=== PATIENT | female | born 1955 | race Caucasian/White ===

== ENCOUNTER 2019-08-16 10:45 | Outpatient (RCR) | payer BC, SELFPAY | END 2019-09-04 00:01 | LOC: ONCMED 10:45 | PROVIDERS: Family Provider Family Medicine; Visit Provider Internal Medicine Hematology & Oncology | DX: E87.6 Hypokalemia (principal); C15.5 Malignant neoplasm of lower third of esophagus; E03.9 Hypothyroidism, unspecified; N93.8 Other specified abnormal uterine and vaginal bleeding; D50.9 Iron deficiency anemia, unspecified; Z93.1 Gastrostomy status; Z79.891 Long term (current) use of opiate analgesic; Z92.21 Personal history of antineoplastic chemotherapy; Z92.3 Personal history of irradiation | CPT/HCPCS: 36415; 80053 ×2; 83735 ×2; 85025 ×2; 96365; 96366; 99214; J1642 ×2 ==

== ENCOUNTER 2019-10-04 05:39 | Outpatient (RCR) | payer BC, SELFPAY ==
[2019-09-17] MEDS: sodium chlor 0.9% + KCl 20 mEq 20 MEQ/1,000 ML BAG 500 MEQ IV (10:30)
[2019-09-17 10:51] LABS: Basophils % 0.3 %; Eosinophils # 0.2 10^3/uL (0.0-0.8); Hematocrit 41.4 % (37.0-47.0); Hemoglobin 13.1 g/dL (11.5-15.3); Lymphocytes # 0.7 10^3/uL (0.8-4.8); Lymphocytes % 6.3 %; Mean Corpuscular HGB Conc 31.6 g/dL (30.0-36.0); Mean Corpuscular Hemoglobin 30.4 pg (28.0-34.0); Mean Corpuscular Volume 96.1 fL (81-99); Mean Platelet Volume 10.8 fL (7.4-10.4); Monocytes # 0.7 10^3/uL (0.2-0.9); Monocytes % 5.8 %; Neutrophils # 9.9 10^3/uL (1.8-7.7); Neutrophils % 85.2 %; Nucleated Red Blood Cells % 0 %; Platelet Count 377 10^3/cmm (130-400); Red Blood Count 4.31 10^6/uL (4.1-5.3); Red Cell Distribution Width 13.8 % (12.1-15.1); White Blood Count 11.6 10^3/uL (4.0-10.0)
[2019-09-17 11:06] LABS: Alanine Aminotransferase 8 U/L (0-33); Albumin Level 3.8 g/dL (3.5-5.2); Alkaline Phosphatase 54 IU/L (35-105); Anion Gap 21.6 (5-19); Aspartate Amino Transferase 22 U/L (0-32); Blood Urea Nitrogen 7 mg/dL (8-23); Calcium 10.2 mg/Dl (8.8-10.2); Carbon Dioxide 28 mmol/L (22-29); Chloride 92 mmol/L (98-107); Globulin 3.2 g/dL (1.3-4.6); Glomerular Filtration Rate 124.2 mL/min (90-130); Glucose 132 mg/dL (74-106); Sodium 139 mmol/L (136-145); Total Bilirubin 0.7 mg/dL (0.15-1.2)
[2019-09-17 11:13] LABS: Potassium 2.6 mmol/L (3.5-5.1)
[2019-09-17 11:40] LABS: Magnesium 1.7 mg/dL (1.7-2.3)
--- NOTE | 2019-09-17 15:19 | ONC FU_ITS ---
Dr. Mccormick follow up note Patient: Nerissa Morillo Unit #: [id number]: [id number] Dicatated By: Phyllis Mccormick M.D.Date of Visit:Sep 17, 2019 Onc Med Follow-up/Prog Note History of Present Illness: Mrs. Morillo is a 64-year-old female, who was recently diagnosed with distal esophageal adenocarcinoma. As per patient she did experience progressive dysphagia, about 15 pounds weight loss over the last couple months. She was evaluated with CT scan of chest on 11/30/2018 which showed mid to distal esophageal mass extends over 7.8 cm with near complete obstruction of lumen. No lymphadenopathy or other abnormality seen. She subsequently underwent EGD on 12/01/2018 which showed circumferential esophageal mass extending from 30-35 cm with narrowing of lumen. Multiple biopsies were obtained, and it confirmed adenocarcinoma. Stomach and duodenum showed no abnormality. She was referred to [facility] in [place] where she underwent further workup including repeat EGD on 12/06/2018. It showed a fungating mass lesion at 34 cm from incisors and extending into GE junction. No involvement of gastric mucosa was identified. Multiple fundic gland polyps were noted in stomach, esophageal stent was placed in. Underwent CT PET scan on 12/15/2018 which showed there is increased activity in the distal esophagus corresponding to location of the esophageal stent. Maximum SUV 10.8. Physiological activity typically identified in the gastric fundus appears more intense 9.8 which is of questionable significance. No evidence of metastatic disease. Small focus of abnormal activity in the fundus of uterus with a maximum SUV 6.5 MRI scan of head on 12/11/2018 showed no evidence of metastatic disease but minimal microvascular chronic ischemic changes. Ms Morillo nderwent J-tube insertion on 12/12/2018 and port placement to facilitate chemotherapy. She did develop wound infection around her J-tube requiring surgical intervention and wound care for extended period time. Now healing well, but this postop complication caused delay in her combined chemoradiation for esophageal cancer. She began her first week of combination therapy with carboplatin/paclitaxel and radiation on 03/12/2019. And last dose of chemotherapy was given on 03/26/2019 and after that she developed persistent leukopenia and due to poor performance chemotherapy was held and patient continue with radiation therapy which she finished 04/19/2019. Patient went to see Dr. Taylor in [place] for evaluation for esophagectomy but due to her poor performance status he give her a return appointment on 06/27/2019 to see for performance status improves at that time. Was referred to GI surgery [facility] for second opinion, Seen Dr. Henriquez, medical oncologist who recommended CT PET scan and PFTs and 6 minute walk test earlier Dr. Hayden in [place] for EGD which was done on 07/27/2019, biopsy was obtained As per patient it was positive for malignancy.came for follow-up, complaining of Progressive dysphagia and her G-tube came out on its own for which she has seen Dr. Wiseman and wound is healing well. Patient was very pleased with evaluation in [place] and agreed for the workup recommended there Medications: Acetaminophen Extra Strength 15 mL (of 500 mg/15mL) Liquid Oral PRN, All Day Allergy Childrens 7 mL (of 1 mg/mL) Solution Oral daily, [employer] Eye Lubricant Ointment Ophthalmic PRN, Ondansetron HCl 4 - 8 mg (of 4 mg/5mL) Solution Oral t.i.d. PRN, Potassium Chloride 15 mL (of 20 meq/15ml -10%) Solution Oral daily Allergies: Latex and sulfa. Review of Systems: Constitutional - Appetite is fair but Pt is unable to eat/drink except very small amounts of thin consistency liquids. Weight is stable. No fever, chills, hot flashes, or night sweats. Energy level is poor, ENMT - Positive for sinus congestion/drainage. No mouth sores. Positive for sore throat. Positive for difficulty swallowing, Hematologic/Lymphatic - No abnormal bruising or bleeding, Respiratory - No shortness of breath. Positive for cough. No pleuritic pain or hemoptysis, Cardiovascular - No angina pain. No palpitations, Gastrointestinal - Positive nausea and vomiting. Decreased heartburn and acid reflux. No diarrhea or constipation. No blood in the stool or black stools, Genitourinary (F) - No dysuria or hematuria. Positive for urinary frequency. No urgency or incontinence, Musculoskeletal - No joint or bone pain, Integumentary - Positive for edema in bilateral lower extremities, Neurologic - No headache. Occasional dizziness, Psychiatric - No anxiety, no depression. No insomnia. Vital Signs: Performed on Sep 17, 2019 10:18 Height - 69.50 in Temperature - 97.7 F (LOW) Pulse - 103 /min (HIGH) Respiration - 18 /min BP - 111/75 mm(hg) O2 Sat - 97 % Pain - 6 Fatigue - 5 Performance Status: 2 - Ambulatory/capable of all self-care, unable to perform any work activities. Up and about more than 50% of waking hours. (ECOG) Physical Examination: ENMT - No oral exudates, ulcers, masses, thrush or mucositis. Oropharynx clear. Tongue normal, Respiratory - Lungs are clear to auscultation without rhonchi or wheezing, Cardiovascular - Regular rate and rhythm of heart, Extremities - no edema. Lab/Imaging: Test performed on Sep 17, 2019 10:12 Glucose 132 mg/dL BUN 7 mg/dL Creatinine 0.5 mg/dL Cr Clearance (Est) 134.14 mL/min Sodium 139 mmol/L Potassium 2.6 mmol/L Chloride 92 mmol/L CO2 28 mmol/L Calcium 10.2 mg/dL Protein, Total 7.0 g/dL Albumin 3.8 g/dL Globulin 3.2 g/dL Bilirubin, Total 0.7 mg/dL Alkaline Phosphatase 54 IU/L AST (SGOT) 22 IU/L ALT (SGPT) 8 IU/L WBC 11.6 10 3/uL RBC 4.31 10^6/uL HGB 13.1 g/dL HCT 41.4 % MCV 96.1 fL MCH 30.4 pg MCHC 31.6 g/dL RDW 13.8 % Platelet Count 377 10^3/uL MPV 10.8 fL Neutrophils 9.9 10 3/uL Neutrophil % 85.2 % Lymphocyte % 6.3 % Monocyte % 5.8 % Basophils % 0.3 % Test performed on Sep 17, 2019 10:00 Magnesium 1.7 mg/dL Test performed on Aug 16, 2019 10:45 Anion Gap 16.2 eGFR 224.0 mL/min Lymphocytes 0.4 10 3/uL Monocytes 0.4 10 3/uL Eosinophils 0.2 10 3/uL Basophils 0.0 10 3/uL Eosinophil % 2.0 % Test performed on Apr 16, 2019 09:25 Ferritin 1054.0 ng/ml Iron 87 ug/dL % Iron Saturation 36.8 % Impression: Adenocarcinoma of distal esophagus per EGD and biopsies done on 12/01/2018 CT PET scan done on 12/15/2018 showed localized disease, no evidence of lymphadenopathy or distant metastases Clinical stage T2-3, Nx,M0 Focus of increased uptake in the uterus Dysphagia due to above status post esophageal stenting and now with J-tube MRI head done on 12/11/2018, showed no brain metastases but microvascular ischemic disease Hypothyroidism on supplements Dysfunctional uterine bleeding, CT PET scan showed increased uptake in uterus. Ms Morillo began carboplatin/Taxol and radiation on 03/12/2019. She was found to be iron deficient and received Injectafer o 03/23/19 & 03/30/19. Her last dose of CArboplatin/paclitaxel was on 03/26/19. .Due to progressive leukopenia, she could not receive further chemotherapy but continue with radiation alone which she completed on 04/19/2019 Plan: Discussed with patient regarding her labs white blood count 11.6 Imodium 13.1 crit 41.4 platelets 377,000 CMP within normal limit except Potassium 2.6 and magnesium 1.7 Clinically, patient is doing reasonably well now with progressive dysphagia probably due to local recurrence patient was referred to tertiary care center for evaluation and CT PET scan, PFT and 6 minute walk as preoperative workup was recommended. At this we will schedule her for CT PET scan and PFTs and 6 minute walk and if PET scan shows localized disease then surgical evaluation otherwise systemic chemotherapy with FOLFOX and G-tube placement to maintain nutrition and hydration. In the meantime we'll maintain hydration in clinic on as-needed basis. Patient was also advised to try small meals and more often. As far as hypokalemia is concerned patient was supposed to be on potassium supplement but recently stopped taking her potassium. We will give her 20 mg intravenously over 2 hours along with by mouth dose and then patient was advised to continue regular potassium supplements at home as directed and then patient will return to clinic after CT PET scan for further discussion. As her tumor is HER-2/lucy negative we will also check PDL 1 status Signed By: Phyllis Mccormick M.D. <<Signature on File>>
[2019-09-21] MEDS: sodium chloride 0.9% 500 ML 999 ML IV (08:45)
[2019-09-24] MEDS: sodium chloride 0.9% 500 ML 999 ML IV (13:26)
[2019-09-26] MEDS: sodium chloride 0.9% 500 ML 999 ML IV (13:35)
[2019-09-26 14:03] LABS: Alanine Aminotransferase 7 U/L (0-33); Albumin Level 3.4 g/dL (3.5-5.2); Alkaline Phosphatase 49 IU/L (35-105); Anion Gap 21.2 (5-19); Aspartate Amino Transferase 18 U/L (0-32); Blood Urea Nitrogen 7 mg/dL (8-23); Calcium 9.6 mg/Dl (8.8-10.2); Carbon Dioxide 29 mmol/L (22-29); Chloride 93 mmol/L (98-107); Globulin 3.6 g/dL (1.3-4.6); Glomerular Filtration Rate 160.7 mL/min (90-130); Glucose 107 mg/dL (74-106); Sodium 141 mmol/L (136-145); Total Bilirubin 0.7 mg/dL (0.15-1.2)
[2019-09-26 14:10] LABS: Potassium 2.2 mmol/L (3.5-5.1)
[2019-09-26] MEDS: potassium chloride 20 MEQ in sodium chloride 0.9% 500 ML 250 MEQ IV (14:25)
[2019-09-26] MEDS: potassium chloride oral liq 20 mEq/15 mL UDC PO (14:35)
[2019-09-26 14:42] LABS: Magnesium 1.6 mg/dL (1.7-2.3)
[2019-09-28] MEDS: sodium chloride 0.9% 500 ML 999 ML IV (09:20)
[2019-09-28 10:09] LABS: Miscellaneous Test See Scanned Lab Rpt
[2019-10-01] MEDS: sodium chloride 0.9% 500 ML 999 ML IV (14:13)
--- NOTE | 2019-10-02 10:02 | CT_ITS ---
WS: [id number] CT scan of the chest With IV contrast, CT scan of the abdomen and pelvis with IV contrast. Addition al two-dimensional coronal and sagittal reconstruction was performed. 10/02/2019 Clinical Data: ESOPHAGEAL CANCER Comparison: CT chest abdomen and pelvis, 05/23/2019, CT chest, 11/30/2018. DLP: 1012.[address] scans at [facility] use at least one of these dose optimization techniques: automat ed exposure control; mA and/or kV adjustment per patient size (includes targeted exams where dose is matched to clinical indication); or iterative reconstruction. Findings: Chest: No nodules, masses or effusions are seen. There is a port infusion overlying the right chest with the catheter ending in the superior vena cava. There has been insertion of an artificial esophageal tube connecting the distal esophagus with the stomach. Soft tissue does surround the esophageal tube and this may be from surgery as opposed to residual tumor. The heart size is normal with no pericardial effusion. The pulmonary arterial system and thoracic aorta demonstrate no abnormalities or dilatations. There is no axillary or significant mediastinal adenopathy. No bony metastatic disease is seen. Abdomen/pelvis: The gallbladder is densely packed with stones. The liver, spleen, adrenal glands and pancreas are no rmal. The kidneys show equal bilateral contrast excretion with no cyst or masses. The abdominal aorta is normal in size. No appendicitis or diverticulitis is seen. No abscess, adenopathy, ascites, mass, obstruction or free air is seen. The small bowel and colon are not remarkable. The bladder and uterus are unremarkable. No inguinal hernia is seen. The bones of the lower thorax, lumbar spine, pelvis, and hips are normal. CT/CT chest abd pel w con* Impression: 1. Artificial esophageal tube inserted from the lower esophagus into the fundus of stomach. 2. No evidence of residual esophageal mass or metastatic disease. 3. Gallbladder densely packed with stones.
[2019-10-02] MEDS: iohexol 300 mg/mL 50 mL Btl IV (10:07)
[2019-10-02] MEDS: iodixanol 320 mg/mL 100mL Btl IV (11:35)
[2019-10-03] MEDS: sodium chloride 0.9% 500 ML 999 ML IV (09:00)
[2019-10-03 09:27] LABS: Basophils % 0.4 %; Eosinophils # 0.1 10^3/uL (0.0-0.8); Eosinophils % 0.9 %; Hematocrit 41.2 % (37.0-47.0); Hemoglobin 12.7 g/dL (11.5-15.3); Lymphocytes # 0.7 10^3/uL (0.8-4.8); Lymphocytes % 6.4 %; Mean Corpuscular HGB Conc 30.8 g/dL (30.0-36.0); Mean Corpuscular Hemoglobin 30.7 pg (28.0-34.0); Mean Corpuscular Volume 99.5 fL (81-99); Mean Platelet Volume 11.7 fL (7.4-10.4); Monocytes # 0.7 10^3/uL (0.2-0.9); Monocytes % 6.2 %; Neutrophils # 9.2 10^3/uL (1.8-7.7); Neutrophils % 85.8 %; Nucleated Red Blood Cells % 0 %; Platelet Count 298 10^3/cmm (130-400); Red Blood Count 4.14 10^6/uL (4.1-5.3); Red Cell Distribution Width 15.2 % (12.1-15.1); White Blood Count 10.7 10^3/uL (4.0-10.0)
[2019-10-03 09:43] LABS: Alanine Aminotransferase 10 U/L (0-33); Albumin Level 3.3 g/dL (3.5-5.2); Alkaline Phosphatase 50 IU/L (35-105); Aspartate Amino Transferase 25 U/L (0-32); Blood Urea Nitrogen 12 mg/dL (8-23); Calcium 9.4 mg/dL (8.5-10.5); Carbon Dioxide 37 mmol/L (22-29); Chloride 93 mmol/L (98-107); Globulin 3.6 g/dL (1.3-4.6); Glomerular Filtration Rate 160.7 mL/min (90-130); Glucose 118 mg/dL (74-106); Sodium 146 mmol/L (136-145); Total Bilirubin 0.7 mg/dL (0.15-1.2); Total Protein 6.9 g/dL (6.6-8.7)
[2019-10-03] MEDS: sodium chlor 0.9% + KCl 40 mEq 40 MEQ/1,000 ML BAG 250 MEQ IV (11:10)
--- NOTE | 2019-10-03 15:53 | ONC FU_ITS ---
Dr. Mccormick follow up note Patient: Nerissa Morillo Unit #: [id number]: [id number] Dicatated By: Phyllis Mccormick M.D.Date of Visit:Oct 03, 2019 Onc Med Follow-up/Prog Note History of Present Illness: Mrs. Morillo is a 64-year-old female, who was recently diagnosed with distal esophageal adenocarcinoma. As per patient she did experience progressive dysphagia, about 15 pounds weight loss over the last couple months. She was evaluated with CT scan of chest on 11/30/2018 which showed mid to distal esophageal mass extends over 7.8 cm with near complete obstruction of lumen. No lymphadenopathy or other abnormality seen. She subsequently underwent EGD on 12/01/2018 which showed circumferential esophageal mass extending from 30-35 cm with narrowing of lumen. Multiple biopsies were obtained, and it confirmed adenocarcinoma. Stomach and duodenum showed no abnormality. She was referred to [facility] in [place] where she underwent further workup including repeat EGD on 12/06/2018. It showed a fungating mass lesion at 34 cm from incisors and extending into GE junction. No involvement of gastric mucosa was identified. Multiple fundic gland polyps were noted in stomach, esophageal stent was placed in. Underwent CT PET scan on 12/15/2018 which showed there is increased activity in the distal esophagus corresponding to location of the esophageal stent. Maximum SUV 10.8. Physiological activity typically identified in the gastric fundus appears more intense 9.8 which is of questionable significance. No evidence of metastatic disease. Small focus of abnormal activity in the fundus of uterus with a maximum SUV 6.5 MRI scan of head on 12/11/2018 showed no evidence of metastatic disease but minimal microvascular chronic ischemic changes. Ms Morillo nderwent J-tube insertion on 12/12/2018 and port placement to facilitate chemotherapy. She did develop wound infection around her J-tube requiring surgical intervention and wound care for extended period time. Now healing well, but this postop complication caused delay in her combined chemoradiation for esophageal cancer. She began her first week of combination therapy with carboplatin/paclitaxel and radiation on 03/12/2019. And last dose of chemotherapy was given on 03/26/2019 and after that she developed persistent leukopenia and due to poor performance chemotherapy was held and patient continue with radiation therapy which she finished 04/19/2019. Patient went to see Dr. Taylor in [place] for evaluation for esophagectomy but due to her poor performance status he give her a return appointment on 06/27/2019 to see for performance status improves at that time. Was referred to GI surgery [facility] for second opinion, Seen Dr. Henriquez, medical oncologist who recommended CT PET scan and PFTs and 6 minute walk test earlier Dr. Hayden in [place] for EGD which was done on 07/27/2019, biopsy was obtained As per patient it was positive for malignancy. She was referred to GI surgical oncologist at [facility] where she was evaluated by Dr. henriquez medical oncologist on 09/17/2019 and his recommendations were to get his CT PET scan, PFTs, 6 minute walk test and referred to Dr. Florez for consideration of surgery after workup is done. He also recommended PDL 1 status, which was checked on 09/19/2019 which showed PDL 1 positive expression level, CPS more than 10. CT PET scan was ordered but her insurance refused and asked for CT scan of chest abdomen prior to CT PET scan so patient underwent CT scan of chest abdomen on 10/02/2019 which showed artificial esophageal tube inserted from the lower esophagus into fundus of stomach No evidence of residual esophageal mass or metastatic disease. Gallbladder densely packed with stones. Came for follow-up, complaining of dysphagia, vomiting,' inability to swallow food down to the stomach'her G-tube is already out. Now being managed with IV hydration. Also complaining of epigastric pain off and on for many weeks. . No fever or chills, diarrhea constipation, no jaundice, no mouth sores, no shortness of breath. But generalized weakness and fatigue. She was on potassium supplement but cannot swallow pills or liquid potassium. Medications: Acetaminophen Extra Strength 15 mL (of 500 mg/15mL) Liquid Oral PRN, All Day Allergy Childrens 7 mL (of 1 mg/mL) Solution Oral daily, [employer] Eye Lubricant Ointment Ophthalmic PRN, Ondansetron HCl 4 - 8 mg (of 4 mg/5mL) Solution Oral t.i.d. PRN, Potassium Chloride 15 mL (of 20 meq/15ml -10%) Solution Oral daily Allergies: Latex and sulfa. Review of Systems: Constitutional - Appetite is poor as Pt is unable to eat/drink. Weight is decreasing. No fever, chills, hot flashes, or night sweats. Energy level is poor, ENMT - Positive for sinus congestion/drainage. No mouth sores. Positive for sore throat. Positive for difficulty swallowing, Hematologic/Lymphatic - No abnormal bruising or bleeding, Respiratory - No shortness of breath. Positive for cough. No pleuritic pain or hemoptysis, Cardiovascular - No angina pain. No palpitations, Gastrointestinal - Positive nausea and vomiting. Decreased heartburn and acid reflux. No diarrhea or constipation. No blood in the stool or black stools, Genitourinary (F) - No dysuria or hematuria. Positive for urinary frequency. No urgency or incontinence, Musculoskeletal - No joint or bone pain, Integumentary - Positive for edema in bilateral lower extremities, Neurologic - No headache. Occasional dizziness, Psychiatric - No anxiety, no depression. No insomnia. Vital Signs: Performed on Oct 03, 2019 09:04 Height - 69.50 in Pulse - 71 /min Respiration - 18 /min BP - 101/62 mm(hg) O2 Sat - 95 % (LOW) Pain - 0 Fatigue - 8 Performance Status: 2 - Ambulatory/capable of all self-care, unable to perform any work activities. Up and about more than 50% of waking hours. (ECOG) Physical Examination: Hematologic/Lymphatic - no jaundice, no mouth sores, Respiratory - Lungs are clear to auscultation, Abdomen - soft bowel sounds present no rebound tenderness, Extremities - 1+ edema. Lab/Imaging: Test performed on Sep 17, 2019 10:12 Glucose 132 mg/dL BUN 7 mg/dL Creatinine 0.5 mg/dL Cr Clearance (Est) 134.14 mL/min Sodium 139 mmol/L Potassium 2.6 mmol/L Chloride 92 mmol/L CO2 28 mmol/L Calcium 10.2 mg/dL Protein, Total 7.0 g/dL Albumin 3.8 g/dL Globulin 3.2 g/dL Bilirubin, Total 0.7 mg/dL Alkaline Phosphatase 54 IU/L AST (SGOT) 22 IU/L ALT (SGPT) 8 IU/L WBC 11.6 10 3/uL RBC 4.31 10^6/uL HGB 13.1 g/dL HCT 41.4 % MCV 96.1 fL MCH 30.4 pg MCHC 31.6 g/dL RDW 13.8 % Platelet Count 377 10^3/uL MPV 10.8 fL Neutrophils 9.9 10 3/uL Neutrophil % 85.2 % Lymphocyte % 6.3 % Monocyte % 5.8 % Basophils % 0.3 % Test performed on Sep 17, 2019 10:00 Magnesium 1.7 mg/dL Test performed on Aug 16, 2019 10:45 Anion Gap 16.2 eGFR 224.0 mL/min Lymphocytes 0.4 10 3/uL Monocytes 0.4 10 3/uL Eosinophils 0.2 10 3/uL Basophils 0.0 10 3/uL Eosinophil % 2.0 % Test performed on Apr 16, 2019 09:25 Ferritin 1054.0 ng/ml Iron 87 ug/dL % Iron Saturation 36.8 % Impression: Adenocarcinoma of distal esophagus per EGD and biopsies done on 12/01/2018 CT PET scan done on 12/15/2018 showed localized disease, no evidence of lymphadenopathy or distant metastases Clinical stage T2-3, Nx,M0 Focus of increased uptake in the uterus Dysphagia due to above status post esophageal stenting and now with J-tube MRI head done on 12/11/2018, showed no brain metastases but microvascular ischemic disease Hypothyroidism on supplements Dysfunctional uterine bleeding, CT PET scan showed increased uptake in uterus. Ms Morillo began carboplatin/Taxol and radiation on 03/12/2019. She was found to be iron deficient and received Injectafer o 03/23/19 & 03/30/19. Her last dose of CArboplatin/paclitaxel was on 03/26/19. .Due to progressive leukopenia, she could not receive further chemotherapy but continue with radiation alone which she completed on 04/19/2019 Plan: Discussed with patient regarding her labs white blood count 10.7 hemoglobin 12.7 crit 41.2 platelets 298,000 CMP within normal limit except potassium 2, magnesium normal 2.1 Clinically, patient is doing reasonably well but in moderate distress due to unable to feed herself because of' inability to swallow food down to the stomach', her CT scan of chest showed no residual esophageal mass but esophageal stent, so possibility could be stent clogging or malfunctioning. And nausea vomiting and epigastric pain could be due to gallbladder pathology as patient has gallstones, underlying cholecystitis cannot be ruled out. Discussed with patient at this point we will consider referred to GI for EGD and for evaluation of functioning of esophageal stent or stent removal if not possible J-tube placement and also discuss with surgery regarding gallbladder management. Patient prefer to consult Dr. Florez . In the meantime we will supplement potassium intravenously 40 mEq intravenously over 4 hours and then repeat potassium level in the morning and if needed another k Run. Her tumor expressed PDL 1, e.g. expression score was more than 10. So if needed pembrolizumab can be considered if surgery is delayed due to performance status or any other reasons. We will discuss her case with regarding his opinion about esophagectomy and cholecystectomy upfront now or cholecystectomy and J-tube now or stent removal or replacement. Signed By: Phyllis Mccormick M.D. <<Signature on File>>
[2019-10-04 10:12] LABS: Potassium 2.4 mmol/L (3.5-5.1)
[2019-10-04] MEDS: sodium chlor 0.9% + KCl 40 mEq 40 MEQ/1,000 ML BAG 250 MEQ IV (11:00)
== END 2019-10-05 23:59 | disposition home or self-care (01) ==
LOC: ONCMED 05:39
PROVIDERS: Nurse Practitioner; Family Provider Family Medicine; PCP Family Medicine; Visit Provider Internal Medicine Hematology & Oncology
DX: E86.0 Dehydration (principal); E87.6 Hypokalemia; C15.5 Malignant neoplasm of lower third of esophagus; E03.9 Hypothyroidism, unspecified; N93.8 Other specified abnormal uterine and vaginal bleeding; Y83.8 Other surgical procedures as the cause of abnormal reaction of the patient, or of later complication, without mention of misadventure at the time of the procedure; Y73.1 Therapeutic (nonsurgical) and rehabilitative gastroenterology and urology devices associated with adverse incidents; K94.23 Gastrostomy malfunction; Z92.3 Personal history of irradiation; Z92.21 Personal history of antineoplastic chemotherapy
CPT/HCPCS: 36591; 71260; 74177; 80053; 83735; 84132; 85025; 88341; 88342; 96360; 96361; 96365; 96366; 96367; 99214; J2405; J3475; J3480; J7040; Q9967

== ENCOUNTER 2019-10-04 15:21 | Emergency (ER) | payer BC, SELFPAY ==
[2019-10-04 15:28] VITALS: BP 109/82; PULSE 91; RESP 20; TEMP 36.6; O2SAT 98; BMI 21.5
--- NOTE | 2019-10-04 15:38 | ED_ITS ---
Entered by Brenda Donnelly, acting as scribe for Wojciech Garcia DO Documented by User: Wojciech Garcia DO 10/04/19 18:24 HPI - General Adult General: Chief complaint: General Medical Stated complaint: CA pt-dehydrated Time Seen by Provider: 10/04/19 15:38 History of Present Illness: HPI narrative: 64 yo female was sent here from Dr. Mccormick's office for further evaluation. Pt states that she is having issues keep ing things down. Pt states that she hasn't been able to keep anything down. Pt states that her potassium was critically low, she got a transfusion. Pt states that she had a esophegeal stent and it is not working properly. Pt states that she has to take very small sips. Onset (ago): week(s) Associated symptoms: Reports malaise, nausea and vomiting; Deny chest pain, dyspnea, headache(s), rash or palpitations Review of Systems Const: Reports: change in appetite, fatigue and malaise; Denies: fever, chills or body aches Eyes: Denies: change in vision, blurry vision, blind spots or photophobia ENMT: Denies: throat pain, uvular edema, enlarged tonsils, painful swallowing, mouth pain or swelling of lips/tongue Card: Denies: chest pain, palpitations, irregular heart rhythm, edema, swelling of feet/ankles or lightheadedness Resp: Denies: shortness of breath, productive cough, non-productive cough, wheezing or stridor GI: Reports: nausea and vomiting : Denies: flank pain, difficulty urinating, painful urination, urinary frequency or urinary urgency Musc: Denies: neck pain, back pain, extremity pain, extremity swelling, joint pain, joint swelling, redness, joint warmth, joint stiffness or limited range of motion Skin/Breast: Denies: rash, itching, redness, sensitivity to light or skin pain Neuro: Denies: headache, numbness in extremities, weakness in extremities or changes in sensation Psych: Denies: anxiety, depression, mood swings, panic attacks or sleeping less Endo: Denies: excessive urination, excessive thirst, tired all the time or cold intolerance PFSH ED PFSH: Statuses (acute, chronic, etc) shown below reflect problem list status as previously entered and may not be historically accurate Medical History Esophageal cancer (Acute) History of endometrial biopsy (Acute) Hypothyroidism (Acute) Jejunostomy tube fell out (Inactive) Surgical History History of arthroscopy of left knee (Acute) History of cataract surgery (Acute) History of esophagogastroduodenoscopy (EGD) (Acute ~11/2018) History of jejunostomy tube placement (Resolved) History of umbilical hernia repair (Acute) Family History Other Cancer Hyperlipidemia Hypertension Denies family history of Clotting disorder Anesthesia complication Bleeding disorder Social History Smoking and tobacco status: former smoker Female Reproductive History: Para: 1 Physical Exam Const: COMMON NORMALS: no apparent distress, average body habitus, oriented x3, no limitations, healthy appearing, alert and well nourished HENMT: COMMON NORMALS: oral mucous membranes not moist THROAT: no uvular edema Eye: COMMON NORMALS: PERRL, EOMs intact bilaterally, conjunctivae normal, no scleral icterus, no papilledema, normal visual wall by confrontation and fundi normal bilaterally CONJUNCTIVA: Yes conjunctivae normal PUPIL: Yes PERRL DIRECT OPHTHALMOSCOPY: Yes no papilledema and Yes fundi normal bilaterally Neck/C-Spine: COMMON NORMALS: full ROM, no lymphadenopathy, supple, no meningeal signs, no JVD, thyroid normal and no carotid bruits THYROID: thyroid normal Chest: COMMONS NORMALS: inspection of chest normal and palpation of chest normal Resp: COMMON NORMALS: normal respiratory effort, no retractions, no use of accessory muscles, clear to auscultation bilaterally and percussion normal AUSCULTATION: clear to auscultation bilaterally PERCUSSION: percussion normal Cardio: COMMON NORMALS: no JVD, regular rate, regular rhythm, S1 normal heart sound, S2 normal heart sound, no gallops, no clicks, no murmurs, no rub and peripheral pulses 2+ throughout RATE: regular rate RHYTHM: regular rhythm HEART SOUNDS: S1 normal and S2 normal PERIPHERAL PULSES: pulses 2+ throughout GI: COMMON NORMALS: soft to palpation, non-tender, no hepatosplenomegaly, no masses and no bruits AUSCULTATION: Yes hypoactive bowel sounds PALPATION: Yes soft and Yes no hepatosplenomegaly : COMMON NORMALS: Yes no CVA tenderness and Yes external appearance normal BLADDER/KIDNEY EXAM: Yes no CVA tenderness Back/Pelvis: COMMON NORMALS: no CVA tenderness, thoracic and lumbar spine normal to inspection, no thoracic nor lumbar tenderness, thoraco-lumbar ROM normal and straight leg raise negative bilaterally Extremity: COMMON NORMALS: normal to inspection, full ROM, normal capillary refill, no joint enlargement, no clubbing, cyanosis or edema, no calf tenderness and no pedal edema Neuro: COMMON NORMALS: oriented x3 SENSORIUM/ORIENTATION: Yes alert MENINGEAL SIGNS: Yes no meningeal signs Skin: COMMON NORMALS: no rashes or lesions noted, no wounds, skin turgor normal, no jaundice, no petechiae and no mottling GENERAL SKIN EXAM: no rashes or lesions noted and turgor normal Course Consultations: Consultation #1: contacted [facility] for pts blocked esophageal stent, Dr. Freire requested we transfer pt to that hospital. Transfer line stated that they will contact GI and ENT and call us back. Time: 17:00 Consultation #2: Transfer line contacted back, spoke with Dr. Inman (GI specialist). He is on board with plan of care. Transfer line stated that they will contact ENT now and give us another call back. We will be awaiting their phone call. Time: 17:47 Vital Signs: Vital signs: Vital Signs Temperature 97.9 F 10/04/19 15:28 Pulse Rate 82 10/04/19 21:00 Respiratory Rate 21 H 10/04/19 21:00 Blood Pressure 147/71 10/04/19 21:00 Pulse Oximetry 95 10/04/19 21:00 [facility] - General Adult Lab Data: Labs: Lab Results 10/04/19 10/04/19 10/04/19 Range/Units 16:20 16:20 16:20 WBC 11.3 H (4.0-10.0) 10^3/ uL RBC 3.86 L (4.1-5.3) 10^6/u L Hgb 11.8 (11.5-15.3) g/dL Hct 39.1 (37.0-47.0) % MCV 101.3 H (81-99) fL MCH 30.6 (28.0-34.0) pg MCHC 30.2 (30.0-36.0) g/dL RDW 15.3 H (12.1-15.1) % Plt Count 246 (130-400) 10^3/c mm MPV 11.4 H (7.4-10.4) fL Neut % (Auto) 89.8 % Lymph % (Auto) 3.5 % Nelson % (Auto) 5.2 % Eos % (Auto) 0.6 % Baso % (Auto) 0.4 % Neut # (Auto) 10.1 H (1.8-7.7) 10^3/u L Lymph # (Auto) 0.4 L (0.8-4.8) 10^3/u L Nelson # (Auto) 0.6 (0.2-0.9) 10^3/u L Eos # (Auto) 0.1 (0.0-0.8) 10^3/u L Baso # (Auto) 0.0 (0.0-0.1) 10^3/u L Nucleated RBC % (a uto) 0 % Nucleated RBCs # 0.0 /100WBC Sodium 150 H (136-145) mmol/L Potassium 2.5 L* (3.5-5.1) mmol/L Chloride 102 (98-107) mmol/L Carbon Dioxide 30 H (22-29) mmol/L Anion Gap 20.5 H (5-19) BUN 9 (8-23) mg/dL Creatinine 0.4 L (0.5-0.9) mg/dL GFR Calculation 160.7 H (90-130) mL/min Glucose 99 (74-106) mg/dL Lactate 1.1 (0.5-2.2) mmol/L Calcium 9.1 (8.5-10.5) mg/dL Phosphorus 2.6 (2.5-4.5) mg/dL Magnesium 1.8 (1.7-2.3) mg/dL Total Bilirubin 0.7 (0.15-1.2) mg/dL AST 28 (0-32) U/L ALT 13 (0-33) U/L Alkaline Phosphata se 48 (35-105) IU/L Total Protein 6.4 L (6.6-8.7) g/dL Albumin 3.2 L (3.5-5.2) g/dL Globulin 3.2 (1.3-4.6) g/dL Lipase 6 L (13-60) U/L Discharge Plan Discharge Patient Disposition: Xfer Other Clinical Impression: Chronic hypokalemia Esophageal cancer Qualifiers: Malignant neoplasm of esophagus location: unspecified location Qualified Code(s): C15.9 - Malignant neoplasm of esophagus, unspecified Dysphagia Qualifiers: Dysphagia type: esophageal phase Qualified Code(s): R13.10 - Dysphagia, unspecified Condition: Stable Referrals: Austin Campoverde DO [Primary Care Provider] - Sign Out Sign Out Data: Patient Sign Out occurred on 10/04/19 at 18:09. Patient's care was discussed, and care was transferred from to Corie Snider. Coding Level of Care Code ED Technical Inspector for Chg Fwd Exam Problem Focused Documented by User: Corie Snider 10/04/19 21:58 HPI - General Adult General: Chief complaint: General Medical Stated complaint: CA pt-dehydrated Time Seen by Provider: 10/04/19 15:38 PFSH ED PFSH: Statuses (acute, chronic, etc) shown below reflect problem list status as previously entered and may not be historically accurate Medical History Esophageal cancer (Acute) History of endometrial biopsy (Acute) Hypothyroidism (Acute) Jejunostomy tube fell out (Inactive) Surgical History History of arthroscopy of left knee (Acute) History of cataract surgery (Acute) History of esophagogastroduodenoscopy (EGD) (Acute ~11/2018) History of jejunostomy tube placement (Resolved) History of umbilical hernia repair (Acute) Family History Other Cancer Hyperlipidemia Hypertension Denies family history of Clotting disorder Anesthesia complication Bleeding disorder Social History Smoking and tobacco status: former smoker Course ED course: 2156 -[facility] ambulance services stated they will not take the patient till the morning. I have offered to transfer the patient by air ambulance service but she is refusing. She does not want the extra expense. She is not distress and she seems to be handling her secretions better than before but still occasionally spits up saliva. Despite my recommendation the patient is adamantly refusing transfer by helicopter. Vital Signs: Vital signs: Vital Signs Temperature 97.9 F 10/04/19 15:28 Pulse Rate 82 10/04/19 21:00 Respiratory Rate 21 H 10/04/19 21:00 Blood Pressure 147/71 10/04/19 21:00 Pulse Oximetry 95 10/04/19 21:00 MDM - General Adult MDM Narrative: Medical decision making narrative: 193 -the case was reviewed with [facility] again. The accepting physician is Dr. Peralta and Dr. Inman. I did inform them the patient was spitting up her own saliva but Dr. Smith had given this report to Dr. Kaye and a done the doc to doc. They require no further information and they have given us a bed number. The patient is aware she is being transferred this rate and is stable at this time. Lab Data: Attestation: I reviewed the patient's lab results. Labs: Lab Results 10/04/19 10/04/19 10/04/19 Range/Units 16:20 16:20 16:20 WBC 11.3 H (4.0-10.0) 10^3/ uL RBC 3.86 L (4.1-5.3) 10^6/u L Hgb 11.8 (11.5-15.3) g/dL Hct 39.1 (37.0-47.0) % MCV 101.3 H (81-99) fL MCH 30.6 (28.0-34.0) pg MCHC 30.2 (30.0-36.0) g/dL RDW 15.3 H (12.1-15.1) % Plt Count 246 (130-400) 10^3/c mm MPV 11.4 H (7.4-10.4) fL Neut % (Auto) 89.8 % Lymph % (Auto) 3.5 % Nelson % (Auto) 5.2 % Eos % (Auto) 0.6 % Baso % (Auto) 0.4 % Neut # (Auto) 10.1 H (1.8-7.7) 10^3/u L Lymph # (Auto) 0.4 L (0.8-4.8) 10^3/u L Nelson # (Auto) 0.6 (0.2-0.9) 10^3/u L Eos # (Auto) 0.1 (0.0-0.8) 10^3/u L Baso # (Auto) 0.0 (0.0-0.1) 10^3/u L Nucleated RBC % (a uto) 0 % Nucleated RBCs # 0.0 /100WBC Sodium 150 H (136-145) mmol/L Potassium 2.5 L* (3.5-5.1) mmol/L Chloride 102 (98-107) mmol/L Carbon Dioxide 30 H (22-29) mmol/L Anion Gap 20.5 H (5-19) BUN 9 (8-23) mg/dL Creatinine 0.4 L (0.5-0.9) mg/dL GFR Calculation 160.7 H (90-130) mL/min Glucose 99 (74-106) mg/dL Lactate 1.1 (0.5-2.2) mmol/L Calcium 9.1 (8.5-10.5) mg/dL Phosphorus 2.6 (2.5-4.5) mg/dL Magnesium 1.8 (1.7-2.3) mg/dL Total Bilirubin 0.7 (0.15-1.2) mg/dL AST 28 (0-32) U/L ALT 13 (0-33) U/L Alkaline Phosphata se 48 (35-105) IU/L Total Protein 6.4 L (6.6-8.7) g/dL Albumin 3.2 L (3.5-5.2) g/dL Globulin 3.2 (1.3-4.6) g/dL Lipase 6 L (13-60) U/L Discharge Plan Discharge Patient Disposition: Xfer Other Clinical Impression: Chronic hypokalemia Esophageal cancer Qualifiers: Malignant neoplasm of esophagus location: unspecified location Qualified Code(s): C15.9 - Malignant neoplasm of esophagus, unspecified Dysphagia Qualifiers: Dysphagia type: esophageal phase Qualified Code(s): R13.10 - Dysphagia, unspecified Condition: Stable Referrals: Austin Campoverde DO [Primary Care Provider] - Sign Out Sign Out Data: Patient Sign Out occurred on 10/04/19 at 18:09. Patient's care was discussed, and care was transferred from to [facility]. Coding Level of Care Code ED Technical Inspector for Chg Fwd Exam Problem Focused
[2019-10-04 15:58] VITALS: BP 136/77; PULSE 86; RESP 12; O2SAT 96
--- NOTE | 2019-10-04 15:58 | XR_ITS ---
WS: [id number] Portable AP upright chest, 10/04/2019 Clinical Data: clogged esophageal stent Comparison: None. Findings: No nodules, masses or effusions are seen. The heart is normal. The pulmonary vascularity is not increased. No pneumonia or pneumothorax is seen. The stent extending from the lower esophagus in to the stomach is visible. There is a Port-A-Cath overlying the right chest ending in the superior ve na cava. The aortic arch and descending aorta are tortuous. There are monitor leads on the chest wall . XR/XR chest 1V portable [id number] Impression: 1. Esophageal stent is visible. 2. Atherosclerosis.
[2019-10-04] MEDS: ondansetron 2 mg/ML SDV 2 mL 4 MG IVP (16:19)
[2019-10-04] MEDS: sodium chloride 0.9% 500 ML IV (16:19)
[2019-10-04 16:20] VITALS: RESP 18; O2SAT 96
[2019-10-04] MEDS: morphine 4 mg/mL SDV 1 mL 2 MG IVP (16:20)
[2019-10-04 16:36] LABS: Basophils % 0.4 %; Eosinophils # 0.1 10^3/uL (0.0-0.8); Eosinophils % 0.6 %; Hematocrit 39.1 % (37.0-47.0); Hemoglobin 11.8 g/dL (11.5-15.3); Lymphocytes # 0.4 10^3/uL (0.8-4.8); Lymphocytes % 3.5 %; Mean Corpuscular HGB Conc 30.2 g/dL (30.0-36.0); Mean Corpuscular Hemoglobin 30.6 pg (28.0-34.0); Mean Corpuscular Volume 101.3 fL (81-99); Mean Platelet Volume 11.4 fL (7.4-10.4); Monocytes # 0.6 10^3/uL (0.2-0.9); Monocytes % 5.2 %; Neutrophils # 10.1 10^3/uL (1.8-7.7); Neutrophils % 89.8 %; Nucleated Red Blood Cells % 0 %; Platelet Count 246 10^3/cmm (130-400); Red Blood Count 3.86 10^6/uL (4.1-5.3); Red Cell Distribution Width 15.3 % (12.1-15.1); White Blood Count 11.3 10^3/uL (4.0-10.0)
[2019-10-04 16:46] LABS: Alanine Aminotransferase 13 U/L (0-33); Albumin Level 3.2 g/dL (3.5-5.2); Alkaline Phosphatase 48 IU/L (35-105); Anion Gap 20.5 (5-19); Aspartate Amino Transferase 28 U/L (0-32); Blood Urea Nitrogen 9 mg/dL (8-23); Calcium 9.1 mg/dL (8.5-10.5); Carbon Dioxide 30 mmol/L (22-29); Chloride 102 mmol/L (98-107); Creatinine Clr Calc Pharmacy 148.5118; Globulin 3.2 g/dL (1.3-4.6); Glomerular Filtration Rate 160.7 mL/min (90-130); Glucose 99 mg/dL (74-106); Lipase 6 U/L (13-60); Magnesium 1.8 mg/dL (1.7-2.3); Phosphorus 2.6 mg/dL (2.5-4.5); Sodium 150 mmol/L (136-145); Total Bilirubin 0.7 mg/dL (0.15-1.2); Total Protein 6.4 g/dL (6.6-8.7)
[2019-10-04 16:47] LABS: Lactate (Lactic Acid level) 1.1 mmol/L (0.5-2.2)
[2019-10-04 16:55] LABS: Potassium 2.5 mmol/L (3.5-5.1)
[2019-10-04] MEDS: potassium chloride premix 40 MEQ/100 ML PREMIX 25 MEQ IV (17:04)
[2019-10-04 18:06] VITALS: PULSE 88; RESP 18
[2019-10-04 19:41] VITALS: BP 130/84; PULSE 78; RESP 18; O2SAT 94
--- NOTE | 2019-10-04 19:44 | PC.NURSE ---
Addendum entered by Jw Jacinto 10/04/19 20:23: Patient also unable to keep fluids and food down. Original Note: Introduced self to patient and initiated vital signs. Pt is A&O x 4 and agreeable. Pt states that the reason for the ER visit today is due to dehydration and low potassium. Pt not complaining of pain at present. Reassured patient of needs and will continue to monitor.
--- NOTE | 2019-10-04 20:20 | PC.NURSE ---
Addendum entered by Jw Jacinto 10/04/19 20:26: Report given to Loreto Galindo Note: Report given to : at [facility] / [phone] / room 623-2
[2019-10-04 21:00] VITALS: BP 147/71; PULSE 82; RESP 21; O2SAT 95
[2019-10-04 21:58] LABS: Anion Gap 18.9 (5-19); Blood Urea Nitrogen 8 mg/dL (8-23); Calcium 8.9 mg/dL (8.5-10.5); Carbon Dioxide 30 mmol/L (22-29); Chloride 104 mmol/L (98-107); Creatinine Clr Calc Pharmacy 148.5118; Glomerular Filtration Rate 160.7 mL/min (90-130); Glucose 87 mg/dL (74-106); Osmolality Calculated 305 mOsm/kg (285-295); Potassium 2.9 mmol/L (3.5-5.1); Sodium 150 mmol/L (136-145)
--- NOTE | 2019-10-04 22:45 | PC.NURSE ---
Patient requested for a soda and ice to sip on. Patient informed me that the doctor was not okay with soda earlier but wanted to ask again due to the unknown time of her transfer. I asked Dr. Snider and he said she is to not have water, soda, or ice due to her inability to hold anything down. He was okay with mouth swabs. I spoke with the patient and informed her of what the doctor said and she was not happy with the fact that doesn't want her to have anything by mouth but Dr Smith who had seen her before change of doctors was okay with it. She insisted on drinking her water and ice that she has at bedside, I informed Dr. Snider and he said she can finish what she has at bedside but said she is to have no more.
--- NOTE | 2019-10-05 03:11 | PC.NURSE ---
Assisted patient to bedside commode and back to bed. Patient stated that she was having lower back and abdominal pain, rating at a 5/10. Informed nurse that she would like pain meds.
[2019-10-05 05:05] VITALS: RESP 18
[2019-10-05] MEDS: HYDROmorphone 1 mg/mL INJ 1 mL 0.5 MG IVP (05:05)
[2019-10-05] MEDS: ondansetron 2 mg/ML SDV 2 mL 4 MG IVP (05:37)
[2019-10-05] MEDS: potassium chloride premix 40 MEQ/100 ML PREMIX 25 MEQ IV (05:37)
--- NOTE | 2019-10-05 06:00 | PC.NURSE ---
[facility] called and spoke to this nurse concerning patient transfer status. RN explained that we were awaiting transport, transport could not be here until 0700. Destiny from [facility] explained that patient will need to be at [facility] before noon due to surgery. Call placed to Parvez Galaviz. Instructed that EMS will be here at noon for the patient.
--- NOTE | 2019-11-13 15:48 | ED_ITS ---
HPI - General Adult General: Chief complaint: General Medical Stated complaint: CA pt-dehydrated Time Seen by Provider: 10/04/19 15:38 [facility] ED PFSH: Medical History Esophageal cancer (Acute) History of endometrial biopsy (Acute) Hypothyroidism (Acute) Jejunostomy tube fell out (Inactive) Surgical History History of arthroscopy of left knee (Acute) History of cataract surgery (Acute) History of esophagogastroduodenoscopy (EGD) (Acute ~11/2018) History of jejunostomy tube placement (Resolved) History of umbilical hernia repair (Acute) Family History Other Cancer Hyperlipidemia Hypertension Denies family history of Clotting disorder Anesthesia complication Bleeding disorder Social History Smoking and tobacco status: former smoker Female Reproductive History: Para: 1 Course Vital Signs: Vital signs: Vital Signs Temperature 97.9 F 10/04/19 15:28 Pulse Rate 82 10/04/19 21:00 Respiratory Rate 18 10/05/19 05:05 Blood Pressure 147/71 10/04/19 21:00 Pulse Oximetry 95 10/04/19 21:00 MDM - General Adult Lab Data: Labs: Lab Results 10/04/19 10/04/19 10/04/19 Range/Units 16:20 16:20 16:20 WBC 11.3 H (4.0-10.0) 10^3/ uL RBC 3.86 L (4.1-5.3) 10^6/u L Hgb 11.8 (11.5-15.3) g/dL Hct 39.1 (37.0-47.0) % MCV 101.3 H (81-99) fL MCH 30.6 (28.0-34.0) pg MCHC 30.2 (30.0-36.0) g/dL RDW 15.3 H (12.1-15.1) % Plt Count 246 (130-400) 10^3/c mm MPV 11.4 H (7.4-10.4) fL Neut % (Auto) 89.8 % Lymph % (Auto) 3.5 % Colbert % (Auto) 5.2 % Eos % (Auto) 0.6 % Baso % (Auto) 0.4 % Neut # (Auto) 10.1 H (1.8-7.7) 10^3/u L Lymph # (Auto) 0.4 L (0.8-4.8) 10^3/u L Colbert # (Auto) 0.6 (0.2-0.9) 10^3/u L Eos # (Auto) 0.1 (0.0-0.8) 10^3/u L Baso # (Auto) 0.0 (0.0-0.1) 10^3/u L Nucleated RBC % (a uto) 0 % Nucleated RBCs # 0.0 /100WBC Sodium 150 H (136-145) mmol/L Potassium 2.5 L* (3.5-5.1) mmol/L Chloride 102 (98-107) mmol/L Carbon Dioxide 30 H (22-29) mmol/L Anion Gap 20.5 H (5-19) BUN 9 (8-23) mg/dL Creatinine 0.4 L (0.5-0.9) mg/dL GFR Calculation 160.7 H (90-130) mL/min Glucose 99 (74-106) mg/dL Calculated Osmolal ity (285-295) mOsm/k g Lactate 1.1 (0.5-2.2) mmol/L Calcium 9.1 (8.5-10.5) mg/dL Phosphorus 2.6 (2.5-4.5) mg/dL Magnesium 1.8 (1.7-2.3) mg/dL Total Bilirubin 0.7 (0.15-1.2) mg/dL AST 28 (0-32) U/L ALT 13 (0-33) U/L Alkaline Phosphata se 48 (35-105) IU/L Total Protein 6.4 L (6.6-8.7) g/dL Albumin 3.2 L (3.5-5.2) g/dL Globulin 3.2 (1.3-4.6) g/dL Lipase 6 L (13-60) U/L 10/04/19 Range/Units 21:40 WBC (4.0-10.0) 10^3/ uL RBC (4.1-5.3) 10^6/u L Hgb (11.5-15.3) g/dL Hct (37.0-47.0) % MCV (81-99) fL MCH (28.0-34.0) pg MCHC (30.0-36.0) g/dL RDW (12.1-15.1) % Plt Count (130-400) 10^3/c mm MPV (7.4-10.4) fL Neut % (Auto) % Lymph % (Auto) % Colbert % (Auto) % Eos % (Auto) % Baso % (Auto) % Neut # (Auto) (1.8-7.7) 10^3/u L Lymph # (Auto) (0.8-4.8) 10^3/u L Colbert # (Auto) (0.2-0.9) 10^3/u L Eos # (Auto) (0.0-0.8) 10^3/u L Baso # (Auto) (0.0-0.1) 10^3/u L Nucleated RBC % (a uto) % Nucleated RBCs # /100WBC Sodium 150 H (136-145) mmol/L Potassium 2.9 L (3.5-5.1) mmol/L Chloride 104 (98-107) mmol/L Carbon Dioxide 30 H (22-29) mmol/L Anion Gap 18.9 (5-19) BUN 8 (8-23) mg/dL Creatinine 0.4 L (0.5-0.9) mg/dL GFR Calculation 160.7 H (90-130) mL/min Glucose 87 (74-106) mg/dL Calculated Osmolal ity 305 H (285-295) mOsm/k g Lactate (0.5-2.2) mmol/L Calcium 8.9 (8.5-10.5) mg/dL Phosphorus (2.5-4.5) mg/dL Magnesium (1.7-2.3) mg/dL Total Bilirubin (0.15-1.2) mg/dL AST (0-32) U/L ALT (0-33) U/L Alkaline Phosphata se (35-105) IU/L Total Protein (6.6-8.7) g/dL Albumin (3.5-5.2) g/dL Globulin (1.3-4.6) g/dL Lipase (13-60) U/L Discharge Plan Discharge Patient Disposition: Xfer Other Clinical Impression: Esophageal cancer, Dysphagia, Chronic hypokalemia Condition: Stable Referrals: Austin Campoverde DO [Primary Care Provider] - Discharge Date/Time: 10/05/19 07:15 Sign Out Sign Out Data: Patient Sign Out occurred on 10/04/19 at 18:09. Patient's care was discussed, and care was transferred from to Corie Casper [facility]. Coding Level of Care Code ED [employer] Consultant for Selvin Tan
== END 2019-10-05 07:15 | disposition other institution (70) ==
PROVIDERS: Family Medicine; Emergency Provider Emergency Medicine; Family Provider Family Medicine; PCP Family Medicine
DX: E87.6 Hypokalemia (principal); C15.9 Malignant neoplasm of esophagus, unspecified; R13.19 Other dysphagia; Z87.891 Personal history of nicotine dependence
CPT/HCPCS: 12345; 36415; 71045; 80048; 80053; 83605; 83690; 83735; 84100; 85025; 87040; 96360; 96365; 96366; 96374; 96375; 96376; 99283; 99285; J1170; J2270; J2405; J3480; J7040

== ENCOUNTER 2019-10-16 10:01 | Outpatient (CLI) | payer BC, SELFPAY ==
--- NOTE | 2019-10-16 10:13 | XR_ITS ---
WS: [id number] Chest 2 views, 10/16/2019 Clinical Data: TO ASSESS PATENCY OF ESOPHAGEAL STENT Comparison: Portable chest, 10/04/2019 Findings: The esophageal stent leading from the lower esophagus into the stomach is seen. The pulmonary vascularity is not increased. No pneumonia or pneumothorax is seen. The aortic arch and descending aorta show mild tortuosity. The right internal jugular venous stent ending in the superior vena cava remains the same. No nodules, masses or effusions are seen. The heart is normal. Report was unsigned for reason: Ordering provider was edited. Original Signature date and time was: 10/16/19 1058 MTD XR/XR chest 2V* [id number] Impression: 1. No change in appearance of esophageal stent. 2. Atherosclerosis.
--- NOTE | 2019-10-16 10:13 | XR_ITS ---
WS: [id number] CAROL ANN, 10/16/2019 Clinical Data: TO ASSESS PATENCY OF ESOPHAGEAL STENT Comparison: None. Findings: The esophageal stent demonstrates the distal portion overlying the stomach. There is fecal material in the colon. No evidence of obstruction or abnormal masses are seen. There is minimal calcification in the wall of the abdominal aorta and its distal branches but no aneurysm is seen. Report was unsigned for reason: Ordering provider was edited. Original Signature date and time was: 10/16/19 1058 [facility] XR/XR KUB [id number] Impression: 1. Esophageal stent appears to overlie the stomach. 2. No acute intra-abdominal or pelvic abnormalities are seen.
== END 2019-10-16 10:02 | disposition home or self-care (01) ==
LOC: RAD 10:08
PROVIDERS: Family Provider Family Medicine; PCP Family Medicine; Visit Provider Family Medicine
DX: Z96.89 Presence of other specified functional implants (principal); I70.90 Unspecified atherosclerosis
CPT/HCPCS: 71046; 74018

== ENCOUNTER 2019-11-02 05:39 | Outpatient (RCR) | payer BC, SELFPAY ==
[2019-10-19 10:04] LABS: Basophils # 0.1 10^3/uL (0.0-0.1); Basophils % 0.5 %; Eosinophils # 0.2 10^3/uL (0.0-0.8); Eosinophils % 1.5 %; Hematocrit 36.6 % (37.0-47.0); Hemoglobin 11.5 g/dL (11.5-15.3); Lymphocytes # 0.4 10^3/uL (0.8-4.8); Lymphocytes % 3.9 %; Mean Corpuscular HGB Conc 31.4 g/dL (30.0-36.0); Mean Corpuscular Hemoglobin 29.9 pg (28.0-34.0); Mean Corpuscular Volume 95.1 fL (81-99); Monocytes # 0.5 10^3/uL (0.2-0.9); Monocytes % 4.4 %; Neutrophils # 9.7 10^3/uL (1.8-7.7); Neutrophils % 89.3 %; Nucleated Red Blood Cells % 0 %; Platelet Count 363 10^3/cmm (130-400); Red Blood Count 3.85 10^6/uL (4.1-5.3); Red Cell Distribution Width 16.7 % (12.1-15.1); White Blood Count 10.9 10^3/uL (4.0-10.0)
[2019-10-19 10:26] LABS: Alanine Aminotransferase 8 U/L (0-33); Albumin Level 2.8 g/dL (3.5-5.2); Alkaline Phosphatase 53 IU/L (35-105); Anion Gap 14.4 (5-19); Aspartate Amino Transferase 20 U/L (0-32); Blood Urea Nitrogen 9 mg/dL (8-23); Calcium 9.4 mg/dL (8.5-10.5); Carbon Dioxide 31 mmol/L (22-29); Chloride 95 mmol/L (98-107); Globulin 3.8 g/dL (1.3-4.6); Glomerular Filtration Rate 160.7 mL/min (90-130); Glucose 166 mg/dL (65-115); Potassium 3.4 mmol/L (3.5-5.1); Sodium 137 mmol/L (136-145); Total Bilirubin 0.3 mg/dL (0.15-1.2); Total Protein 6.6 g/dL (6.6-8.7)
--- NOTE | 2019-10-19 13:31 | ONC FU_ITS ---
Dr. Mccormick follow up note Patient: Nerissa Morillo Unit #: [id number]: 1955 Dicatated By: Phyllis Mccormick M.D.Date of Visit:Oct 19, 2019 Onc Med Follow-up/Prog Note History of Present Illness: Mrs. Morillo is a 64-year-old female, who was recently diagnosed with distal esophageal adenocarcinoma. As per patient she did experience progressive dysphagia, about 15 pounds weight loss over the last couple months. She was evaluated with CT scan of chest on 11/30/2018 which showed mid to distal esophageal mass extends over 7.8 cm with near complete obstruction of lumen. No lymphadenopathy or other abnormality seen. She subsequently underwent EGD on 12/01/2018 which showed circumferential esophageal mass extending from 30-35 cm with narrowing of lumen. Multiple biopsies were obtained, and it confirmed adenocarcinoma. Stomach and duodenum showed no abnormality. She was referred to [facility] in [place] where she underwent further workup including repeat EGD on 12/06/2018. It showed a fungating mass lesion at 34 cm from incisors and extending into GE junction. No involvement of gastric mucosa was identified. Multiple fundic gland polyps were noted in stomach, esophageal stent was placed in. Underwent CT PET scan on 12/15/2018 which showed there is increased activity in the distal esophagus corresponding to location of the esophageal stent. Maximum SUV 10.8. Physiological activity typically identified in the gastric fundus appears more intense 9.8 which is of questionable significance. No evidence of metastatic disease. Small focus of abnormal activity in the fundus of uterus with a maximum SUV 6.5 MRI scan of head on 12/11/2018 showed no evidence of metastatic disease but minimal microvascular chronic ischemic changes. Ms Morillo nderwent J-tube insertion on 12/12/2018 and port placement to facilitate chemotherapy. She did develop wound infection around her J-tube requiring surgical intervention and wound care for extended period time. Now healing well, but this postop complication caused delay in her combined chemoradiation for esophageal cancer. She began her first week of combination therapy with carboplatin/paclitaxel and radiation on 03/12/2019. And last dose of chemotherapy was given on 03/26/2019 and after that she developed persistent leukopenia and due to poor performance chemotherapy was held and patient continue with radiation therapy which she finished 04/19/2019. Patient went to see Dr. Taylor in [place] for evaluation for esophagectomy but due to her poor performance status he give her a return appointment on 06/27/2019 to see for performance status improves at that time. Was referred to GI surgery [facility] for second opinion, Seen Dr. Henriquez, medical oncologist who recommended CT PET scan and PFTs and 6 minute walk test earlier Dr. Hayden in [place] for EGD which was done on 07/27/2019, biopsy was obtained As per patient it was positive for malignancy. She was referred to GI surgical oncologist at [facility] where she was evaluated by Dr. henriquez medical oncologist on 09/17/2019 and his recommendations were to get his CT PET scan, PFTs, 6 minute walk test and referred to Dr. Florez for consideration of surgery after workup is done. He also recommended PDL 1 status, which was checked on 09/19/2019 which showed PDL 1 positive expression level, CPS more than 10. CT PET scan was ordered but her insurance refused and asked for CT scan of chest abdomen prior to CT PET scan so patient underwent CT scan of chest abdomen on 10/02/2019 which showed artificial esophageal tube inserted from the lower esophagus into fundus of stomach No evidence of residual esophageal mass or metastatic disease. Gallbladder densely packed with stones. Patient was admitted to hospital with abdominal pain nausea vomiting and then transferred to [facility] on 10/06/2019 which she underwent EGD which showed occluded/stenosis esophageal stent and evidence of recurrence of disease. And stent could not be removed due to tumor growth so fully covered stent was placed in. Stomach and duodenal was normal. Thoracic surgery was consulted but due to patient's poor nutrition status and deconditioning surgery was not considered. And immunotherapy was recommended. Came for follow-up, denies any specific complaint except generalized weakness and fatigue and mild to moderate lower extremity edema. No fever or chills, no nausea or vomiting, no diarrhea constipation, tolerating orally better but has to be careful, now eating smaller meals but more often. Medications: Acetaminophen Extra Strength 15 mL (of 500 mg/15mL) Liquid Oral PRN, All Day Allergy Childrens 7 mL (of 1 mg/mL) Solution Oral daily, [employer] Eye Lubricant Ointment Ophthalmic PRN, Ondansetron HCl 4 - 8 mg (of 4 mg/5mL) Solution Oral t.i.d. PRN, Potassium Chloride 15 mL (of 20 meq/15ml -10%) Solution Oral daily Allergies: Latex and sulfa. Review of Systems: Constitutional - Appetite is poor. Weight is decreasing. No fever, chills, hot flashes, or night sweats. Energy level is poor, ENMT - Positive for sinus congestion/drainage. No mouth sores. Positive for sore throat. Positive for difficulty swallowing, Hematologic/Lymphatic - No abnormal bruising or bleeding, Respiratory - No shortness of breath. Positive for cough. No pleuritic pain or hemoptysis, Cardiovascular - No angina pain. No palpitations, Gastrointestinal - Positive nausea and vomiting. No heartburn and acid reflux. No diarrhea or constipation. No blood in the stool or black stools, Genitourinary (F) - No dysuria or hematuria. Positive for urinary frequency. No urgency or incontinence, Musculoskeletal - No joint or bone pain, Integumentary - Positive for edema in bilateral lower extremities, Neurologic - No headache. Occasional dizziness, Psychiatric - No anxiety, no depression. No insomnia. Vital Signs: Performed on Oct 19, 2019 09:08 Height - 69.50 in Weight - 145.6 lbs (LOW) BSA - 1.81 sq.m BMI - 21.19 Temperature - 97.3 F (LOW) Pulse - 117 /min (HIGH) Respiration - 22 /min BP - 135/78 mm(hg) O2 Sat - 98 % Pain - 5 Performance Status: 2 - Ambulatory/capable of all self-care, unable to perform any work activities. Up and about more than 50% of waking hours. (ECOG) Physical Examination: ENMT - No oral exudates, ulcers, masses, thrush or mucositis. Oropharynx clear. Tongue normal, Respiratory - Lungs are clear to auscultation without rhonchi or wheezing, Cardiovascular - Regular rate and rhythm of heart, Abdomen - Non-tender, non-distended, Good bowel sounds. No guarding or rebound tenderness. No pulsatile masses, Extremities - 2+ edema bilaterally. Lab/Imaging: Test performed on Oct 04, 2019 09:40 Potassium 2.4 mmol/L Test performed on Oct 03, 2019 08:50 Magnesium 2.0 mg/dL Sodium 146 mmol/L Chloride 93 mmol/L CO2 37 mmol/L Anion Gap 18.0 BUN 12 mg/dL Creatinine 0.4 mg/dL Cr Clearance (Est) 167.6800 mL/min eGFR 160.7 mL/min Glucose 118 mg/dL Calcium 9.4 mg/dL Protein, Total 6.9 g/dL Albumin 3.3 g/dL Globulin 3.6 g/dL Bilirubin, Total 0.7 mg/dL ALT (SGPT) 10 U/L AST (SGOT) 25 U/L Alkaline Phosphatase 50 IU/L WBC 10.7 10 3/uL RBC 4.14 10 6/uL HGB 12.7 g/dL HCT 41.2 % MCV 99.5 fL MCH 30.7 pg MCHC 30.8 g/dL RDW 15.2 % Platelet Count 298 10 3/cmm MPV 11.7 fL Neutrophils 9.2 10 3/uL Lymphocytes 0.7 10 3/uL Monocytes 0.7 10 3/uL Eosinophils 0.1 10 3/uL Basophils 0.0 10 3/uL Neutrophil % 85.8 % Lymphocyte % 6.4 % Monocyte % 6.2 % Eosinophil % 0.9 % Basophils % 0.4 % Impression: Adenocarcinoma of distal esophagus per EGD and biopsies done on 12/01/2018 CT PET scan done on 12/15/2018 showed localized disease, no evidence of lymphadenopathy or distant metastases Clinical stage T2-3, Nx,M0 Focus of increased uptake in the uterus Dysphagia due to above status post esophageal stenting and now with J-tube MRI head done on 12/11/2018, showed no brain metastases but microvascular ischemic disease Hypothyroidism on supplements Dysfunctional uterine bleeding, CT PET scan showed increased uptake in uterus. Ms Morillo began carboplatin/Taxol and radiation on 03/12/2019. She was found to be iron deficient and received Injectafer o 03/23/19 & 03/30/19. Her last dose of CArboplatin/paclitaxel was on 03/26/19. .Due to progressive leukopenia, she could not receive further chemotherapy but continue with radiation alone which she completed on 04/19/2019 Plan: Discussed with patient regarding her labs white blood count 10.9 hemoglobin 11.5 crit 36.6 platelets 363,000 CMP within normal limit except glucose 166 and potassium 3.4 Clinically, patient is doing reasonably well, now nausea vomiting has resolved with esophageal stent placement. Patient recently underwent EGD which showed local recurrence but she was not a candidate for surgery because of poor nutrition status and deconditioning, at this point we will consider improving her nutritional status and she was also advised to do some gentle exercises. And monitor her albumin level. And at this point we'll consider CT PET scan to assess disease status as recently done CT scan of chest did not show any abnormality in esophageal area but EGD showed extensive disease. And we will see her back after CT PET scan done and discuss with her regarding systemic therapy with immunotherapy plus minus chemotherapy. Patient will return to clinic after CT PET scan is done and for further discussion Mild hypokalemia patient will continue take oral potassium supplement and will follow with labs. Signed By: Phyllis Mccormick M.D. <<Signature on File>>
[2019-11-01 11:41] LABS: Basophils % 0.4 %; Eosinophils # 0.1 10^3/uL (0.0-0.8); Eosinophils % 1.3 %; Hematocrit 35.2 % (37.0-47.0); Hemoglobin 10.9 g/dL (11.5-15.3); Lymphocytes # 0.4 10^3/uL (0.8-4.8); Mean Corpuscular Hemoglobin 31.1 pg (28.0-34.0); Mean Corpuscular Volume 100.3 fL (81-99); Monocytes # 0.4 10^3/uL (0.2-0.9); Monocytes % 5.4 %; Neutrophils # 6.7 10^3/uL (1.8-7.7); Neutrophils % 87.5 %; Nucleated Red Blood Cells % 0 %; Platelet Count 366 10^3/cmm (130-400); Red Blood Count 3.51 10^6/uL (4.1-5.3); Red Cell Distribution Width 17.8 % (12.1-15.1); White Blood Count 7.7 10^3/uL (4.0-10.0)
[2019-11-01 12:54] LABS: Alanine Aminotransferase 8 U/L (0-33); Albumin Level 2.9 g/dL (3.5-5.2); Alkaline Phosphatase 46 IU/L (35-105); Anion Gap 15.7 (5-19); Blood Urea Nitrogen 8 mg/dL (8-23); Calcium 9.6 mg/dL (8.5-10.5); Carbon Dioxide 33 mmol/L (22-29); Chloride 93 mmol/L (98-107); Globulin 3.7 g/dL (1.3-4.6); Glucose 98 mg/dL (65-115); Potassium 3.7 mmol/L (3.5-5.1); Sodium 138 mmol/L (136-145); Total Bilirubin 0.4 mg/dL (0.15-1.2); Total Protein 6.6 g/dL (6.6-8.7)
[2019-11-01 13:24] LABS: Aspartate Amino Transferase 24 U/L (0-32)
--- NOTE | 2019-11-02 11:36 | ONC FU_ITS ---
Dr. Mccormick follow up note Patient: Nerissa Morillo Unit #: [id number]: 1955 Dicatated By: Phyllis Mccormick M.D.Date of Visit:Nov 02, 2019 Onc Med Follow-up/Prog Note History of Present Illness: Mrs. Morillo is a 64-year-old female, who was recently diagnosed with distal esophageal adenocarcinoma. As per patient she did experience progressive dysphagia, about 15 pounds weight loss over the last couple months. She was evaluated with CT scan of chest on 11/30/2018 which showed mid to distal esophageal mass extends over 7.8 cm with near complete obstruction of lumen. No lymphadenopathy or other abnormality seen. She subsequently underwent EGD on 12/01/2018 which showed circumferential esophageal mass extending from 30-35 cm with narrowing of lumen. Multiple biopsies were obtained, and it confirmed adenocarcinoma. Stomach and duodenum showed no abnormality. She was referred to [facility] in [place] where she underwent further workup including repeat EGD on 12/06/2018. It showed a fungating mass lesion at 34 cm from incisors and extending into GE junction. No involvement of gastric mucosa was identified. Multiple fundic gland polyps were noted in stomach, esophageal stent was placed in. Underwent CT PET scan on 12/15/2018 which showed there is increased activity in the distal esophagus corresponding to location of the esophageal stent. Maximum SUV 10.8. Physiological activity typically identified in the gastric fundus appears more intense 9.8 which is of questionable significance. No evidence of metastatic disease. Small focus of abnormal activity in the fundus of uterus with a maximum SUV 6.5 MRI scan of head on 12/11/2018 showed no evidence of metastatic disease but minimal microvascular chronic ischemic changes. Ms Morillo nderwent J-tube insertion on 12/12/2018 and port placement to facilitate chemotherapy. She did develop wound infection around her J-tube requiring surgical intervention and wound care for extended period time. Now healing well, but this postop complication caused delay in her combined chemoradiation for esophageal cancer. She began her first week of combination therapy with carboplatin/paclitaxel and radiation on 03/12/2019. And last dose of chemotherapy was given on 03/26/2019 and after that she developed persistent leukopenia and due to poor performance chemotherapy was held and patient continue with radiation therapy which she finished 04/19/2019. Patient went to see Dr. Taylor in [place] for evaluation for esophagectomy but due to her poor performance status he give her a return appointment on 06/27/2019 to see for performance status improves at that time. Was referred to GI surgery [facility] for second opinion, Seen Dr. Henriquez, medical oncologist who recommended CT PET scan and PFTs and 6 minute walk test earlier Dr. Hayden in [place] for EGD which was done on 07/27/2019, biopsy was obtained As per patient it was positive for malignancy. She was referred to GI surgical oncologist at [facility] where she was evaluated by Dr. henriquez medical oncologist on 09/17/2019 and his recommendations were to get his CT PET scan, PFTs, 6 minute walk test and referred to Dr. Florez for consideration of surgery after workup is done. He also recommended PDL 1 status, which was checked on 09/19/2019 which showed PDL 1 positive expression level, CPS more than 10. CT PET scan was ordered but her insurance refused and asked for CT scan of chest abdomen prior to CT PET scan so patient underwent CT scan of chest abdomen on 10/02/2019 which showed artificial esophageal tube inserted from the lower esophagus into fundus of stomach No evidence of residual esophageal mass or metastatic disease. Gallbladder densely packed with stones. Patient was admitted to hospital with abdominal pain nausea vomiting and then transferred to [facility] on 10/06/2019 which she underwent EGD which showed occluded/stenosis esophageal stent and evidence of recurrence of disease. And stent could not be removed due to tumor growth so fully covered stent was placed in. Stomach and duodenal was normal. Thoracic surgery was consulted but due to patient's poor nutrition status and deconditioning surgery was not considered. And immunotherapy was recommended .Follow-up CT PET scan done on 10/26/2019 showed increased soft tissue density surrounding the esophageal stent area consistent with progression of disease. Left sided pleural effusion appears to be malignant Low-level activity in the right adrenal gland suspicious for metastatic focus. Increasing activity 2 focal areas of uterus suspicious for neoplastic process such as endometrial carcinoma. KUB done on 10/16/2019 to assess patency of esophageal stent shows no evidence of obstruction Came for follow-up, denies any specific complaints, more energetic, gaining weight, now not using wheelchair rather walking stick, overall feeling better.Denies any fever chills denies any nausea vomiting denies any diarrhea constipation denies any jaundice but complaining of discomfort in lower chest bilaterally. No dysphagia, tolerating orally well. Medications: Acetaminophen Extra Strength 15 mL (of 500 mg/15mL) Liquid Oral PRN, All Day Allergy Childrens 7 mL (of 1 mg/mL) Solution Oral daily, [employer] Eye Lubricant Ointment Ophthalmic PRN, Ondansetron HCl 4 - 8 mg (of 4 mg/5mL) Solution Oral t.i.d. PRN, Potassium Chloride 15 mL (of 20 meq/15ml -10%) Solution Oral daily Allergies: Latex and sulfa. Review of Systems: Constitutional - Appetite is poor. Weight is decreasing. No fever, chills, hot flashes, or night sweats. Energy level is poor, ENMT - Positive for sinus congestion/drainage. No mouth sores. Positive for sore throat. Positive for difficulty swallowing, Hematologic/Lymphatic - No abnormal bruising or bleeding, Respiratory - No shortness of breath. Positive for cough. No pleuritic pain or hemoptysis, Cardiovascular - No angina pain. No palpitations, Gastrointestinal - Nausea and vomiting is improving. No heartburn and acid reflux. No diarrhea or constipation. No blood in the stool or black stools, Genitourinary (F) - No dysuria or hematuria. Positive for urinary frequency. No urgency or incontinence, Musculoskeletal - No joint or bone pain, Integumentary - Positive for edema in bilateral lower extremities, Neurologic - No headache. Occasional dizziness, Psychiatric - No anxiety, no depression. No insomnia. Vital Signs: Performed on Nov 02, 2019 09:27 Height - 69.50 in Weight - 147.0 lbs (HIGH) BSA - 1.82 sq.m BMI - 21.40 Temperature - 97.1 F (LOW) Pulse - 110 /min (HIGH) Respiration - 22 /min BP - 120/77 mm(hg) O2 Sat - 100 % Pain - 8 Performance Status: 2 - Ambulatory/capable of all self-care, unable to perform any work activities. Up and about more than 50% of waking hours. (ECOG) Physical Examination: ENMT - No oral exudates, ulcers, masses, thrush or mucositis. Oropharynx clear. Tongue normal, Respiratory - Lungs are clear to auscultation except decrease in breath sounds at left base, Cardiovascular - Regular rate and rhythm of heart, Abdomen - Non-tender, non-distended, Good bowel sounds. No guarding or rebound tenderness. No pulsatile masses, Extremities - 1+ edema bilaterally. Lab/Imaging: Test performed on Nov 01, 2019 08:50 Sodium 138 mmol/L Potassium 3.7 mmol/L Chloride 93 mmol/L CO2 33 mmol/L Anion Gap 15.7 BUN 8 mg/dL Creatinine 0.3 mg/dL Cr Clearance (Est) 197.5200 mL/min eGFR 224.0 mL/min Glucose 98 mg/dL Calcium 9.6 mg/dL Protein, Total 6.6 g/dL Albumin 2.9 g/dL Globulin 3.7 g/dL Bilirubin, Total 0.4 mg/dL ALT (SGPT) 8 U/L AST (SGOT) 24 U/L Alkaline Phosphatase 46 IU/L WBC 7.7 10 3/uL RBC 3.51 10 6/uL HGB 10.9 g/dL HCT 35.2 % MCV 100.3 fL MCH 31.1 pg MCHC 31.0 g/dL RDW 17.8 % Platelet Count 366 10 3/cmm MPV 10.0 fL Neutrophils 6.7 10 3/uL Lymphocytes 0.4 10 3/uL Monocytes 0.4 10 3/uL Eosinophils 0.1 10 3/uL Basophils 0.0 10 3/uL Neutrophil % 87.5 % Lymphocyte % 5.0 % Monocyte % 5.4 % Eosinophil % 1.3 % Basophils % 0.4 % Test performed on Oct 03, 2019 08:50 Magnesium 2.0 mg/dL Impression: Adenocarcinoma of distal esophagus per EGD and biopsies done on 12/01/2018 CT PET scan done on 12/15/2018 showed localized disease, no evidence of lymphadenopathy or distant metastases Clinical stage T2-3, Nx,M0 Focus of increased uptake in the uterus Dysphagia due to above status post esophageal stenting and now with J-tube MRI head done on 12/11/2018, showed no brain metastases but microvascular ischemic disease Hypothyroidism on supplements Dysfunctional uterine bleeding, CT PET scan showed increased uptake in uterus. Ms Morillo began carboplatin/Taxol and radiation on 03/12/2019. She was found to be iron deficient and received Injectafer o 03/23/19 & 03/30/19. Her last dose of CArboplatin/paclitaxel was on 03/26/19. .Due to progressive leukopenia, she could not receive further chemotherapy but continue with radiation alone which she completed on 04/19/2019 Plan: Discussed with patient regarding her labs white blood count 7.7 hemoglobin 10.9 crit 35.2 platelets 366,000 CMP within normal limits except albumin 2.9 Clinically, patient is doing well, now recovering , tolerating orally well, her follow-up CT PET scan shows evidence of local recurrence as well as possibility of left malignant pleural effusion and right adrenal metastases, Treatment options including palliative therapy with single agent chemotherapy or immunotherapy or combination was discussed patient opted for combination at this point we'll consider treating her with cyramza/Taxol biweekly and plan to give her 6 cycles of this regimen followed by follow up CT PET scan and if it shows resolution of metastatic disease and patient continued to improve physically then treatment consult GI surgical oncology regarding resection. Patient has HER-2/lucy negative, PDL 1 positive disease but MSI/MMR status is unknown so we will consider consider next generation sequencing which include NTRK gene and other target for therapy. We'll also consider chest x-ray to quantify left pleural effusion and consider thoracentesis if needed. All the side effects possible benefits associated with cyramza/Taxol, were discussed in detail including but not limited to hypertension, GI bleeding, stomach tear, delayed wound healing, risk of stroke, thromboembolism, hypothyroidism, allergic reaction especially to Taxol were mentioned, bone marrow suppression, rash, diarrhea, pneumonitis, further teaching done by chemotherapy nurse, will obtain approval from her insurance prior to the treatment and then we'll see her back 1 week after treatment is initiated with CBC CMP Hypokalemia, now potassium is in normal range, she is on potassium supplement and will continue same and monitor potassium level Signed By: Phyllis Mccormick M.D. <<Signature on File>>
[2019-11-13 09:51] LABS: Miscellaneous Test See Scanned Lab Rpt
== END 2019-11-03 23:59 | disposition home or self-care (01) ==
LOC: ONCMED 05:39
PROVIDERS: Family Provider Family Medicine; PCP Family Medicine; Visit Provider Internal Medicine Hematology & Oncology
DX: C15.5 Malignant neoplasm of lower third of esophagus (principal); C79.71 Secondary malignant neoplasm of right adrenal gland; E87.6 Hypokalemia; E03.9 Hypothyroidism, unspecified; N93.8 Other specified abnormal uterine and vaginal bleeding; J90 Pleural effusion, not elsewhere classified; Z79.899 Other long term (current) drug therapy; Z92.3 Personal history of irradiation; Z92.21 Personal history of antineoplastic chemotherapy; Z93.1 Gastrostomy status; Z98.890 Other specified postprocedural states
CPT/HCPCS: 36591; 80053; 85025; 88367; 88374; 99214

== ENCOUNTER 2019-12-04 16:35 | Outpatient (RCR) | payer BC, SELFPAY ==
--- NOTE | 2019-11-19 15:38 | XR_ITS ---
WS: [id number] Portable AP upright chest, 11/19/2019 Clinical Data: COUGH Comparison: PA and lateral chest, 10/16/2019. Findings: Esophageal stent leading from the lower esophagus to the stomach is noted. There is minimal left basilar atelectasis and mild patchy opacity. This could just represent atelectasis or early pne umonia. Right lung is clear. The left upper lung is normal and there is a right infusion catheter wit h the tip ending in the superior vena cava. The aortic arch is tortuous. No pneumothorax seen. The he art size is normal XR/XR chest 2V* [id number] Impression: 1. Minimal left basilar atelectasis and small left consolidation and recommend repeat x-ray in one to 2 days. 2. No change in esophageal stent and right infusion catheter.
--- NOTE | 2019-11-27 11:18 | XR_ITS ---
WS: [id number] AP and lateral upright chest, 11/27/2019 Clinical Data: PLEURITIC CHEST Pain, evaluate LEFT SIDE FOR PLEURAL EFFUSION Comparison: AP and lateral chest, 11/19/2019. Findings: The patchy opacity in the left lower lobe remains the same. Again this may be a combination of atelectasis and/or pneumonia. There would only be a minimal amount left effusion. The heart remai ns the same. There is a right Port-A-Cath which ends in the superior vena cava. The aortic arch shows tortuosity. The esophageal stent leading from the mid esophagus into the stomach remains in the same position. The right lung is clear The pulmonary vascularity is not increased. No pneumothorax is se en. XR/XR chest 2V* [id number] Impression: 1. Patchy opacity in left lower lobe which may represent atelectasis and/or pne umonia unchanged. 2. No change in right Port-A-Cath and esophageal stent.
[2019-11-27 12:04] LABS: Basophils % 0.5 %; Eosinophils # 0.2 10^3/uL (0.0-0.8); Hematocrit 34.9 % (37.0-47.0); Hemoglobin 10.6 g/dL (11.5-15.3); Lymphocytes # 0.6 10^3/uL (0.8-4.8); Lymphocytes % 7.2 %; Mean Corpuscular HGB Conc 30.4 g/dL (30.0-36.0); Mean Corpuscular Hemoglobin 29.9 pg (28.0-34.0); Mean Corpuscular Volume 98.6 fL (81-99); Mean Platelet Volume 9.8 fL (7.4-10.4); Monocytes # 0.5 10^3/uL (0.2-0.9); Monocytes % 6.1 %; Neutrophils # 7.1 10^3/uL (1.8-7.7); Neutrophils % 83.8 %; Nucleated Red Blood Cells % 0 %; Platelet Count 365 10^3/cmm (130-400); Red Blood Count 3.54 10^6/uL (4.1-5.3); Red Cell Distribution Width 16.8 % (12.1-15.1); White Blood Count 8.4 10^3/uL (4.0-10.0)
[2019-11-27 12:36] LABS: Albumin Level 3.2 g/dL (3.5-5.2); Alkaline Phosphatase 46 IU/L (35-105); Anion Gap 16.3 (5-19); Blood Urea Nitrogen 9 mg/dL (8-23); Calcium 9.8 mg/dL (8.5-10.5); Carbon Dioxide 30 mmol/L (22-29); Chloride 98 mmol/L (98-107); Globulin 3.8 g/dL (1.3-4.6); Glucose 111 mg/dL (65-115); Osmolality Calculated 287 mOsm/kg (285-295); Potassium 4.3 mmol/L (3.5-5.1); Sodium 140 mmol/L (136-145); Total Bilirubin 0.3 mg/dL (0.15-1.2)
[2019-11-27 12:46] LABS: Alanine Aminotransferase 5 U/L (0-33); Aspartate Amino Transferase 21 U/L (0-32)
[2019-11-28] MEDS: sodium chloride 0.9% 250 ML 999 ML IV (12:20)
--- NOTE | 2019-11-29 11:23 | ONC FU_ITS ---
Dr. Mccormick follow up note Patient: Nerissa Morillo Unit #: [id number]: 1955 Dicatated By: Phyllis Mccormick M.D.Date of Visit:Nov 28, 2019 Onc Med Follow-up/Prog Note History of Present Illness: Mrs. Morillo is a 64-year-old female, who was recently diagnosed with distal esophageal adenocarcinoma. As per patient she did experience progressive dysphagia, about 15 pounds weight loss over the last couple months. She was evaluated with CT scan of chest on 11/30/2018 which showed mid to distal esophageal mass extends over 7.8 cm with near complete obstruction of lumen. No lymphadenopathy or other abnormality seen. She subsequently underwent EGD on 12/01/2018 which showed circumferential esophageal mass extending from 30-35 cm with narrowing of lumen. Multiple biopsies were obtained, and it confirmed adenocarcinoma. Stomach and duodenum showed no abnormality. She was referred to [facility] in [place] where she underwent further workup including repeat EGD on 12/06/2018. It showed a fungating mass lesion at 34 cm from incisors and extending into GE junction. No involvement of gastric mucosa was identified. Multiple fundic gland polyps were noted in stomach, esophageal stent was placed in. Underwent CT PET scan on 12/15/2018 which showed there is increased activity in the distal esophagus corresponding to location of the esophageal stent. Maximum SUV 10.8. Physiological activity typically identified in the gastric fundus appears more intense 9.8 which is of questionable significance. No evidence of metastatic disease. Small focus of abnormal activity in the fundus of uterus with a maximum SUV 6.5 MRI scan of head on 12/11/2018 showed no evidence of metastatic disease but minimal microvascular chronic ischemic changes. Ms Morillo nderwent J-tube insertion on 12/12/2018 and port placement to facilitate chemotherapy. She did develop wound infection around her J-tube requiring surgical intervention and wound care for extended period time. Now healing well, but this postop complication caused delay in her combined chemoradiation for esophageal cancer. She began her first week of combination therapy with carboplatin/paclitaxel and radiation on 03/12/2019. And last dose of chemotherapy was given on 03/26/2019 and after that she developed persistent leukopenia and due to poor performance chemotherapy was held and patient continue with radiation therapy which she finished 04/19/2019. Patient went to see Dr. Taylor in [place] for evaluation for esophagectomy but due to her poor performance status he give her a return appointment on 06/27/2019 to see for performance status improves at that time. Was referred to GI surgery [facility] for second opinion, Seen Dr. Henriquez, medical oncologist who recommended CT PET scan and PFTs and 6 minute walk test earlier Dr. Hayden in [place] for EGD which was done on 07/27/2019, biopsy was obtained As per patient it was positive for malignancy. She was referred to GI surgical oncologist at [facility] where she was evaluated by Dr. henriquez medical oncologist on 09/17/2019 and his recommendations were to get his CT PET scan, PFTs, 6 minute walk test and referred to Dr. Florez for consideration of surgery after workup is done. He also recommended PDL 1 status, which was checked on 09/19/2019 which showed PDL 1 positive expression level, CPS more than 10. CT PET scan was ordered but her insurance refused and asked for CT scan of chest abdomen prior to CT PET scan so patient underwent CT scan of chest abdomen on 10/02/2019 which showed artificial esophageal tube inserted from the lower esophagus into fundus of stomach No evidence of residual esophageal mass or metastatic disease. Gallbladder densely packed with stones. Patient was admitted to hospital with abdominal pain nausea vomiting and then transferred to [facility] on 10/06/2019 which she underwent EGD which showed occluded/stenosis esophageal stent and evidence of recurrence of disease. And stent could not be removed due to tumor growth so fully covered stent was placed in. Stomach and duodenal was normal. Thoracic surgery was consulted but due to patient's poor nutrition status and deconditioning surgery was not considered. And immunotherapy was recommended .Follow-up CT PET scan done on 10/26/2019 showed increased soft tissue density surrounding the esophageal stent area consistent with progression of disease. Left sided pleural effusion appears to be malignant Low-level activity in the right adrenal gland suspicious for metastatic focus. Increasing activity 2 focal areas of uterus suspicious for neoplastic process such as endometrial carcinoma. 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 Weight is stable. No jaundice.and chest x-ray done on 11/04/2019 showed no obvious pleural effusion but minimal left basilar atelectasis with small left consolidation. No change in esophageal stent . Medications: Acetaminophen Extra Strength 15 mL (of 500 mg/15mL) Liquid Oral PRN, All Day Allergy Childrens 7 mL (of 1 mg/mL) Solution Oral daily, [employer] Eye Lubricant Ointment Ophthalmic PRN, Dexamethasone (4 mg) Tablet Oral Take as Directed, Ondansetron HCl 4 - 8 mg (of 4 mg/5mL) Solution Oral t.i.d. PRN, Potassium Chloride 15 mL (of 20 meq/15ml -10%) Solution Oral daily Allergies: Latex and sulfa. Review of Systems: Constitutional - Appetite is poor. Weight is decreasing. No fever, chills, hot flashes, or night sweats. Energy level is poor, ENMT - Positive for sinus congestion/drainage. No mouth sores. Positive for sore throat. Positive for difficulty swallowing, Hematologic/Lymphatic - No abnormal bruising or bleeding, Respiratory - No shortness of breath. Positive for cough. No pleuritic pain or hemoptysis, Cardiovascular - No angina pain. No palpitations, Gastrointestinal - Nausea and vomiting is improving. No heartburn and acid reflux. No diarrhea or constipation. No blood in the stool or black stools, Genitourinary (F) - No dysuria or hematuria. Positive for urinary frequency. No urgency or incontinence, Musculoskeletal - No joint or bone pain, Integumentary - Positive for edema in bilateral lower extremities, Neurologic - No headache. Occasional dizziness, Psychiatric - No anxiety, no depression. No insomnia. Vital Signs: Performed on Nov 28, 2019 10:01 Height - 69.50 in Weight - 143.2 lbs (LOW) BSA - 1.80 sq.m BMI - 20.84 Temperature - 97.6 F (LOW) Pulse - 114 /min (HIGH) Respiration - 18 /min BP - 137/83 mm(hg) O2 Sat - 98 % Pain - 0 Performance Status: 2 - Ambulatory/capable of all self-care, unable to perform any work activities. Up and about more than 50% of waking hours. (ECOG) Physical Examination: ENMT - No oral exudates, ulcers, masses, thrush or mucositis. Oropharynx clear. Tongue normal, Respiratory - Lungs are clear to auscultation but decreased at left lung base, Cardiovascular - Regular rate and rhythm of heart, Extremities - 2+ edema bilaterally. Lab/Imaging: Test performed on Nov 27, 2019 11:40 Sodium 140 mmol/L Potassium 4.3 mmol/L Chloride 98 mmol/L CO2 30 mmol/L Anion Gap 16.3 BUN 9 mg/dL Creatinine 0.3 mg/dL Cr Clearance (Est) 199.4200 mL/min eGFR 224.0 mL/min Glucose 111 mg/dL Calcium 9.8 mg/dL Protein, Total 7.0 g/dL Albumin 3.2 g/dL Globulin 3.8 g/dL Bilirubin, Total 0.3 mg/dL ALT (SGPT) 5 U/L AST (SGOT) 21 U/L Alkaline Phosphatase 46 IU/L WBC 8.4 10 3/uL RBC 3.54 10 6/uL HGB 10.6 g/dL HCT 34.9 % MCV 98.6 fL MCH 29.9 pg MCHC 30.4 g/dL RDW 16.8 % Platelet Count 365 10 3/cmm MPV 9.8 fL Neutrophils 7.1 10 3/uL Lymphocytes 0.6 10 3/uL Monocytes 0.5 10 3/uL Eosinophils 0.2 10 3/uL Basophils 0.0 10 3/uL Neutrophil % 83.8 % Lymphocyte % 7.2 % Monocyte % 6.1 % Eosinophil % 2.0 % Basophils % 0.5 % Test performed on Oct 03, 2019 08:50 Magnesium 2.0 mg/dL Impression: Adenocarcinoma of distal esophagus per EGD and biopsies done on 12/01/2018 CT PET scan done on 12/15/2018 showed localized disease, no evidence of lymphadenopathy or distant metastases Clinical stage T2-3, Nx,M0 Focus of increased uptake in the uterus Dysphagia due to above status post esophageal stenting and now with J-tube MRI head done on 12/11/2018, showed no brain metastases but microvascular ischemic disease Hypothyroidism on supplements Dysfunctional uterine bleeding, CT PET scan showed increased uptake in uterus. Ms Morillo began carboplatin/Taxol and radiation on 03/12/2019. She was found to be iron deficient and received Injectafer o 03/23/19 & 03/30/19. Her last dose of CArboplatin/paclitaxel was on 03/26/19. 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 All the side effect possible benefits associated with pembrolizumab were discussed including but not limited to allergic reaction, pneumonitis, colitis, endocrinopathy skin rash were mentioned further teaching on by chemotherapy nurse, we will consider pembrolizumab 200 mg IV every 3 weeks and will obtain approval from her insurance prior to the treatment and patient will return to clinic 1 week after treatment is initiated with CBC CMP. Signed By: Phyllis Mccormick M.D. <<Signature on File>>
[2019-12-04 18:39] LABS: Basophils % 0.2 %; Eosinophils # 0.2 10^3/uL (0.0-0.8); Eosinophils % 2.4 %; Hematocrit 31.1 % (37.0-47.0); Hemoglobin 9.5 g/dL (11.5-15.3); Lymphocytes # 0.4 10^3/uL (0.8-4.8); Lymphocytes % 4.2 %; Mean Corpuscular HGB Conc 30.5 g/dL (30.0-36.0); Mean Corpuscular Hemoglobin 30.4 pg (28.0-34.0); Mean Corpuscular Volume 99.7 fL (81-99); Mean Platelet Volume 10.2 fL (7.4-10.4); Monocytes # 0.7 10^3/uL (0.2-0.9); Monocytes % 8.4 %; Neutrophils # 7.5 10^3/uL (1.8-7.7); Neutrophils % 84.6 %; Nucleated Red Blood Cells % 0 %; Platelet Count 327 10^3/cmm (130-400); Red Blood Count 3.12 10^6/uL (4.1-5.3); Red Cell Distribution Width 16.5 % (12.1-15.1); White Blood Count 8.8 10^3/uL (4.0-10.0)
[2019-12-04 18:40] LABS: Alanine Aminotransferase 8 U/L (0-33); Alkaline Phosphatase 44 IU/L (35-105); Anion Gap 15.1 (5-19); Aspartate Amino Transferase 16 U/L (0-32); Blood Urea Nitrogen 7 mg/dL (8-23); Calcium 9.2 mg/dL (8.5-10.5); Carbon Dioxide 30 mmol/L (22-29); Chloride 97 mmol/L (98-107); Globulin 2.6 g/dL (1.3-4.6); Glomerular Filtration Rate 160.7 mL/min (90-130); Glucose 108 mg/dL (65-115); Osmolality Calculated 284 mOsm/kg (285-295); Potassium 3.1 mmol/L (3.5-5.1); Sodium 139 mmol/L (136-145); Thyroid Stimulating Hormone 1.73 uIU/mL (0.27-4.20); Total Bilirubin 0.3 mg/dL (0.15-1.2); Total Protein 5.6 g/dL (6.6-8.7)
== END 2019-12-04 23:59 | disposition home or self-care (01) ==
LOC: ONCMED 16:35
PROVIDERS: Family Provider Family Medicine; PCP Family Medicine; Visit Provider Internal Medicine Hematology & Oncology
DX: Z51.12 Encounter for antineoplastic immunotherapy (principal); C15.5 Malignant neoplasm of lower third of esophagus; R07.81 Pleurodynia; Z93.1 Gastrostomy status; E03.9 Hypothyroidism, unspecified; N93.8 Other specified abnormal uterine and vaginal bleeding; Z79.899 Other long term (current) drug therapy; Z96.89 Presence of other specified functional implants; Z92.3 Personal history of irradiation; Z92.21 Personal history of antineoplastic chemotherapy
CPT/HCPCS: 36415; 71046; 80053; 84443; 85025; 96413; 99214; J7050; J9271

== ENCOUNTER 2019-12-19 06:42 | Outpatient (RCR) | payer BC, SELFPAY ==
[2019-12-05 13:42] LABS: Ferritin 55 ng/mL (15-150); Iron 25 ug/dL (37-145); Percent Saturation 11.5 % (20-50); Total Iron Binding Capacity 216 mcg/dl; Unsaturated Iron Binding 191 ug/dL (112-347)
--- NOTE | 2019-12-05 14:41 | ONC FU_ITS ---
Dr. Mccormick follow up note Patient: Nerissa Morillo Unit #: [id number]: 1955 Dicatated By: Phyllis Mccormick M.D.Date of Visit:Dec 05, 2019 Onc Med Follow-up/Prog Note History of Present Illness: Mrs. Morillo is a 64-year-old female, who was recently diagnosed with distal esophageal adenocarcinoma. As per patient she did experience progressive dysphagia, about 15 pounds weight loss over the last couple months. She was evaluated with CT scan of chest on 11/30/2018 which showed mid to distal esophageal mass extends over 7.8 cm with near complete obstruction of lumen. No lymphadenopathy or other abnormality seen. She subsequently underwent EGD on 12/01/2018 which showed circumferential esophageal mass extending from 30-35 cm with narrowing of lumen. Multiple biopsies were obtained, and it confirmed adenocarcinoma. Stomach and duodenum showed no abnormality. She was referred to [facility] in [place] where she underwent further workup including repeat EGD on 12/06/2018. It showed a fungating mass lesion at 34 cm from incisors and extending into GE junction. No involvement of gastric mucosa was identified. Multiple fundic gland polyps were noted in stomach, esophageal stent was placed in. Underwent CT PET scan on 12/15/2018 which showed there is increased activity in the distal esophagus corresponding to location of the esophageal stent. Maximum SUV 10.8. Physiological activity typically identified in the gastric fundus appears more intense 9.8 which is of questionable significance. No evidence of metastatic disease. Small focus of abnormal activity in the fundus of uterus with a maximum SUV 6.5 MRI scan of head on 12/11/2018 showed no evidence of metastatic disease but minimal microvascular chronic ischemic changes. Ms Morillo nderwent J-tube insertion on 12/12/2018 and port placement to facilitate chemotherapy. She did develop wound infection around her J-tube requiring surgical intervention and wound care for extended period time. Now healing well, but this postop complication caused delay in her combined chemoradiation for esophageal cancer. She began her first week of combination therapy with carboplatin/paclitaxel and radiation on 03/12/2019. And last dose of chemotherapy was given on 03/26/2019 and after that she developed persistent leukopenia and due to poor performance chemotherapy was held and patient continue with radiation therapy which she finished 04/19/2019. Patient went to see Dr. Taylor in [place] for evaluation for esophagectomy but due to her poor performance status he give her a return appointment on 06/27/2019 to see for performance status improves at that time. Was referred to GI surgery [facility] for second opinion, Seen Dr. Henriquez, medical oncologist who recommended CT PET scan and PFTs and 6 minute walk test earlier Dr. Hayden in [place] for EGD which was done on 07/27/2019, biopsy was obtained As per patient it was positive for malignancy. She was referred to GI surgical oncologist at [facility] where she was evaluated by Dr. henriquez medical oncologist on 09/17/2019 and his recommendations were to get his CT PET scan, PFTs, 6 minute walk test and referred to Dr. Florez for consideration of surgery after workup is done. He also recommended PDL 1 status, which was checked on 09/19/2019 which showed PDL 1 positive expression level, CPS more than 10. CT PET scan was ordered but her insurance refused and asked for CT scan of chest abdomen prior to CT PET scan so patient underwent CT scan of chest abdomen on 10/02/2019 which showed artificial esophageal tube inserted from the lower esophagus into fundus of stomach No evidence of residual esophageal mass or metastatic disease. Gallbladder densely packed with stones. Patient was admitted to hospital with abdominal pain nausea vomiting and then transferred to [facility] on 10/06/2019 which she underwent EGD which showed occluded/stenosis esophageal stent and evidence of recurrence of disease. And stent could not be removed due to tumor growth so fully covered stent was placed in. Stomach and duodenal was normal. Thoracic surgery was consulted but due to patient's poor nutrition status and deconditioning surgery was not considered. And immunotherapy was recommended .Follow-up CT PET scan done on 10/26/2019 showed increased soft tissue density surrounding the esophageal stent area consistent with progression of disease. Left sided pleural effusion appears to be malignant Low-level activity in the right adrenal gland suspicious for metastatic focus. Increasing activity 2 focal areas of uterus suspicious for neoplastic process such as endometrial carcinoma. 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 Medications: Acetaminophen Extra Strength 15 mL (of 500 mg/15mL) Liquid Oral PRN, All Day Allergy Childrens 7 mL (of 1 mg/mL) Solution Oral daily, [employer] Eye Lubricant Ointment Ophthalmic PRN, Dexamethasone (4 mg) Tablet Oral Take as Directed, Ondansetron HCl 4 - 8 mg (of 4 mg/5mL) Solution Oral t.i.d. PRN, Potassium Chloride 15 mL (of 20 meq/15ml -10%) Solution Oral daily Allergies: Latex and sulfa. Review of Systems: Constitutional - Appetite is improving. Weight is also improving. No fever, chills, hot flashes, or night sweats. Energy level is fair today, ENMT - Positive for sinus congestion/drainage. No mouth sores. Positive for sore throat. Positive for difficulty swallowing, Hematologic/Lymphatic - No abnormal bruising or bleeding, Respiratory - No shortness of breath. Positive for cough. No pleuritic pain or hemoptysis, Cardiovascular - No angina pain. No palpitations, Gastrointestinal - Nausea and vomiting is improving. No heartburn and acid reflux. No diarrhea or constipation. No blood in the stool or black stools, Genitourinary (F) - No dysuria or hematuria. Positive for urinary frequency. No urgency or incontinence, Musculoskeletal - No joint or bone pain, Integumentary - Positive for edema in bilateral lower extremities, however, this is improving also, Neurologic - No headache. Occasional dizziness, Psychiatric - No anxiety, no depression. No insomnia. Vital Signs: Performed on Dec 05, 2019 11:17 Height - 69.50 in Weight - 141.2 lbs (LOW) BSA - 1.79 sq.m BMI - 20.55 Temperature - 97.7 F (LOW) Pulse - 89 /min Respiration - 14 /min BP - 118/75 mm(hg) O2 Sat - 99 % Pain - 2 Performance Status: 1 - No physically strenuous activity, but ambulatory and able to carry out light or sedentary work (e.g. office work, light house work). (ECOG) Physical Examination: ENMT - No oral exudates, ulcers, masses, thrush or mucositis. Oropharynx clear. Tongue normal, Respiratory - Lungs are clear to auscultation without rhonchi or wheezing, Cardiovascular - Regular rate and rhythm of heart, Extremities - 2+ edema bilaterally. Lab/Imaging: Test performed on Dec 04, 2019 16:35 Sodium 139 mmol/L TSH 1.73 uIU/mL Potassium 3.1 mmol/L Chloride 97 mmol/L CO2 30 mmol/L Anion Gap 15.1 BUN 7 mg/dL Creatinine 0.4 mg/dL Cr Clearance (Est) 145.7000 mL/min eGFR 160.7 mL/min Glucose 108 mg/dL Calcium 9.2 mg/dL Protein, Total 5.6 g/dL Albumin 3.0 g/dL Globulin 2.6 g/dL Bilirubin, Total 0.3 mg/dL ALT (SGPT) 8 U/L AST (SGOT) 16 U/L Alkaline Phosphatase 44 IU/L WBC 8.8 10 3/uL RBC 3.12 10 6/uL HGB 9.5 g/dL HCT 31.1 % MCV 99.7 fL MCH 30.4 pg MCHC 30.5 g/dL RDW 16.5 % Platelet Count 327 10 3/cmm MPV 10.2 fL Neutrophils 7.5 10 3/uL Lymphocytes 0.4 10 3/uL Monocytes 0.7 10 3/uL Eosinophils 0.2 10 3/uL Basophils 0.0 10 3/uL Neutrophil % 84.6 % Lymphocyte % 4.2 % Monocyte % 8.4 % Eosinophil % 2.4 % Basophils % 0.2 % Test performed on Oct 03, 2019 08:50 Magnesium 2.0 mg/dL Impression: Adenocarcinoma of distal esophagus per EGD and biopsies done on 12/01/2018 CT PET scan done on 12/15/2018 showed localized disease, no evidence of lymphadenopathy or distant metastases Clinical stage T2-3, Nx,M0 Focus of increased uptake in the uterus Dysphagia due to above status post esophageal stenting and now with J-tube MRI head done on 12/11/2018, showed no brain metastases but microvascular ischemic disease Hypothyroidism on supplements Dysfunctional uterine bleeding, CT PET scan showed increased uptake in uterus. Ms Morillo began carboplatin/Taxol and radiation on 03/12/2019. She was found to be iron deficient and received Injectafer o 03/23/19 & 03/30/19. Her last dose of CArboplatin/paclitaxel was on 03/26/19. .Due to progressive leukopenia, she could not receive further chemotherapy but continue with radiation alone which she completed on 04/19/2019 Plan: Discussed with patient regarding her labs white blood count 8.8 hemoglobin 9.5 hematocrit 31.1 platelets 327,000 CMP within normal limit except potassium 3.1. And TSH is 1.73 Clinically, patient is doing well, tolerated first dose of immunotherapy with Keytruda well. Her blood count looks reasonable there is a further drop in her hemoglobin with no evidence of hemolysis or gross bleeding cytology could be multifactorial including anemia of chronic disease, or nutritional, we'll check her iron studies B12 folic acid level if is low we'll consider supplement otherwise monitor and consider blood transfusion in case hemoglobin dropped below 8 g. As far as mild hypokalemia is concern patient was on daily potassium supplement and last week her potassium improved to 4.3 and potassium supplement was changed to every other day because of mild GI disturbance related to potassium supplements. Now with a drop in her potassium level will consider daily potassium supplements and monitor her potassium level and her she'll return to clinic in 2 weeks with CBC CMP and if reasonable next dose of Keytruda. Signed By: Phyllis Mccormick M.D. <<Signature on File>>
[2019-12-18 09:36] LABS: Basophils % 0.5 %; Eosinophils # 0.2 10^3/uL (0.0-0.8); Eosinophils % 2.9 %; Hemoglobin 9.8 g/dL (11.5-15.3); Lymphocytes # 0.5 10^3/uL (0.8-4.8); Lymphocytes % 7.6 %; Mean Corpuscular HGB Conc 29.7 g/dL (30.0-36.0); Mean Corpuscular Hemoglobin 29.2 pg (28.0-34.0); Mean Corpuscular Volume 98.2 fL (81-99); Mean Platelet Volume 9.8 fL (7.4-10.4); Monocytes # 0.4 10^3/uL (0.2-0.9); Monocytes % 6.7 %; Neutrophils # 5.4 10^3/uL (1.8-7.7); Nucleated Red Blood Cells % 0 %; Platelet Count 391 10^3/cmm (130-400); Red Blood Count 3.36 10^6/uL (4.1-5.3); Red Cell Distribution Width 15.9 % (12.1-15.1); White Blood Count 6.6 10^3/uL (4.0-10.0)
[2019-12-18 10:06] LABS: Alanine Aminotransferase < 5 U/L (0-33); Albumin Level 3.1 g/dL (3.5-5.2); Alkaline Phosphatase 45 IU/L (35-105); Anion Gap 15.7 (5-19); Aspartate Amino Transferase 19 U/L (0-32); Blood Urea Nitrogen 9 mg/dL (8-23); Calcium 9.4 mg/dL (8.5-10.5); Carbon Dioxide 30 mmol/L (22-29); Chloride 98 mmol/L (98-107); Glucose 106 mg/dL (65-115); Osmolality Calculated 286 mOsm/kg (285-295); Potassium 3.7 mmol/L (3.5-5.1); Sodium 140 mmol/L (136-145); Thyroid Stimulating Hormone 2.79 uIU/mL (0.27-4.20); Total Bilirubin 0.3 mg/dL (0.15-1.2); Total Protein 6.1 g/dL (6.6-8.7)
[2019-12-18 10:51] LABS: Ferritin 24 ng/mL (15-150); Iron 32 ug/dL (37-145); Percent Saturation 12.6 % (20-50); Total Iron Binding Capacity 252 mcg/dl; Unsaturated Iron Binding 220 ug/dL (112-347)
[2019-12-19] MEDS: sodium chloride 0.9% 100 ML 200 ML IV (13:14)
[2019-12-19] MEDS: ferric carboxy (PYXIS) 750 mg/15 mL INJ IV (13:14)
--- NOTE | 2019-12-19 14:06 | ONC FU_ITS ---
Dr. Mccormick follow up note Patient: Nerissa Morillo Unit #: [id number]: 1955 Dicatated By: Phyllis Mccormick M.D.Date of Visit:Dec 19, 2019 Onc Med Follow-up/Prog Note History of Present Illness: Mrs. Morillo is a 64-year-old female, who was recently diagnosed with distal esophageal adenocarcinoma. As per patient she did experience progressive dysphagia, about 15 pounds weight loss over the last couple months. She was evaluated with CT scan of chest on 11/30/2018 which showed mid to distal esophageal mass extends over 7.8 cm with near complete obstruction of lumen. No lymphadenopathy or other abnormality seen. She subsequently underwent EGD on 12/01/2018 which showed circumferential esophageal mass extending from 30-35 cm with narrowing of lumen. Multiple biopsies were obtained, and it confirmed adenocarcinoma. Stomach and duodenum showed no abnormality. She was referred to [facility] in [place] where she underwent further workup including repeat EGD on 12/06/2018. It showed a fungating mass lesion at 34 cm from incisors and extending into GE junction. No involvement of gastric mucosa was identified. Multiple fundic gland polyps were noted in stomach, esophageal stent was placed in. Underwent CT PET scan on 12/15/2018 which showed there is increased activity in the distal esophagus corresponding to location of the esophageal stent. Maximum SUV 10.8. Physiological activity typically identified in the gastric fundus appears more intense 9.8 which is of questionable significance. No evidence of metastatic disease. Small focus of abnormal activity in the fundus of uterus with a maximum SUV 6.5 MRI scan of head on 12/11/2018 showed no evidence of metastatic disease but minimal microvascular chronic ischemic changes. Ms Morillo nderwent J-tube insertion on 12/12/2018 and port placement to facilitate chemotherapy. She did develop wound infection around her J-tube requiring surgical intervention and wound care for extended period time. Now healing well, but this postop complication caused delay in her combined chemoradiation for esophageal cancer. She began her first week of combination therapy with carboplatin/paclitaxel and radiation on 03/12/2019. And last dose of chemotherapy was given on 03/26/2019 and after that she developed persistent leukopenia and due to poor performance chemotherapy was held and patient continue with radiation therapy which she finished 04/19/2019. Patient went to see Dr. Taylor in [place] for evaluation for esophagectomy but due to her poor performance status he give her a return appointment on 06/27/2019 to see for performance status improves at that time. Was referred to GI surgery [facility] for second opinion, Seen Dr. Henriquez, medical oncologist who recommended CT PET scan and PFTs and 6 minute walk test earlier Dr. Hayden in [place] for EGD which was done on 07/27/2019, biopsy was obtained As per patient it was positive for malignancy. She was referred to GI surgical oncologist at [facility] where she was evaluated by Dr. henriquez medical oncologist on 09/17/2019 and his recommendations were to get his CT PET scan, PFTs, 6 minute walk test and referred to Dr. Florez for consideration of surgery after workup is done. He also recommended PDL 1 status, which was checked on 09/19/2019 which showed PDL 1 positive expression level, CPS more than 10. CT PET scan was ordered but her insurance refused and asked for CT scan of chest abdomen prior to CT PET scan so patient underwent CT scan of chest abdomen on 10/02/2019 which showed artificial esophageal tube inserted from the lower esophagus into fundus of stomach No evidence of residual esophageal mass or metastatic disease. Gallbladder densely packed with stones. Patient was admitted to hospital with abdominal pain nausea vomiting and then transferred to [facility] on 10/06/2019 which she underwent EGD which showed occluded/stenosis esophageal stent and evidence of recurrence of disease. And stent could not be removed due to tumor growth so fully covered stent was placed in. Stomach and duodenal was normal. Thoracic surgery was consulted but due to patient's poor nutrition status and deconditioning surgery was not considered. And immunotherapy was recommended .Follow-up CT PET scan done on 10/26/2019 showed increased soft tissue density surrounding the esophageal stent area consistent with progression of disease. Left sided pleural effusion appears to be malignant Low-level activity in the right adrenal gland suspicious for metastatic focus. Increasing activity 2 focal areas of uterus suspicious for neoplastic process such as endometrial carcinoma. 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 No fever or chills, no nausea or vomiting, no diarrhea constipation, tolerated first cycle with Keytruda well . Medications: Acetaminophen Extra Strength 15 mL (of 500 mg/15mL) Liquid Oral PRN, All Day Allergy Childrens 7 mL (of 1 mg/mL) Solution Oral daily, [employer] Eye Lubricant Ointment Ophthalmic PRN, Dexamethasone (4 mg) Tablet Oral Take as Directed, Ondansetron HCl 4 - 8 mg (of 4 mg/5mL) Solution Oral t.i.d. PRN, Potassium Chloride 15 mL (of 20 meq/15ml -10%) Solution Oral daily Allergies: Latex and sulfa. Review of Systems: Constitutional - Appetite is improving. Weight is also improving. No fever, chills, hot flashes, or night sweats. Energy level is fair today, ENMT - Positive for sinus congestion/drainage. No mouth sores. Positive for sore throat. Positive for difficulty swallowing, Hematologic/Lymphatic - No abnormal bruising or bleeding, Respiratory - No shortness of breath. Positive for cough. No pleuritic pain or hemoptysis, Cardiovascular - No angina pain. No palpitations, Gastrointestinal - Nausea and vomiting is improving. No heartburn and acid reflux. No diarrhea or constipation. No blood in the stool or black stools, Genitourinary (F) - No dysuria or hematuria. Positive for urinary frequency. No urgency or incontinence, Musculoskeletal - No joint or bone pain, Integumentary - Positive for edema in bilateral lower extremities, however, this is improving also, Neurologic - No headache. Occasional dizziness, Psychiatric - No anxiety, no depression. No insomnia. Vital Signs: Performed on Dec 19, 2019 13:03 Height - 69.50 in Weight - 142.6 lbs (HIGH) BSA - 1.80 sq.m BMI - 20.76 Temperature - 97.7 F (LOW) Pulse - 117 /min (HIGH) Respiration - 18 /min BP - 129/74 mm(hg) O2 Sat - 98 % Pain - 0 Performance Status: 1 - No physically strenuous activity, but ambulatory and able to carry out light or sedentary work (e.g. office work, light house work). (ECOG) Physical Examination: Neck - denies mouth sores or thrush, Respiratory - Lungs are clear, Cardiovascular - Regular rate and rhythm, Extremities - 1+ edema. Lab/Imaging: Test performed on Dec 04, 2019 16:35 Ferritin 55 ng/mL Iron 25 mcg/dL Sodium 139 mmol/L TSH 1.73 uIU/mL Iron Binding Capacity (TIBC) 216 mcg/dl Potassium 3.1 mmol/L % Iron Saturation 11.5 % Chloride 97 mmol/L CO2 30 mmol/L UIBC 191 mcg/dL Anion Gap 15.1 BUN 7 mg/dL Creatinine 0.4 mg/dL Cr Clearance (Est) 145.7000 mL/min eGFR 160.7 mL/min Glucose 108 mg/dL Calcium 9.2 mg/dL Protein, Total 5.6 g/dL Albumin 3.0 g/dL Globulin 2.6 g/dL Bilirubin, Total 0.3 mg/dL ALT (SGPT) 8 U/L AST (SGOT) 16 U/L Alkaline Phosphatase 44 IU/L WBC 8.8 10 3/uL RBC 3.12 10 6/uL HGB 9.5 g/dL HCT 31.1 % MCV 99.7 fL MCH 30.4 pg MCHC 30.5 g/dL RDW 16.5 % Platelet Count 327 10 3/cmm MPV 10.2 fL Neutrophils 7.5 10 3/uL Lymphocytes 0.4 10 3/uL Monocytes 0.7 10 3/uL Eosinophils 0.2 10 3/uL Basophils 0.0 10 3/uL Neutrophil % 84.6 % Lymphocyte % 4.2 % Monocyte % 8.4 % Eosinophil % 2.4 % Basophils % 0.2 % Test performed on Oct 03, 2019 08:50 Magnesium 2.0 mg/dL Impression: Adenocarcinoma of distal esophagus per EGD and biopsies done on 12/01/2018 CT PET scan done on 12/15/2018 showed localized disease, no evidence of lymphadenopathy or distant metastases Clinical stage T2-3, Nx,M0 Focus of increased uptake in the uterus Dysphagia due to above status post esophageal stenting and now with J-tube MRI head done on 12/11/2018, showed no brain metastases but microvascular ischemic disease Hypothyroidism on supplements Dysfunctional uterine bleeding, CT PET scan showed increased uptake in uterus. Ms Morillo began carboplatin/Taxol and radiation on 03/12/2019. She was found to be iron deficient and received Injectafer o 03/23/19 & 03/30/19. Her last dose of CArboplatin/paclitaxel was on 03/26/19. .Due to progressive leukopenia, she could not receive further chemotherapy but continue with radiation alone which she completed on 04/19/2019 Plan: Discussed with patient regarding her labs white blood count 6.6 and globin 9.8 crit 33 platelets 391,000 CMP within normal limits. Anemia workup shows ferritin on the lower side of normal, 24 and iron 32 normal being 37 -145 and iron saturation 12.6 normal being 20-50. Clinically, patient is doing reasonably well, now on palliative therapy with immunotherapy Keytruda. We will proceed with next 3 weekly dose of Keytruda today and then she will return to clinic in 3 weeks with CBC CMP As far as anemia is concerned, her anemia workup shows iron deficiency e.g. iron saturation, iron is low and ferritin is in the lower side of normal range , chronic inflammation can cause ferritin to go up. We will consider Injectafer 750 mg IV ???1 as patient said in the past she was intolerant to oral iron.we will obtain approval from her insurance, all the side effect possible benefits associated with Injectafer were discussed.as far as dysphagia is concern, patient has esophageal stent, she was advised to take small bites and chew well and followed by carbonated drinks and if dysphagia progressed, we'll consider EGD. Return to clinic in 3 weeks with CBC CMP. Signed By: Phyllis Mccormick M.D. <<Signature on File>>
== END 2020-01-03 23:59 | disposition home or self-care (01) ==
LOC: ONCMED 06:42
PROVIDERS: Family Provider Family Medicine; PCP Family Medicine; Visit Provider Internal Medicine Hematology & Oncology
DX: Z51.12 Encounter for antineoplastic immunotherapy (principal); C15.5 Malignant neoplasm of lower third of esophagus; R13.14 Dysphagia, pharyngoesophageal phase; E03.9 Hypothyroidism, unspecified; D50.9 Iron deficiency anemia, unspecified; Z92.3 Personal history of irradiation; Z92.21 Personal history of antineoplastic chemotherapy; Z79.899 Other long term (current) drug therapy
CPT/HCPCS: 80053; 82728; 83540; 83550; 84443; 85025; 96367; 96413; 99214; J1439; J7050; J9271

== ENCOUNTER 2020-01-29 06:45 | Outpatient (RCR) | payer BC, SELFPAY ==
[2020-01-07 13:16] LABS: Basophils % 0.5 %; Eosinophils # 0.2 10^3/uL (0.0-0.8); Eosinophils % 2.7 %; Hemoglobin 11.2 g/dL (11.5-15.3); Lymphocytes # 0.6 10^3/uL (0.8-4.8); Lymphocytes % 9.4 %; Mean Corpuscular HGB Conc 30.3 g/dL (30.0-36.0); Mean Corpuscular Hemoglobin 30.7 pg (28.0-34.0); Mean Corpuscular Volume 101.4 fL (81-99); Mean Platelet Volume 10.1 fL (7.4-10.4); Monocytes # 0.4 10^3/uL (0.2-0.9); Neutrophils # 5.4 10^3/uL (1.8-7.7); Neutrophils % 81.1 %; Nucleated Red Blood Cells % 0 %; Platelet Count 323 10^3/cmm (130-400); Red Blood Count 3.65 10^6/uL (4.1-5.3); Red Cell Distribution Width 17.5 % (12.1-15.1); White Blood Count 6.6 10^3/uL (4.0-10.0)
[2020-01-07 13:23] LABS: Alanine Aminotransferase < 5 U/L (0-33); Albumin Level 2.6 g/dL (3.5-5.2); Alkaline Phosphatase 41 IU/L (35-105); Anion Gap 12.7 (5-19); Aspartate Amino Transferase 16 U/L (0-32); Blood Urea Nitrogen 6 mg/dL (8-23); Calcium 8.9 mg/dL (8.5-10.5); Carbon Dioxide 34 mmol/L (22-29); Chloride 98 mmol/L (98-107); Globulin 2.8 g/dL (1.3-4.6); Glucose 99 mg/dL (65-115); Osmolality Calculated 290 mOsm/kg (285-295); Sodium 142 mmol/L (136-145); Thyroid Stimulating Hormone 2.36 uIU/mL (0.27-4.20); Total Bilirubin 0.2 mg/dL (0.15-1.2); Total Protein 5.4 g/dL (6.6-8.7)
[2020-01-07 14:12] LABS: Potassium 2.7 mmol/L (3.5-5.1)
[2020-01-07 16:43] LABS: Magnesium 2.1 mg/dL (1.7-2.3)
[2020-01-08] MEDS: sodium chloride 0.9% (100 ml) 100 ML 300 ML (15:20)
[2020-01-08] MEDS: potassium chloride 20 MEQ in sodium chloride 0.9% 500 ML 250 MEQ IV (15:20)
--- NOTE | 2020-01-14 10:29 | ONC FU_ITS ---
Dr. Mccormick follow up note Patient: Nerissa Morillo Unit #: [id number]: [id number] Dicatated By: Phyllis Mccormick M.D.Date of Visit:January 08, 2020 Onc Med Follow-up/Prog Note History of Present Illness: Mrs. Morillo is a 64-year-old female, who was recently diagnosed with distal esophageal adenocarcinoma. As per patient she did experience progressive dysphagia, about 15 pounds weight loss over the last couple months. She was evaluated with CT scan of chest on 11/30/2018 which showed mid to distal esophageal mass extends over 7.8 cm with near complete obstruction of lumen. No lymphadenopathy or other abnormality seen. She subsequently underwent EGD on 12/01/2018 which showed circumferential esophageal mass extending from 30-35 cm with narrowing of lumen. Multiple biopsies were obtained, and it confirmed adenocarcinoma. Stomach and duodenum showed no abnormality. She was referred to [facility] in [place] where she underwent further workup including repeat EGD on 12/06/2018. It showed a fungating mass lesion at 34 cm from incisors and extending into GE junction. No involvement of gastric mucosa was identified. Multiple fundic gland polyps were noted in stomach, esophageal stent was placed in. Underwent CT PET scan on 12/15/2018 which showed there is increased activity in the distal esophagus corresponding to location of the esophageal stent. Maximum SUV 10.8. Physiological activity typically identified in the gastric fundus appears more intense 9.8 which is of questionable significance. No evidence of metastatic disease. Small focus of abnormal activity in the fundus of uterus with a maximum SUV 6.5 MRI scan of head on 12/11/2018 showed no evidence of metastatic disease but minimal microvascular chronic ischemic changes. Ms Morillo nderwent J-tube insertion on 12/12/2018 and port placement to facilitate chemotherapy. She did develop wound infection around her J-tube requiring surgical intervention and wound care for extended period time. Now healing well, but this postop complication caused delay in her combined chemoradiation for esophageal cancer. She began her first week of combination therapy with carboplatin/paclitaxel and radiation on 03/12/2019. And last dose of chemotherapy was given on 03/26/2019 and after that she developed persistent leukopenia and due to poor performance chemotherapy was held and patient continue with radiation therapy which she finished 04/19/2019. Patient went to see Dr. Taylor in [place] for evaluation for esophagectomy but due to her poor performance status he give her a return appointment on 06/27/2019 to see for performance status improves at that time. Was referred to GI surgery [facility] for second opinion, Seen Dr. Henriquez, medical oncologist who recommended CT PET scan and PFTs and 6 minute walk test earlier Dr. Hayden in [place] for EGD which was done on 07/27/2019, biopsy was obtained As per patient it was positive for malignancy. She was referred to GI surgical oncologist at [facility] where she was evaluated by Dr. henriquez medical oncologist on 09/17/2019 and his recommendations were to get his CT PET scan, PFTs, 6 minute walk test and referred to Dr. Florez for consideration of surgery after workup is done. He also recommended PDL 1 status, which was checked on 09/19/2019 which showed PDL 1 positive expression level, CPS more than 10. CT PET scan was ordered but her insurance refused and asked for CT scan of chest abdomen prior to CT PET scan so patient underwent CT scan of chest abdomen on 10/02/2019 which showed artificial esophageal tube inserted from the lower esophagus into fundus of stomach No evidence of residual esophageal mass or metastatic disease. Gallbladder densely packed with stones. Patient was admitted to hospital with abdominal pain nausea vomiting and then transferred to [facility] on 10/06/2019 which she underwent EGD which showed occluded/stenosis esophageal stent and evidence of recurrence of disease. And stent could not be removed due to tumor growth so fully covered stent was placed in. Stomach and duodenal was normal. Thoracic surgery was consulted but due to patient's poor nutrition status and deconditioning surgery was not considered. And immunotherapy was recommended .Follow-up CT PET scan done on 10/26/2019 showed increased soft tissue density surrounding the esophageal stent area consistent with progression of disease. Left sided pleural effusion appears to be malignant Low-level activity in the right adrenal gland suspicious for metastatic focus. Increasing activity 2 focal areas of uterus suspicious for neoplastic process such as endometrial carcinoma. 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 But no painful swallowing, no hemoptysis or hematemesis, no jaundice, no abdominal fullness, no diarrhea constipation, no fever or chills, no shortness of breath or wheezing, no skin rash. Tolerating immunotherapy with Keytruda well. . Medications: Acetaminophen Extra Strength 15 mL (of 500 mg/15mL) Liquid Oral PRN, All Day Allergy Childrens 7 mL (of 1 mg/mL) Solution Oral daily, [employer] Eye Lubricant Ointment Ophthalmic PRN, Dexamethasone (4 mg) Tablet Oral Take as Directed, Ondansetron HCl 4 - 8 mg (of 4 mg/5mL) Solution Oral t.i.d. PRN, Potassium Chloride 15 mL (of 20 meq/15ml -10%) Solution Oral daily Allergies: Latex and sulfa. Review of Systems: Constitutional - She generally feels good. Her energy level is up and down. She does some light work around the house. Her appetite is good and she continues to drink Boost between meals. No fevers, chills, night sweats. She has occasional hot flashes, ENMT - No problems with hearing, no sore throat. She has persistant sinus drainage. She was having dysphagia which is improved, Hematologic/Lymphatic - She bruises easily. The patient denies any tender or palpable lymph nodes, Respiratory - No dyspnea on exertion or chest pain. She has had a drycough. No hemoptysis, Cardiovascular - No anginal chest pain, palpitations or orthopnea, Gastrointestinal - She has constant chronuc nausea. No vomiting, diarrhea, GI bleeding, or constipation. No change in bowel habits, no heartburn or early satiety, Genitourinary (F) - No hematuria, dysuria, increased frequency, urgency, hesitancy or incontinence, Musculoskeletal - She is having upper back pain, this is chronic unchanged pain, Integumentary - No chronic rashes, inflammation, ulcerations or skin changes, Neurologic - No headache, blurred vision, and no areas of focal weakness or numbness. Normal gait. No sensory problems, Psychiatric - No insomnia, depression, saji or mood swings. No psychotropic drugs. Vital Signs: Performed on January 08, 2020 13:51 Height - 69.50 in Weight - 141.2 lbs (LOW) BSA - 1.79 sq.m BMI - 20.55 Temperature - 97.3 F (LOW) Pulse - 114 /min (HIGH) Respiration - 17 /min BP - 126/79 mm(hg) O2 Sat - 99 % Pain - 3 Performance Status: 2 - Ambulatory/capable of all self-care, unable to perform any work activities. Up and about more than 50% of waking hours. (ECOG) Physical Examination: ENMT - no mouth sores, no jaundice, Respiratory - Lungs are clear, Cardiovascular - Regular rate and rhythm of heart, Abdomen - soft, bowel sounds present, Extremities - 1+ edema bilaterally, no skin rash. Lab/Imaging: Test performed on January 07, 2020 08:40 Magnesium 2.1 mg/dL Sodium 142 mmol/L TSH 2.36 uIU/mL Potassium 2.7 mmol/L Chloride 98 mmol/L CO2 34 mmol/L Anion Gap 12.7 BUN 6 mg/dL Creatinine 0.3 mg/dL Cr Clearance (Est) 191.55 mL/min eGFR 224.0 mL/min Glucose 99 mg/dL Calcium 8.9 mg/dL Protein, Total 5.4 g/dL Albumin 2.6 g/dL Globulin 2.8 g/dL Bilirubin, Total 0.2 mg/dL ALT (SGPT) < 5 U/L AST (SGOT) 16 U/L Alkaline Phosphatase 41 IU/L WBC 6.6 10 3/uL RBC 3.65 10 6/uL HGB 11.2 g/dL HCT 37.0 % MCV 101.4 fL MCH 30.7 pg MCHC 30.3 g/dL RDW 17.5 % Platelet Count 323 10 3/cmm MPV 10.1 fL Neutrophils 5.4 10 3/uL Lymphocytes 0.6 10 3/uL Monocytes 0.4 10 3/uL Eosinophils 0.2 10 3/uL Basophils 0.0 10 3/uL Neutrophil % 81.1 % Lymphocyte % 9.4 % Monocyte % 6.0 % Eosinophil % 2.7 % Basophils % 0.5 % Test performed on Dec 18, 2019 08:20 Ferritin 24 ng/mL Iron 32 mcg/dL Iron Binding Capacity (TIBC) 252 mcg/dl % Iron Saturation 12.6 % UIBC 220 mcg/dL Impression: Adenocarcinoma of distal esophagus per EGD and biopsies done on 12/01/2018 CT PET scan done on 12/15/2018 showed localized disease, no evidence of lymphadenopathy or distant metastases Clinical stage T2-3, Nx,M0 Focus of increased uptake in the uterus Dysphagia due to above status post esophageal stenting and now with J-tube MRI head done on 12/11/2018, showed no brain metastases but microvascular ischemic disease Hypothyroidism on supplements Dysfunctional uterine bleeding, CT PET scan showed increased uptake in uterus. Ms Morillo began carboplatin/Taxol and radiation on 03/12/2019. She was found to be iron deficient and received Injectafer o 03/23/19 & 03/30/19. Her last dose of CArboplatin/paclitaxel was on 03/26/19. .Due to progressive leukopenia, she could not receive further chemotherapy but continue with radiation alone which she completed on 04/19/2019 Plan: .Discussed with patient regarding her labs white blood count 6.6 hemoglobin 11.2 hematocrit 37 platelets 323,000 CMP and TSH within normal limit except potassium 2.7 Clinically, patient is doing well, with overall improvement in her performance status, tolerating immunotherapy with Keytruda well and will proceed with next dose today As for the anemia is concerned she responded very well to Injectafer, her hemoglobin has gone up to 11.2 g compared to 9.8 prior to Injectafer infusion. As far as swallowing issues concern patient has esophageal stent, it could be due to clogging of stent or overgrowth of tumor or patient may be swallowing large amount of food. Patient was advised to try small bites/meals and if there is no improvement may consider referred to GI for EGD. As far as hypokalemia is concern, patient is noncompliant with her potassium supplement, patient was advised to take potassium supplement as recommended in the meantime we will add 20 mEq KCl intravenously over 2 hours ???1 and then she will return to clinic in 3 weeks with CBC CMP. Signed By: Phyllis Mccormick M.D. <<Signature on File>>
[2020-01-29 13:15] LABS: Alanine Aminotransferase < 5 U/L (0-33); Albumin Level 3.2 g/dL (3.5-5.2); Alkaline Phosphatase 45 IU/L (35-105); Anion Gap 15.9 (5-19); Aspartate Amino Transferase 16 U/L (0-32); Blood Urea Nitrogen 7 mg/dL (8-23); Calcium 8.8 mg/dL (8.5-10.5); Carbon Dioxide 33 mmol/L (22-29); Chloride 95 mmol/L (98-107); Globulin 3.1 g/dL (1.3-4.6); Glucose 107 mg/dL (65-115); Osmolality Calculated 288 mOsm/kg (285-295); Sodium 141 mmol/L (136-145); Total Bilirubin 0.3 mg/dL (0.15-1.2); Total Protein 6.3 g/dL (6.6-8.7)
[2020-01-29 13:23] LABS: Potassium 2.9 mmol/L (3.5-5.1)
[2020-01-29 13:35] LABS: Basophils # 0.1 10^3/uL (0.0-0.1); Basophils % 0.6 %; Eosinophils # 0.3 10^3/uL (0.0-0.8); Eosinophils % 3.7 %; Hematocrit 39.3 % (37.0-47.0); Hemoglobin 12.1 g/dL (11.5-15.3); Lymphocytes % 11.8 %; Mean Corpuscular HGB Conc 30.8 g/dL (30.0-36.0); Mean Corpuscular Hemoglobin 30.3 pg (28.0-34.0); Mean Corpuscular Volume 98.3 fL (81-99); Mean Platelet Volume 9.7 fL (7.4-10.4); Monocytes # 0.7 10^3/uL (0.2-0.9); Monocytes % 8.2 %; Neutrophils # 6.3 10^3/uL (1.8-7.7); Neutrophils % 75.5 %; Nucleated Red Blood Cells % 0 %; Platelet Count 451 10^3/cmm (130-400); Red Cell Distribution Width 17.3 % (12.1-15.1); White Blood Count 8.4 10^3/uL (4.0-10.0)
[2020-01-29] MEDS: potassium chloride 20 MEQ in sodium chloride 0.9% 500 ML 250 MEQ IV (14:20)
[2020-01-29 15:08] LABS: Magnesium 2.1 mg/dL (1.7-2.3)
== END 2020-02-03 23:59 | disposition home or self-care (01) ==
LOC: ONCMED 06:45
PROVIDERS: Nurse Practitioner; Family Provider Family Medicine; PCP Family Medicine; Visit Provider Internal Medicine Hematology & Oncology
DX: Z51.12 Encounter for antineoplastic immunotherapy (principal); C15.5 Malignant neoplasm of lower third of esophagus; D64.9 Anemia, unspecified; E87.6 Hypokalemia; E03.9 Hypothyroidism, unspecified
CPT/HCPCS: 80053; 83735; 84443; 85025; 96366; 96367; 96413; 99214; J3480; J7040; J7050; J9271

== ENCOUNTER 2020-02-19 13:30 | Outpatient (RCR) | payer BC, SELFPAY ==
[2020-02-19 08:27] LABS: Basophils # 0.1 10^3/uL (0.0-0.1); Basophils % 0.8 %; Eosinophils # 0.4 10^3/uL (0.0-0.8); Eosinophils % 4.6 %; Hematocrit 39.9 % (37.0-47.0); Hemoglobin 12.8 g/dL (11.5-15.3); Lymphocytes # 1.1 10^3/uL (0.8-4.8); Lymphocytes % 11.9 %; Mean Corpuscular HGB Conc 32.1 g/dL (30.0-36.0); Mean Corpuscular Hemoglobin 31.9 pg (28.0-34.0); Mean Corpuscular Volume 99.5 fL (81-99); Mean Platelet Volume 9.6 fL (7.4-10.4); Monocytes # 0.8 10^3/uL (0.2-0.9); Monocytes % 8.4 %; Neutrophils # 6.6 10^3/uL (1.8-7.7); Nucleated Red Blood Cells % 0 %; Platelet Count 421 10^3/cmm (130-400); Red Blood Count 4.01 10^6/uL (4.1-5.3); Red Cell Distribution Width 17.3 % (12.1-15.1)
[2020-02-19 09:00] LABS: Alanine Aminotransferase 6 U/L (0-33); Albumin Level 3.4 g/dL (3.5-5.2); Alkaline Phosphatase 44 IU/L (35-105); Anion Gap 16.3 (5-19); Aspartate Amino Transferase 16 U/L (0-32); Blood Urea Nitrogen 8 mg/dL (8-23); Calcium 9.7 mg/dL (8.5-10.5); Carbon Dioxide 32 mmol/L (22-29); Chloride 96 mmol/L (98-107); Globulin 3.7 g/dL (1.3-4.6); Glomerular Filtration Rate 160.7 mL/min (90-130); Glucose 122 mg/dL (65-115); Osmolality Calculated 289 mOsm/kg (285-295); Potassium 3.3 mmol/L (3.5-5.1); Sodium 141 mmol/L (136-145); Thyroid Stimulating Hormone 2.43 uIU/mL (0.27-4.20); Total Bilirubin 0.4 mg/dL (0.15-1.2); Total Protein 7.1 g/dL (6.6-8.7)
--- NOTE | 2020-02-19 12:35 | CT_ITS ---
WS: [id number] CTA THORACIC TECHNIQUE: Contrast enhanced CTA of the thoracic aorta with coronal and sagittal reformatted images a nd maximum intensity projection (MIP) images. CLINICAL INFORMATION: CHEST PAIN, COUGH , SHORTNESS OF BREATH COMPARISON: CT October 02, 2019 DLP: 493.[address] scans at [facility] use at least one of these dose optimization techniques: automat ed exposure control; mA and/or kV adjustment per patient size (includes targeted exams where dose is matched to clinical indication); or iterative reconstruction. FINDINGS: Normal caliber thoracic aorta. No evidence of aortic dissection. Proximal main pulmonary arteries are normal. Segmental and subsegmental pulmonary arteries are normal. No evidence of pulmonary embolus. Esophageal stent with extension to the stomach. Esophageal stent appears to have been extended proxim ally since the prior examination. Diffuse circumferential thickening involving the mid and distal tho racic esophagus progressed from previous. Esophageal luminal narrowing. Soft tissues thickening exten ds to the subcarinal mediastinum. Small left pleural effusion with subsegmental atelectasis left lower lobe. Subsegmental atelectasis r ight lower lobe medially small amount pleural fluid.. Soft tissue thickening along the right hilum. No mediastinal or hilar lymphadenopathy. Normal visuali zed thyroid gland. No other suspicious pulmonary parenchymal abnormalities.Mild thoracic kyphosis. Adrenal glands are no rmal. Cholelithiasis partially visualized. CT/CT angio chest [id number] IMPRESSION: 1. No evidence of pulmonary embolism. 2. Normal caliber thoracic aorta. No evidence of aortic dissection. 3. Esophageal stent with diffuse surrounding circumferential soft tissue thick ening. Esophageal thickening extends to the subcarinal thoracic esophagus. This is progressed from previous and may be due to treatment-related changes versus residual/recurrent disease. Recommend correlation with clinical history. 4. Diffuse in-stent luminal narrowing involving the distal thoracic esophagus. Recommend correlation for dysphagia. 5. New small left pleural effusion with compressive atelectasis left lung base . Additional compressive atelectasis in the right lower lobe medially with a sm all amount pleural fluid. Recommend correlation for pneumonia. Superimposed rad iation pneumonitis is an additional consideration. 6. Cholelithiasis.
[2020-02-19] MEDS: iohexol 350 mg/mL 100 mL Btl IV (13:39)
--- NOTE | 2020-02-19 17:38 | ONC FU_ITS ---
Dr. Mccormick follow up note Patient: Nerissa Morillo Unit #: [id number]: 1955 Dicatated By: Phyllis Mccormick M.D.Date of Visit:Feb 19, 2020 Onc Med Follow-up/Prog Note History of Present Illness: Mrs. Morillo is a 64-year-old female, who was recently diagnosed with distal esophageal adenocarcinoma. As per patient she did experience progressive dysphagia, about 15 pounds weight loss over the last couple months. She was evaluated with CT scan of chest on 11/30/2018 which showed mid to distal esophageal mass extends over 7.8 cm with near complete obstruction of lumen. No lymphadenopathy or other abnormality seen. She subsequently underwent EGD on 12/01/2018 which showed circumferential esophageal mass extending from 30-35 cm with narrowing of lumen. Multiple biopsies were obtained, and it confirmed adenocarcinoma. Stomach and duodenum showed no abnormality. She was referred to [facility] in [place] where she underwent further workup including repeat EGD on 12/06/2018. It showed a fungating mass lesion at 34 cm from incisors and extending into GE junction. No involvement of gastric mucosa was identified. Multiple fundic gland polyps were noted in stomach, esophageal stent was placed in. Underwent CT PET scan on 12/15/2018 which showed there is increased activity in the distal esophagus corresponding to location of the esophageal stent. Maximum SUV 10.8. Physiological activity typically identified in the gastric fundus appears more intense 9.8 which is of questionable significance. No evidence of metastatic disease. Small focus of abnormal activity in the fundus of uterus with a maximum SUV 6.5 MRI scan of head on 12/11/2018 showed no evidence of metastatic disease but minimal microvascular chronic ischemic changes. Ms Morillo nderwent J-tube insertion on 12/12/2018 and port placement to facilitate chemotherapy. She did develop wound infection around her J-tube requiring surgical intervention and wound care for extended period time. Now healing well, but this postop complication caused delay in her combined chemoradiation for esophageal cancer. She began her first week of combination therapy with carboplatin/paclitaxel and radiation on 03/12/2019. And last dose of chemotherapy was given on 03/26/2019 and after that she developed persistent leukopenia and due to poor performance chemotherapy was held and patient continue with radiation therapy which she finished 04/19/2019. Patient went to see Dr. Taylor in [place] for evaluation for esophagectomy but due to her poor performance status he give her a return appointment on 06/27/2019 to see for performance status improves at that time. Was referred to GI surgery [facility] for second opinion, Seen Dr. Henriquez, medical oncologist who recommended CT PET scan and PFTs and 6 minute walk test earlier Dr. Hayden in [place] for EGD which was done on 07/27/2019, biopsy was obtained As per patient it was positive for malignancy. She was referred to GI surgical oncologist at [facility] where she was evaluated by Dr. henriquez medical oncologist on 09/17/2019 and his recommendations were to get his CT PET scan, PFTs, 6 minute walk test and referred to Dr. Florez for consideration of surgery after workup is done. He also recommended PDL 1 status, which was checked on 09/19/2019 which showed PDL 1 positive expression level, CPS more than 10. CT PET scan was ordered but her insurance refused and asked for CT scan of chest abdomen prior to CT PET scan so patient underwent CT scan of chest abdomen on 10/02/2019 which showed artificial esophageal tube inserted from the lower esophagus into fundus of stomach No evidence of residual esophageal mass or metastatic disease. Gallbladder densely packed with stones. Patient was admitted to hospital with abdominal pain nausea vomiting and then transferred to [facility] on 10/06/2019 which she underwent EGD which showed occluded/stenosis esophageal stent and evidence of recurrence of disease. And stent could not be removed due to tumor growth so fully covered stent was placed in. Stomach and duodenal was normal. Thoracic surgery was consulted but due to patient's poor nutrition status and deconditioning surgery was not considered. And immunotherapy was recommended .Follow-up CT PET scan done on 10/26/2019 showed increased soft tissue density surrounding the esophageal stent area consistent with progression of disease. Left sided pleural effusion appears to be malignant Low-level activity in the right adrenal gland suspicious for metastatic focus. Increasing activity 2 focal areas of uterus suspicious for neoplastic process such as endometrial carcinoma. 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 Additional compressive atelectasis in the right lower lobe medially with small amount of pleural effusion pneumonia versus superimposed radiation pneumonitis. Esophageal stent with a diffuse surrounding circumferential soft tissue thickening. Esophageal thickening extends to the subcarinal thoracic esophagus. This is progressed from previous and may be due to treatment related changes versus residual disease. Diffuse in-stent luminal narrowing involving the distal thoracic esophagus Cholelithiasis Immunotherapy with Keytruda, was put on hold on February 19, 2020 and Augmentin/Medrol Dosepak was prescribed Came for follow-up, complaining of persistent mid chest pain especially with cough and deep breathing for last 2 weeks but no fever or chills, no cough, no palpitation, no pain radiation to the left arm. No indigestion or heartburn. No hemoptysis or hematemesis. But tightness with deep breathing, make her take shallow breath. Denies any trauma to her chest.Denies any significant dysphagia. . Medications: Acetaminophen Extra Strength 15 mL (of 500 mg/15mL) Liquid Oral PRN, All Day Allergy Childrens 7 mL (of 1 mg/mL) Solution Oral daily, Artificial Tear Solution 1 Drop(s) Solution Ophthalmic daily, [employer] Eye Lubricant Ointment Ophthalmic PRN, Dexamethasone (4 mg) Tablet Oral Take as Directed, Ondansetron HCl 4 - 8 mg (of 4 mg/5mL) Solution Oral t.i.d. PRN, Potassium Chloride 15 mL (of 20 meq/15ml -10%) Solution Oral daily Allergies: Latex and sulfa. Review of Systems: Constitutional - Appetite is improving. Weight has declined. No fever, chills, hot flashes, or night sweats. Energy level is fair today, ENMT - Positive for sinus congestion/drainage. No mouth sores. Positive for sore throat. Positive for difficulty swallowing, Hematologic/Lymphatic - No abnormal bruising or bleeding, Respiratory - Positive for recent, persistent shortness of breath and pleuritic pain. Positive for cough. No hemoptysis, Cardiovascular - No angina pain. No palpitations, Gastrointestinal - Nausea and vomiting is improving. No heartburn and acid reflux. No diarrhea or constipation. No blood in the stool or black stools, Genitourinary (F) - No dysuria or hematuria. Positive for urinary frequency. No urgency or incontinence, Musculoskeletal - No joint or bone pain, Integumentary - Positive for edema in bilateral lower extremities, however, this is improving also, Neurologic - No headache. Occasional dizziness, Psychiatric - No anxiety, no depression. No insomnia. Vital Signs: Performed on Feb 19, 2020 09:46 Height - 69.50 in Weight - 131.2 lbs (LOW) BSA - 1.74 sq.m BMI - 19.10 Temperature - 98.1 F (LOW) Pulse - 90 /min Respiration - 18 /min BP - 107/66 mm(hg) O2 Sat - 97 % Pain - 3 Performance Status: 2 - Ambulatory/capable of all self-care, unable to perform any work activities. Up and about more than 50% of waking hours. (ECOG) Physical Examination: ENMT - No mouth sores, no thrush, no jaundice, Respiratory - Few bibasilar rales otherwise clear, Abdomen - Soft, bowel sounds present, Extremities - 1+ edema bilaterally. Lab/Imaging: Test performed on January 29, 2020 12:28 Sodium 141 mmol/L Potassium 2.9 mmol/L Chloride 95 mmol/L CO2 33 mmol/L Anion Gap 15.9 BUN 7 mg/dL Creatinine 0.3 mg/dL Cr Clearance (Est) 191.5500 mL/min eGFR 224.0 mL/min Glucose 107 mg/dL Calcium 8.8 mg/dL Protein, Total 6.3 g/dL Albumin 3.2 g/dL Globulin 3.1 g/dL Bilirubin, Total 0.3 mg/dL ALT (SGPT) < 5 U/L AST (SGOT) 16 U/L Alkaline Phosphatase 45 IU/L WBC 8.4 10 3/uL RBC 4.00 10 6/uL HGB 12.1 g/dL HCT 39.3 % MCV 98.3 fL MCH 30.3 pg MCHC 30.8 g/dL RDW 17.3 % Platelet Count 451 10 3/cmm MPV 9.7 fL Neutrophils 6.3 10 3/uL Lymphocytes 1.0 10 3/uL Monocytes 0.7 10 3/uL Eosinophils 0.3 10 3/uL Basophils 0.1 10 3/uL Neutrophil % 75.5 % Lymphocyte % 11.8 % Monocyte % 8.2 % Eosinophil % 3.7 % Basophils % 0.6 % Test performed on January 07, 2020 08:40 Magnesium 2.1 mg/dL TSH 2.36 uIU/mL Test performed on Dec 18, 2019 08:20 Ferritin 24 ng/mL Iron 32 mcg/dL Iron Binding Capacity (TIBC) 252 mcg/dl % Iron Saturation 12.6 % UIBC 220 mcg/dL Impression: Adenocarcinoma of distal esophagus per EGD and biopsies done on 12/01/2018 CT PET scan done on 12/15/2018 showed localized disease, no evidence of lymphadenopathy or distant metastases Clinical stage T2-3, Nx,M0 Focus of increased uptake in the uterus Dysphagia due to above status post esophageal stenting and now with J-tube MRI head done on 12/11/2018, showed no brain metastases but microvascular ischemic disease Hypothyroidism on supplements Dysfunctional uterine bleeding, CT PET scan showed increased uptake in uterus. Ms Morillo began carboplatin/Taxol and radiation on 03/12/2019. She was found to be iron deficient and received Injectafer o 03/23/19 & 03/30/19. Her last dose of CArboplatin/paclitaxel was on 03/26/19. .Due to progressive leukopenia, she could not receive further chemotherapy but continue with radiation alone which she completed on 04/19/2019 Plan: Discussed with patient regarding her labs white blood count 9 hemoglobin 12.8 crit 39.9 platelets 421,000 CMP within normal limits TSH 2.43 Clinically, patient is doing reasonably well but now with progressive mid chest pain and more with cough or deep breathing, pleurisy type but no fever or chills, no hemoptysis or hematemesis, denies any aspirations but patient is a high risk because of esophageal stent Other concern is pulmonary embolism or radiation induced pneumonitis recall due to immunotherapy. At this point will hold her scheduled dose of Keytruda today and consider CTA thorax to rule out pulmonary embolism and, CTA thorax was done today showed no evidence of pulmonary embolism but findings consistent with pneumonia or radiation pneumonitis. Because of these findings she was started on Augmentin and Medrol Dosepak as if she has pneumonia antibiotic showed cover it and Medrol Dosepak may help pneumonitis and will also consider follow-up chest x-ray in 2 weeks if that shows improvement radiologically as well as symptomatically, we will consider resumption of immunotherapy if not, will refer her to pulmonology for evaluation. Patient was advised in case there is a worsening of symptoms, she need to go to hospital for evaluation otherwise return to clinic in 2 weeks with CBC CMP and chest x-ray Signed By: Phyllis Mccormick M.D. <<Signature on File>>
== END 2020-03-04 23:59 | disposition home or self-care (01) ==
LOC: RAD 13:30
PROVIDERS: PCP Family Medicine; Visit Provider Internal Medicine Hematology & Oncology
DX: C15.5 Malignant neoplasm of lower third of esophagus (principal); E03.9 Hypothyroidism, unspecified; D64.9 Anemia, unspecified; K80.20 Calculus of gallbladder without cholecystitis without obstruction; J98.11 Atelectasis; J90 Pleural effusion, not elsewhere classified; R07.9 Chest pain, unspecified; R06.02 Shortness of breath; R05 Cough
CPT/HCPCS: 36591; 71275; 80053; 84443; 85025; 99214

== ENCOUNTER 2020-03-04 10:27 | Outpatient (CLI) | payer BC, SELFPAY ==
--- NOTE | 2020-03-04 10:40 | XR_ITS ---
WS: [id number] CHEST 2 VIEWS HISTORY: COUGH, SHORTNESS, OF BREATH, PNEUMONIA COMPARISON: 11/27/2019 Lungs: Very minimal blunting of the LEFT costophrenic angle. Improved aeration since 11/27/2019. RIGHT lung is clear. Cardiac size: Normal. Mediastinum/Aorta: Mild atherosclerosis aorta. Esophageal stent is evident in the mid to lower esopha jerardo. Mild calcification in aorta. RIGHT Port-A-Cath is also present. Bones: Normal. XR/XR chest 2V* [id number] IMPRESSION: 1. Minimal residual airspace disease or pleural thickening at the LEFT lung ba se. Continued improvement since 11/27/2019. 2. Esophageal stent.
== END 2020-03-04 10:28 | disposition home or self-care (01) ==
LOC: RADWPI 10:30
PROVIDERS: Family Provider Family Medicine; PCP Family Medicine; Visit Provider Internal Medicine Hematology & Oncology
DX: J18.9 Pneumonia, unspecified organism (principal); R05 Cough; R06.02 Shortness of breath; I70.0 Atherosclerosis of aorta
CPT/HCPCS: 71046

== ENCOUNTER 2020-03-27 15:19 | Emergency (ER) | payer BC, SELFPAY ==
[2020-03-27 15:32] VITALS: BP 107/70; PULSE 108; RESP 14; TEMP 37.1; O2SAT 95; BMI 19.3
--- NOTE | 2020-03-27 16:02 | ECG_ITS ---
[facility] Test Date: 2020-03-27 Pat Name: Nerissa Morillo Department: Room: Gender: Female Stoper: celina : 1955 Requested By: Wojciech Walker Order Number: [id number] Ahmet MD: Sudheer Lorenzo M.D. Measurements Intervals [place] Rate: 101 P: 66 UT: 160 QRS: -18 QRSD: 69 T: 23 QT: 315 QTc: 409 Interpretive Statements SINUS TACHYCARDIA ANTEROSEPTAL MYOCARDIAL INFARCTION [40+ ms Q WAVE IN V1-V4], OF INDETERMINATE AGE No previous ECG available for comparison Electronically Signed On 03-27-2020 17:08:13 CDT by Sudheer Lorenzo M.D. [email or web address]
--- NOTE | 2020-03-27 16:02 | XR_ITS ---
WS: [id number] Portable AP upright chest, 03/27/2020 Clinical Data: cp Comparison: Portable chest, 03/04/2020. Findings: No nodules, masses or effusions are seen. The heart is normal. The pulmonary vascularity is not increased. No pneumonia or pneumothorax is seen. Esophageal stent extending from the mid esophag us into the stomach has not changed. There is a central venous catheter entering from the right and e nding in the superior vena cava also unchanged. XR/XR chest 1V portable [id number] Impression: Negative for acute cardiopulmonary disease.
--- NOTE | 2020-03-27 16:03 | W.ED.CHESTPA ---
Documented by User: Wojciech Garcia DO 03/27/20 16:07 HPI - Chest Pain General: Chief Complaint: Chest Pain Stated Complaint: CP Time Seen by Provider: 03/27/20 15:46 History of Present Illness: HPI narrative: Patient complains of left-sided pleuritic chest pain that has been present for approximately one year. Patient has esophageal cancer for which she is currently undergoing treatment patient was sent to the emergency room to rule out cardiac or pulmonary embolus as etiologies of her chest. MD complaint: chest pain Onset (ago): year(s) (1) Timing of current episode: constant and increasing Prior episodes: Yes Pain location: left chest Pain radiation: none Quality: sharp Relieving factors: nothing Exacerbating factors: nothing Review of Systems General: Reports: 10 or more systems reviewed and unremarkable except in HPI and below PFSH ED PFSH: Medical History Esophageal cancer History of endometrial biopsy Hypothyroidism Jejunostomy tube fell out Surgical History History of arthroscopy of left knee History of cataract surgery History of esophagogastroduodenoscopy (EGD) (~11/2018) History of jejunostomy tube placement History of umbilical hernia repair Family History Other Cancer Hyperlipidemia Hypertension Denies family history of Clotting disorder Anesthesia complication Bleeding disorder Social History Smoking and tobacco status: former smoker Female Reproductive History: Para: 1 Physical Exam Const: COMMON NORMALS: no acute distress, patient oriented x3, no limitations and alert HENMT: COMMON NORMALS: normocephalic, atraumatic, external ears normal and Normal external nose present HEAD & SCALP: normocephalic and atraumatic FACE & SINUS: normal facial exam NOSE: Normal external nose present EXTERNAL EAR: Yes external ears normal MOUTH: Normal oral and palatal mucosa present Neck/C-Spine: COMMON NORMALS: full ROM, no lymphadenopathy, supple, no meningeal signs and no JVD GENERAL: Yes normal visual inspection Resp: COMMON NORMALS: normal respiratory effort, No retractions, No use of accessory muscles and clear to auscultation bilaterally AUSCULTATION: clear to auscultation bilaterally Cardio: COMMON NORMALS: no JVD, regular rate and regular rhythm RATE: regular rate RHYTHM: regular rhythm GI: COMMON NORMALS: Normal to inspection, nondistended, normoactive bowel sounds present, Soft to palpation, non-tender, No hepatosplenomegaly present and no masses INSPECTION: Yes normal to inspection AUSCULTATION: Yes normoactive bowel sounds PALPATION: Yes Soft to palpation and Yes No hepatosplenomegaly present PERCUSSION: normal to percussion : COMMON NORMALS: Yes no CVA tenderness and Yes normal external appearance BLADDER/KIDNEY EXAM: Yes no CVA tenderness Back/Pelvis: COMMON NORMALS: no CVA tenderness, thoracic and lumbar spine normal to inspection, no thoracic nor lumbar tenderness, thoraco-lumbar ROM normal and straight leg raise negative bilaterally Extremity: COMMON NORMALS: normal to inspection, full ROM, capillary refill normal, no joint enlargement, no clubbing, cyanosis or edema, no calf tenderness and no pedal edema Neuro: COMMON NORMALS: patient oriented x3, moves all extremities, no focal motor deficits and no sensory deficits noted SENSORIUM/ORIENTATION: Yes alert MENINGEAL SIGNS: Yes no meningeal signs Psych: COMMON NORMALS: mental status grossly normal, Normal thought process present, cooperative, normal affect and speech normal SPEECH: Yes normal speech THOUGHT PROCESS: Normal thought process present Skin: COMMON NORMALS: no rashes or lesions noted, no wounds, turgor normal, no jaundice, no petechiae and no mottling GENERAL SKIN EXAM: no rashes or lesions noted and turgor normal Course Vital Signs: Vital signs: Vital Signs Temperature 98.7 F 03/27/20 15:32 Pulse Rate 108 H 03/27/20 15:32 Respiratory Rate 14 03/27/20 15:32 Blood Pressure 107/70 03/27/20 15:32 Pulse Oximetry 95 03/27/20 15:32 MDM - Chest Pain Lab Data: Labs: Lab Results 03/27/20 03/27/20 03/27/20 Range/Units 16:44 16:44 16:44 WBC 6.9 (4.0-10.0) 10^3/ uL RBC 3.98 L (4.1-5.3) 10^6/u L Hgb 12.5 (11.5-15.3) g/dL Hct 39.7 (37.0-47.0) % MCV 99.7 H (81-99) fL MCH 31.4 (28.0-34.0) pg MCHC 31.5 (30.0-36.0) g/dL RDW 15.3 H (12.1-15.1) % Plt Count 261 (130-400) 10^3/c mm MPV 9.4 (7.4-10.4) fL Neut % (Auto) 74.7 % Lymph % (Auto) 7.7 % [place] % (Auto) 8.7 % Eos % (Auto) 8.1 % Baso % (Auto) 0.7 % Neut # (Auto) 5.17 (1.8-7.7) 10^3/u L Lymph # (Auto) 0.5 L (0.8-4.8) 10^3/u L [place] # (Auto) 0.6 (0.2-0.9) 10^3/u L Eos # (Auto) 0.6 (0.0-0.8) 10^3/u L Baso # (Auto) 0.1 (0.0-0.1) 10^3/u L Nucleated RBC % (a uto) 0 % Nucleated RBCs # 0.0 /100WBC Sodium 139 (136-145) mmol/L Potassium 3.1 L (3.5-5.1) mmol/L Chloride 98 (98-107) mmol/L Carbon Dioxide 32 H (22-29) mmol/L Anion Gap 12.1 (5-19) BUN 9 (8-23) mg/dL Creatinine 0.4 L (0.5-0.9) mg/dL GFR Calculation 160.2 H (90-130) mL/min Glucose 105 (65-115) mg/dL Calculated Osmolal ity 284 L (285-295) mOsm/k g Calcium 9.6 (8.5-10.5) mg/dL Total Bilirubin 0.4 (0.15-1.2) mg/dL AST 19 (0-32) U/L ALT 10 (0-33) U/L Alkaline Phosphata se 47 (35-105) IU/L Troponin T Baselin e 13 H (0-10) ng/L Troponin T 120 Min [place] (0-10) ng/L NT-Pro-B Natriuret Pep 168 H (0-125) pg/mL Total Protein 6.4 L (6.6-8.7) g/dL Albumin 3.5 (3.5-5.2) g/dL Globulin 2.9 (1.3-4.6) g/dL Lipase 13 (13-60) U/L //20 Range/Units 18:58 WBC (4.0-10.0) 10^3/ uL RBC (4.1-5.3) 10^6/u L Hgb (11.5-15.3) g/dL Hct (37.0-47.0) % MCV (81-99) fL MCH (28.0-34.0) pg MCHC (30.0-36.0) g/dL RDW (12.1-15.1) % Plt Count (130-400) 10^3/c mm MPV (7.4-10.4) fL Neut % (Auto) % Lymph % (Auto) % [place] % (Auto) % Eos % (Auto) % Baso % (Auto) % Neut # (Auto) (1.8-7.7) 10^3/u L Lymph # (Auto) (0.8-4.8) 10^3/u L [place] # (Auto) (0.2-0.9) 10^3/u L Eos # (Auto) (0.0-0.8) 10^3/u L Baso # (Auto) (0.0-0.1) 10^3/u L Nucleated RBC % (a uto) % Nucleated RBCs # /100WBC Sodium (136-145) mmol/L Potassium (3.5-5.1) mmol/L Chloride (98-107) mmol/L Carbon Dioxide (22-29) mmol/L Anion Gap (5-19) BUN (8-23) mg/dL Creatinine (0.5-0.9) mg/dL GFR Calculation (90-130) mL/min Glucose (65-115) mg/dL Calculated Osmolal ity (285-295) mOsm/k g Calcium (8.5-10.5) mg/dL Total Bilirubin (0.15-1.2) mg/dL AST (0-32) U/L ALT (0-33) U/L Alkaline Phosphata se (35-105) IU/L Troponin T Baselin e (0-10) ng/L Troponin T 120 Min [place] 13.28 H (0-10) ng/L NT-Pro-B Natriuret Pep (0-125) pg/mL Total Protein (6.6-8.7) g/dL Albumin (3.5-5.2) g/dL Globulin (1.3-4.6) g/dL Lipase (13-60) U/L Discharge Plan Discharge Patient Disposition: Home Clinical Impression: Chest pain Qualifiers: Chest pain type: unspecified Qualified Code(s): R07.9 - Chest pain, unspecified Condition: Stable Prescriptions: No Action scopolamine base [Transderm-Scop] 1 mg over 3 days patch 3 day 1 patch TRANSDERMA Q3D PRN (Reason: unknown) RF: 0 ondansetron HCl [Zofran] 4 mg tablet 4 mg PO Q8H RF: 0 potassium chloride 20 mEq/15 mL liquid 20 meq PO DAILY RF: 0 cetirizine 5 mg/5 mL prefilled spoon 5 mg PO DAILY RF: 0 acetaminophen [Infant's Tylenol] 160 mg/5 mL suspension 640 mg PO Q6H PRN (Reason: Pain) RF: 0 dextromethorphan polistirex [Children's Robitussin ER] 30 mg/5 mL suspension,extended rel 12 hr 10 ml PO DAILY RF: 0 Miralax 17 gram/dose Powder 17 g PO DAILY RF: 0 Discharge Orders: Discharge Order (Routine); Ordered 03/27/20 Ordered By: Jessica Walker Referrals: Austin Campoverde DO [Primary Care Provider] - Discharge Diet: Advance as tolerated Discharge Activity: Resume usual activity Patient Instructions: Chest Pain (ED) Coding Level of Care Code ED Flavor Extractor for Chg Fwd Exam Comprehensive Documented by User: Jessica Walker MD 03/27/20 19:40 HPI - Chest Pain General: Chief Complaint: Chest Pain Stated Complaint: CP Time Seen by Provider: 03/27/20 15:46 PFSH ED PFSH: Medical History Esophageal cancer History of endometrial biopsy Hypothyroidism Jejunostomy tube fell out Surgical History History of arthroscopy of left knee History of cataract surgery History of esophagogastroduodenoscopy (EGD) (~11/2018) History of jejunostomy tube placement History of umbilical hernia repair Family History Other Cancer Hyperlipidemia Hypertension Denies family history of Clotting disorder Anesthesia complication Bleeding disorder Social History Smoking and tobacco status: former smoker Course Vital Signs: Vital signs: Vital Signs Temperature 98.7 F 03/27/20 15:32 Pulse Rate 108 H 03/27/20 15:32 Respiratory Rate 14 03/27/20 15:32 Blood Pressure 107/70 03/27/20 15:32 Pulse Oximetry 95 03/27/20 15:32 MDM - Chest Pain MDM Narrative: Medical decision making narrative: Patient presents here with chest pain that is atypical in nature. Patient initial troponin here negative and her CT chest is negative. She feels improved and is stable for discharge. She is to follow-up with her primary care doctor in 3 to 5 days and return if worsening. She understands and agrees to plan. Lab Data: Labs: Lab Results 03/27/20 03/27/20 03/27/20 Range/Units 16:44 16:44 16:44 WBC 6.9 (4.0-10.0) 10^3/ uL RBC 3.98 L (4.1-5.3) 10^6/u L Hgb 12.5 (11.5-15.3) g/dL Hct 39.7 (37.0-47.0) % MCV 99.7 H (81-99) fL MCH 31.4 (28.0-34.0) pg MCHC 31.5 (30.0-36.0) g/dL RDW 15.3 H (12.1-15.1) % Plt Count 261 (130-400) 10^3/c mm MPV 9.4 (7.4-10.4) fL Neut % (Auto) 74.7 % Lymph % (Auto) 7.7 % [place] % (Auto) 8.7 % Eos % (Auto) 8.1 % Baso % (Auto) 0.7 % Neut # (Auto) 5.17 (1.8-7.7) 10^3/u L Lymph # (Auto) 0.5 L (0.8-4.8) 10^3/u L [place] # (Auto) 0.6 (0.2-0.9) 10^3/u L Eos # (Auto) 0.6 (0.0-0.8) 10^3/u L Baso # (Auto) 0.1 (0.0-0.1) 10^3/u L Nucleated RBC % (a uto) 0 % Nucleated RBCs # 0.0 /100WBC Sodium 139 (136-145) mmol/L Potassium 3.1 L (3.5-5.1) mmol/L Chloride 98 (98-107) mmol/L Carbon Dioxide 32 H (22-29) mmol/L Anion Gap 12.1 (5-19) BUN 9 (8-23) mg/dL Creatinine 0.4 L (0.5-0.9) mg/dL GFR Calculation 160.2 H (90-130) mL/min Glucose 105 (65-115) mg/dL Calculated Osmolal ity 284 L (285-295) mOsm/k g Calcium 9.6 (8.5-10.5) mg/dL Total Bilirubin 0.4 (0.15-1.2) mg/dL AST 19 (0-32) U/L ALT 10 (0-33) U/L Alkaline Phosphata se 47 (35-105) IU/L Troponin T Baselin e 13 H (0-10) ng/L Troponin T 120 Min [place] (0-10) ng/L NT-Pro-B Natriuret Pep 168 H (0-125) pg/mL Total Protein 6.4 L (6.6-8.7) g/dL Albumin 3.5 (3.5-5.2) g/dL Globulin 2.9 (1.3-4.6) g/dL Lipase 13 (13-60) U/L 03/27/ Range/Units 18:58 WBC (4.0-10.0) 10^3/ uL RBC (4.1-5.3) 10^6/u L Hgb (11.5-15.3) g/dL Hct (37.0-47.0) % MCV (81-99) fL MCH (28.0-34.0) pg MCHC (30.0-36.0) g/dL RDW (12.1-15.1) % Plt Count (130-400) 10^3/c mm MPV (7.4-10.4) fL Neut % (Auto) % Lymph % (Auto) % [place] % (Auto) % Eos % (Auto) % Baso % (Auto) % Neut # (Auto) (1.8-7.7) 10^3/u L Lymph # (Auto) (0.8-4.8) 10^3/u L [place] # (Auto) (0.2-0.9) 10^3/u L Eos # (Auto) (0.0-0.8) 10^3/u L Baso # (Auto) (0.0-0.1) 10^3/u L Nucleated RBC % (a uto) % Nucleated RBCs # /100WBC Sodium (136-145) mmol/L Potassium (3.5-5.1) mmol/L Chloride (98-107) mmol/L Carbon Dioxide (22-29) mmol/L Anion Gap (5-19) BUN (8-23) mg/dL Creatinine (0.5-0.9) mg/dL GFR Calculation (90-130) mL/min Glucose (65-115) mg/dL Calculated Osmolal ity (285-295) mOsm/k g Calcium (8.5-10.5) mg/dL Total Bilirubin (0.15-1.2) mg/dL AST (0-32) U/L ALT (0-33) U/L Alkaline Phosphata se (35-105) IU/L Troponin T Baselin e (0-10) ng/L Troponin T 120 Min [place] 13.28 H (0-10) ng/L NT-Pro-B Natriuret Pep (0-125) pg/mL Total Protein (6.6-8.7) g/dL Albumin (3.5-5.2) g/dL Globulin (1.3-4.6) g/dL Lipase (13-60) U/L Imaging Data^: CXR: Attestation: I personally reviewed and interpreted this imaging study as follows: Radiologist's impression: [address] [address] XRay Report Signed Patient: Nerissa Morillo Unit #: [id number] : 1955 Age/Sex: 65 / F ADM Date: 03/27/20 Loc: ER Room/Bed: Attending Dr: Ordering Provider/Ordering MD: Wojciech Garcia DO Date of Service: 03/27/20 Procedure(s): XR chest 1V portable [id number] Accession Number(s): [id number] Report Number: [id number] WS: [id number] Portable AP upright chest, 03/27/2020 Clinical Data: cp Comparison: Portable chest, 03/04/2020. Findings: No nodules, masses or effusions are seen. The heart is normal. The pulmonary vascularity is not increased. No pneumonia or pneumothorax is seen. Esophageal stent extending from the mid esophagus into the stomach has not changed. There is a central venous catheter entering from the right and ending in the superior vena cava also unchanged. XR/XR chest 1V portable [id number] Impression: Negative for acute cardiopulmonary disease. CT Chest: Attestation: I personally reviewed and interpreted this imaging study as follows: Radiologist's impression: [address] [address] [address] Scan Report Signed Patient: Nerissa Morillo Unit #: [id number] : 1955 Age/Sex: 65 / F ADM Date: 03/27/20 Loc: ER Room/Bed: Attending Dr: Ordering Provider/Ordering MD: Wojciech Garcia DO Date of Service: 03/27/20 Procedure(s): CT angio chest PE protcl [id number] Accession Number(s): [id number] Report Number: [id number] PROCEDURE INFORMATION: Exam: CT Angiography Chest With Contrast Exam date and time: 03/27/2020 5:38 PM Age: 65 years old Clinical indication: Shortness of breath; Prior surgery; Surgery date: 6+ months; Surgery type: Port jejunostomy; Additional info: Pe TECHNIQUE: Imaging protocol: Computed tomographic angiography of the chest with intravenous contrast. 3D rendering (Not supervised by radiologist): MIP and/or 3D reconstructed images were created by the technologist. Radiation optimization: All CT scans at this facility use at least one of these dose optimization techniques: automated exposure control; mA and/or kV adjustment per patient size (includes targeted exams where dose is matched to clinical indication); or iterative reconstruction. Contrast material: OMNI; Contrast volume: 68 ml; Contrast route: INTRAVENOUS (IV); COMPARISON: CT angio chest [id number] 02/19/2020 1:24 PM RADIATION DOSE METRICS: Total DLP (mGy-cm): 537.95 FINDINGS: Tubes, catheters and devices: Infusion port catheter remains in place with its tip in the superior vena cava. Pulmonary arteries: There is no evidence of filling defects within the pulmonary arterial circulation to suggest pulmonary embolism. Aorta: Unremarkable. No aortic aneurysm. No aortic dissection. Lungs: There is some subsegmental atelectasis posteriorly at the lung base and medial at the right lung base not changed from 02/19/2020. Pleural space: There is a small left pleural effusion. There is tiny right pleural effusion. Heart: Unremarkable. No cardiomegaly. No pericardial effusion. Mediastinal space: Distal esophageal stent is again identified. There is soft tissue which obstructs the upper end of the stent not significantly changed from previous. Lymph nodes: Unremarkable. No enlarged lymph nodes. Gallbladder and bile ducts: Gallbladder is contracted and packed with stones. Adrenals: The adrenal glands are normal. Stomach and bowel: There is thickening of the proximal stomach not changed from previous study. Bones/joints: Unremarkable. No acute fracture. . CT/CT angio chest PE protcl [id number] IMPRESSION: 1. No evidence of pulmonary embolism. 2. Cholelithiasis 3. No change in the appearance of the esophageal tumor or stent. 4. Pleural effusions. Discharge Plan Discharge Patient Disposition: Home Clinical Impression: Chest pain Qualifiers: Chest pain type: unspecified Qualified Code(s): R07.9 - Chest pain, unspecified Condition: Stable Prescriptions: No Action scopolamine base [Transderm-Scop] 1 mg over 3 days patch 3 day 1 patch TRANSDERMA Q3D PRN (Reason: unknown) RF: 0 ondansetron HCl [Zofran] 4 mg tablet 4 mg PO Q8H RF: 0 potassium chloride 20 mEq/15 mL liquid 20 meq PO DAILY RF: 0 cetirizine 5 mg/5 mL prefilled spoon 5 mg PO DAILY RF: 0 acetaminophen [Infant's Tylenol] 160 mg/5 mL suspension 640 mg PO Q6H PRN (Reason: Pain) RF: 0 dextromethorphan polistirex [Children's Robitussin ER] 30 mg/5 mL suspension,extended rel 12 hr 10 ml PO DAILY RF: 0 Miralax 17 gram/dose Powder 17 g PO DAILY RF: 0 Discharge Orders: Discharge Order (Routine); Ordered 03/27/20 Ordered By: Jessica Walker Referrals: Austin Campoverde DO [Primary Care Provider] - Discharge Diet: Advance as tolerated Discharge Activity: Resume usual activity Patient Instructions: Chest Pain (ED) Coding Level of Care Code ED Flavor Extractor for Selvin Fwd Exam Comprehensive
[2020-03-27 16:50] LABS: Basophils # 0.1 10^3/uL (0.0-0.1); Basophils % 0.7 %; Eosinophils # 0.6 10^3/uL (0.0-0.8); Eosinophils % 8.1 %; Hematocrit 39.7 % (37.0-47.0); Hemoglobin 12.5 g/dL (11.5-15.3); Lymphocytes # 0.5 10^3/uL (0.8-4.8); Lymphocytes % 7.7 %; Mean Corpuscular HGB Conc 31.5 g/dL (30.0-36.0); Mean Corpuscular Hemoglobin 31.4 pg (28.0-34.0); Mean Corpuscular Volume 99.7 fL (81-99); Mean Platelet Volume 9.4 fL (7.4-10.4); Monocytes # 0.6 10^3/uL (0.2-0.9); Monocytes % 8.7 %; Neutrophils # 5.17 10^3/uL (1.8-7.7); Neutrophils % 74.7 %; Nucleated Red Blood Cells % 0 %; Platelet Count 261 10^3/cmm (130-400); Red Blood Count 3.98 10^6/uL (4.1-5.3); Red Cell Distribution Width 15.3 % (12.1-15.1); White Blood Count 6.9 10^3/uL (4.0-10.0)
[2020-03-27 17:13] LABS: Troponin(5th) Baseline 13 ng/L (0-10)
[2020-03-27 17:17] LABS: Alanine Aminotransferase 10 U/L (0-33); Albumin Level 3.5 g/dL (3.5-5.2); Alkaline Phosphatase 47 IU/L (35-105); Anion Gap 12.1 (5-19); Aspartate Amino Transferase 19 U/L (0-32); Blood Urea Nitrogen 9 mg/dL (8-23); Calcium 9.6 mg/dL (8.5-10.5); Carbon Dioxide 32 mmol/L (22-29); Chloride 98 mmol/L (98-107); Creatinine Clr Calc Pharmacy 70.2671; Globulin 2.9 g/dL (1.3-4.6); Glomerular Filtration Rate 160.2 mL/min (90-130); Glucose 105 mg/dL (65-115); Lipase 13 U/L (13-60); NT Pro B Type Natriuretic Pept 168 pg/mL (0-125); Osmolality Calculated 284 mOsm/kg (285-295); Potassium 3.1 mmol/L (3.5-5.1); Sodium 139 mmol/L (136-145); Total Bilirubin 0.4 mg/dL (0.15-1.2); Total Protein 6.4 g/dL (6.6-8.7)
[2020-03-27] MEDS: iohexol 350 mg/mL 100 mL Btl 68 ML IV (17:38)
--- NOTE | 2020-03-27 18:02 | ECG_ITS ---
[facility] Test Date: 2020-03-27 Pat Name: Nerissa Morillo Department: Room: Gender: Female Vp Director Of Creative Strategy: : 1955 Requested By: Wojciech Walker Order Number: [id number] Ahmet MD: Pa Lopez M.D. Measurements Intervals [place] Rate: 87 P: 43 RI: 169 QRS: -29 QRSD: 83 T: -29 QT: 351 QTc: 424 Interpretive Statements SINUS RHYTHM SEPTAL MYOCARDIAL INFARCTION , OF INDETERMINATE AGE [40+ ms Q WAVE IN V1/V2] Compared to ECG 03/27/2020 15:38:23 Sinus tachycardia no longer present Myocardial infarct finding still present Electronically Signed On 03-28-2020 20:14:00 CDT by Pa Lopez M.D. [id number]
[2020-03-27 19:33] LABS: Troponin 5 2HR 13.28 ng/L (0-10); Troponin 5 2HR Delta 0.28 ABS# (0-10)
[2020-03-27 19:56] VITALS: BP 108/70; PULSE 98; RESP 16; O2SAT 99
[2020-03-27 19:59] VITALS: BP 108/70; PULSE 79; RESP 18; O2SAT 97
[2020-03-27 20:11] VITALS: BP 121/78; PULSE 87; RESP 18; O2SAT 98
== END 2020-03-27 20:13 | disposition home or self-care (01) ==
PROVIDERS: Family Medicine; Emergency Provider Emergency Medicine; PCP Family Medicine
DX: R07.9 Chest pain, unspecified (principal); Z85.01 Personal history of malignant neoplasm of esophagus; Z87.891 Personal history of nicotine dependence
CPT/HCPCS: 12345; 36415; 71045; 71275; 80053; 83690; 83880; 84484; 85025; 93005; 99282; 99284; J1642; Q9967

== ENCOUNTER 2020-04-03 06:01 | Outpatient (RCR) | payer BC, SELFPAY ==
[2020-03-06 12:58] LABS: Basophils # 0.1 10^3/uL (0.0-0.1); Basophils % 0.6 %; Eosinophils # 0.3 10^3/uL (0.0-0.8); Hematocrit 38.4 % (37.0-47.0); Hemoglobin 12.1 g/dL (11.5-15.3); Lymphocytes # 0.8 10^3/uL (0.8-4.8); Lymphocytes % 9.6 %; Mean Corpuscular HGB Conc 31.5 g/dL (30.0-36.0); Mean Corpuscular Hemoglobin 31.9 pg (28.0-34.0); Mean Corpuscular Volume 101.3 fL (81-99); Mean Platelet Volume 10.6 fL (7.4-10.4); Monocytes # 0.7 10^3/uL (0.2-0.9); Monocytes % 8.1 %; Neutrophils # 6.2 10^3/uL (1.8-7.7); Neutrophils % 77.6 %; Nucleated Red Blood Cells % 0 %; Platelet Count 249 10^3/cmm (130-400); Red Blood Count 3.79 10^6/uL (4.1-5.3); Red Cell Distribution Width 17.2 % (12.1-15.1)
[2020-03-06 14:46] LABS: Alanine Aminotransferase 8 U/L (0-33); Albumin Level 3.6 g/dL (3.5-5.2); Alkaline Phosphatase 46 IU/L (35-105); Anion Gap 17.6 (5-19); Aspartate Amino Transferase 17 U/L (0-32); Blood Urea Nitrogen 9 mg/dL (8-23); Calcium 9.3 mg/dL (8.5-10.5); Carbon Dioxide 28 mmol/L (22-29); Chloride 98 mmol/L (98-107); Globulin 2.4 g/dL (1.3-4.6); Glomerular Filtration Rate 160.2 mL/min (90-130); Glucose 134 mg/dL (65-115); Osmolality Calculated 288 mOsm/kg (285-295); Potassium 3.6 mmol/L (3.5-5.1); Sodium 140 mmol/L (136-145); Total Bilirubin 0.3 mg/dL (0.15-1.2)
--- NOTE | 2020-03-20 13:28 | ONC FU_ITS ---
Dr. Mccormick follow up note Patient: Nerissa Morillo Unit #: [id number]: 1955 Dicatated By: Phyllis Mccormick M.D.Date of Visit:Mar 06, 2020 Onc Med Follow-up/Prog Note History of Present Illness: Mrs. Morillo is a 65-year-old female, who was recently diagnosed with distal esophageal adenocarcinoma. As per patient she did experience progressive dysphagia, about 15 pounds weight loss over the last couple months. She was evaluated with CT scan of chest on 11/30/2018 which showed mid to distal esophageal mass extends over 7.8 cm with near complete obstruction of lumen. No lymphadenopathy or other abnormality seen. She subsequently underwent EGD on 12/01/2018 which showed circumferential esophageal mass extending from 30-35 cm with narrowing of lumen. Multiple biopsies were obtained, and it confirmed adenocarcinoma. Stomach and duodenum showed no abnormality. She was referred to [facility] in [place] where she underwent further workup including repeat EGD on 12/06/2018. It showed a fungating mass lesion at 34 cm from incisors and extending into GE junction. No involvement of gastric mucosa was identified. Multiple fundic gland polyps were noted in stomach, esophageal stent was placed in. Underwent CT PET scan on 12/15/2018 which showed there is increased activity in the distal esophagus corresponding to location of the esophageal stent. Maximum SUV 10.8. Physiological activity typically identified in the gastric fundus appears more intense 9.8 which is of questionable significance. No evidence of metastatic disease. Small focus of abnormal activity in the fundus of uterus with a maximum SUV 6.5 MRI scan of head on 12/11/2018 showed no evidence of metastatic disease but minimal microvascular chronic ischemic changes. Ms Morillo nderwent J-tube insertion on 12/12/2018 and port placement to facilitate chemotherapy. She did develop wound infection around her J-tube requiring surgical intervention and wound care for extended period time. Now healing well, but this postop complication caused delay in her combined chemoradiation for esophageal cancer. She began her first week of combination therapy with carboplatin/paclitaxel and radiation on 03/12/2019. And last dose of chemotherapy was given on 03/26/2019 and after that she developed persistent leukopenia and due to poor performance chemotherapy was held and patient continue with radiation therapy which she finished 04/19/2019. Patient went to see Dr. Taylor in [place] for evaluation for esophagectomy but due to her poor performance status he give her a return appointment on 06/27/2019 to see for performance status improves at that time. Was referred to GI surgery [facility] for second opinion, Seen Dr. Henriquez, medical oncologist who recommended CT PET scan and PFTs and 6 minute walk test earlier Dr. Hayden in [place] for EGD which was done on 07/27/2019, biopsy was obtained As per patient it was positive for malignancy. She was referred to GI surgical oncologist at [facility] where she was evaluated by Dr. henriquez medical oncologist on 09/17/2019 and his recommendations were to get his CT PET scan, PFTs, 6 minute walk test and referred to Dr. Florez for consideration of surgery after workup is done. He also recommended PDL 1 status, which was checked on 09/19/2019 which showed PDL 1 positive expression level, CPS more than 10. CT PET scan was ordered but her insurance refused and asked for CT scan of chest abdomen prior to CT PET scan so patient underwent CT scan of chest abdomen on 10/02/2019 which showed artificial esophageal tube inserted from the lower esophagus into fundus of stomach No evidence of residual esophageal mass or metastatic disease. Gallbladder densely packed with stones. Patient was admitted to hospital with abdominal pain nausea vomiting and then transferred to [facility] on 10/06/2019 which she underwent EGD which showed occluded/stenosis esophageal stent and evidence of recurrence of disease. And stent could not be removed due to tumor growth so fully covered stent was placed in. Stomach and duodenal was normal. Thoracic surgery was consulted but due to patient's poor nutrition status and deconditioning surgery was not considered. And immunotherapy was recommended .Follow-up CT PET scan done on 10/26/2019 showed increased soft tissue density surrounding the esophageal stent area consistent with progression of disease. Left sided pleural effusion appears to be malignant Low-level activity in the right adrenal gland suspicious for metastatic focus. Increasing activity 2 focal areas of uterus suspicious for neoplastic process such as endometrial carcinoma. 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 Additional compressive atelectasis in the right lower lobe medially with small amount of pleural effusion pneumonia versus superimposed radiation pneumonitis. Esophageal stent with a diffuse surrounding circumferential soft tissue thickening. Esophageal thickening extends to the subcarinal thoracic esophagus. This is progressed from previous and may be due to treatment related changes versus residual disease. Diffuse in-stent luminal narrowing involving the distal thoracic esophagus Cholelithiasis Immunotherapy with Keytruda, was put on hold on February 19, 2020 and Augmentin/Medrol Dosepak was prescribed, With that her symptoms resolved no more pleurisy type pain And follow-up chest x-ray done on March 04, 2020 showed minimal residual airspace disease or pleural thickening at the left lung base continued improvement since November 27, 2019 and no other abnormality except esophageal stent Came for follow-up, patient denies any specific complaints, no more pruritus type pain, no more shortness of breath no fever chills no nausea or vomiting no diarrhea but constipation. No jaundice, no melena or hematochezia, no dysuria, no abdominal pain. Tolerating palliative/maintenance therapy with Keytruda well . Medications: Acetaminophen Extra Strength 15 mL (of 500 mg/15mL) Liquid Oral PRN, All Day Allergy Childrens 7 mL (of 1 mg/mL) Solution Oral daily, Artificial Tear Solution 1 Drop(s) Solution Ophthalmic daily, [employer] Eye Lubricant Ointment Ophthalmic PRN, Dexamethasone (4 mg) Tablet Oral Take as Directed, Ondansetron HCl 4 - 8 mg (of 4 mg/5mL) Solution Oral t.i.d. PRN, Potassium Chloride 15 mL (of 20 meq/15ml -10%) Solution Oral daily Allergies: Latex and sulfa. Review of Systems: Review of Systems is not available for this patient. Vital Signs: Performed on Mar 06, 2020 14:13 Height - 69.50 in Weight - 128.4 lbs (LOW) BSA - 1.72 sq.m BMI - 18.69 Temperature - 97.69 F (LOW) Pulse - 81 /min Respiration - 24 /min BP - 99/55 mm(hg) O2 Sat - 99 % Pain - 0 Performance Status: 2 - Ambulatory/capable of all self-care, unable to perform any work activities. Up and about more than 50% of waking hours. (ECOG) Physical Examination: ENMT - No mouth sores, no thrush no jaundice, Respiratory - Lungs are clear, Cardiovascular - Regular rate and rhythm of heart, Abdomen - Soft, bowel sounds present, Extremities - Trace edema bilaterally. Lab/Imaging: Test performed on Mar 06, 2020 12:38 WBC 8.0 10 3/uL RBC 3.79 10 6/uL HGB 12.1 g/dL HCT 38.4 % MCV 101.3 fL MCH 31.9 pg MCHC 31.5 g/dL RDW 17.2 % Platelet Count 249 10 3/cmm MPV 10.6 fL Neutrophils 6.2 10 3/uL Lymphocytes 0.8 10 3/uL Monocytes 0.7 10 3/uL Eosinophils 0.3 10 3/uL Basophils 0.1 10 3/uL Neutrophil % 77.6 % Lymphocyte % 9.6 % Monocyte % 8.1 % Eosinophil % 4.0 % Basophils % 0.6 % NRBC % 0 % Test performed on Mar 06, 2020 00:00 Sodium 140 mmol/L TSH 2.70 uIU/mL Potassium 3.6 mmol/L Chloride 98 mmol/L CO2 28 mmol/L Anion Gap 17.6 BUN 9 mg/dL Creatinine 0.4 mg/dL Cr Clearance (Est) 128.9200 mL/min eGFR 160.2 mL/min Glucose 134 mg/dL Calcium 9.3 mg/dL Protein, Total 6.0 g/dL Albumin 3.6 g/dL Globulin 2.4 g/dL Bilirubin, Total 0.3 mg/dL ALT (SGPT) 8 U/L AST (SGOT) 17 U/L Alkaline Phosphatase 46 IU/L Test performed on January 07, 2020 08:40 Magnesium 2.1 mg/dL Test performed on Dec 18, 2019 08:20 Ferritin 24 ng/mL Iron 32 mcg/dL Iron Binding Capacity (TIBC) 252 mcg/dl % Iron Saturation 12.6 % UIBC 220 mcg/dL Impression: Adenocarcinoma of distal esophagus per EGD and biopsies done on 12/01/2018 CT PET scan done on 12/15/2018 showed localized disease, no evidence of lymphadenopathy or distant metastases Clinical stage T2-3, Nx,M0 Focus of increased uptake in the uterus Dysphagia due to above status post esophageal stenting and now with J-tube MRI head done on 12/11/2018, showed no brain metastases but microvascular ischemic disease Hypothyroidism on supplements Dysfunctional uterine bleeding, CT PET scan showed increased uptake in uterus. Ms Morillo began carboplatin/Taxol and radiation on 03/12/2019. She was found to be iron deficient and received Injectafer o 03/23/19 & 03/30/19. Her last dose of CArboplatin/paclitaxel was on 03/26/19. .Due to progressive leukopenia, she could not receive further chemotherapy but continue with radiation alone which she completed on 04/19/2019 Plan: Discussed with patient regarding her labs white blood count 8 hemoglobin 12.1 hematocrit 38.4 platelets 249,000 CMP and TSH within normal limits and chest x-ray which showed minimal residual or pleural thickening at left lung base otherwise clear Clinically, patient is doing well, with no new signs symptoms, her pleurisy type pain improved with antibiotic/Medrol Dosepak and her follow-up chest x-ray shows significant improvement in left lower lobe infiltrate. At this point we will resume her maintenance/palliative immunotherapy with Keytruda, she receive her next dose today and then return to clinic in 3 weeks with CBC CMP. If patient's overall condition continue to improve then we will readdress issue regarding surgical intervention if there is no evidence of distant mets on follow-up scans. Signed By: Phyllis Mccormick M.D. <<Signature on File>>
[2020-03-27 13:35] LABS: Basophils # 0.1 10^3/uL (0.0-0.1); Basophils % 0.8 %; Eosinophils # 0.6 10^3/uL (0.0-0.8); Eosinophils % 7.9 %; Hematocrit 40.1 % (37.0-47.0); Hemoglobin 12.5 g/dL (11.5-15.3); Lymphocytes # 0.7 10^3/uL (0.8-4.8); Lymphocytes % 9.3 %; Mean Corpuscular HGB Conc 31.2 g/dL (30.0-36.0); Mean Corpuscular Hemoglobin 31.3 pg (28.0-34.0); Mean Corpuscular Volume 100.3 fL (81-99); Mean Platelet Volume 10.3 fL (7.4-10.4); Monocytes # 0.5 10^3/uL (0.2-0.9); Monocytes % 7.2 %; Neutrophils # 5.47 10^3/uL (1.8-7.7); Neutrophils % 74.4 %; Nucleated Red Blood Cells % 0 %; Platelet Count 301 10^3/cmm (130-400); Red Cell Distribution Width 15.3 % (12.1-15.1); White Blood Count 7.4 10^3/uL (4.0-10.0)
[2020-03-27 13:45] LABS: Alanine Aminotransferase 10 U/L (0-33); Albumin Level 3.5 g/dL (3.5-5.2); Alkaline Phosphatase 49 IU/L (35-105); Anion Gap 12.9 (5-19); Aspartate Amino Transferase 20 U/L (0-32); Blood Urea Nitrogen 9 mg/dL (8-23); Calcium 9.7 mg/dL (8.5-10.5); Carbon Dioxide 33 mmol/L (22-29); Chloride 98 mmol/L (98-107); Globulin 3.1 g/dL (1.3-4.6); Glomerular Filtration Rate 160.2 mL/min (90-130); Glucose 120 mg/dL (65-115); Osmolality Calculated 289 mOsm/kg (285-295); Sodium 141 mmol/L (136-145); Total Bilirubin 0.4 mg/dL (0.15-1.2); Total Protein 6.6 g/dL (6.6-8.7)
[2020-03-27 13:49] LABS: Potassium 2.9 mmol/L (3.5-5.1)
[2020-03-27] MEDS: potassium chloride 20 MEQ in sodium chloride 0.9% 500 ML 250 MEQ IV (14:06)
[2020-03-27 14:50] LABS: Magnesium 1.9 mg/dL (1.7-2.3)
--- NOTE | 2020-03-27 15:58 | ONC FU_ITS ---
Dr. Mccormick follow up note Patient: Nerissa Morillo Unit #: [id number]: 1955 Dicatated By: Phyllis Mccormick M.D.Date of Visit:Mar 27, 2020 Onc Med Follow-up/Prog Note History of Present Illness: Mrs. Morillo is a 65-year-old female, who was recently diagnosed with distal esophageal adenocarcinoma. As per patient she did experience progressive dysphagia, about 15 pounds weight loss over the last couple months. She was evaluated with CT scan of chest on 11/30/2018 which showed mid to distal esophageal mass extends over 7.8 cm with near complete obstruction of lumen. No lymphadenopathy or other abnormality seen. She subsequently underwent EGD on 12/01/2018 which showed circumferential esophageal mass extending from 30-35 cm with narrowing of lumen. Multiple biopsies were obtained, and it confirmed adenocarcinoma. Stomach and duodenum showed no abnormality. She was referred to [facility] in [place] where she underwent further workup including repeat EGD on 12/06/2018. It showed a fungating mass lesion at 34 cm from incisors and extending into GE junction. No involvement of gastric mucosa was identified. Multiple fundic gland polyps were noted in stomach, esophageal stent was placed in. Underwent CT PET scan on 12/15/2018 which showed there is increased activity in the distal esophagus corresponding to location of the esophageal stent. Maximum SUV 10.8. Physiological activity typically identified in the gastric fundus appears more intense 9.8 which is of questionable significance. No evidence of metastatic disease. Small focus of abnormal activity in the fundus of uterus with a maximum SUV 6.5 MRI scan of head on 12/11/2018 showed no evidence of metastatic disease but minimal microvascular chronic ischemic changes. Ms Morillo nderwent J-tube insertion on 12/12/2018 and port placement to facilitate chemotherapy. She did develop wound infection around her J-tube requiring surgical intervention and wound care for extended period time. Now healing well, but this postop complication caused delay in her combined chemoradiation for esophageal cancer. She began her first week of combination therapy with carboplatin/paclitaxel and radiation on 03/12/2019. And last dose of chemotherapy was given on 03/26/2019 and after that she developed persistent leukopenia and due to poor performance chemotherapy was held and patient continue with radiation therapy which she finished 04/19/2019. Patient went to see Dr. Taylor in [place] for evaluation for esophagectomy but due to her poor performance status he give her a return appointment on 06/27/2019 to see for performance status improves at that time. Was referred to GI surgery [facility] for second opinion, Seen Dr. Henriquez, medical oncologist who recommended CT PET scan and PFTs and 6 minute walk test earlier Dr. Hayden in [place] for EGD which was done on 07/27/2019, biopsy was obtained As per patient it was positive for malignancy. She was referred to GI surgical oncologist at [facility] where she was evaluated by Dr. henriquez medical oncologist on 09/17/2019 and his recommendations were to get his CT PET scan, PFTs, 6 minute walk test and referred to Dr. Florez for consideration of surgery after workup is done. He also recommended PDL 1 status, which was checked on 09/19/2019 which showed PDL 1 positive expression level, CPS more than 10. CT PET scan was ordered but her insurance refused and asked for CT scan of chest abdomen prior to CT PET scan so patient underwent CT scan of chest abdomen on 10/02/2019 which showed artificial esophageal tube inserted from the lower esophagus into fundus of stomach No evidence of residual esophageal mass or metastatic disease. Gallbladder densely packed with stones. Patient was admitted to hospital with abdominal pain nausea vomiting and then transferred to [facility] on 10/06/2019 which she underwent EGD which showed occluded/stenosis esophageal stent and evidence of recurrence of disease. And stent could not be removed due to tumor growth so fully covered stent was placed in. Stomach and duodenal was normal. Thoracic surgery was consulted but due to patient's poor nutrition status and deconditioning surgery was not considered. And immunotherapy was recommended .Follow-up CT PET scan done on 10/26/2019 showed increased soft tissue density surrounding the esophageal stent area consistent with progression of disease. Left sided pleural effusion appears to be malignant Low-level activity in the right adrenal gland suspicious for metastatic focus. Increasing activity 2 focal areas of uterus suspicious for neoplastic process such as endometrial carcinoma. 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 Additional compressive atelectasis in the right lower lobe medially with small amount of pleural effusion pneumonia versus superimposed radiation pneumonitis. Esophageal stent with a diffuse surrounding circumferential soft tissue thickening. Esophageal thickening extends to the subcarinal thoracic esophagus. This is progressed from previous and may be due to treatment related changes versus residual disease. Diffuse in-stent luminal narrowing involving the distal thoracic esophagus Cholelithiasis Immunotherapy with Keytruda, was put on hold on February 19, 2020 and Augmentin/Medrol Dosepak was prescribed, With that her symptoms resolved no more pleurisy type pain And follow-up chest x-ray done on March 04, 2020 showed minimal residual airspace disease or pleural thickening at the left lung base continued improvement since November 27, 2019 and no other abnormality except esophageal stent Came for follow-up, complaining of weeklong history of left mid/upper chest pain and is progressive more with deep breathing and with sometimes palpitation, had low-grade fever. No hemoptysis or hematemesis. As per patient when she was young she had double pneumonia, since then she is more worried about her lung status and also in the recent past she had recurrence of left chest pain for which in February 2020, she underwent CT pulmonary which ruled out pulmonary embolism but showed possibility of pneumonia/pneumonitis, she was treated with antibiotics/steroids with good response, resolution of chest pain. But patient is concerned about recurrence and also appears anxious. Denies any hemoptysis or hematemesis denies any aspiration denies any night sweats or chills. Denies any diarrhea or constipation denies any skin rash. . Medications: Acetaminophen Extra Strength 15 mL (of 500 mg/15mL) Liquid Oral PRN, All Day Allergy Childrens 7 mL (of 1 mg/mL) Solution Oral daily, Artificial Tear Solution 1 Drop(s) Solution Ophthalmic daily, [employer] Eye Lubricant Ointment Ophthalmic PRN, Dexamethasone (4 mg) Tablet Oral Take as Directed, Ondansetron HCl 4 - 8 mg (of 4 mg/5mL) Solution Oral t.i.d. PRN, Potassium Chloride 15 mL (of 20 meq/15ml -10%) Solution Oral daily Allergies: Latex and sulfa. Review of Systems: Constitutional - Appetite is improving. Weight has declined. No fever, chills, hot flashes, or night sweats. Energy level is fair today, ENMT - Positive for sinus congestion/drainage. No mouth sores. Positive for sore throat. Positive for difficulty swallowing, Hematologic/Lymphatic - No abnormal bruising or bleeding, Respiratory - Positive for recent, persistent shortness of breath and pleuritic pain that Pt states is near left upper lobe and that pain increases on inhalation. Positive for cough. No hemoptysis, Cardiovascular - No angina pain. No palpitations, Gastrointestinal - Nausea and vomiting is improving. No heartburn and acid reflux. No diarrhea or constipation. No blood in the stool or black stools, Genitourinary (F) - No dysuria or hematuria. Positive for urinary frequency. No urgency or incontinence, Musculoskeletal - No joint or bone pain, Integumentary - Positive for edema in bilateral lower extremities, however, this is improving also, Neurologic - No headache. Occasional dizziness, Psychiatric - No anxiety, no depression. No insomnia. Vital Signs: Performed on Mar 27, 2020 14:17 Height - 69.50 in Weight - 131.0 lbs (HIGH) BSA - 1.73 sq.m BMI - 19.07 Temperature - 99.2 F (HIGH) Pulse - 82 /min Respiration - 18 /min BP - 102/66 mm(hg) O2 Sat - 98 % Pain - 2 Performance Status: 2 - Ambulatory/capable of all self-care, unable to perform any work activities. Up and about more than 50% of waking hours. (ECOG) Physical Examination: ENMT - No mouth sores no thrush or jaundice, Respiratory - Poor air entry decreased breath sound at the base on the left side, Cardiovascular - Regular rate and rhythm of heart, Abdomen - Soft, bowel sounds present, Extremities - 1+ edema bilaterally. Lab/Imaging: Test performed on Mar 06, 2020 12:38 WBC 8.0 10 3/uL RBC 3.79 10 6/uL HGB 12.1 g/dL HCT 38.4 % MCV 101.3 fL MCH 31.9 pg MCHC 31.5 g/dL RDW 17.2 % Platelet Count 249 10 3/cmm MPV 10.6 fL Neutrophils 6.2 10 3/uL Lymphocytes 0.8 10 3/uL Monocytes 0.7 10 3/uL Eosinophils 0.3 10 3/uL Basophils 0.1 10 3/uL Neutrophil % 77.6 % Lymphocyte % 9.6 % Monocyte % 8.1 % Eosinophil % 4.0 % Basophils % 0.6 % NRBC % 0 % Test performed on Mar 06, 2020 00:00 Sodium 140 mmol/L TSH 2.70 uIU/mL Potassium 3.6 mmol/L Chloride 98 mmol/L CO2 28 mmol/L Anion Gap 17.6 BUN 9 mg/dL Creatinine 0.4 mg/dL Cr Clearance (Est) 128.9200 mL/min eGFR 160.2 mL/min Glucose 134 mg/dL Calcium 9.3 mg/dL Protein, Total 6.0 g/dL Albumin 3.6 g/dL Globulin 2.4 g/dL Bilirubin, Total 0.3 mg/dL ALT (SGPT) 8 U/L AST (SGOT) 17 U/L Alkaline Phosphatase 46 IU/L Test performed on January 07, 2020 08:40 Magnesium 2.1 mg/dL Test performed on Dec 18, 2019 08:20 Ferritin 24 ng/mL Iron 32 mcg/dL Iron Binding Capacity (TIBC) 252 mcg/dl % Iron Saturation 12.6 % UIBC 220 mcg/dL Impression: Adenocarcinoma of distal esophagus per EGD and biopsies done on 12/01/2018 CT PET scan done on 12/15/2018 showed localized disease, no evidence of lymphadenopathy or distant metastases Clinical stage T2-3, Nx,M0 Focus of increased uptake in the uterus Dysphagia due to above status post esophageal stenting and now with J-tube MRI head done on 12/11/2018, showed no brain metastases but microvascular ischemic disease Hypothyroidism on supplements Dysfunctional uterine bleeding, CT PET scan showed increased uptake in uterus. Ms Morillo began carboplatin/Taxol and radiation on 03/12/2019. She was found to be iron deficient and received Injectafer o 03/23/19 & 03/30/19. Her last dose of CArboplatin/paclitaxel was on 03/26/19. .Due to progressive leukopenia, she could not receive further chemotherapy but continue with radiation alone which she completed on 04/19/2019 Plan: Discussed with patient regarding her labs white blood count 7.4 hemoglobin 12.5 hematocrit 40.1 platelets 301,000 CMP within normal limit except potassium 2.9 Clinically, patient is doing reasonably well but now on mild to moderate distress due to recurrent left chest pain etiology unclear could be due to recurrent pneumonia or pneumonitis or pleurisy less like new cardiac, patient was offered repeat course of antibiotic with steroids as in the past she responded well but she is concerned about lung clots or pneumonia and doubt oral antibiotic will clear it. At this point , We will hold her immunotherapy today and we will send her to emergency room for evaluation and for possible inpatient care. Signed By: Phyllis Mccormick M.D. <<Signature on File>>
[2020-04-03] MEDS: alteplase 1 mg/mL SDV 2 mL 2 MG IV (09:48)
[2020-04-03 10:02] LABS: Basophils % 0.7 %; Eosinophils # 0.4 10^3/uL (0.0-0.8); Eosinophils % 6.8 %; Hematocrit 40.1 % (37.0-47.0); Hemoglobin 12.3 g/dL (11.5-15.3); Lymphocytes # 0.4 10^3/uL (0.8-4.8); Lymphocytes % 7.3 %; Mean Corpuscular HGB Conc 30.7 g/dL (30.0-36.0); Mean Corpuscular Hemoglobin 31.1 pg (28.0-34.0); Mean Corpuscular Volume 101.3 fL (81-99); Mean Platelet Volume 9.8 fL (7.4-10.4); Monocytes # 0.5 10^3/uL (0.2-0.9); Monocytes % 8.6 %; Neutrophils # 4.18 10^3/uL (1.8-7.7); Neutrophils % 76.4 %; Nucleated Red Blood Cells % 0 %; Platelet Count 249 10^3/cmm (130-400); Red Blood Count 3.96 10^6/uL (4.1-5.3); Red Cell Distribution Width 15.1 % (12.1-15.1); White Blood Count 5.5 10^3/uL (4.0-10.0)
[2020-04-03 10:18] LABS: Alanine Aminotransferase 7 U/L (0-33); Albumin Level 3.4 g/dL (3.5-5.2); Alkaline Phosphatase 44 IU/L (35-105); Anion Gap 14.3 (5-19); Aspartate Amino Transferase 18 U/L (0-32); Blood Urea Nitrogen 9 mg/dL (8-23); Calcium 8.8 mg/dL (8.5-10.5); Carbon Dioxide 30 mmol/L (22-29); Chloride 98 mmol/L (98-107); Globulin 3.1 g/dL (1.3-4.6); Glomerular Filtration Rate 160.2 mL/min (90-130); Glucose 121 mg/dL (65-115); Osmolality Calculated 285 mOsm/kg (285-295); Potassium 3.3 mmol/L (3.5-5.1); Sodium 139 mmol/L (136-145); Total Bilirubin 0.3 mg/dL (0.15-1.2); Total Protein 6.5 g/dL (6.6-8.7)
[2020-04-03] MEDS: potassium chloride oral liq 20 mEq/15 mL UDC PO (16:55)
--- NOTE | 2020-04-04 13:14 | ONC FU_ITS ---
Dr. Mccormick follow up note Patient: Nerissa Morillo Unit #: [id number]: 1955 Dicatated By: Phyllis Mccormick M.D.Date of Visit:Apr 03, 2020 Onc Med Follow-up/Prog Note History of Present Illness: Mrs. Morillo is a 65-year-old female, who was recently diagnosed with distal esophageal adenocarcinoma. As per patient she did experience progressive dysphagia, about 15 pounds weight loss over the last couple months. She was evaluated with CT scan of chest on 11/30/2018 which showed mid to distal esophageal mass extends over 7.8 cm with near complete obstruction of lumen. No lymphadenopathy or other abnormality seen. She subsequently underwent EGD on 12/01/2018 which showed circumferential esophageal mass extending from 30-35 cm with narrowing of lumen. Multiple biopsies were obtained, and it confirmed adenocarcinoma. Stomach and duodenum showed no abnormality. She was referred to [facility] in [place] where she underwent further workup including repeat EGD on 12/06/2018. It showed a fungating mass lesion at 34 cm from incisors and extending into GE junction. No involvement of gastric mucosa was identified. Multiple fundic gland polyps were noted in stomach, esophageal stent was placed in. Underwent CT PET scan on 12/15/2018 which showed there is increased activity in the distal esophagus corresponding to location of the esophageal stent. Maximum SUV 10.8. Physiological activity typically identified in the gastric fundus appears more intense 9.8 which is of questionable significance. No evidence of metastatic disease. Small focus of abnormal activity in the fundus of uterus with a maximum SUV 6.5 MRI scan of head on 12/11/2018 showed no evidence of metastatic disease but minimal microvascular chronic ischemic changes. Ms Morillo nderwent J-tube insertion on 12/12/2018 and port placement to facilitate chemotherapy. She did develop wound infection around her J-tube requiring surgical intervention and wound care for extended period time. Now healing well, but this postop complication caused delay in her combined chemoradiation for esophageal cancer. She began her first week of combination therapy with carboplatin/paclitaxel and radiation on 03/12/2019. And last dose of chemotherapy was given on 03/26/2019 and after that she developed persistent leukopenia and due to poor performance chemotherapy was held and patient continue with radiation therapy which she finished 04/19/2019. Patient went to see Dr. Taylor in [place] for evaluation for esophagectomy but due to her poor performance status he give her a return appointment on 06/27/2019 to see for performance status improves at that time. Was referred to GI surgery [facility] for second opinion, Seen Dr. Henriquez, medical oncologist who recommended CT PET scan and PFTs and 6 minute walk test earlier Dr. Hayden in [place] for EGD which was done on 07/27/2019, biopsy was obtained As per patient it was positive for malignancy. She was referred to GI surgical oncologist at [facility] where she was evaluated by Dr. henriquez medical oncologist on 09/17/2019 and his recommendations were to get his CT PET scan, PFTs, 6 minute walk test and referred to Dr. Florez for consideration of surgery after workup is done. He also recommended PDL 1 status, which was checked on 09/19/2019 which showed PDL 1 positive expression level, CPS more than 10. CT PET scan was ordered but her insurance refused and asked for CT scan of chest abdomen prior to CT PET scan so patient underwent CT scan of chest abdomen on 10/02/2019 which showed artificial esophageal tube inserted from the lower esophagus into fundus of stomach No evidence of residual esophageal mass or metastatic disease. Gallbladder densely packed with stones. Patient was admitted to hospital with abdominal pain nausea vomiting and then transferred to [facility] on 10/06/2019 which she underwent EGD which showed occluded/stenosis esophageal stent and evidence of recurrence of disease. And stent could not be removed due to tumor growth so fully covered stent was placed in. Stomach and duodenal was normal. Thoracic surgery was consulted but due to patient's poor nutrition status and deconditioning surgery was not considered. And immunotherapy was recommended .Follow-up CT PET scan done on 10/26/2019 showed increased soft tissue density surrounding the esophageal stent area consistent with progression of disease. Left sided pleural effusion appears to be malignant Low-level activity in the right adrenal gland suspicious for metastatic focus. Increasing activity 2 focal areas of uterus suspicious for neoplastic process such as endometrial carcinoma. 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 Additional compressive atelectasis in the right lower lobe medially with small amount of pleural effusion pneumonia versus superimposed radiation pneumonitis. Esophageal stent with a diffuse surrounding circumferential soft tissue thickening. Esophageal thickening extends to the subcarinal thoracic esophagus. This is progressed from previous and may be due to treatment related changes versus residual disease. Diffuse in-stent luminal narrowing involving the distal thoracic esophagus Cholelithiasis Immunotherapy with Keytruda, was put on hold on February 19, 2020 and Augmentin/Medrol Dosepak was prescribed, With that her symptoms resolved no more pleurisy type pain And follow-up chest x-ray done on March 04, 2020 showed minimal residual airspace disease or pleural thickening at the left lung base continued improvement since November 27, 2019 and no other abnormality except esophageal stent was complaining of weeklong history of left mid/upper chest pain and is progressive more with deep breathing and with sometimes palpitation, had low-grade fever. No hemoptysis or hematemesis. As per patient when she was young she had double pneumonia, since then she is more worried about her lung status and also in the recent past she had recurrence of left chest pain for which in February 2020, she underwent CT pulmonary which ruled out pulmonary embolism but showed possibility of pneumonia/pneumonitis, she was treated with antibiotics/steroids with good response, resolution of chest pain. But patient is concerned about recurrence and also appears anxious. She was sent to [facility] for evaluation on March 27, 2020, chest x-ray done showed no acute cardiopulmonary disease patient underwent CT angiogram on March 27, 2020 which showed no evidence of pulmonary embolism and no changes compared with scan done on February 19, 2020 EKG was done on same day showed sinus rhythm, septal myocardial infarction of indeterminate age Came for follow-up, denies any specific complaints, persistent left upper chest pain, recently underwent cardiac evaluation showed no acute event cardiac enzymes within normal limits, EKG no new changes, now being followed by cardiology. Pulmonary embolism was ruled out, chest x-ray showed no acute changes so pneumonitis or pneumonia was ruled out. Overall feeling better, no fever or chills, no nausea or vomiting, no diarrhea constipation no palpitation . Medications: Acetaminophen Extra Strength 15 mL (of 500 mg/15mL) Liquid Oral PRN, All Day Allergy Childrens 7 mL (of 1 mg/mL) Solution Oral daily, Artificial Tear Solution 1 Drop(s) Solution Ophthalmic daily, [employer] Eye Lubricant Ointment Ophthalmic PRN, Dexamethasone (4 mg) Tablet Oral Take as Directed, Ondansetron HCl 4 - 8 mg (of 4 mg/5mL) Solution Oral t.i.d. PRN, Potassium Chloride 15 mL (of 20 meq/15ml -10%) Solution Oral daily Allergies: Latex and sulfa. Review of Systems: Constitutional - Appetite is improving. Weight has declined. No fever, chills, hot flashes, or night sweats. Energy level is fair today, ENMT - Positive for sinus congestion/drainage. No mouth sores. Positive for sore throat. Positive for difficulty swallowing, Hematologic/Lymphatic - No abnormal bruising or bleeding, Respiratory - Positive for recent, persistent shortness of breath and pleuritic pain that Pt states is near left upper lobe and that pain increases on inhalation. Positive for cough. No hemoptysis, Cardiovascular - No angina pain. No palpitations, Gastrointestinal - Nausea and vomiting is improving. No heartburn and acid reflux. No diarrhea or constipation. No blood in the stool or black stools, Genitourinary (F) - No dysuria or hematuria. Positive for urinary frequency. No urgency or incontinence, Musculoskeletal - No joint or bone pain, Integumentary - Positive for edema in bilateral lower extremities, however, this is improving also, Neurologic - No headache. Occasional dizziness, Psychiatric - No anxiety, no depression. No insomnia. Vital Signs: Performed on Apr 03, 2020 10:28 Height - 69.50 in Weight - 131.2 lbs (HIGH) BSA - 1.74 sq.m BMI - 19.10 Temperature - 97.3 F (LOW) Pulse - 87 /min Respiration - 20 /min BP - 101/66 mm(hg) O2 Sat - 96 % Pain - 3 Performance Status: 1 - No physically strenuous activity, but ambulatory and able to carry out light or sedentary work (e.g. office work, light house work). (ECOG) Physical Examination: ENMT - No mouth sores, no thrush, no jaundice, Respiratory - Lungs are clear, Cardiovascular - Regular rate and rhythm of heart, Abdomen - Soft, bowel sounds, Extremities - Trace edema bilaterally. Lab/Imaging: Test performed on Mar 27, 2020 12:59 Magnesium 1.9 mg/dL Sodium 141 mmol/L Potassium 2.9 mmol/L Chloride 98 mmol/L CO2 33 mmol/L Anion Gap 12.9 BUN 9 mg/dL Creatinine 0.4 mg/dL Cr Clearance (Est) 131.53 mL/min eGFR 160.2 mL/min Glucose 120 mg/dL Calcium 9.7 mg/dL Protein, Total 6.6 g/dL Albumin 3.5 g/dL Globulin 3.1 g/dL Bilirubin, Total 0.4 mg/dL ALT (SGPT) 10 U/L AST (SGOT) 20 U/L Alkaline Phosphatase 49 IU/L WBC 7.4 10 3/uL RBC 4.00 10 6/uL HGB 12.5 g/dL HCT 40.1 % MCV 100.3 fL MCH 31.3 pg MCHC 31.2 g/dL RDW 15.3 % Platelet Count 301 10 3/cmm MPV 10.3 fL Neutrophils 5.47 10 3/uL Lymphocytes 0.7 10 3/uL Monocytes 0.5 10 3/uL Eosinophils 0.6 10 3/uL Basophils 0.1 10 3/uL Neutrophil % 74.4 % Lymphocyte % 9.3 % Monocyte % 7.2 % Eosinophil % 7.9 % Basophils % 0.8 % NRBC % 0 % Test performed on Mar 06, 2020 00:00 TSH 2.70 uIU/mL Test performed on Dec 18, 2019 08:20 Ferritin 24 ng/mL Iron 32 mcg/dL Iron Binding Capacity (TIBC) 252 mcg/dl % Iron Saturation 12.6 % UIBC 220 mcg/dL Impression: Adenocarcinoma of distal esophagus per EGD and biopsies done on 12/01/2018 CT PET scan done on 12/15/2018 showed localized disease, no evidence of lymphadenopathy or distant metastases Clinical stage T2-3, Nx,M0 Focus of increased uptake in the uterus Dysphagia due to above status post esophageal stenting and now with J-tube MRI head done on 12/11/2018, showed no brain metastases but microvascular ischemic disease Hypothyroidism on supplements Dysfunctional uterine bleeding, CT PET scan showed increased uptake in uterus. Ms Morillo began carboplatin/Taxol and radiation on 03/12/2019. She was found to be iron deficient and received Injectafer o 03/23/19 & 03/30/19. Her last dose of CArboplatin/paclitaxel was on 03/26/19. .Due to progressive leukopenia, she could not receive further chemotherapy but continue with radiation alone which she completed on 04/19/2019, Now being treated with maintenance therapy with Keytruda Plan: Discussed with patient regarding her labs white blood count 5.5 hemoglobin 12.3 hematocrit 40.1 platelets 249,000 CMP within normal limit except potassium 3.3 Clinically, patient is doing well, overall feeling better with no new signs symptoms suggestive of disease progression. At this point we will proceed with her next maintenance dose of Keytruda 200 mg today and then she will return to clinic in 3 weeks with CBC CMP. Patient has liquid potassium at home so she will take it as advised earlier and we will also consider follow-up CT PET scan to assess disease status. Signed By: Phyllis Mccormick M.D. <<Signature on File>>
== END 2020-04-04 23:59 | disposition home or self-care (01) ==
LOC: ONCMED 06:01
PROVIDERS: PCP Family Medicine; Visit Provider Internal Medicine Hematology & Oncology
DX: Z51.12 Encounter for antineoplastic immunotherapy (principal); C15.5 Malignant neoplasm of lower third of esophagus; T82.594A Other mechanical complication of infusion catheter, initial encounter; Y80.1 Therapeutic (nonsurgical) and rehabilitative physical medicine devices associated with adverse incidents; K80.20 Calculus of gallbladder without cholecystitis without obstruction; E03.9 Hypothyroidism, unspecified; Z92.3 Personal history of irradiation
CPT/HCPCS: 36415; 36593; 80053; 83735; 84443; 85025; 96365; 96375; 96413; 99214; J2997; J3480; J7040; J7050; J9271

== ENCOUNTER 2020-04-24 05:37 | Outpatient (RCR) | payer BC, SELFPAY ==
[2020-04-16 13:04] LABS: Basophils # 0.1 10^3/uL (0.0-0.1); Basophils % 0.6 %; Eosinophils # 0.3 10^3/uL (0.0-0.8); Eosinophils % 2.7 %; Hematocrit 43.5 % (37.0-47.0); Hemoglobin 13.5 g/dL (11.5-15.3); Lymphocytes # 0.9 10^3/uL (0.8-4.8); Lymphocytes % 7.8 %; Mean Corpuscular Hemoglobin 31.5 pg (28.0-34.0); Mean Corpuscular Volume 101.4 fL (81-99); Mean Platelet Volume 10.1 fL (7.4-10.4); Monocytes # 0.9 10^3/uL (0.2-0.9); Monocytes % 8.4 %; Neutrophils # 8.75 10^3/uL (1.8-7.7); Neutrophils % 80.3 %; Nucleated Red Blood Cells % 0 %; Platelet Count 339 10^3/cmm (130-400); Red Blood Count 4.29 10^6/uL (4.1-5.3); Red Cell Distribution Width 14.7 % (12.1-15.1); White Blood Count 10.9 10^3/uL (4.0-10.0)
[2020-04-16 13:27] LABS: Alanine Aminotransferase 10 U/L (0-33); Albumin Level 3.6 g/dL (3.5-5.2); Alkaline Phosphatase 49 IU/L (35-105); Anion Gap 13.3 (5-19); Aspartate Amino Transferase 17 U/L (0-32); Blood Urea Nitrogen 13 mg/dL (8-23); Calcium 9.3 mg/dL (8.5-10.5); Carbon Dioxide 29 mmol/L (22-29); Chloride 98 mmol/L (98-107); Globulin 3.2 g/dL (1.3-4.6); Glomerular Filtration Rate 123.8 mL/min (90-130); Glucose 131 mg/dL (65-115); Osmolality Calculated 282 mOsm/kg (285-295); Potassium 3.3 mmol/L (3.5-5.1); Sodium 137 mmol/L (136-145); Thyroid Stimulating Hormone 1.56 uIU/mL (0.27-4.20); Total Bilirubin 0.6 mg/dL (0.15-1.2); Total Protein 6.8 g/dL (6.6-8.7)
--- NOTE | 2020-04-16 15:29 | ONC FU_ITS ---
Dr. Mccormick follow up note Patient: Nerissa Morillo Unit #: [id number]: [id number] Dicatated By: Phyllis Mccormick M.D.Date of Visit:Apr 16, 2020 Onc Med Follow-up/Prog Note History of Present Illness: Mrs. Morillo is a 65-year-old female, who was recently diagnosed with distal esophageal adenocarcinoma. As per patient she did experience progressive dysphagia, about 15 pounds weight loss over the last couple months. She was evaluated with CT scan of chest on 11/30/2018 which showed mid to distal esophageal mass extends over 7.8 cm with near complete obstruction of lumen. No lymphadenopathy or other abnormality seen. She subsequently underwent EGD on 12/01/2018 which showed circumferential esophageal mass extending from 30-35 cm with narrowing of lumen. Multiple biopsies were obtained, and it confirmed adenocarcinoma. Stomach and duodenum showed no abnormality. She was referred to [facility] in [place] where she underwent further workup including repeat EGD on 12/06/2018. It showed a fungating mass lesion at 34 cm from incisors and extending into GE junction. No involvement of gastric mucosa was identified. Multiple fundic gland polyps were noted in stomach, esophageal stent was placed in. Underwent CT PET scan on 12/15/2018 which showed there is increased activity in the distal esophagus corresponding to location of the esophageal stent. Maximum SUV 10.8. Physiological activity typically identified in the gastric fundus appears more intense 9.8 which is of questionable significance. No evidence of metastatic disease. Small focus of abnormal activity in the fundus of uterus with a maximum SUV 6.5 MRI scan of head on 12/11/2018 showed no evidence of metastatic disease but minimal microvascular chronic ischemic changes. Ms Morillo nderwent J-tube insertion on 12/12/2018 and port placement to facilitate chemotherapy. She did develop wound infection around her J-tube requiring surgical intervention and wound care for extended period time. Now healing well, but this postop complication caused delay in her combined chemoradiation for esophageal cancer. She began her first week of combination therapy with carboplatin/paclitaxel and radiation on 03/12/2019. And last dose of chemotherapy was given on 03/26/2019 and after that she developed persistent leukopenia and due to poor performance chemotherapy was held and patient continue with radiation therapy which she finished 04/19/2019. Patient went to see Dr. Taylor in [place] for evaluation for esophagectomy but due to her poor performance status he give her a return appointment on 06/27/2019 to see for performance status improves at that time. Was referred to GI surgery [facility] for second opinion, Seen Dr. Henriquez, medical oncologist who recommended CT PET scan and PFTs and 6 minute walk test earlier Dr. Hayden in [place] for EGD which was done on 07/27/2019, biopsy was obtained As per patient it was positive for malignancy. She was referred to GI surgical oncologist at [facility] where she was evaluated by Dr. henriquez medical oncologist on 09/17/2019 and his recommendations were to get his CT PET scan, PFTs, 6 minute walk test and referred to Dr. Florez for consideration of surgery after workup is done. He also recommended PDL 1 status, which was checked on 09/19/2019 which showed PDL 1 positive expression level, CPS more than 10. CT PET scan was ordered but her insurance refused and asked for CT scan of chest abdomen prior to CT PET scan so patient underwent CT scan of chest abdomen on 10/02/2019 which showed artificial esophageal tube inserted from the lower esophagus into fundus of stomach No evidence of residual esophageal mass or metastatic disease. Gallbladder densely packed with stones. Patient was admitted to hospital with abdominal pain nausea vomiting and then transferred to [facility] on 10/06/2019 which she underwent EGD which showed occluded/stenosis esophageal stent and evidence of recurrence of disease. And stent could not be removed due to tumor growth so fully covered stent was placed in. Stomach and duodenal was normal. Thoracic surgery was consulted but due to patient's poor nutrition status and deconditioning surgery was not considered. And immunotherapy was recommended .Follow-up CT PET scan done on 10/26/2019 showed increased soft tissue density surrounding the esophageal stent area consistent with progression of disease. Left sided pleural effusion appears to be malignant Low-level activity in the right adrenal gland suspicious for metastatic focus. Increasing activity 2 focal areas of uterus suspicious for neoplastic process such as endometrial carcinoma. 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 Additional compressive atelectasis in the right lower lobe medially with small amount of pleural effusion pneumonia versus superimposed radiation pneumonitis. Esophageal stent with a diffuse surrounding circumferential soft tissue thickening. Esophageal thickening extends to the subcarinal thoracic esophagus. This is progressed from previous and may be due to treatment related changes versus residual disease. Diffuse in-stent luminal narrowing involving the distal thoracic esophagus Cholelithiasis Immunotherapy with Keytruda, was put on hold on February 19, 2020 and Augmentin/Medrol Dosepak was prescribed, With that her symptoms resolved no more pleurisy type pain And follow-up chest x-ray done on March 04, 2020 showed minimal residual airspace disease or pleural thickening at the left lung base continued improvement since November 27, 2019 and no other abnormality except esophageal stent was complaining of weeklong history of left mid/upper chest pain and is progressive more with deep breathing and with sometimes palpitation, had low-grade fever. No hemoptysis or hematemesis. As per patient when she was young she had double pneumonia, since then she is more worried about her lung status and also in the recent past she had recurrence of left chest pain for which in February 2020, she underwent CT pulmonary which ruled out pulmonary embolism but showed possibility of pneumonia/pneumonitis, she was treated with antibiotics/steroids with good response, resolution of chest pain. But patient is concerned about recurrence and also appears anxious. 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 Pulmonary embolism was ruled out, chest x-ray showed no acute changes so pneumonitis or pneumonia was ruled out. Follow-up CT PET scan done on April 12, 2020 showed probable inflammatory activity at the proximal and distal ends of esophageal tube, likely tissue irritation Activity in the mid esophagus with SUV of 7.4 consistent with a primary esophageal carcinoma. No evidence of distant metastatic disease Left pleural effusion FDG negative Central uterine activity FDG negative right upper lobe groundglass opacity. Came for follow-up, denies any specific complaints, no fever chills, no nausea or vomiting, no diarrhea or constipation no hemoptysis or hematemesis, tolerating orally well. No jaundice, no abdominal pain, appetite is reasonable, no wheezing or shortness of breath, no skin rash or diarrhea, no melena or hematochezia, no vaginal bleed. Tolerating maintenance immunotherapy with Keytruda well . Medications: Acetaminophen Extra Strength 15 mL (of 500 mg/15mL) Liquid Oral PRN, All Day Allergy Childrens 7 mL (of 1 mg/mL) Solution Oral daily, Artificial Tear Solution 1 Drop(s) Solution Ophthalmic daily, [employer] Eye Lubricant Ointment Ophthalmic PRN, Cyclobenzaprine HCl 1 Tablet (of 10 mg) Oral t.i.d. PRN, Dexamethasone (4 mg) Tablet Oral Take as Directed, Ondansetron HCl 4 - 8 mg (of 4 mg/5mL) Solution Oral t.i.d. PRN, Potassium Chloride 15 mL (of 20 meq/15ml -10%) Solution Oral daily, predniSONE 1 Tablet (of 20 mg) Oral daily for 10 days Allergies: Latex and sulfa. Review of Systems: Constitutional - Appetite is improving. Weight has declined. No fever, chills, hot flashes, or night sweats. Energy level is fair today, ENMT - Positive for sinus congestion/drainage. No mouth sores. Positive for sore throat. Positive for difficulty swallowing, Hematologic/Lymphatic - No abnormal bruising or bleeding, Respiratory - Positive for recent, persistent shortness of breath and pleuritic pain that Pt states is near left upper lobe and that pain increases on inhalation. Positive for cough. No hemoptysis, Cardiovascular - No angina pain. No palpitations, Gastrointestinal - Nausea and vomiting is improving. No heartburn and acid reflux. No diarrhea or constipation. No blood in the stool or black stools, Genitourinary (F) - No dysuria or hematuria. Positive for urinary frequency. No urgency or incontinence, Musculoskeletal - No joint or bone pain, Integumentary - Positive for edema in bilateral lower extremities, however, this is improving also, Neurologic - No headache. Occasional dizziness, Psychiatric - No anxiety, no depression. No insomnia. Vital Signs: Performed on Apr 16, 2020 14:30 Height - 69.50 in Weight - 127.8 lbs (LOW) BSA - 1.72 sq.m BMI - 18.60 Temperature - 97.5 F (LOW) Pulse - 101 /min (HIGH) Respiration - 24 /min BP - 111/73 mm(hg) O2 Sat - 96 % Pain - 3 Performance Status: 1 - No physically strenuous activity, but ambulatory and able to carry out light or sedentary work (e.g. office work, light house work). (ECOG) Physical Examination: ENMT - No mouth sores, no thrush, no jaundice, Respiratory - Lungs are clear, Cardiovascular - Regular rate and rhythm of heart, Abdomen - Soft, bowel sounds present, nontender, Extremities - No visible edema or rash. Lab/Imaging: Test performed on Apr 03, 2020 09:37 Sodium 139 mmol/L Potassium 3.3 mmol/L Chloride 98 mmol/L CO2 30 mmol/L Anion Gap 14.3 BUN 9 mg/dL Creatinine 0.4 mg/dL Cr Clearance (Est) 131.73 mL/min eGFR 160.2 mL/min Glucose 121 mg/dL Calcium 8.8 mg/dL Protein, Total 6.5 g/dL Albumin 3.4 g/dL Globulin 3.1 g/dL Bilirubin, Total 0.3 mg/dL ALT (SGPT) 7 U/L AST (SGOT) 18 U/L Alkaline Phosphatase 44 IU/L WBC 5.5 10 3/uL RBC 3.96 10 6/uL HGB 12.3 g/dL HCT 40.1 % MCV 101.3 fL MCH 31.1 pg MCHC 30.7 g/dL RDW 15.1 % Platelet Count 249 10 3/cmm MPV 9.8 fL Neutrophils 4.18 10 3/uL Lymphocytes 0.4 10 3/uL Monocytes 0.5 10 3/uL Eosinophils 0.4 10 3/uL Basophils 0.0 10 3/uL Neutrophil % 76.4 % Lymphocyte % 7.3 % Monocyte % 8.6 % Eosinophil % 6.8 % Basophils % 0.7 % NRBC % 0 % Test performed on Mar 27, 2020 12:59 Magnesium 1.9 mg/dL Test performed on Mar 06, 2020 00:00 TSH 2.70 uIU/mL Test performed on Dec 18, 2019 08:20 Ferritin 24 ng/mL Iron 32 mcg/dL Iron Binding Capacity (TIBC) 252 mcg/dl % Iron Saturation 12.6 % UIBC 220 mcg/dL Impression: Adenocarcinoma of distal esophagus per EGD and biopsies done on 12/01/2018 CT PET scan done on 12/15/2018 showed localized disease, no evidence of lymphadenopathy or distant metastases Clinical stage T2-3, Nx,M0 Focus of increased uptake in the uterus Dysphagia due to above status post esophageal stenting and now with J-tube MRI head done on 12/11/2018, showed no brain metastases but microvascular ischemic disease Hypothyroidism on supplements Dysfunctional uterine bleeding, CT PET scan showed increased uptake in uterus. Ms Morillo began carboplatin/Taxol and radiation on 03/12/2019. She was found to be iron deficient and received Injectafer o 03/23/19 & 03/30/19. Her last dose of CArboplatin/paclitaxel was on 03/26/19. .Due to progressive leukopenia, she could not receive further chemotherapy but continue with radiation alone which she completed on 04/19/2019, Now being treated with maintenance therapy with Keytruda Follow-up CT PET scan done on April 12, 2020 showed excellent response to maintenance therapy with Keytruda, now activity in the mid esophagus only otherwise no evidence of distant mets Plan: Discussed with patient regarding her labs white blood count 10.9 hemoglobin 13.5 hematocrit 43.5 platelets 339,000 CMP within normal limits except potassium 3.3 TSH 1.56 Follow-up CT PET scan done on April 12, 2020 showed excellent response to the treatment now only active disease in the mid esophagus otherwise no evidence of distant mets. Clinically, patient is doing well, tolerating palliative/maintenance immunotherapy well and follow-up CT PET scan shows excellent response, good disease control rather improvement., Patient's overall performance status is also improving. At this point we will refer her to cardiothoracic surgeon at [facility] for evaluation and also referred to [facility] for abnormal activity seen in the uterus. 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 She will return to clinic in 1 week for her maintenance immunotherapy but I will see her back in 1 month with CBC CMP. Patient was given copy of CT PET scan and her lab work Signed By: Phyllis Mccormick M.D. <<Signature on File>>
== END 2020-05-05 23:59 | disposition home or self-care (01) ==
LOC: ONCMED 05:37
PROVIDERS: Internal Medicine Hematology & Oncology; PCP Family Medicine; Visit Provider Nurse Practitioner
DX: Z51.12 Encounter for antineoplastic immunotherapy (principal); C15.5 Malignant neoplasm of lower third of esophagus; E03.9 Hypothyroidism, unspecified; D64.9 Anemia, unspecified
CPT/HCPCS: 36591; 80053; 84443; 85025; 96413; 99214; J7050; J9271

== ENCOUNTER → 2020-05-08 14:48 | Outpatient (BNVA) | payer BC, SELFPAY | PROVIDERS: PCP Family Medicine; Visit Provider Obstetrics & Gynecology | DX: N95.0 Postmenopausal bleeding (principal) | CPT/HCPCS: 76830 ==

== ENCOUNTER → 2020-05-22 13:46 | Outpatient (BNVA) | payer BC, SELFPAY | PROVIDERS: PCP Family Medicine; Visit Provider Obstetrics & Gynecology | DX: N95.0 Postmenopausal bleeding (principal) | CPT/HCPCS: 88305 ==

== ENCOUNTER 2020-05-29 06:19 | Outpatient (RCR) | payer BC, SELFPAY ==
[2020-05-15 13:02] LABS: Basophils # 0.1 10^3/uL (0.0-0.1); Basophils % 0.7 %; Eosinophils # 0.4 10^3/uL (0.0-0.8); Hematocrit 40.6 % (37.0-47.0); Hemoglobin 12.8 g/dL (11.5-15.3); Lymphocytes # 0.7 10^3/uL (0.8-4.8); Lymphocytes % 10.5 %; Mean Corpuscular HGB Conc 31.5 g/dL (30.0-36.0); Mean Corpuscular Hemoglobin 32.4 pg (28.0-34.0); Mean Corpuscular Volume 102.8 fL (81-99); Mean Platelet Volume 9.5 fL (7.4-10.4); Monocytes # 0.7 10^3/uL (0.2-0.9); Monocytes % 10.5 %; Neutrophils # 4.96 10^3/uL (1.8-7.7); Neutrophils % 72.2 %; Nucleated Red Blood Cells % 0 %; Platelet Count 337 10^3/cmm (130-400); Red Blood Count 3.95 10^6/uL (4.1-5.3); Red Cell Distribution Width 14.4 % (12.1-15.1); White Blood Count 6.9 10^3/uL (4.0-10.0)
[2020-05-15 13:31] LABS: Alanine Aminotransferase 13 U/L (0-33); Albumin Level 3.4 g/dL (3.5-5.2); Alkaline Phosphatase 52 IU/L (35-105); Anion Gap 13.7 (5-19); Aspartate Amino Transferase 25 U/L (0-32); Blood Urea Nitrogen 12 mg/dL (8-23); Calcium 9.5 mg/dL (8.5-10.5); Carbon Dioxide 31 mmol/L (22-29); Chloride 98 mmol/L (98-107); Globulin 3.3 g/dL (1.3-4.6); Glomerular Filtration Rate 160.2 mL/min (90-130); Glucose 114 mg/dL (65-115); Osmolality Calculated 285 mOsm/kg (285-295); Potassium 3.7 mmol/L (3.5-5.1); Sodium 139 mmol/L (136-145); Thyroid Stimulating Hormone 2.42 uIU/mL (0.27-4.20); Total Bilirubin 0.3 mg/dL (0.15-1.2); Total Protein 6.7 g/dL (6.6-8.7)
--- NOTE | 2020-05-24 20:11 | ONC FU_ITS ---
Jules Baez Patient Note Patient: Nerissa Morillo Unit #: [id number]: 1955 Dictated By: Carlitos DanDate of Visit: May 15, 2020 Onc MED Follow-Up/Prog Note Chief Complaint: Adenocarcinoma of distal esophagus History of Present Illness: Mrs. Morillo is a 65-year-old female, who was recently diagnosed with distal esophageal adenocarcinoma. As per patient she did experience progressive dysphagia, about 15 pounds weight loss over the last couple months. She was evaluated with CT scan of chest on 11/30/2018 which showed mid to distal esophageal mass extends over 7.8 cm with near complete obstruction of lumen. No lymphadenopathy or other abnormality seen. She subsequently underwent EGD on 12/01/2018 which showed circumferential esophageal mass extending from 30-35 cm with narrowing of lumen. Multiple biopsies were obtained, and it confirmed adenocarcinoma. Stomach and duodenum showed no abnormality. She was referred to [facility] in [place] where she underwent further workup including repeat EGD on 12/06/2018. It showed a fungating mass lesion at 34 cm from incisors and extending into GE junction. No involvement of gastric mucosa was identified. Multiple fundic gland polyps were noted in stomach, esophageal stent was placed in. Underwent CT PET scan on 12/15/2018 which showed there is increased activity in the distal esophagus corresponding to location of the esophageal stent. Maximum SUV 10.8. Physiological activity typically identified in the gastric fundus appears more intense 9.8 which is of questionable significance. No evidence of metastatic disease. Small focus of abnormal activity in the fundus of uterus with a maximum SUV 6.5 MRI scan of head on 12/11/2018 showed no evidence of metastatic disease but minimal microvascular chronic ischemic changes. Ms Morillo nderwent J-tube insertion on 12/12/2018 and port placement to facilitate chemotherapy. She did develop wound infection around her J-tube requiring surgical intervention and wound care for extended period time. Now healing well, but this postop complication caused delay in her combined chemoradiation for esophageal cancer. She began her first week of combination therapy with carboplatin/paclitaxel and radiation on 03/12/2019. And last dose of chemotherapy was given on 03/26/2019 and after that she developed persistent leukopenia and due to poor performance chemotherapy was held and patient continue with radiation therapy which she finished 04/19/2019. Patient went to see Dr. Taylor in [place] for evaluation for esophagectomy but due to her poor performance status he give her a return appointment on 06/27/2019 to see for performance status improves at that time. Was referred to GI surgery [facility] for second opinion, Seen Dr. Henriquez, medical oncologist who recommended CT PET scan and PFTs and 6 minute walk test earlier Dr. Hayden in [place] for EGD which was done on 07/27/2019, biopsy was obtained As per patient it was positive for malignancy. She was referred to GI surgical oncologist at [facility] where she was evaluated by Dr. henriquez medical oncologist on 09/17/2019 and his recommendations were to get his CT PET scan, PFTs, 6 minute walk test and referred to Dr. Florez for consideration of surgery after workup is done. He also recommended PDL 1 status, which was checked on 09/19/2019 which showed PDL 1 positive expression level, CPS more than 10. CT PET scan was ordered but her insurance refused and asked for CT scan of chest abdomen prior to CT PET scan so patient underwent CT scan of chest abdomen on 10/02/2019 which showed artificial esophageal tube inserted from the lower esophagus into fundus of stomach No evidence of residual esophageal mass or metastatic disease. Gallbladder densely packed with stones. Patient was admitted to hospital with abdominal pain nausea vomiting and then transferred to [facility] on 10/06/2019 which she underwent EGD which showed occluded/stenosis esophageal stent and evidence of recurrence of disease. And stent could not be removed due to tumor growth so fully covered stent was placed in. Stomach and duodenal was normal. Thoracic surgery was consulted but due to patient's poor nutrition status and deconditioning surgery was not considered. And immunotherapy was recommended .Follow-up CT PET scan done on 10/26/2019 showed increased soft tissue density surrounding the esophageal stent area consistent with progression of disease. Left sided pleural effusion appears to be malignant Low-level activity in the right adrenal gland suspicious for metastatic focus. Increasing activity 2 focal areas of uterus suspicious for neoplastic process such as endometrial carcinoma. 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 Additional compressive atelectasis in the right lower lobe medially with small amount of pleural effusion pneumonia versus superimposed radiation pneumonitis. Esophageal stent with a diffuse surrounding circumferential soft tissue thickening. Esophageal thickening extends to the subcarinal thoracic esophagus. This is progressed from previous and may be due to treatment related changes versus residual disease. Diffuse in-stent luminal narrowing involving the distal thoracic esophagus Cholelithiasis Immunotherapy with Keytruda, was put on hold on February 19, 2020 and Augmentin/Medrol Dosepak was prescribed, With that her symptoms resolved no more pleurisy type pain And follow-up chest x-ray done on March 04, 2020 showed minimal residual airspace disease or pleural thickening at the left lung base continued improvement since November 27, 2019 and no other abnormality except esophageal stent was complaining of weeklong history of left mid/upper chest pain and is progressive more with deep breathing and with sometimes palpitation, had low-grade fever. No hemoptysis or hematemesis. As per patient when she was young she had double pneumonia, since then she is more worried about her lung status and also in the recent past she had recurrence of left chest pain for which in February 2020, she underwent CT pulmonary which ruled out pulmonary embolism but showed possibility of pneumonia/pneumonitis, she was treated with antibiotics/steroids with good response, resolution of chest pain. But patient is concerned about recurrence and also appears anxious. 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 Pulmonary embolism was ruled out, chest x-ray showed no acute changes so pneumonitis or pneumonia was ruled out. Follow-up CT PET scan done on April 12, 2020 showed probable inflammatory activity at the proximal and distal ends of esophageal tube, likely tissue irritation Activity in the mid esophagus with SUV of 7.4 consistent with a primary esophageal carcinoma. No evidence of distant metastatic disease Left pleural effusion FDG negative Central uterine activity FDG negative right upper lobe groundglass opacity. Ms Morillo began immunotherapy with On November 28, 2019. She is tolerating it well overall. With a rash today that she has had for at least 1 week . She describes it is somewhat itchy but not terrible . She states that it seemed to get some better but she still having quite a bit of rash on her left arm right leg and all over her chest. She denies any actual pain. There is been no pustules or drainage from the rash. There is been no warmth or redness. She denies any fever or chills. She denies diarrhea or constipation. She states she has some seasonal allergies that come and go especially this time of the year. She is having some pain with her esophageal area but states rest seems to help this. She cannot take hydrocodone due to extreme itching. She states her appetite is fair. Energy is marginal but she is able to do her ADLs without any assistance. Her ECOG is 1. ^ Medical History: Hypothyroidism Past Surgical History: Arthroscopic knee Cataract excision Esophageal biopsy Hernia repair Removal of ovarian cysts J-tube insertion in 2019 Allergies: HYDROcodone Bitartrate, Latex, and sulfa. Medications: Acetaminophen Extra Strength 15 mL (of 500 mg/15mL) Liquid Oral PRN All Day Allergy Childrens 7 mL (of 1 mg/mL) Solution Oral daily Artificial Tear Solution 1 Drop(s) Solution Ophthalmic daily [employer] Eye Lubricant Ointment Ophthalmic PRN Dexamethasone (4 mg) Tablet Oral Take as Directed Ondansetron HCl 4 - 8 mg (of 4 mg/5mL) Solution Oral t.i.d. PRN Potassium Chloride 15 mL (of 20 meq/15ml -10%) Solution Oral daily Family History: Ms. Morillo's mother at age 86: alzheimer. Ms. Morillo's father at age 72: heart disease. Ms. Morillo has 2 brothers: 2 alive. Ms. Morillo's first brother's prostate cancer. She has 2 sisters: 2 alive. She has 1 paternal aunt who is : lung cancer. Social History: Ms. Morillo is and she is unemployed. Ms. Morillo quit smoking 37 years ago but had smoked 1.5 packs/day for 7 years. She drinks occasionally. pt states she has a glass of wine occasionally her last glass was 5 years ago. Review Of Symptoms: Constitutional Denies fevers, chills, night sweats, excessive fatigue. See above Allergic/Immunologic No reactions. Eyes Denies significant visual changes. No diplopia. No amaurosis. ENMT Denies changes in hearing, sore throat, mouth sores. Endocrine Denies hot flashes or night sweats. Hematologic/Lymphatic Denies easy bruising or bleeding. The patient denies any tender or palpable lymph nodes. Respiratory Denies dyspnea on exertion, chest pain, cough or hemoptysis. Denies orthopnea. Cardiovascular Denies anginal chest pain, palpitations or orthopnea. Gastrointestinal Currently denies nausea, vomiting, diarrhea, GI bleeding, or constipation. Denies change in bowel habits and/or stool color, no heartburn or early satiety. Genitourinary (F) No hematuria, hesitancy, incontinence, vaginal bleeding, discharge or other problems with urination. Musculoskeletal Denies joint pain, swelling or redness. No decreased range of motion. Integumentary Denies chronic rashes, inflammation, ulcerations or skin changes. Abdominal wound is healing. New rash on trunk, arms, upper legs and back for about 1 week or so . It does itch some Neurologic Denies headache, blurred vision, and no areas of focal weakness or numbness. Assisted gait. No new sensory problems. Psychiatric Denies insomnia, depression, saji or mood swings. Vital Signs: Performed on May 15, 2020 14:21 Height - 69.50 in Weight - 124.0 lbs (LOW) BSA - 1.69 sq.m BMI - 18.05 Temperature - 97.5 F (LOW) Pulse - 114 /min (HIGH) Respiration - 16 /min BP - 120/74 mm(hg) O2 Sat - 99 % Pain - 5,1 - No physically strenuous activity, but ambulatory and able to carry out light or sedentary work (e.g. office work, light house work). (ECOG) Physical Examination: Constitutional Alert, oriented, no acute distress. Skin pink, warm and dry. Head Normocephalic; atraumatic. Eyes Conjunctivae and sclerae are clear and without icterus. Pupils are reactive and equal. ENMT No oral exudates, ulcers, masses, thrush or mucositis. Oropharynx clear. Tongue normal. Neck Supple without masses or thyromegaly. No jugular venous distension. Hematologic/Lymphatic No petechiae or purpura. No tender or palpable lymph nodes in the cervical or supraclavicular areas. Respiratory Lungs are clear to auscultation without rhonchi or wheezing. Cardiovascular Regular rate and rhythm of heart without murmurs,clicks, gallops or rubs. Abdomen Non-tender, non-distended, no masses, Back/Spine Non-tender to palpation. Extremities No visible deformities, no cyanosis, clubbing or edema. Musculoskeletal No tenderness or swelling, normal range of motion without obvious weakness. Integumentary scattered slightly raised red lesions on trunk, arms, upper legs and back. No pustules but evidence of scratch baca. No drainage or signs of infection. Neurologic No sensory or motor deficits, normal cerebellar function, assisted gait with quad cane. Psychiatric Alert and oriented times three. Coherent speech. Verbalizes understanding of our discussions today. Laboratory:Test performed on May 15, 2020 12:40 Sodium 139 mmol/L TSH 2.42 uIU/mL Potassium 3.7 mmol/L Chloride 98 mmol/L CO2 31 mmol/L Anion Gap 13.7 BUN 12 mg/dL Creatinine 0.4 mg/dL Cr Clearance (Est) 124.50 mL/min eGFR 160.2 mL/min Glucose 114 mg/dL Calcium 9.5 mg/dL Osmolality - Calculated 285 mOsm/kg Protein, Total 6.7 g/dL Albumin 3.4 g/dL Globulin 3.3 g/dL Bilirubin, Total 0.3 mg/dL ALT (SGPT) 13 U/L AST (SGOT) 25 U/L Alkaline Phosphatase 52 IU/L WBC 6.9 10 3/uL RBC 3.95 10 6/uL HGB 12.8 g/dL HCT 40.6 % MCV 102.8 fL MCH 32.4 pg MCHC 31.5 g/dL RDW 14.4 % Platelet Count 337 10 3/cmm MPV 9.5 fL Neutrophils 4.96 10 3/uL Lymphocytes 0.7 10 3/uL Monocytes 0.7 10 3/uL Eosinophils 0.4 10 3/uL Basophils 0.1 10 3/uL Neutrophil % 72.2 % Lymphocyte % 10.5 % Monocyte % 10.5 % Eosinophil % 6.0 % Basophils % 0.7 % NRBC % 0 % Impression: Adenocarcinoma of distal esophagus per EGD and biopsies done on 12/01/2018 CT PET scan done on 12/15/2018 showed localized disease, no evidence of lymphadenopathy or distant metastases Clinical stage T2-3, Nx,M0 Focus of increased uptake in the uterus Dysphagia due to above status post esophageal stenting and now with J-tube MRI head done on 12/11/2018, showed no brain metastases but microvascular ischemic disease Hypothyroidism on supplements Dysfunctional uterine bleeding, CT PET scan showed increased uptake in uterus. Ms Morillo began carboplatin/Taxol and radiation on 03/12/2019. She was found to be iron deficient and received Injectafer o 03/23/19 & 03/30/19. Her last dose of CArboplatin/paclitaxel was on 03/26/19. .Due to progressive leukopenia, she could not receive further chemotherapy but continue with radiation alone which she completed on 04/19/2019, Now being treated with maintenance therapy with Keytruda Follow-up CT PET scan done on April 12, 2020 showed excellent response to maintenance therapy with Keytruda, now activity in the mid esophagus only otherwise no evidence of distant mets. Clinically, patient is doing well, tolerating palliative/maintenance immunotherapy well and follow-up CT PET scan shows excellent response, good disease control rather improvement., Patient's overall performance status is also improving. At this point we will refer her to cardiothoracic surgeon at [facility] for evaluation and also referred to [facility] for abnormal activity seen in the uterus. 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 Plan: 1. Hold planned pembrolizumab today due to rash. 2. Medrol Dosepak for treatment of the rash. 3. Labs from today were reviewed in detail discussed with Ms. Morillo and a copy was given to her. WBC 6.9, hemoglobin 12.8, platelets 3 and 37,000 ANC is 5000. Potassium 3.7 creatinine 0.4 LFTs are normal. 4. She was advised she can use Benadryl Claritin or other [id number] antihistamines for itching and let us know if that is not working. 5. We discussed ways for her to avoid scratching. She will treat the scratch areas with antibiotic ointment as needed. 6. We will plan to see her back in 2 weeks with CBC CMP TSH for consideration of pembrolizumab. 7. Her appointments with [facility] are still pending. She did see Dr. Pollard and has a follow-up with him next week. 8. Ms. Morillo was instructed to contact us in the interim should questions or problems arise. Signed By: Carlitos Dan-, AOCNP Phyllis Mccormick MD <<Signature on File>>
[2020-05-29 11:54] LABS: Basophils # 0.1 10^3/uL (0.0-0.1); Basophils % 0.5 %; Eosinophils # 0.4 10^3/uL (0.0-0.8); Eosinophils % 3.5 %; Hematocrit 41.3 % (37.0-47.0); Hemoglobin 12.8 g/dL (11.5-15.3); Lymphocytes # 0.8 10^3/uL (0.8-4.8); Lymphocytes % 6.9 %; Mean Corpuscular Hemoglobin 31.7 pg (28.0-34.0); Mean Corpuscular Volume 102.2 fL (81-99); Mean Platelet Volume 9.7 fL (7.4-10.4); Monocytes # 1.1 10^3/uL (0.2-0.9); Monocytes % 10.3 %; Neutrophils # 8.69 10^3/uL (1.8-7.7); Neutrophils % 78.5 %; Nucleated Red Blood Cells % 0 %; Platelet Count 388 10^3/cmm (130-400); Red Blood Count 4.04 10^6/uL (4.1-5.3); Red Cell Distribution Width 14.8 % (12.1-15.1); White Blood Count 11.1 10^3/uL (4.0-10.0)
[2020-05-29 12:12] LABS: Alanine Aminotransferase 13 U/L (0-33); Albumin Level 3.2 g/dL (3.5-5.2); Alkaline Phosphatase 50 IU/L (35-105); Anion Gap 17.4 (5-19); Aspartate Amino Transferase 20 U/L (0-32); Blood Urea Nitrogen 11 mg/dL (8-23); Calcium 9.6 mg/dL (8.5-10.5); Carbon Dioxide 30 mmol/L (22-29); Chloride 96 mmol/L (98-107); Globulin 3.4 g/dL (1.3-4.6); Glomerular Filtration Rate 160.2 mL/min (90-130); Glucose 167 mg/dL (65-115); Osmolality Calculated 293 mOsm/kg (285-295); Potassium 3.4 mmol/L (3.5-5.1); Sodium 140 mmol/L (136-145); Total Bilirubin 0.4 mg/dL (0.15-1.2); Total Protein 6.6 g/dL (6.6-8.7)
--- NOTE | 2020-06-07 23:14 | ONC FU_ITS ---
Jules Baez Patient Note Patient: Nerissa Morillo Unit #: [id number]: 1955 Dictated By: Carlitos DanDate of Visit: May 29, 2020 Onc MED Follow-Up/Prog Note Chief Complaint: Adenocarcinoma of distal esophagus History of Present Illness: Mrs. Morillo is a 65-year-old female, who was recently diagnosed with distal esophageal adenocarcinoma. As per patient she did experience progressive dysphagia, about 15 pounds weight loss over the last couple months. She was evaluated with CT scan of chest on 11/30/2018 which showed mid to distal esophageal mass extends over 7.8 cm with near complete obstruction of lumen. No lymphadenopathy or other abnormality seen. She subsequently underwent EGD on 12/01/2018 which showed circumferential esophageal mass extending from 30-35 cm with narrowing of lumen. Multiple biopsies were obtained, and it confirmed adenocarcinoma. Stomach and duodenum showed no abnormality. She was referred to [facility] in [place] where she underwent further workup including repeat EGD on 12/06/2018. It showed a fungating mass lesion at 34 cm from incisors and extending into GE junction. No involvement of gastric mucosa was identified. Multiple fundic gland polyps were noted in stomach, esophageal stent was placed in. Underwent CT PET scan on 12/15/2018 which showed there is increased activity in the distal esophagus corresponding to location of the esophageal stent. Maximum SUV 10.8. Physiological activity typically identified in the gastric fundus appears more intense 9.8 which is of questionable significance. No evidence of metastatic disease. Small focus of abnormal activity in the fundus of uterus with a maximum SUV 6.5 MRI scan of head on 12/11/2018 showed no evidence of metastatic disease but minimal microvascular chronic ischemic changes. Ms Morillo nderwent J-tube insertion on 12/12/2018 and port placement to facilitate chemotherapy. She did develop wound infection around her J-tube requiring surgical intervention and wound care for extended period time. Now healing well, but this postop complication caused delay in her combined chemoradiation for esophageal cancer. She began her first week of combination therapy with carboplatin/paclitaxel and radiation on 03/12/2019. And last dose of chemotherapy was given on 03/26/2019 and after that she developed persistent leukopenia and due to poor performance chemotherapy was held and patient continue with radiation therapy which she finished 04/19/2019. Patient went to see Dr. Taylor in [place] for evaluation for esophagectomy but due to her poor performance status he give her a return appointment on 06/27/2019 to see for performance status improves at that time. Was referred to GI surgery [facility] for second opinion, Seen Dr. Henriquez, medical oncologist who recommended CT PET scan and PFTs and 6 minute walk test earlier Dr. Hayden in [place] for EGD which was done on 07/27/2019, biopsy was obtained As per patient it was positive for malignancy. She was referred to GI surgical oncologist at [facility] where she was evaluated by Dr. henriquez medical oncologist on 09/17/2019 and his recommendations were to get his CT PET scan, PFTs, 6 minute walk test and referred to Dr. Florez for consideration of surgery after workup is done. He also recommended PDL 1 status, which was checked on 09/19/2019 which showed PDL 1 positive expression level, CPS more than 10. CT PET scan was ordered but her insurance refused and asked for CT scan of chest abdomen prior to CT PET scan so patient underwent CT scan of chest abdomen on 10/02/2019 which showed artificial esophageal tube inserted from the lower esophagus into fundus of stomach No evidence of residual esophageal mass or metastatic disease. Gallbladder densely packed with stones. Patient was admitted to hospital with abdominal pain nausea vomiting and then transferred to [facility] on 10/06/2019 which she underwent EGD which showed occluded/stenosis esophageal stent and evidence of recurrence of disease. And stent could not be removed due to tumor growth so fully covered stent was placed in. Stomach and duodenal was normal. Thoracic surgery was consulted but due to patient's poor nutrition status and deconditioning surgery was not considered. And immunotherapy was recommended .Follow-up CT PET scan done on 10/26/2019 showed increased soft tissue density surrounding the esophageal stent area consistent with progression of disease. Left sided pleural effusion appears to be malignant Low-level activity in the right adrenal gland suspicious for metastatic focus. Increasing activity 2 focal areas of uterus suspicious for neoplastic process such as endometrial carcinoma. 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 Additional compressive atelectasis in the right lower lobe medially with small amount of pleural effusion pneumonia versus superimposed radiation pneumonitis. Esophageal stent with a diffuse surrounding circumferential soft tissue thickening. Esophageal thickening extends to the subcarinal thoracic esophagus. This is progressed from previous and may be due to treatment related changes versus residual disease. Diffuse in-stent luminal narrowing involving the distal thoracic esophagus Cholelithiasis Immunotherapy with Keytruda, was put on hold on February 19, 2020 and Augmentin/Medrol Dosepak was prescribed, With that her symptoms resolved no more pleurisy type pain And follow-up chest x-ray done on March 04, 2020 showed minimal residual airspace disease or pleural thickening at the left lung base continued improvement since November 27, 2019 and no other abnormality except esophageal stent was complaining of weeklong history of left mid/upper chest pain and is progressive more with deep breathing and with sometimes palpitation, had low-grade fever. No hemoptysis or hematemesis. As per patient when she was young she had double pneumonia, since then she is more worried about her lung status and also in the recent past she had recurrence of left chest pain for which in February 2020, she underwent CT pulmonary which ruled out pulmonary embolism but showed possibility of pneumonia/pneumonitis, she was treated with antibiotics/steroids with good response, resolution of chest pain. But patient is concerned about recurrence and also appears anxious. She was sent to [facility] for evaluation on March 27, 2020, chest x-ray done showed no acute cardiopulmonary disease patient underwent CT angiogram on March 27, 2020 which showed no evidence of pulmonary embolism and no changes compared with scan done on February 19, 2020 EKG was done on same day showed sinus rhythm, septal myocardial infarction of indeterminate age h/o off and on left upper chest pain, recently underwent cardiac evaluation showed no acute event cardiac enzymes within normal limits, EKG no new changes, now being followed by cardiology. Pulmonary embolism was ruled out, chest x-ray showed no acute changes so pneumonitis or pneumonia was ruled out. Follow-up CT PET scan done on April 12, 2020 showed probable inflammatory activity at the proximal and distal ends of esophageal tube, likely tissue irritation Activity in the mid esophagus with SUV of 7.4 consistent with a primary esophageal carcinoma. No evidence of distant metastatic disease Left pleural effusion FDG negative Central uterine activity FDG negative right upper lobe groundglass opacity. Ms Morillo began immunotherapy with On November 28, 2019. She is tolerating it well overall. However her last treatment was on 04/24/2020. She has had delay of treatment due to developement of a rash. She was given treatment with a Medrol Dosepak for the rash and is here today for reassessment. She states overall she thinks her rash is much better. She has been doing much better overall. She states she has had some burning hiatal hernia pain but states this feels better if she keeps food on her stomach. She is having some symptoms of GERD as well but is not taking any PPI. She denies any nausea or vomiting. She denies fever or chills. She has had no COVID 19 symptoms. She is had no known COVID exposure denies any personal cover testing. She states she thinks she is doing much better overall and feels that she is good for treatment today. She is due to see [facility] on 06/10/2020. Her ECOG is 1. Past Medical History: Hypothyroidism Past Surgical History: Arthroscopic knee Cataract excision Esophageal biopsy Hernia repair Removal of ovarian cysts J-tube insertion in 2019 Allergies: HYDROcodone Bitartrate, Latex, and sulfa. Medications: Acetaminophen Extra Strength 15 mL (of 500 mg/15mL) Liquid Oral PRN All Day Allergy Childrens 7 mL (of 1 mg/mL) Solution Oral daily Artificial Tear Solution 1 Drop(s) Solution Ophthalmic daily [employer] Eye Lubricant Ointment Ophthalmic PRN Dexamethasone (4 mg) Tablet Oral Take as Directed Ondansetron HCl 4 - 8 mg (of 4 mg/5mL) Solution Oral t.i.d. PRN Potassium Chloride 15 mL (of 20 meq/15ml -10%) Solution Oral daily Family History: Ms. Morillo's mother at age 86: alzheimer. Ms. Morillo's father at age 72: heart disease. Ms. Morillo has 2 brothers: 2 alive. Ms. Morillo's first brother's prostate cancer. She has 2 sisters: 2 alive. She has 1 paternal aunt who is : lung cancer. Social History: Ms. Morillo is and she is unemployed. Ms. Morillo quit smoking 37 years ago but had smoked 1.5 packs/day for 7 years. She drinks occasionally. pt states she has a glass of wine occasionally her last glass was 5 years ago. Review Of Symptoms: Constitutional Denies fevers, chills, night sweats, excessive fatigue. Allergic/Immunologic No reactions. Eyes Denies significant visual changes. No diplopia. No amaurosis. ENMT Denies changes in hearing, sore throat, mouth sores. Endocrine Denies hot flashes or night sweats. Hematologic/Lymphatic Denies easy bruising or bleeding. The patient denies any tender or palpable lymph nodes. Respiratory Denies dyspnea on exertion, chest pain, cough or hemoptysis. Denies orthopnea. Cardiovascular Denies anginal chest pain, palpitations or orthopnea. Gastrointestinal Currently denies nausea, vomiting, diarrhea, GI bleeding, or constipation. Denies change in bowel habits and/or stool color, no heartburn or early satiety. Genitourinary (F) No hematuria, hesitancy, incontinence, vaginal bleeding, discharge or other problems with urination. Musculoskeletal Denies joint pain, swelling or redness. No decreased range of motion. Integumentary Denies chronic rashes, inflammation, ulcerations or skin changes. Recent rash has resolved. Neurologic Denies headache, blurred vision, and no areas of focal weakness or numbness. Assisted gait. No new sensory problems. Psychiatric Denies insomnia, depression, saji or mood swings. Vital Signs: Performed on May 29, 2020 12:57 Height - 69.50 in Weight - 124.6 lbs (HIGH) BSA - 1.70 sq.m BMI - 18.14 Temperature - 98.3 F (LOW) Pulse - 73 /min Respiration - 18 /min BP - 94/61 mm(hg) O2 Sat - 97 % Pain - 3,1 - No physically strenuous activity, but ambulatory and able to carry out light or sedentary work (e.g. office work, light house work). (ECOG) Physical Examination: Constitutional Alert, oriented, no acute distress. Skin pink, warm and dry. Head Normocephalic; atraumatic. Eyes Conjunctivae and sclerae are clear and without icterus. Pupils are reactive and equal. Neck Supple without masses or thyromegaly. No jugular venous distension. Hematologic/Lymphatic No petechiae or purpura. No tender or palpable lymph nodes in the cervical or supraclavicular areas. Respiratory Lungs are clear to auscultation without rhonchi or wheezing. Cardiovascular Regular rate and rhythm of heart without murmurs,clicks, gallops or rubs. Abdomen Non-tender, non-distended, no masses, Back/Spine Non-tender to palpation. Extremities No visible deformities, no cyanosis, clubbing or edema. Musculoskeletal No tenderness or swelling, normal range of motion without obvious weakness. Integumentary Rash resolved. Neurologic No sensory or motor deficits, normal cerebellar function, assisted gait with quad cane. Psychiatric Alert and oriented times three. Coherent speech. Verbalizes understanding of our discussions today. Laboratory:Test performed on May 29, 2020 11:37 Sodium 140 mmol/L Potassium 3.4 mmol/L Chloride 96 mmol/L CO2 30 mmol/L Anion Gap 17.4 BUN 11 mg/dL Creatinine 0.4 mg/dL Cr Clearance (Est) 125.1100 mL/min eGFR 160.2 mL/min Glucose 167 mg/dL Osmolality - Calculated 293 mOsm/kg Calcium 9.6 mg/dL Protein, Total 6.6 g/dL Albumin 3.2 g/dL Globulin 3.4 g/dL Bilirubin, Total 0.4 mg/dL ALT (SGPT) 13 U/L AST (SGOT) 20 U/L Alkaline Phosphatase 50 IU/L WBC 11.1 10 3/uL RBC 4.04 10 6/uL HGB 12.8 g/dL HCT 41.3 % MCV 102.2 fL MCH 31.7 pg MCHC 31.0 g/dL RDW 14.8 % Platelet Count 388 10 3/cmm MPV 9.7 fL Neutrophils 8.69 10 3/uL Lymphocytes 0.8 10 3/uL Monocytes 1.1 10 3/uL Eosinophils 0.4 10 3/uL Basophils 0.1 10 3/uL Neutrophil % 78.5 % Lymphocyte % 6.9 % Monocyte % 10.3 % Eosinophil % 3.5 % Basophils % 0.5 % NRBC % 0 % Test performed on May 15, 2020 12:40 TSH 2.42 uIU/mL Impression: Adenocarcinoma of distal esophagus per EGD and biopsies done on 12/01/2018 CT PET scan done on 12/15/2018 showed localized disease, no evidence of lymphadenopathy or distant metastases Clinical stage T2-3, Nx,M0 Focus of increased uptake in the uterus Dysphagia due to above status post esophageal stenting and now with J-tube MRI head done on 12/11/2018, showed no brain metastases but microvascular ischemic disease Hypothyroidism on supplements Dysfunctional uterine bleeding, CT PET scan showed increased uptake in uterus. Ms Morillo began carboplatin/Taxol and radiation on 03/12/2019. She was found to be iron deficient and received Injectafer o 03/23/19 & 03/30/19. Her last dose of CArboplatin/paclitaxel was on 03/26/19. .Due to progressive leukopenia, she could not receive further chemotherapy but continue with radiation alone which she completed on 04/19/2019, Now being treated with maintenance therapy with Keytruda Follow-up CT PET scan done on April 12, 2020 showed excellent response to maintenance therapy with Keytruda, now activity in the mid esophagus only otherwise no evidence of distant mets. Clinically, patient is doing well, tolerating palliative/maintenance immunotherapy well and follow-up CT PET scan shows excellent response, good disease control rather improvement., Patient's overall performance status is also improving. At this point we will refer her to cardiothoracic surgeon at [facility] for evaluation and also referred to [facility] for abnormal activity seen in the uterus. 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 Plan: 1. Proceed with cycle 8 pembrolizumab today due to rash. 2. She does have a refill of the Medrol Dosepak for treatment of the rash should it reoccur. 3. Labs from today were reviewed in detail discussed with Ms. Morillo and a copy was given to her. WBC 11.1, hemoglobin 12.8, platelets 388,000 ANC is 8700. Potassium 3.4 creatinine 0.4 LFTs are normal. 4. We will plan to see her back in 3 weeks with CBC CMP TSH for consideration of pembrolizumab. 5. Her appointment with cardio-thoriac surgery @ [facility] is scheduled for 06/10/2020. 6. She will start Prilosec 20 mg daily. She will obtain it [id number] if possible. If this is not helping her gastritis symptoms she is to call and we will try calling her in a stronger dose of PPI. 7. Ms. Morillo was instructed to contact us in the interim should questions or problems arise. Signed By: Carlitos Dan-, [facility] Phyllis Mccormick MD <<Signature on File>>
== END 2020-06-04 23:59 | disposition home or self-care (01) ==
LOC: ONCMED 06:19
PROVIDERS: PCP Family Medicine; Visit Provider Nurse Practitioner
DX: Z51.12 Encounter for antineoplastic immunotherapy (principal); C15.5 Malignant neoplasm of lower third of esophagus; E03.9 Hypothyroidism, unspecified; D64.9 Anemia, unspecified; R13.10 Dysphagia, unspecified; N93.8 Other specified abnormal uterine and vaginal bleeding; Z92.21 Personal history of antineoplastic chemotherapy; Z92.3 Personal history of irradiation; Z79.899 Other long term (current) drug therapy
CPT/HCPCS: 36591; 80053; 84443; 85025; 96413; 99214; J7050; J9271

== ENCOUNTER 2020-06-26 05:57 | Outpatient (RCR) | payer BC, SELFPAY ==
[2020-06-26 10:03] LABS: Basophils # 0.1 10^3/uL (0.0-0.1); Basophils % 1.1 %; Eosinophils # 0.2 10^3/uL (0.0-0.8); Eosinophils % 2.9 %; Hematocrit 37.6 % (37.0-47.0); Hemoglobin 11.8 g/dL (11.5-15.3); Lymphocytes # 0.4 10^3/uL (0.8-4.8); Lymphocytes % 6.1 %; Mean Corpuscular HGB Conc 31.4 g/dL (30.0-36.0); Mean Corpuscular Hemoglobin 31.6 pg (28.0-34.0); Mean Corpuscular Volume 100.8 fL (81-99); Mean Platelet Volume 9.2 fL (7.4-10.4); Monocytes # 0.7 10^3/uL (0.2-0.9); Monocytes % 11.2 %; Neutrophils # 5.14 10^3/uL (1.8-7.7); Neutrophils % 78.5 %; Nucleated Red Blood Cells % 0 %; Platelet Count 288 10^3/cmm (130-400); Red Blood Count 3.73 10^6/uL (4.1-5.3); Red Cell Distribution Width 14.8 % (12.1-15.1); White Blood Count 6.5 10^3/uL (4.0-10.0)
[2020-06-26 10:35] LABS: Alanine Aminotransferase 6 U/L (0-33); Albumin Level 3.2 g/dL (3.5-5.2); Alkaline Phosphatase 43 IU/L (35-105); Anion Gap 13.6 (5-19); Aspartate Amino Transferase 14 U/L (0-32); Blood Urea Nitrogen 11 mg/dL (8-23); Calcium 9.2 mg/dL (8.5-10.5); Carbon Dioxide 31 mmol/L (22-29); Chloride 97 mmol/L (98-107); Globulin 3.3 g/dL (1.3-4.6); Glomerular Filtration Rate 223.3 mL/min (90-130); Glucose 127 mg/dL (65-115); Osmolality Calculated 287 mOsm/kg (285-295); Potassium 3.6 mmol/L (3.5-5.1); Sodium 138 mmol/L (136-145); Thyroid Stimulating Hormone 1.66 uIU/mL (0.27-4.20); Total Bilirubin 0.3 mg/dL (0.15-1.2); Total Protein 6.5 g/dL (6.6-8.7)
[2020-06-26] MEDS: sodium chloride 0.9% 250 ML IV (12:00)
[2020-06-26] MEDS: alteplase 1 mg/mL SDV 2 mL 2 MG IV (16:38)
--- NOTE | 2020-06-28 15:06 | ONC FU_ITS ---
Jules Baez Patient Note Patient: Nerissa Morillo Unit #: [id number]: 1955 Dictated By: Carlitos DanDate of Visit: Jun 26, 2020 Onc MED Follow-Up/Prog Note Chief Complaint: Adenocarcinoma of distal esophagus History of Present Illness: Mrs. Morillo is a 65-year-old female, who was recently diagnosed with distal esophageal adenocarcinoma. As per patient she did experience progressive dysphagia, about 15 pounds weight loss over the last couple months. She was evaluated with CT scan of chest on 11/30/2018 which showed mid to distal esophageal mass extends over 7.8 cm with near complete obstruction of lumen. No lymphadenopathy or other abnormality seen. She subsequently underwent EGD on 12/01/2018 which showed circumferential esophageal mass extending from 30-35 cm with narrowing of lumen. Multiple biopsies were obtained, and it confirmed adenocarcinoma. Stomach and duodenum showed no abnormality. She was referred to [facility] in [place] where she underwent further workup including repeat EGD on 12/06/2018. It showed a fungating mass lesion at 34 cm from incisors and extending into GE junction. No involvement of gastric mucosa was identified. Multiple fundic gland polyps were noted in stomach, esophageal stent was placed in. Mrs Morillo nderwent CT PET scan on 12/15/2018 which showed there is increased activity in the distal esophagus corresponding to location of the esophageal stent. Maximum SUV 10.8. Physiological activity typically identified in the gastric fundus appears more intense 9.8 which is of questionable significance. No evidence of metastatic disease. Small focus of abnormal activity in the fundus of uterus with a maximum SUV 6.5 MRI scan of head on 12/11/2018 showed no evidence of metastatic disease but minimal microvascular chronic ischemic changes. Ms Morillo underwent J-tube insertion on 12/12/2018 and port placement to facilitate chemotherapy. She did develop wound infection around her J-tube requiring surgical intervention and wound care for extended period time. Now healing well, but this postop complication caused delay in her combined chemoradiation for esophageal cancer. She began her first week of combination therapy with carboplatin/paclitaxel and radiation on 03/12/2019. And last dose of chemotherapy was given on 03/26/2019 and after that she developed persistent leukopenia and due to poor performance chemotherapy was held and patient continue with radiation therapy which she finished 04/19/2019. Patient went to see Dr. Taylor in [place] for evaluation for esophagectomy but due to her poor performance status he give her a return appointment on 06/27/2019 to see for performance status improves at that time. Was referred to GI surgery [facility] for second opinion, Seen Dr. Henriquez, medical oncologist who recommended CT PET scan and PFTs and 6 minute walk test earlier Dr. Hayden in [place] for EGD which was done on 07/27/2019, biopsy was obtained As per patient it was positive for malignancy. She was referred to GI surgical oncologist at [facility] where she was evaluated by Dr. henriquez medical oncologist on 09/17/2019 and his recommendations were to get his CT PET scan, PFTs, 6 minute walk test and referred to Dr. Florez for consideration of surgery after workup is done. He also recommended PDL 1 status, which was checked on 09/19/2019 which showed PDL 1 positive expression level, CPS more than 10. CT PET scan was ordered but her insurance refused and asked for CT scan of chest abdomen prior to CT PET scan so patient underwent CT scan of chest abdomen on 10/02/2019 which showed artificial esophageal tube inserted from the lower esophagus into fundus of stomach No evidence of residual esophageal mass or metastatic disease. Gallbladder densely packed with stones. Patient was admitted to hospital with abdominal pain nausea vomiting and then transferred to [facility] on 10/06/2019 which she underwent EGD which showed occluded/stenosis esophageal stent and evidence of recurrence of disease. And stent could not be removed due to tumor growth so fully covered stent was placed in. Stomach and duodenal was normal. Thoracic surgery was consulted but due to patient's poor nutrition status and deconditioning surgery was not considered. And immunotherapy was recommended .Follow-up CT PET scan done on 10/26/2019 showed increased soft tissue density surrounding the esophageal stent area consistent with progression of disease. Left sided pleural effusion appears to be malignant Low-level activity in the right adrenal gland suspicious for metastatic focus. Increasing activity 2 focal areas of uterus suspicious for neoplastic process such as endometrial carcinoma. 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 Additional compressive atelectasis in the right lower lobe medially with small amount of pleural effusion pneumonia versus superimposed radiation pneumonitis. Esophageal stent with a diffuse surrounding circumferential soft tissue thickening. Esophageal thickening extends to the subcarinal thoracic esophagus. This is progressed from previous and may be due to treatment related changes versus residual disease. Diffuse in-stent luminal narrowing involving the distal thoracic esophagus Cholelithiasis Immunotherapy with Keytruda, was put on hold on February 19, 2020 and Augmentin/Medrol Dosepak was prescribed, With that her symptoms resolved no more pleurisy type pain And follow-up chest x-ray done on March 04, 2020 showed minimal residual airspace disease or pleural thickening at the left lung base continued improvement since November 27, 2019 and no other abnormality except esophageal stent was complaining of weeklong history of left mid/upper chest pain and is progressive more with deep breathing and with sometimes palpitation, had low-grade fever. No hemoptysis or hematemesis. As per patient when she was young she had double pneumonia, since then she is more worried about her lung status and also in the recent past she had recurrence of left chest pain for which in February 2020, she underwent CT pulmonary which ruled out pulmonary embolism but showed possibility of pneumonia/pneumonitis, she was treated with antibiotics/steroids with good response, resolution of chest pain. But patient is concerned about recurrence and also appears anxious. She was sent to [facility] for evaluation on March 27, 2020, chest x-ray done showed no acute cardiopulmonary disease patient underwent CT angiogram on March 27, 2020 which showed no evidence of pulmonary embolism and no changes compared with scan done on February 19, 2020 EKG was done on same day showed sinus rhythm, septal myocardial infarction of indeterminate age h/o off and on left upper chest pain, recently underwent cardiac evaluation showed no acute event cardiac enzymes within normal limits, EKG no new changes, now being followed by cardiology. Pulmonary embolism was ruled out, chest x-ray showed no acute changes so pneumonitis or pneumonia was ruled out. Follow-up CT PET scan done on April 12, 2020 showed probable inflammatory activity at the proximal and distal ends of esophageal tube, likely tissue irritation Activity in the mid esophagus with SUV of 7.4 consistent with a primary esophageal carcinoma. No evidence of distant metastatic disease Left pleural effusion FDG negative Central uterine activity FDG negative right upper lobe groundglass opacity. Ms Morillo began immunotherapy with On November 28, 2019. She is tolerating it well overall. However her last treatment was on 04/24/2020. She has had delay of treatment due to developement of a rash. She was given treatment with a Medrol Dosepak for the rash and is here today for reassessment. She states overall she thinks her rash is much better. She has been doing much better overall. She states she has had some burning hiatal hernia pain but states this feels better if she keeps food on her stomach. She is having some symptoms of GERD as well but is not taking any PPI. She denies any nausea or vomiting. She denies fever or chills. She has had no COVID 19 symptoms. She is had no known COVID exposure and denies any personal coid testing. She states she thinks she is doing much better overall and feels that she is good for treatment today. She is due to see [facility] on 06/10/2020. Her ECOG is 1. . Past Medical History: Hypothyroidism Past Surgical History: Arthroscopic knee Cataract excision Esophageal biopsy Hernia repair Removal of ovarian cysts Flu Vaccine 20-21 in 2019 J-tube insertion in 2019 Allergies: HYDROcodone Bitartrate, Latex, and sulfa. Medications: Acetaminophen Extra Strength 15 mL (of 500 mg/15mL) Liquid Oral PRN All Day Allergy Childrens 7 mL (of 1 mg/mL) Solution Oral daily Artificial Tear Solution 1 Drop(s) Solution Ophthalmic daily [employer] Eye Lubricant Ointment Ophthalmic PRN Dexamethasone (4 mg) Tablet Oral Take as Directed Ondansetron HCl 4 - 8 mg (of 4 mg/5mL) Solution Oral t.i.d. PRN Potassium Chloride 15 mL (of 20 meq/15ml -10%) Solution Oral daily Family History: Ms. Morillo's mother at age 86: alzheimer. Ms. Morillo's father at age 72: heart disease. Ms. Morillo has 2 brothers: 2 alive. Ms. Morillo's first brother's prostate cancer. She has 2 sisters: 2 alive. She has 1 paternal aunt who is : lung cancer. Social History: Ms. Morillo is and she is unemployed. Ms. Morillo quit smoking 38 years ago but had smoked 1.5 packs/day for 7 years. She drinks occasionally. pt states she has a glass of wine occasionally her last glass was 5 years ago. Review Of Symptoms: Constitutional Denies fevers, chills, night sweats, excessive fatigue. Allergic/Immunologic No reactions. Eyes Denies significant visual changes. No diplopia. No amaurosis. ENMT Denies changes in hearing, sore throat, mouth sores. Endocrine Denies hot flashes or night sweats. Hematologic/Lymphatic Denies easy bruising or bleeding. The patient denies any tender or palpable lymph nodes. Respiratory Denies dyspnea on exertion, chest pain, cough or hemoptysis. Denies orthopnea. Cardiovascular Denies anginal chest pain, palpitations or orthopnea. Gastrointestinal Currently denies nausea, vomiting, diarrhea, GI bleeding, or constipation. Denies change in bowel habits and/or stool color, no heartburn or early satiety. Genitourinary (F) No hematuria, hesitancy, incontinence, vaginal bleeding, discharge or other problems with urination. Musculoskeletal Denies joint pain, swelling or redness. No decreased range of motion. Integumentary Denies chronic rashes, inflammation, ulcerations or skin changes. Recent rash has resolved. Neurologic Denies headache, blurred vision, and no areas of focal weakness or numbness. Assisted gait. No new sensory problems. Psychiatric Denies insomnia, depression, saji or mood swings. Vital Signs: Performed on Jun 26, 2020 11:02 Height - 69.50 in Weight - 124.0 lbs (LOW) BSA - 1.69 sq.m BMI - 18.05 Temperature - 98.6 F Pulse - 80 /min Respiration - 22 /min BP - 95/60 mm(hg) O2 Sat - 98 % Pain - 0,1 - No physically strenuous activity, but ambulatory and able to carry out light or sedentary work (e.g. office work, light house work). (ECOG) Physical Examination: Constitutional Alert, oriented, no acute distress. Skin pink, warm and dry. Head Normocephalic; atraumatic. Eyes Conjunctivae and sclerae are clear and without icterus. Pupils are reactive and equal. Neck Supple without masses or thyromegaly. No jugular venous distension. Hematologic/Lymphatic No petechiae or purpura. No tender or palpable lymph nodes in the cervical or supraclavicular areas. Respiratory Lungs are clear to auscultation without rhonchi or wheezing. Cardiovascular Regular rate and rhythm of heart without murmurs,clicks, gallops or rubs. Abdomen Non-tender, non-distended, no masses, Back/Spine Non-tender to palpation. Extremities No visible deformities, no cyanosis, clubbing or edema. Musculoskeletal No tenderness or swelling, normal range of motion without obvious weakness. Integumentary Rash resolved. Neurologic No sensory or motor deficits, normal cerebellar function, gait unassisted today. Psychiatric Alert and oriented times three. Coherent speech. Verbalizes understanding of our discussions today. Laboratory:Test performed on Jun 26, 2020 09:50 Sodium 138 mmol/L TSH 1.66 uIU/mL Potassium 3.6 mmol/L Chloride 97 mmol/L CO2 31 mmol/L Anion Gap 13.6 BUN 11 mg/dL Creatinine 0.3 mg/dL Cr Clearance (Est) 166.01 mL/min eGFR 223.3 mL/min Glucose 127 mg/dL Osmolality - Calculated 287 mOsm/kg Calcium 9.2 mg/dL Protein, Total 6.5 g/dL Albumin 3.2 g/dL Globulin 3.3 g/dL Bilirubin, Total 0.3 mg/dL ALT (SGPT) 6 U/L AST (SGOT) 14 U/L Alkaline Phosphatase 43 IU/L WBC 6.5 10 3/uL RBC 3.73 10 6/uL HGB 11.8 g/dL HCT 37.6 % MCV 100.8 fL MCH 31.6 pg MCHC 31.4 g/dL RDW 14.8 % Platelet Count 288 10 3/cmm MPV 9.2 fL Neutrophils 5.14 10 3/uL Lymphocytes 0.4 10 3/uL Monocytes 0.7 10 3/uL Eosinophils 0.2 10 3/uL Basophils 0.1 10 3/uL Neutrophil % 78.5 % Lymphocyte % 6.1 % Monocyte % 11.2 % Eosinophil % 2.9 % Basophils % 1.1 % NRBC % 0 % Impression: Adenocarcinoma of distal esophagus per EGD and biopsies done on 12/01/2018 CT PET scan done on 12/15/2018 showed localized disease, no evidence of lymphadenopathy or distant metastases Clinical stage T2-3, Nx,M0 Focus of increased uptake in the uterus Dysphagia due to above status post esophageal stenting and now with J-tube MRI head done on 12/11/2018, showed no brain metastases but microvascular ischemic disease Hypothyroidism on supplements Dysfunctional uterine bleeding, CT PET scan showed increased uptake in uterus. Ms Morillo began carboplatin/Taxol and radiation on 03/12/2019. She was found to be iron deficient and received Injectafer o 03/23/19 & 03/30/19. Her last dose of Carboplatin/paclitaxel was on 03/26/19. .Due to progressive leukopenia, she could not receive further chemotherapy but continue with radiation alone which she completed on 04/19/2019, Now being treated with maintenance therapy with Keytruda Follow-up CT PET scan done on April 12, 2020 showed excellent response to maintenance therapy with Keytruda, now activity in the mid esophagus only otherwise no evidence of distant mets. Clinically, patient is doing well, tolerating palliative/maintenance immunotherapy well and follow-up CT PET scan shows excellent response, good disease control rather improvement., Patient's overall performance status is also improving. At this point we will refer her to cardiothoracic surgeon at [facility] for evaluation and also referred to [facility]IST[facility] for abnormal activity seen in the uterus. 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 Ms Morillo has completed 8 cycles of pembrolizumab and has tolerated it overall. She did develop rash but that was able to resume treatment on 05/29/2020. Plan: 1. Proceed with cycle 9 pembrolizumab. May have flu vac while st t 2. She does have a refill of the Medrol Dosepak for treatment of the rash should it reoccur. 3. Labs from today were reviewed in detail discussed with Ms. Morillo and a copy was given to her. WBC 6.5, hemoglobin 11.8, platelets 288,000 ANC is 5143 potassium 3.6 creatinine 0.3 BUN 3.2 LFTs are normal TSH is 1.66. 4. We will plan to see her back in 3 weeks with CBC CMP TSH for consideration of pembrolizumab. 5. Her appointment with cardio-thoriac surgery @ [facility] scheduled for 06/10/2020. 6. Ms. Morillo was instructed to contact us in the interim should questions or problems arise. Signed By: Carlitos Dan AOCNP Phyllis Mccormick MD <<Signature on File>>
== END 2020-07-05 23:59 | disposition home or self-care (01) ==
LOC: ONCMED 05:57
PROVIDERS: PCP Family Medicine; Visit Provider Nurse Practitioner
DX: Z51.12 Encounter for antineoplastic immunotherapy (principal); C15.5 Malignant neoplasm of lower third of esophagus; Z23 Encounter for immunization; K80.20 Calculus of gallbladder without cholecystitis without obstruction; E03.9 Hypothyroidism, unspecified; N93.8 Other specified abnormal uterine and vaginal bleeding
CPT/HCPCS: 36593; 80053; 84443; 85025; 90471; 90686; 96375; 96413; 99214; J2997; J7050; J9271

== ENCOUNTER 2020-07-17 08:25 | Outpatient (RCR) | payer MEDICARE, BC, SELFPAY ==
[2020-07-17 08:58] LABS: Basophils # 0.1 10^3/uL (0.0-0.1); Basophils % 0.7 %; Eosinophils # 0.2 10^3/uL (0.0-0.8); Eosinophils % 3.1 %; Hematocrit 38.7 % (37.0-47.0); Lymphocytes # 0.7 10^3/uL (0.8-4.8); Lymphocytes % 9.1 %; Mean Corpuscular Hemoglobin 31.3 pg (28.0-34.0); Mean Platelet Volume 9.5 fL (7.4-10.4); Monocytes # 0.8 10^3/uL (0.2-0.9); Monocytes % 11.6 %; Neutrophils % 75.2 %; Nucleated Red Blood Cells % 0 %; Platelet Count 336 10^3/cmm (130-400); Red Blood Count 3.83 10^6/uL (4.1-5.3); Red Cell Distribution Width 14.6 % (12.1-15.1); White Blood Count 7.2 10^3/uL (4.0-10.0)
[2020-07-17 09:42] LABS: Alanine Aminotransferase 11 U/L (0-33); Albumin Level 3.4 g/dL (3.5-5.2); Alkaline Phosphatase 47 IU/L (35-105); Anion Gap 15.3 (5-19); Aspartate Amino Transferase 17 U/L (0-32); Blood Urea Nitrogen 11 mg/dL (8-23); Calcium 9.3 mg/dL (8.5-10.5); Carbon Dioxide 30 mmol/L (22-29); Chloride 98 mmol/L (98-107); Globulin 3.3 g/dL (1.3-4.6); Glomerular Filtration Rate 223.3 mL/min (90-130); Glucose 138 mg/dL (65-115); Osmolality Calculated 292 mOsm/kg (285-295); Potassium 3.3 mmol/L (3.5-5.1); Sodium 140 mmol/L (136-145); Thyroid Stimulating Hormone 2.49 uIU/mL (0.27-4.20); Total Bilirubin 0.3 mg/dL (0.15-1.2); Total Protein 6.7 g/dL (6.6-8.7)
--- NOTE | 2020-07-17 16:58 | ONC FU_ITS ---
Dr. Mccormick follow up note Patient: Nerissa Morillo Unit #: [id number]: 1955 Dicatated By: Phyllis Mccormick M.D.Date of Visit:Jul 17, 2020 Onc Med Follow-up/Prog Note History of Present Illness: Mrs. Morillo is a 65-year-old female, who was recently diagnosed with distal esophageal adenocarcinoma. As per patient she did experience progressive dysphagia, about 15 pounds weight loss over the last couple months. She was evaluated with CT scan of chest on 11/30/2018 which showed mid to distal esophageal mass extends over 7.8 cm with near complete obstruction of lumen. No lymphadenopathy or other abnormality seen. She subsequently underwent EGD on 12/01/2018 which showed circumferential esophageal mass extending from 30-35 cm with narrowing of lumen. Multiple biopsies were obtained, and it confirmed adenocarcinoma. Stomach and duodenum showed no abnormality. She was referred to [facility] in [place] where she underwent further workup including repeat EGD on 12/06/2018. It showed a fungating mass lesion at 34 cm from incisors and extending into GE junction. No involvement of gastric mucosa was identified. Multiple fundic gland polyps were noted in stomach, esophageal stent was placed in. Underwent CT PET scan on 12/15/2018 which showed there is increased activity in the distal esophagus corresponding to location of the esophageal stent. Maximum SUV 10.8. Physiological activity typically identified in the gastric fundus appears more intense 9.8 which is of questionable significance. No evidence of metastatic disease. Small focus of abnormal activity in the fundus of uterus with a maximum SUV 6.5 MRI scan of head on 12/11/2018 showed no evidence of metastatic disease but minimal microvascular chronic ischemic changes. Ms Morillo underwent J-tube insertion on 12/12/2018 and port placement to facilitate chemotherapy. She did develop wound infection around her J-tube requiring surgical intervention and wound care for extended period time. Now healing well, but this postop complication caused delay in her combined chemoradiation for esophageal cancer. She began her first week of combination therapy with carboplatin/paclitaxel and radiation on 03/12/2019. And last dose of chemotherapy was given on 03/26/2019 and after that she developed persistent leukopenia and due to poor performance chemotherapy was held and patient continue with radiation therapy which she finished 04/19/2019. Patient went to see Dr. Taylor in [place] for evaluation for esophagectomy but due to her poor performance status he give her a return appointment on 06/27/2019 to see for performance status improves at that time. Was referred to GI surgery [facility] for second opinion, Seen Dr. Henriquez, medical oncologist who recommended CT PET scan and PFTs and 6 minute walk test earlier Dr. Hayden in [place] for EGD which was done on 07/27/2019, biopsy was obtained As per patient it was positive for malignancy. She was referred to GI surgical oncologist at [facility] where she was evaluated by Dr. henriquez medical oncologist on 09/17/2019 and his recommendations were to get his CT PET scan, PFTs, 6 minute walk test and referred to Dr. Florez for consideration of surgery after workup is done. He also recommended PDL 1 status, which was checked on 09/19/2019 which showed PDL 1 positive expression level, CPS more than 10. CT PET scan was ordered but her insurance refused and asked for CT scan of chest abdomen prior to CT PET scan so patient underwent CT scan of chest abdomen on 10/02/2019 which showed artificial esophageal tube inserted from the lower esophagus into fundus of stomach No evidence of residual esophageal mass or metastatic disease. Gallbladder densely packed with stones. Patient was admitted to hospital with abdominal pain nausea vomiting and then transferred to [facility] on 10/06/2019 which she underwent EGD which showed occluded/stenosis esophageal stent and evidence of recurrence of disease. And stent could not be removed due to tumor growth so fully covered stent was placed in. Stomach and duodenal was normal. Thoracic surgery was consulted but due to patient's poor nutrition status and deconditioning surgery was not considered. And immunotherapy was recommended .Follow-up CT PET scan done on 10/26/2019 showed increased soft tissue density surrounding the esophageal stent area consistent with progression of disease. Left sided pleural effusion appears to be malignant Low-level activity in the right adrenal gland suspicious for metastatic focus. Increasing activity 2 focal areas of uterus suspicious for neoplastic process such as endometrial carcinoma. 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 Additional compressive atelectasis in the right lower lobe medially with small amount of pleural effusion pneumonia versus superimposed radiation pneumonitis. Esophageal stent with a diffuse surrounding circumferential soft tissue thickening. Esophageal thickening extends to the subcarinal thoracic esophagus. This is progressed from previous and may be due to treatment related changes versus residual disease. Diffuse in-stent luminal narrowing involving the distal thoracic esophagus Cholelithiasis And follow-up chest x-ray done on March 04, 2020 showed minimal residual airspace disease or pleural thickening at the left lung base continued improvement since November 27, 2019 and no other abnormality except esophageal stent was complaining of weeklong history of left mid/upper chest pain and is progressive more with deep breathing and with sometimes palpitation, had low-grade fever. No hemoptysis or hematemesis. As per patient when she was young she had double pneumonia, since then she is more worried about her lung status and also in the recent past she had recurrence of left chest pain for which in February 2020, she underwent CT pulmonary which ruled out pulmonary embolism but showed possibility of pneumonia/pneumonitis, she was treated with antibiotics/steroids with good response, resolution of chest pain. But patient is concerned about recurrence and also appears anxious. She was sent to 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 Pulmonary embolism was ruled out, chest x-ray showed no acute changes so pneumonitis or pneumonia was ruled out. Follow-up CT PET scan done on April 12, 2020 showed probable inflammatory activity at the proximal and distal ends of esophageal tube, likely tissue irritation Activity in the mid esophagus with SUV of 7.4 consistent with a primary esophageal carcinoma. No evidence of distant metastatic disease Left pleural effusion FDG negative Central uterine activity FDG negative right upper lobe groundglass opacity. Ms Morillo began immunotherapy with On November 28, 2019. She is tolerating it well overall. However after treatment on 04/24/2020. She has had delay of treatment due to developement of a rash. She was given treatment with a Medrol Dosepak for the rash with that her rash resolved. And continued with 3 weekly Keytruda Came for follow-up, denies any specific complaints, no nausea or vomiting no diarrhea no fever no skin rash, no wheezing, no melena or hematochezia, no jaundice. Tolerating Keytruda well otherwise patient was scheduled to see thoracic surgery at [facility] on June 10, 2020 but patient rescheduled it because of not feeling well that day. Medications: Acetaminophen Extra Strength 15 mL (of 500 mg/15mL) Liquid Oral PRN, All Day Allergy Childrens 7 mL (of 1 mg/mL) Solution Oral daily, Artificial Tear Solution 1 Drop(s) Solution Ophthalmic daily, [employer] Eye Lubricant Ointment Ophthalmic PRN, Dexamethasone (4 mg) Tablet Oral Take as Directed, Ondansetron HCl 4 - 8 mg (of 4 mg/5mL) Solution Oral t.i.d. PRN, Potassium Chloride 15 mL (of 20 meq/15ml -10%) Solution Oral daily, PriLOSEC OTC 1 Tablet (of 20 mg) Tablet, enteric coated Oral daily Allergies: HYDROcodone Bitartrate, Latex, and sulfa. Review of Systems: Constitutional - Appetite is improving. Weight has declined. No fever, chills, hot flashes, or night sweats. Energy level is fair today, ENMT - Positive for sinus congestion/drainage. No mouth sores. Positive for sore throat. Positive for difficulty swallowing, Hematologic/Lymphatic - No abnormal bruising or bleeding, Respiratory - Positive for recent, persistent shortness of breath and pleuritic pain that Pt states is near left upper lobe and that pain increases on inhalation. Positive for cough. No hemoptysis, Cardiovascular - No angina pain. No palpitations, Gastrointestinal - Nausea and vomiting is improving. No heartburn and acid reflux. No diarrhea or constipation. No blood in the stool or black stools, Genitourinary (F) - No dysuria or hematuria. Positive for urinary frequency. No urgency or incontinence, Musculoskeletal - No joint or bone pain, Integumentary - Positive for edema in bilateral lower extremities, however, this is improving also, Neurologic - No headache. Occasional dizziness, Psychiatric - No anxiety, no depression. No insomnia. Vital Signs: Performed on Jul 17, 2020 10:15 Height - 69.50 in Weight - 122.0 lbs (LOW) BSA - 1.68 sq.m BMI - 17.76 (LOW) Temperature - 97.7 F (LOW) Pulse - 92 /min Respiration - 20 /min BP - 107/70 mm(hg) O2 Sat - 97 % Pain - 0 Performance Status: 1 - No physically strenuous activity, but ambulatory and able to carry out light or sedentary work (e.g. office work, light house work). (ECOG) Physical Examination: ENMT - No mouth sores, no thrush, no jaundice, Respiratory - Lungs are clear to auscultation, Cardiovascular - Regular rate and rhythm of heart, Abdomen - Soft, bowel sounds present, Extremities - 1+ edema bilaterally. Lab/Imaging: Test performed on Jun 26, 2020 09:50 Sodium 138 mmol/L TSH 1.66 uIU/mL Potassium 3.6 mmol/L Chloride 97 mmol/L CO2 31 mmol/L Anion Gap 13.6 BUN 11 mg/dL Creatinine 0.3 mg/dL Cr Clearance (Est) 166.01 mL/min eGFR 223.3 mL/min Glucose 127 mg/dL Osmolality - Calculated 287 mOsm/kg Calcium 9.2 mg/dL Protein, Total 6.5 g/dL Albumin 3.2 g/dL Globulin 3.3 g/dL Bilirubin, Total 0.3 mg/dL ALT (SGPT) 6 U/L AST (SGOT) 14 U/L Alkaline Phosphatase 43 IU/L WBC 6.5 10 3/uL RBC 3.73 10 6/uL HGB 11.8 g/dL HCT 37.6 % MCV 100.8 fL MCH 31.6 pg MCHC 31.4 g/dL RDW 14.8 % Platelet Count 288 10 3/cmm MPV 9.2 fL Neutrophils 5.14 10 3/uL Lymphocytes 0.4 10 3/uL Monocytes 0.7 10 3/uL Eosinophils 0.2 10 3/uL Basophils 0.1 10 3/uL Neutrophil % 78.5 % Lymphocyte % 6.1 % Monocyte % 11.2 % Eosinophil % 2.9 % Basophils % 1.1 % NRBC % 0 % Test performed on Mar 27, 2020 12:59 Magnesium 1.9 mg/dL Impression: Adenocarcinoma of distal esophagus per EGD and biopsies done on 12/01/2018 CT PET scan done on 12/15/2018 showed localized disease, no evidence of lymphadenopathy or distant metastases Clinical stage T2-3, Nx,M0 Focus of increased uptake in the uterus Dysphagia due to above status post esophageal stenting and now with J-tube MRI head done on 12/11/2018, showed no brain metastases but microvascular ischemic disease Hypothyroidism on supplements Dysfunctional uterine bleeding, CT PET scan showed increased uptake in uterus. Ms Morillo began carboplatin/Taxol and radiation on 03/12/2019. She was found to be iron deficient and received Injectafer o 03/23/19 & 03/30/19. Her last dose of Carboplatin/paclitaxel was on 03/26/19. .Due to progressive leukopenia, she could not receive further chemotherapy but continue with radiation alone which she completed on 04/19/2019, Now being treated with maintenance therapy with Keytruda Follow-up CT PET scan done on April 12, 2020 showed excellent response to maintenance therapy with Keytruda, now activity in the mid esophagus only otherwise no evidence of distant mets. Clinically, patient is doing well, tolerating palliative/maintenance immunotherapy well and follow-up CT PET scan shows excellent response, good disease control rather improvement., Patient's overall performance status is also improving. At this point we will refer her to cardiothoracic surgeon at [facility] for evaluation and also referred to [facility] for abnormal activity seen in the uterus. 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 Ms Morillo has completed 8 cycles of pembrolizumab and has tolerated it overall. She did develop rash but that was able to resume treatment on 05/29/2020. Plan: Discussed with patient regarding her labs white blood count 7.2 hemoglobin 12 hematocrit 38.7 platelets 336,000 CMP within normal limit except potassium 3.3 TSH 2.49 Clinically, patient is doing well with no new signs symptoms, tolerating Keytruda well, will proceed with the next 3 weekly dose today and return to clinic in 3 weeks with CBC CMP. Mild hypokalemia, patient is on potassium supplement, we will increase her potassium supplement dose for 3 days and then continue with same and follow-up with potassium level. Patient was scheduled to see cardiothoracic surgery at [facility], but patient said she was not feeling well so she will reschedule it. Signed By: Phyllis Mccormick M.D. <<Signature on File>>
== END 2020-08-04 23:59 | disposition home or self-care (01) ==
LOC: ONCMED 08:25
PROVIDERS: PCP Family Medicine; Visit Provider Internal Medicine Hematology & Oncology
DX: Z51.12 Encounter for antineoplastic immunotherapy (principal); C15.5 Malignant neoplasm of lower third of esophagus; E03.9 Hypothyroidism, unspecified; D64.9 Anemia, unspecified; R13.10 Dysphagia, unspecified; E87.6 Hypokalemia; Z92.21 Personal history of antineoplastic chemotherapy; Z79.899 Other long term (current) drug therapy
CPT/HCPCS: 80053; 84443; 85025; 96413; 99214; J7050; J9271

== ENCOUNTER 2020-08-14 05:55 | Outpatient (CLI) | payer MEDICARE, BC, SELFPAY ==
[2020-08-14 09:57] LABS: Basophils % 0.6 %; Eosinophils # 0.2 10^3/uL (0.0-0.8); Hematocrit 35.7 % (37.0-47.0); Hemoglobin 11.1 g/dL (11.5-15.3); Lymphocytes # 0.7 10^3/uL (0.8-4.8); Lymphocytes % 10.1 %; Mean Corpuscular HGB Conc 31.1 g/dL (30.0-36.0); Mean Corpuscular Hemoglobin 31.8 pg (28.0-34.0); Mean Corpuscular Volume 102.3 fL (81-99); Mean Platelet Volume 9.4 fL (7.4-10.4); Monocytes # 0.7 10^3/uL (0.2-0.9); Monocytes % 10.1 %; Neutrophils # 5.52 10^3/uL (1.8-7.7); Neutrophils % 75.9 %; Nucleated Red Blood Cells % 0 %; Platelet Count 310 10^3/cmm (130-400); Red Blood Count 3.49 10^6/uL (4.1-5.3); Red Cell Distribution Width 14.2 % (12.1-15.1); White Blood Count 7.3 10^3/uL (4.0-10.0)
[2020-08-14 10:22] LABS: Alanine Aminotransferase 8 U/L (0-33); Albumin Level 3.3 g/dL (3.5-5.2); Alkaline Phosphatase 50 IU/L (35-105); Anion Gap 13.6 (5-19); Aspartate Amino Transferase 14 U/L (0-32); Blood Urea Nitrogen 17 mg/dL (8-23); Calcium 9.5 mg/dL (8.5-10.5); Carbon Dioxide 29 mmol/L (22-29); Chloride 100 mmol/L (98-107); Globulin 3.1 g/dL (1.3-4.6); Glomerular Filtration Rate 160.2 mL/min (90-130); Glucose 106 mg/dL (65-115); Osmolality Calculated 290 mOsm/kg (285-295); Potassium 3.6 mmol/L (3.5-5.1); Sodium 139 mmol/L (136-145); Thyroid Stimulating Hormone 3.23 uIU/mL (0.27-4.20); Total Bilirubin 0.3 mg/dL (0.15-1.2); Total Protein 6.4 g/dL (6.6-8.7)
[2020-08-14] MEDS: sodium chloride 0.9% 250 ML 125 ML IV (11:59)
--- NOTE | 2020-08-17 22:29 | ONC FU_ITS ---
Jules Baez Patient Note Patient: Nerissa Morillo Unit #: [id number]: 1955 Dictated By: Carlitos DanDate of Visit: Aug 14, 2020 Onc MED Follow-Up/Prog Note Chief Complaint: Adenocarcinoma of distal esophagus History of Present Illness: Mrs. Morillo is a 65-year-old female, who was recently diagnosed with distal esophageal adenocarcinoma. As per patient she did experience progressive dysphagia, about 15 pounds weight loss over the last couple months. She was evaluated with CT scan of chest on 11/30/2018 which showed mid to distal esophageal mass extends over 7.8 cm with near complete obstruction of lumen. No lymphadenopathy or other abnormality seen. She subsequently underwent EGD on 12/01/2018 which showed circumferential esophageal mass extending from 30-35 cm with narrowing of lumen. Multiple biopsies were obtained, and it confirmed adenocarcinoma. Stomach and duodenum showed no abnormality. She was referred to [facility] in [place] where she underwent further workup including repeat EGD on 12/06/2018. It showed a fungating mass lesion at 34 cm from incisors and extending into GE junction. No involvement of gastric mucosa was identified. Multiple fundic gland polyps were noted in stomach, esophageal stent was placed in. Underwent CT PET scan on 12/15/2018 which showed there is increased activity in the distal esophagus corresponding to location of the esophageal stent. Maximum SUV 10.8. Physiological activity typically identified in the gastric fundus appears more intense 9.8 which is of questionable significance. No evidence of metastatic disease. Small focus of abnormal activity in the fundus of uterus with a maximum SUV 6.5 MRI scan of head on 12/11/2018 showed no evidence of metastatic disease but minimal microvascular chronic ischemic changes. Ms Morillo underwent J-tube insertion on 12/12/2018 and port placement to facilitate chemotherapy. She did develop wound infection around her J-tube requiring surgical intervention and wound care for extended period time. Now healing well, but this postop complication caused delay in her combined chemoradiation for esophageal cancer. She began her first week of combination therapy with carboplatin/paclitaxel and radiation on 03/12/2019. And last dose of chemotherapy was given on 03/26/2019 and after that she developed persistent leukopenia and due to poor performance chemotherapy was held and patient continue with radiation therapy which she finished 04/19/2019. Patient went to see Dr. Taylor in [place] for evaluation for esophagectomy but due to her poor performance status he give her a return appointment on 06/27/2019 to see for performance status improves at that time. Was referred to GI surgery [facility] for second opinion, Seen Dr. Henriquez, medical oncologist who recommended CT PET scan and PFTs and 6 minute walk test earlier Dr. Hayden in [place] for EGD which was done on 07/27/2019, biopsy was obtained As per patient it was positive for malignancy. She was referred to GI surgical oncologist at [facility] where she was evaluated by Dr. henriquez medical oncologist on 09/17/2019 and his recommendations were to get his CT PET scan, PFTs, 6 minute walk test and referred to Dr. Florez for consideration of surgery after workup is done. He also recommended PDL 1 status, which was checked on 09/19/2019 which showed PDL 1 positive expression level, CPS more than 10. CT PET scan was ordered but her insurance refused and asked for CT scan of chest abdomen prior to CT PET scan so patient underwent CT scan of chest abdomen on 10/02/2019 which showed artificial esophageal tube inserted from the lower esophagus into fundus of stomach No evidence of residual esophageal mass or metastatic disease. Gallbladder densely packed with stones. Patient was admitted to hospital with abdominal pain nausea vomiting and then transferred to [facility] on 10/06/2019 which she underwent EGD which showed occluded/stenosis esophageal stent and evidence of recurrence of disease. And stent could not be removed due to tumor growth so fully covered stent was placed in. Stomach and duodenal was normal. Thoracic surgery was consulted but due to patient's poor nutrition status and deconditioning surgery was not considered. And immunotherapy was recommended .Follow-up CT PET scan done on 10/26/2019 showed increased soft tissue density surrounding the esophageal stent area consistent with progression of disease. Left sided pleural effusion appears to be malignant Low-level activity in the right adrenal gland suspicious for metastatic focus. Increasing activity 2 focal areas of uterus suspicious for neoplastic process such as endometrial carcinoma. 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 Additional compressive atelectasis in the right lower lobe medially with small amount of pleural effusion pneumonia versus superimposed radiation pneumonitis. Esophageal stent with a diffuse surrounding circumferential soft tissue thickening. Esophageal thickening extends to the subcarinal thoracic esophagus. This is progressed from previous and may be due to treatment related changes versus residual disease. Diffuse in-stent luminal narrowing involving the distal thoracic esophagus Cholelithiasis And follow-up chest x-ray done on March 04, 2020 showed minimal residual airspace disease or pleural thickening at the left lung base continued improvement since November 27, 2019 and no other abnormality except esophageal stent was complaining of weeklong history of left mid/upper chest pain and is progressive more with deep breathing and with sometimes palpitation, had low-grade fever. No hemoptysis or hematemesis. As per patient when she was young she had double pneumonia, since then she is more worried about her lung status and also in the recent past she had recurrence of left chest pain for which in February 2020, she underwent CT pulmonary which ruled out pulmonary embolism but showed possibility of pneumonia/pneumonitis, she was treated with antibiotics/steroids with good response, resolution of chest pain. But patient is concerned about recurrence and also appears anxious. 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 Pulmonary embolism was ruled out, chest x-ray showed no acute changes so pneumonitis or pneumonia was ruled out. Follow-up CT PET scan done on April 12, 2020 showed probable inflammatory activity at the proximal and distal ends of esophageal tube, likely tissue irritation Activity in the mid esophagus with SUV of 7.4 consistent with a primary esophageal carcinoma. No evidence of distant metastatic disease Left pleural effusion FDG negative Central uterine activity FDG negative right upper lobe groundglass opacity. Ms Morillo began immunotherapy with On November 28, 2019. She is tolerating it well overall. However after treatment on 04/24/2020. She has had delay of treatment due to developement of a rash. She was given treatment with a Medrol Dosepak for the rash with that her rash resolved. She has continued with 3 weekly Keytruda on 05-29-2020. She is here today for follow-up. Her last dose of Keytruda was on 07/17/2020. She has had delay due to strep throat . She was treated by her PCP and states that all of her symptoms have resolved. She denies any fever chills. She is had no mouth sores, sore throat or difficulty swallowing. She states her appetite is good she is using boost for nutritional supplement and has actually gained weight. Her energy is much better . She denies any new concerns today. She denies any nausea or vomiting. She denies any diarrhea or constipation. She has had no recurrent rash. Her ECOG is 1. Past Medical History: Hypothyroidism Past Surgical History: Arthroscopic knee Cataract excision Esophageal biopsy Hernia repair Removal of ovarian cysts Flu Vaccine 20-21 in 2019 J-tube insertion in 2018 Allergies: HYDROcodone Bitartrate, Latex, and sulfa. Medications: Acetaminophen Extra Strength 15 mL (of 500 mg/15mL) Liquid Oral PRN All Day Allergy Childrens 7 mL (of 1 mg/mL) Solution Oral daily Artificial Tear Solution 1 Drop(s) Solution Ophthalmic daily [employer] Eye Lubricant Ointment Ophthalmic PRN Dexamethasone (4 mg) Tablet Oral Take as Directed Ondansetron HCl 4 - 8 mg (of 4 mg/5mL) Solution Oral t.i.d. PRN Potassium Chloride 15 mL (of 20 meq/15ml -10%) Solution Oral daily PriLOSEC OTC 1 Tablet (of 20 mg) Tablet, enteric coated Oral daily Family History: Ms. Morillo's mother at age 86: alzheimer. Ms. Morillo's father at age 72: heart disease. Ms. Morillo has 2 brothers: 2 alive. Ms. Morillo's first brother's prostate cancer. She has 2 sisters: 2 alive. She has 1 paternal aunt who is : lung cancer. Social History: Ms. Morillo is and she is unemployed. Ms. Morillo quit smoking 38 years ago but had smoked 1.5 packs/day for 7 years. She drinks occasionally. pt states she has a glass of wine occasionally her last glass was 5 years ago. Review Of Symptoms: Constitutional Denies fevers, chills, night sweats, excessive fatigue. Allergic/Immunologic No reactions. Eyes Denies significant visual changes. No diplopia. No amaurosis. ENMT Denies changes in hearing, sore throat, mouth sores. Had strep throat 10-14 days ago-complete antibiotics about 3-4 days ago. Endocrine Denies hot flashes or night sweats. Hematologic/Lymphatic Denies easy bruising or bleeding. The patient denies any tender or palpable lymph nodes. Respiratory Denies dyspnea on exertion, chest pain, cough or hemoptysis. Denies orthopnea. Cardiovascular Denies anginal chest pain, palpitations or orthopnea. Gastrointestinal Currently denies nausea, vomiting, diarrhea, GI bleeding, or constipation. Denies change in bowel habits and/or stool color, no heartburn or early satiety. Genitourinary (F) No hematuria, hesitancy, incontinence, vaginal bleeding, discharge or other problems with urination. Musculoskeletal Denies joint pain, swelling or redness. No decreased range of motion. Integumentary Denies chronic rashes, inflammation, ulcerations or skin changes. Neurologic Denies headache, blurred vision, and no areas of focal weakness or numbness. Assisted gait. No new sensory problems. Psychiatric Denies insomnia, depression, saji or mood swings. Vital Signs: Performed on Aug 14, 2020 11:18 Height - 69.50 in Weight - 127.8 lbs (HIGH) BSA - 1.72 sq.m BMI - 18.60 Temperature - 98.3 F (LOW) Pulse - 103 /min (HIGH) Respiration - 24 /min BP - 95/66 mm(hg) O2 Sat - 99 % Pain - 3,1 - No physically strenuous activity, but ambulatory and able to carry out light or sedentary work (e.g. office work, light house work). (ECOG) Physical Examination: Constitutional Alert, oriented, no acute distress. Skin pink, warm and dry. Head Normocephalic; atraumatic. Eyes Conjunctivae and sclerae are clear and without icterus. Pupils are reactive and equal. ENMT No oral exudates, ulcers, masses, thrush or mucositis. Oropharynx clear. Tongue normal. Neck Supple without masses or thyromegaly. No jugular venous distension. Hematologic/Lymphatic No petechiae or purpura. No tender or palpable lymph nodes in the cervical or supraclavicular areas. Respiratory Lungs are clear to auscultation without rhonchi or wheezing. Cardiovascular Regular rate and rhythm of heart without murmurs,clicks, gallops or rubs. Abdomen Non-tender, non-distended, no masses, Back/Spine Non-tender to palpation. Extremities No visible deformities, no cyanosis, clubbing or edema. Musculoskeletal No tenderness or swelling, normal range of motion without obvious weakness. Integumentary Rash resolved. Neurologic No sensory or motor deficits, normal cerebellar function, gait unassisted today. Psychiatric Alert and oriented times three. Coherent speech. Verbalizes understanding of our discussions today. Laboratory:Test performed on Aug 14, 2020 09:41 Sodium 139 mmol/L TSH 3.23 uIU/mL Potassium 3.6 mmol/L Chloride 100 mmol/L CO2 29 mmol/L Anion Gap 13.6 BUN 17 mg/dL Creatinine 0.4 mg/dL Cr Clearance (Est) 128.32 mL/min eGFR 160.2 mL/min Glucose 106 mg/dL Osmolality - Calculated 290 mOsm/kg Calcium 9.5 mg/dL Protein, Total 6.4 g/dL Albumin 3.3 g/dL Globulin 3.1 g/dL Bilirubin, Total 0.3 mg/dL ALT (SGPT) 8 U/L AST (SGOT) 14 U/L Alkaline Phosphatase 50 IU/L WBC 7.3 10 3/uL RBC 3.49 10 6/uL HGB 11.1 g/dL HCT 35.7 % MCV 102.3 fL MCH 31.8 pg MCHC 31.1 g/dL RDW 14.2 % Platelet Count 310 10 3/cmm MPV 9.4 fL Neutrophils 5.52 10 3/uL Lymphocytes 0.7 10 3/uL Monocytes 0.7 10 3/uL Eosinophils 0.2 10 3/uL Basophils 0.0 10 3/uL Neutrophil % 75.9 % Lymphocyte % 10.1 % Monocyte % 10.1 % Eosinophil % 3.0 % Basophils % 0.6 % NRBC % 0 % Impression: Adenocarcinoma of distal esophagus per EGD and biopsies done on 12/01/2018 CT PET scan done on 12/15/2018 showed localized disease, no evidence of lymphadenopathy or distant metastases Clinical stage T2-3, Nx,M0 Focus of increased uptake in the uterus Dysphagia due to above status post esophageal stenting and now with J-tube MRI head done on 12/11/2018, showed no brain metastases but microvascular ischemic disease Hypothyroidism on supplements Dysfunctional uterine bleeding, CT PET scan showed increased uptake in uterus. Ms Morillo began carboplatin/Taxol and radiation on 03/12/2019. She was found to be iron deficient and received Injectafer o 03/23/19 & 03/30/19. Her last dose of Carboplatin/paclitaxel was on 03/26/19. .Due to progressive leukopenia, she could not receive further chemotherapy but continue with radiation alone which she completed on 04/19/2019, Now being treated with maintenance therapy with Keytruda Follow-up CT PET scan done on April 12, 2020 showed excellent response to maintenance therapy with Keytruda, now activity in the mid esophagus only otherwise no evidence of distant mets. Clinically, patient is doing well, tolerating palliative/maintenance immunotherapy well and follow-up CT PET scan shows excellent response, good disease control rather improvement., Patient's overall performance status is also improving. At this point we will refer her to cardiothoracic surgeon at [facility] for evaluation and also referred to ELECTROLOGIST for abnormal activity seen in the uterus. 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 Ms Morillo has completed 8 cycles of pembrolizumab and has tolerated it overall. She did develop rash but that was able to resume treatment on 05/29/2020. Plan: 1. Pursue cycle 11 pembrolizumab. Her last treatment was on 07/17/2020. She has been delayed due to feeling bad and having strep throat . I did refill her doxycycline which was what was utilized to treat her strep throat. I want her to have it on hand in the event that she should have recurrent symptoms after treatment today. 2. She will continue the current plan of care otherwise. She is using boost nutritional supplement and has been gaining weight. She states her appetite is better. 3. Today's labs were reviewed in detail discussed with Ms. Morillo and a copy was given to her. WBC 7.3, hemoglobin 11.1, platelets 310,000 ANC is 5520. Potassium 3.6 glucose 106 creatinine 0.4 LFTs are normal. Her weight is 127.8 and was 122.0 on 07/17/2020. 4. We will plan to have her return in 3 weeks with CBC CMP and TSH. 5. Ms. Morillo was instructed to contact us in the interim should questions or problems arise. Signed By: Carlitos Dan-, [facility] Phyllis Mccormick MD <<Signature on File>>
== END 2020-08-14 05:56 | disposition home or self-care (01) ==
LOC: ONCMED 05:57
PROVIDERS: PCP Family Medicine; Visit Provider Nurse Practitioner
DX: Z51.12 Encounter for antineoplastic immunotherapy (principal); C15.5 Malignant neoplasm of lower third of esophagus; E03.9 Hypothyroidism, unspecified; R13.10 Dysphagia, unspecified; Z79.899 Other long term (current) drug therapy
CPT/HCPCS: 80053; 84443; 85025; 96413; 99214; J7050; J9271

== ENCOUNTER 2020-09-04 06:16 | Outpatient (CLI) | payer MEDICARE, BC, SELFPAY ==
[2020-09-04 12:35] LABS: Basophils # 0.1 10^3/uL (0.0-0.1); Eosinophils # 0.4 10^3/uL (0.0-0.8); Eosinophils % 5.9 %; Hematocrit 34.8 % (37.0-47.0); Hemoglobin 10.6 g/dL (11.5-15.3); Lymphocytes # 0.5 10^3/uL (0.8-4.8); Mean Corpuscular HGB Conc 30.5 g/dL (30.0-36.0); Mean Corpuscular Hemoglobin 30.4 pg (28.0-34.0); Mean Corpuscular Volume 99.7 fL (81-99); Monocytes # 0.6 10^3/uL (0.2-0.9); Monocytes % 10.3 %; Neutrophils # 4.64 10^3/uL (1.8-7.7); Neutrophils % 74.5 %; Nucleated Red Blood Cells % 0 %; Platelet Count 332 10^3/cmm (130-400); Red Blood Count 3.49 10^6/uL (4.1-5.3); Red Cell Distribution Width 13.6 % (12.1-15.1); White Blood Count 6.2 10^3/uL (4.0-10.0)
[2020-09-04 13:09] LABS: Alanine Aminotransferase 9 U/L (0-33); Albumin Level 3.1 g/dL (3.5-5.2); Alkaline Phosphatase 53 IU/L (35-105); Anion Gap 12.1 (5-19); Aspartate Amino Transferase 15 U/L (0-32); Blood Urea Nitrogen 11 mg/dL (8-23); Calcium 9.1 mg/dL (8.5-10.5); Carbon Dioxide 33 mmol/L (22-29); Chloride 98 mmol/L (98-107); Globulin 3.2 g/dL (1.3-4.6); Glomerular Filtration Rate 223.3 mL/min (90-130); Glucose 113 mg/dL (65-115); Osmolality Calculated 290 mOsm/kg (285-295); Potassium 3.1 mmol/L (3.5-5.1); Sodium 140 mmol/L (136-145); Thyroid Stimulating Hormone 2.11 uIU/mL (0.27-4.20); Total Bilirubin 0.2 mg/dL (0.15-1.2); Total Protein 6.3 g/dL (6.6-8.7)
--- NOTE | 2020-09-10 00:03 | ONC FU_ITS ---
Jules Baez Patient Note Patient: Nerissa Morillo Unit #: [id number]: 1955 Dictated By: Carlitos DanDate of Visit: Sep 04, 2020 Onc MED Follow-Up/Prog Note Chief Complaint: Adenocarcinoma of distal esophagus History of Present Illness: Mrs. Morillo is a 65-year-old female, who was recently diagnosed with distal esophageal adenocarcinoma. As per patient she did experience progressive dysphagia, about 15 pounds weight loss over the last couple months. She was evaluated with CT scan of chest on 11/30/2018 which showed mid to distal esophageal mass extends over 7.8 cm with near complete obstruction of lumen. No lymphadenopathy or other abnormality seen. She subsequently underwent EGD on 12/01/2018 which showed circumferential esophageal mass extending from 30-35 cm with narrowing of lumen. Multiple biopsies were obtained, and it confirmed adenocarcinoma. Stomach and duodenum showed no abnormality. She was referred to [facility] in [place] where she underwent further workup including repeat EGD on 12/06/2018. It showed a fungating mass lesion at 34 cm from incisors and extending into GE junction. No involvement of gastric mucosa was identified. Multiple fundic gland polyps were noted in stomach, esophageal stent was placed in. Underwent CT PET scan on 12/15/2018 which showed there is increased activity in the distal esophagus corresponding to location of the esophageal stent. Maximum SUV 10.8. Physiological activity typically identified in the gastric fundus appears more intense 9.8 which is of questionable significance. No evidence of metastatic disease. Small focus of abnormal activity in the fundus of uterus with a maximum SUV 6.5 MRI scan of head on 12/11/2018 showed no evidence of metastatic disease but minimal microvascular chronic ischemic changes. Ms Morillo underwent J-tube insertion on 12/12/2018 and port placement to facilitate chemotherapy. She did develop wound infection around her J-tube requiring surgical intervention and wound care for extended period time. Now healing well, but this postop complication caused delay in her combined chemoradiation for esophageal cancer. She began her first week of combination therapy with carboplatin/paclitaxel and radiation on 03/12/2019. And last dose of chemotherapy was given on 03/26/2019 and after that she developed persistent leukopenia and due to poor performance chemotherapy was held and patient continue with radiation therapy which she finished 04/19/2019. Patient went to see Dr. Taylor in [place] for evaluation for esophagectomy but due to her poor performance status he give her a return appointment on 06/27/2019 to see for performance status improves at that time. Was referred to GI surgery [facility] for second opinion, Seen Dr. Henriquez, medical oncologist who recommended CT PET scan and PFTs and 6 minute walk test earlier Dr. Hayden in [place] for EGD which was done on 07/27/2019, biopsy was obtained As per patient it was positive for malignancy. She was referred to GI surgical oncologist at [facility] where she was evaluated by Dr. henriquez medical oncologist on 09/17/2019 and his recommendations were to get his CT PET scan, PFTs, 6 minute walk test and referred to Dr. Florez for consideration of surgery after workup is done. He also recommended PDL 1 status, which was checked on 09/19/2019 which showed PDL 1 positive expression level, CPS more than 10. CT PET scan was ordered but her insurance refused and asked for CT scan of chest abdomen prior to CT PET scan so patient underwent CT scan of chest abdomen on 10/02/2019 which showed artificial esophageal tube inserted from the lower esophagus into fundus of stomach No evidence of residual esophageal mass or metastatic disease. Gallbladder densely packed with stones. Patient was admitted to hospital with abdominal pain nausea vomiting and then transferred to [facility] on 10/06/2019 which she underwent EGD which showed occluded/stenosis esophageal stent and evidence of recurrence of disease. And stent could not be removed due to tumor growth so fully covered stent was placed in. Stomach and duodenal was normal. Thoracic surgery was consulted but due to patient's poor nutrition status and deconditioning surgery was not considered. And immunotherapy was recommended .Follow-up CT PET scan done on 10/26/2019 showed increased soft tissue density surrounding the esophageal stent area consistent with progression of disease. Left sided pleural effusion appears to be malignant Low-level activity in the right adrenal gland suspicious for metastatic focus. Increasing activity 2 focal areas of uterus suspicious for neoplastic process such as endometrial carcinoma. 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 Additional compressive atelectasis in the right lower lobe medially with small amount of pleural effusion pneumonia versus superimposed radiation pneumonitis. Esophageal stent with a diffuse surrounding circumferential soft tissue thickening. Esophageal thickening extends to the subcarinal thoracic esophagus. This is progressed from previous and may be due to treatment related changes versus residual disease. Diffuse in-stent luminal narrowing involving the distal thoracic esophagus Cholelithiasis And follow-up chest x-ray done on March 04, 2020 showed minimal residual airspace disease or pleural thickening at the left lung base continued improvement since November 27, 2019 and no other abnormality except esophageal stent was complaining of weeklong history of left mid/upper chest pain and is progressive more with deep breathing and with sometimes palpitation, had low-grade fever. No hemoptysis or hematemesis. As per patient when she was young she had double pneumonia, since then she is more worried about her lung status and also in the recent past she had recurrence of left chest pain for which in February 2020, she underwent CT pulmonary which ruled out pulmonary embolism but showed possibility of pneumonia/pneumonitis, she was treated with antibiotics/steroids with good response, resolution of chest pain. But patient is concerned about recurrence and also appears anxious. She was sent to [facility] for evaluation on March 27, 2020, chest x-ray done showed no acute cardiopulmonary disease patient underwent CT angiogram on March 27, 2020 which showed no evidence of pulmonary embolism and no changes compared with scan done on February 19, 2020 EKG was done on same day showed sinus rhythm, septal myocardial infarction of indeterminate age h/o off and on left upper chest pain, recently underwent cardiac evaluation showed no acute event cardiac enzymes within normal limits, EKG no new changes, now being followed by cardiology. Pulmonary embolism was ruled out, chest x-ray showed no acute changes so pneumonitis or pneumonia was ruled out. Follow-up CT PET scan done on April 12, 2020 showed probable inflammatory activity at the proximal and distal ends of esophageal tube, likely tissue irritation Activity in the mid esophagus with SUV of 7.4 consistent with a primary esophageal carcinoma. No evidence of distant metastatic disease Left pleural effusion FDG negative Central uterine activity FDG negative right upper lobe groundglass opacity. Ms Morillo began immunotherapy with On November 28, 2019. She is tolerating it well overall. However after treatment on 04/24/2020. She has had delay of treatment due to developement of a rash. She was given treatment with a Medrol Dosepak for the rash with that her rash resolved. She has continued with 3 weekly Keytruda on 05-29-2020. She is here today for follow-up. Her last dose of Keytruda was on 08/14/2020. She is here today for follow-up. She is due for cycle 12 pembrolizumab. She states she has once again developed a rash on her abdomen chest and waistband. This has occurred within the last week. She states it is itchy. She has had no known triggers other than her pembrolizumab treatment. She denies any recent changes in detergent, soaps, deodorants, fabric softener or any new medications. She did refill a Medrol Dosepak and this rash is improving. She states she has developed some pain in the sternal area. She is using Tylenol and Motrin for this which relieves the pain. She states she did take a Tylenol 3 for the pain about 4 to 5 days ago and that did relieve it temporarily but it has not gotten that bad again over the last couple of days. She denies any association with shortness of breath orthopnea. She states the pain is no worse with activity it does come to comes and goes. She denies any trouble swallowing. She denies any fever or chills. She denies palpitations. She states she has not had any nausea or vomiting. She denies any urinary symptoms. She denies any vaginal bleeding. She states her heartburn is better and she is currently off of the Prilosec. Her ECOG remains at 1. Past Medical History: Hypothyroidism Past Surgical History: Arthroscopic knee Cataract excision Esophageal biopsy Hernia repair Removal of ovarian cysts Flu Vaccine 20-21 in 2019 J-tube insertion in 2019 Allergies: HYDROcodone Bitartrate, Latex, and sulfa. Medications: Acetaminophen Extra Strength 15 mL (of 500 mg/15mL) Liquid Oral PRN All Day Allergy Childrens 7 mL (of 1 mg/mL) Solution Oral daily Artificial Tear Solution 1 Drop(s) Solution Ophthalmic daily Childrens Ibuprofen 5 mL (of 100 mg/5mL) Suspension Oral PRN Ondansetron HCl 4 - 8 mg (of 4 mg/5mL) Solution Oral t.i.d. PRN Potassium Chloride 15 mL (of 20 meq/15ml -10%) Solution Oral PRN Family History: Ms. Morillo's mother at age 86: alzheimer. Ms. Morillo's father at age 72: heart disease. Ms. Morillo has 2 brothers: 2 alive. Ms. Morillo's first brother's prostate cancer. She has 2 sisters: 2 alive. She has 1 paternal aunt who is : lung cancer. Social History: Ms. Morillo is and she is unemployed. Ms. Morillo quit smoking 38 years ago but had smoked 1.5 packs/day for 7 years. She drinks occasionally. 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 Review Of Symptoms: Constitutional Denies fevers, chills, night sweats, excessive fatigue. Allergic/Immunologic No reactions. Eyes Denies significant visual changes. No diplopia. No amaurosis. ENMT Denies changes in hearing, sore throat, mouth sores. Endocrine Denies hot flashes or night sweats. Hematologic/Lymphatic Denies easy bruising or bleeding. The patient denies any tender or palpable lymph nodes. Respiratory Denies dyspnea on exertion, chest pain, cough or hemoptysis. Denies orthopnea. Cardiovascular Denies anginal chest pain, palpitations or orthopnea. Gastrointestinal Currently denies nausea, vomiting, diarrhea, GI bleeding, or constipation. Denies change in bowel habits and/or stool color, no heartburn or early satiety. Genitourinary (F) No hematuria, hesitancy, incontinence, vaginal bleeding, discharge or other problems with urination. Musculoskeletal Denies joint pain, swelling or redness. No decreased range of motion. Integumentary Denies chronic rashes, inflammation, ulcerations or skin changes. Neurologic Denies headache, blurred vision, and no areas of focal weakness or numbness. No new sensory problems. Psychiatric Denies insomnia, depression, saji or mood swings. Vital Signs: Performed on Sep 04, 2020 13:27 Height - 69.50 in Weight - 127.6 lbs (LOW) BSA - 1.72 sq.m BMI - 18.57 Temperature - 98.3 F (LOW) Pulse - 88 /min Respiration - 18 /min BP - 108/73 mm(hg) O2 Sat - 98 % Pain - 0 Fatigue - 2,1 - No physically strenuous activity, but ambulatory and able to carry out light or sedentary work (e.g. office work, light house work). (ECOG) Physical Examination: Constitutional Alert, oriented, no acute distress. Skin pink, warm and dry. Head Normocephalic; atraumatic. Eyes Conjunctivae and sclerae are clear and without icterus. Pupils are reactive and equal. ENMT No oral exudates, ulcers, masses, thrush or mucositis. Oropharynx clear. Tongue normal. Neck Supple without masses or thyromegaly. No jugular venous distension. Hematologic/Lymphatic No petechiae or purpura. No tender or palpable lymph nodes in the cervical or supraclavicular areas. Respiratory Lungs are clear to auscultation without rhonchi or wheezing. Cardiovascular Regular rate and rhythm of heart without murmurs,clicks, gallops or rubs. Abdomen Non-tender, non-distended, no masses, Back/Spine Non-tender to palpation. Extremities No visible deformities, no cyanosis, clubbing or edema. Musculoskeletal No tenderness or swelling, normal range of motion without obvious weakness. Integumentary Rash around waist line red scattered non draining lesions. Neurologic No sensory or motor deficits, normal cerebellar function, gait unassisted today. Psychiatric Alert and oriented times three. Coherent speech. Verbalizes understanding of our discussions today. Laboratory:Test performed on Sep 04, 2020 12:11 Sodium 140 mmol/L TSH 2.11 uIU/mL Potassium 3.1 mmol/L Chloride 98 mmol/L CO2 33 mmol/L Anion Gap 12.1 BUN 11 mg/dL Creatinine 0.3 mg/dL Cr Clearance (Est) 170.8200 mL/min eGFR 223.3 mL/min Glucose 113 mg/dL Osmolality - Calculated 290 mOsm/kg Calcium 9.1 mg/dL Protein, Total 6.3 g/dL Albumin 3.1 g/dL Globulin 3.2 g/dL Bilirubin, Total 0.2 mg/dL ALT (SGPT) 9 U/L AST (SGOT) 15 U/L Alkaline Phosphatase 53 IU/L WBC 6.2 10 3/uL RBC 3.49 10 6/uL HGB 10.6 g/dL HCT 34.8 % MCV 99.7 fL MCH 30.4 pg MCHC 30.5 g/dL RDW 13.6 % Platelet Count 332 10 3/cmm MPV 9.0 fL Neutrophils 4.64 10 3/uL Lymphocytes 0.5 10 3/uL Monocytes 0.6 10 3/uL Eosinophils 0.4 10 3/uL Basophils 0.1 10 3/uL Neutrophil % 74.5 % Lymphocyte % 8.0 % Monocyte % 10.3 % Eosinophil % 5.9 % Basophils % 1.0 % NRBC % 0 % Test performed on Mar 27, 2020 12:59 Magnesium 1.9 mg/dL Impression: Adenocarcinoma of distal esophagus per EGD and biopsies done on 12/01/2018 CT PET scan done on 12/15/2018 showed localized disease, no evidence of lymphadenopathy or distant metastases Clinical stage T2-3, Nx,M0 Focus of increased uptake in the uterus Dysphagia due to above status post esophageal stenting and now with J-tube MRI head done on 12/11/2018, showed no brain metastases but microvascular ischemic disease Hypothyroidism on supplements Dysfunctional uterine bleeding, CT PET scan showed increased uptake in uterus. Ms Morillo began carboplatin/Taxol and radiation on 03/12/2019. She was found to be iron deficient and received Injectafer o 03/23/19 & 03/30/19. Her last dose of Carboplatin/paclitaxel was on 03/26/19. .Due to progressive leukopenia, she could not receive further chemotherapy but continue with radiation alone which she completed on 04/19/2019, Now being treated with maintenance therapy with Keytruda Follow-up CT PET scan done on April 12, 2020 showed excellent response to maintenance therapy with Keytruda, now activity in the mid esophagus only otherwise no evidence of distant mets. Clinically, patient is doing well, tolerating palliative/maintenance immunotherapy well and follow-up CT PET scan shows excellent response, good disease control rather improvement., Patient's overall performance status is also improving. At this point we will refer her to cardiothoracic surgeon at [facility] for evaluation and also referred to [facility] for abnormal activity seen in the uterus. 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 Ms Morillo has completed 8 cycles of pembrolizumab and has tolerated it overall. She did develop rash but that was able to resume treatment on 05/29/2020. She had delay of treatment from July 17, 2022 August 14, 2020 due to treatment for strep throat. She was able to resume treatment on 08/14/2020. Plan: 1. Proceed with cycle 12 pembrolizumab. Her last treatment was on 08/14/2020. 2. She will continue the current plan of care otherwise. She is using boost nutritional supplement and has been gaining weight. 3. Today's labs were reviewed in detail discussed with Ms. Morillo and a copy was given to her. WBC 6.2, hemoglobin 10.6, platelets 10/04/1999 ANC is 4640 potassium 3.1. She states she has not been taking her potassium but will resume it. Random glucose 113 creatinine 0.3 LFTs are normal TSH is 2.11. 4. We will plan to have her return in 3 weeks with CBC CMP and TSH. She will have restaging PET CT imaging in 2 weeks prior to her follow-up. To compare to April 2020 results. She has new sternal/chest wall pain. 5. Ms. Morillo was instructed to contact us in the interim should questions or problems arise. Signed By: Carlitos Dan-, AOJERMAINEP Phyllis Mccormick MD <<Signature on File>>
== END 2020-09-04 06:17 | disposition home or self-care (01) ==
LOC: ONCMED 06:21
PROVIDERS: PCP Family Medicine; Visit Provider Nurse Practitioner
DX: Z51.12 Encounter for antineoplastic immunotherapy (principal); C15.5 Malignant neoplasm of lower third of esophagus; R07.89 Other chest pain; E03.9 Hypothyroidism, unspecified; Z79.899 Other long term (current) drug therapy
CPT/HCPCS: 80053; 84443; 85025; 96413; 99214; J7050; J9271

== ENCOUNTER 2020-09-25 07:44 | Outpatient (CLI) | payer MEDICARE, BC, SELFPAY ==
[2020-09-25 08:48] LABS: Basophils # 0.1 10^3/uL (0.0-0.1); Basophils % 0.8 %; Eosinophils # 0.3 10^3/uL (0.0-0.8); Eosinophils % 4.5 %; Hemoglobin 10.1 g/dL (11.5-15.3); Lymphocytes # 0.4 10^3/uL (0.8-4.8); Lymphocytes % 6.5 %; Mean Corpuscular HGB Conc 30.6 g/dL (30.0-36.0); Mean Corpuscular Hemoglobin 30.1 pg (28.0-34.0); Mean Corpuscular Volume 98.2 fL (81-99); Mean Platelet Volume 9.3 fL (7.4-10.4); Monocytes # 0.7 10^3/uL (0.2-0.9); Monocytes % 10.5 %; Neutrophils # 5.01 10^3/uL (1.8-7.7); Neutrophils % 77.5 %; Nucleated Red Blood Cells % 0 %; Platelet Count 317 10^3/cmm (130-400); Red Blood Count 3.36 10^6/uL (4.1-5.3); Red Cell Distribution Width 13.9 % (12.1-15.1); White Blood Count 6.5 10^3/uL (4.0-10.0)
[2020-09-25 09:21] LABS: Alanine Aminotransferase 6 U/L (0-33); Alkaline Phosphatase 50 IU/L (35-105); Anion Gap 11.3 (5-19); Aspartate Amino Transferase 13 U/L (0-32); Blood Urea Nitrogen 12 mg/dL (8-23); Carbon Dioxide 33 mmol/L (22-29); Chloride 99 mmol/L (98-107); Globulin 3.4 g/dL (1.3-4.6); Glomerular Filtration Rate 223.3 mL/min (90-130); Glucose 143 mg/dL (65-115); Osmolality Calculated 292 mOsm/kg (285-295); Potassium 3.3 mmol/L (3.5-5.1); Sodium 140 mmol/L (136-145); Thyroid Stimulating Hormone 1.61 uIU/mL (0.27-4.20); Total Bilirubin 0.3 mg/dL (0.15-1.2); Total Protein 6.4 g/dL (6.6-8.7)
--- NOTE | 2020-09-26 12:58 | ONC FU_ITS ---
Dr. Mccormick follow up note Patient: Nerissa Morillo Unit #: [id number]: [id number] Dicatated By: Phyllis Mccormick M.D.Date of Visit:Sep 25, 2020 Onc Med Follow-up/Prog Note History of Present Illness: Mrs. Morillo is a 65-year-old female, who was recently diagnosed with distal esophageal adenocarcinoma. As per patient she did experience progressive dysphagia, about 15 pounds weight loss over the last couple months. She was evaluated with CT scan of chest on 11/30/2018 which showed mid to distal esophageal mass extends over 7.8 cm with near complete obstruction of lumen. No lymphadenopathy or other abnormality seen. She subsequently underwent EGD on 12/01/2018 which showed circumferential esophageal mass extending from 30-35 cm with narrowing of lumen. Multiple biopsies were obtained, and it confirmed adenocarcinoma. Stomach and duodenum showed no abnormality. She was referred to [facility] in [place] where she underwent further workup including repeat EGD on 12/06/2018. It showed a fungating mass lesion at 34 cm from incisors and extending into GE junction. No involvement of gastric mucosa was identified. Multiple fundic gland polyps were noted in stomach, esophageal stent was placed in. Underwent CT PET scan on 12/15/2018 which showed there is increased activity in the distal esophagus corresponding to location of the esophageal stent. Maximum SUV 10.8. Physiological activity typically identified in the gastric fundus appears more intense 9.8 which is of questionable significance. No evidence of metastatic disease. Small focus of abnormal activity in the fundus of uterus with a maximum SUV 6.5 MRI scan of head on 12/11/2018 showed no evidence of metastatic disease but minimal microvascular chronic ischemic changes. Ms Morillo underwent J-tube insertion on 12/12/2018 and port placement to facilitate chemotherapy. She did develop wound infection around her J-tube requiring surgical intervention and wound care for extended period time. Now healing well, but this postop complication caused delay in her combined chemoradiation for esophageal cancer. She began her first week of combination therapy with carboplatin/paclitaxel and radiation on 03/12/2019. And last dose of chemotherapy was given on 03/26/2019 and after that she developed persistent leukopenia and due to poor performance chemotherapy was held and patient continue with radiation therapy which she finished 04/19/2019. Patient went to see Dr. Taylor in [place] for evaluation for esophagectomy but due to her poor performance status he give her a return appointment on 06/27/2019 to see for performance status improves at that time. Was referred to GI surgery [facility] for second opinion, Seen Dr. Henriquez, medical oncologist who recommended CT PET scan and PFTs and 6 minute walk test earlier Dr. Hayden in [place] for EGD which was done on 07/27/2019, biopsy was obtained As per patient it was positive for malignancy. She was referred to GI surgical oncologist at [facility] where she was evaluated by Dr. henriquez medical oncologist on 09/17/2019 and his recommendations were to get his CT PET scan, PFTs, 6 minute walk test and referred to Dr. Florez for consideration of surgery after workup is done. He also recommended PDL 1 status, which was checked on 09/19/2019 which showed PDL 1 positive expression level, CPS more than 10. CT PET scan was ordered but her insurance refused and asked for CT scan of chest abdomen prior to CT PET scan so patient underwent CT scan of chest abdomen on 10/02/2019 which showed artificial esophageal tube inserted from the lower esophagus into fundus of stomach No evidence of residual esophageal mass or metastatic disease. Gallbladder densely packed with stones. Patient was admitted to hospital with abdominal pain nausea vomiting and then transferred to [facility] on 10/06/2019 which she underwent EGD which showed occluded/stenosis esophageal stent and evidence of recurrence of disease. And stent could not be removed due to tumor growth so fully covered stent was placed in. Stomach and duodenal was normal. Thoracic surgery was consulted but due to patient's poor nutrition status and deconditioning surgery was not considered. And immunotherapy was recommended .Follow-up CT PET scan done on 10/26/2019 showed increased soft tissue density surrounding the esophageal stent area consistent with progression of disease. Left sided pleural effusion appears to be malignant Low-level activity in the right adrenal gland suspicious for metastatic focus. Increasing activity 2 focal areas of uterus suspicious for neoplastic process such as endometrial carcinoma. 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 Additional compressive atelectasis in the right lower lobe medially with small amount of pleural effusion pneumonia versus superimposed radiation pneumonitis. Esophageal stent with a diffuse surrounding circumferential soft tissue thickening. Esophageal thickening extends to the subcarinal thoracic esophagus. This is progressed from previous and may be due to treatment related changes versus residual disease. Diffuse in-stent luminal narrowing involving the distal thoracic esophagus Cholelithiasis And follow-up chest x-ray done on March 04, 2020 showed minimal residual airspace disease or pleural thickening at the left lung base continued improvement since November 27, 2019 and no other abnormality except esophageal stent was complaining of weeklong history of left mid/upper chest pain and is progressive more with deep breathing and with sometimes palpitation, had low-grade fever. No hemoptysis or hematemesis. As per patient when she was young she had double pneumonia, since then she is more worried about her lung status and also in the recent past she had recurrence of left chest pain for which in February 2020, she underwent CT pulmonary which ruled out pulmonary embolism but showed possibility of pneumonia/pneumonitis, she was treated with antibiotics/steroids with good response, resolution of chest pain. But patient is concerned about recurrence and also appears anxious. 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 Pulmonary embolism was ruled out, chest x-ray showed no acute changes so pneumonitis or pneumonia was ruled out. Follow-up CT PET scan done on April 12, 2020 showed probable inflammatory activity at the proximal and distal ends of esophageal tube, likely tissue irritation Activity in the mid esophagus with SUV of 7.4 consistent with a primary esophageal carcinoma. No evidence of distant metastatic disease Left pleural effusion FDG negative Central uterine activity FDG negative right upper lobe groundglass opacity. Ms Morillo began immunotherapy with On November 28, 2019. She is tolerating it well overall. However after treatment on 04/24/2020. She has had delay of treatment due to developement of a rash. She was given treatment with a Medrol Dosepak for the rash with that her rash resolved. She has continued with 3 weekly Keytruda on 05-29-2020. She states she has once again developed a rash on her abdomen chest and waistband. This has occurred within the last week. She states it is itchy. She has had no known triggers other than her pembrolizumab treatment. She denies any recent changes in detergent, soaps, deodorants, fabric softener or any new medications. She did refill a Medrol Dosepak and this rash is improving. She states she has developed some pain in the sternal area. She is using Tylenol and Motrin for this which relieves the pain. She states she did take a Tylenol 3 for the pain about 4 to 5 days ago and that did relieve it temporarily but it has not gotten that bad again over the last couple of days. She denies any association with shortness of breath orthopnea. She states the pain is no worse with activity it does come to comes and goes. She denies any trouble swallowing. Underwent follow-up CT PET scan on September 20, 2020 which showed activity at proximal esophageal stent is now more extensive measuring 3.3 cm with SUV of 10. Mid esophageal activity seen previously is unchanged on current study. While activity at distal stent is improved and resolution of suspicious central uterine activity seen previously. Unchanged right upper lobe groundglass opacity but with interval development of bilateral pleural effusion Came for follow-up, complaining of malaise weakness and fatigue otherwise no shortness of breath at rest, no palpitation, no fever chills, no nausea or vomiting no diarrhea or constipation but persistent lower extremity edema which is chronic. Patient is on diuretic along with potassium supplements. No skin rash, no wheezing, no diarrhea., No dysphagia, tolerating orally well Medications: Acetaminophen Extra Strength 15 mL (of 500 mg/15mL) Liquid Oral PRN, All Day Allergy Childrens 7 mL (of 1 mg/mL) Solution Oral daily, Artificial Tear Solution 1 Drop(s) Solution Ophthalmic daily, Childrens Ibuprofen 5 mL (of 100 mg/5mL) Suspension Oral PRN, Ondansetron HCl 4 - 8 mg (of 4 mg/5mL) Solution Oral t.i.d. PRN, Potassium Chloride 15 mL (of 20 meq/15ml -10%) Solution Oral PRN Allergies: HYDROcodone Bitartrate, Latex, and sulfa. Review of Systems: Constitutional - Appetite is improving. Weight has declined. No fever, chills, hot flashes, or night sweats. Energy level is fair today, ENMT - Positive for sinus congestion/drainage. No mouth sores. Positive for sore throat. Positive for difficulty swallowing, Hematologic/Lymphatic - No abnormal bruising or bleeding, Respiratory - Positive for recent, persistent shortness of breath and pleuritic pain that Pt states is near left upper lobe and that pain increases on inhalation. Positive for cough. No hemoptysis, Cardiovascular - No angina pain. No palpitations, Gastrointestinal - Nausea and vomiting is improving. No heartburn and acid reflux. No diarrhea or constipation. No blood in the stool or black stools, Genitourinary (F) - No dysuria or hematuria. Positive for urinary frequency. No urgency or incontinence, Musculoskeletal - No joint or bone pain, Integumentary - Positive for edema in bilateral lower extremities, however, this is improving also, Neurologic - No headache. Occasional dizziness, Psychiatric - No anxiety, no depression. No insomnia. Vital Signs: Performed on Sep 25, 2020 12:30 Height - 69.50 in Temperature - 97.6 F (LOW) Pulse - 81 /min Respiration - 18 /min BP - 106/66 mm(hg) O2 Sat - 100 % Pain - 0 Fatigue - 0 Performed on Sep 25, 2020 10:06 Height - 69.50 in Weight - 130.0 lbs (HIGH) BSA - 1.73 sq.m BMI - 18.92 Temperature - 98.4 F Pulse - 98 /min Respiration - 14 /min BP - 120/67 mm(hg) O2 Sat - 98 % Pain - 3 Performance Status: 2 - Ambulatory/capable of all self-care, unable to perform any work activities. Up and about more than 50% of waking hours. (ECOG) Physical Examination: ENMT - No mouth sores, no thrush, no jaundice, Respiratory - Decreased breath sound at base bilaterally few basilar rales, Cardiovascular - Regular rate and rhythm of heart, Abdomen - Soft, bowel sounds present, Extremities - 2+ edema bilaterally. Lab/Imaging: Test performed on Sep 04, 2020 12:11 Sodium 140 mmol/L TSH 2.11 uIU/mL Potassium 3.1 mmol/L Chloride 98 mmol/L CO2 33 mmol/L Anion Gap 12.1 BUN 11 mg/dL Creatinine 0.3 mg/dL Cr Clearance (Est) 170.8200 mL/min eGFR 223.3 mL/min Glucose 113 mg/dL Osmolality - Calculated 290 mOsm/kg Calcium 9.1 mg/dL Protein, Total 6.3 g/dL Albumin 3.1 g/dL Globulin 3.2 g/dL Bilirubin, Total 0.2 mg/dL ALT (SGPT) 9 U/L AST (SGOT) 15 U/L Alkaline Phosphatase 53 IU/L WBC 6.2 10 3/uL RBC 3.49 10 6/uL HGB 10.6 g/dL HCT 34.8 % MCV 99.7 fL MCH 30.4 pg MCHC 30.5 g/dL RDW 13.6 % Platelet Count 332 10 3/cmm MPV 9.0 fL Neutrophils 4.64 10 3/uL Lymphocytes 0.5 10 3/uL Monocytes 0.6 10 3/uL Eosinophils 0.4 10 3/uL Basophils 0.1 10 3/uL Neutrophil % 74.5 % Lymphocyte % 8.0 % Monocyte % 10.3 % Eosinophil % 5.9 % Basophils % 1.0 % NRBC % 0 % Impression: Adenocarcinoma of distal esophagus per EGD and biopsies done on 12/01/2018 CT PET scan done on 12/15/2018 showed localized disease, no evidence of lymphadenopathy or distant metastases Clinical stage T2-3, Nx,M0 Focus of increased uptake in the uterus Dysphagia due to above status post esophageal stenting and now with J-tube MRI head done on 12/11/2018, showed no brain metastases but microvascular ischemic disease Hypothyroidism on supplements Dysfunctional uterine bleeding, CT PET scan showed increased uptake in uterus. Ms Morillo began carboplatin/Taxol and radiation on 03/12/2019. She was found to be iron deficient and received Injectafer o 03/23/19 & 03/30/19. Her last dose of Carboplatin/paclitaxel was on 03/26/19. .Due to progressive leukopenia, she could not receive further chemotherapy but continue with radiation alone which she completed on 04/19/2019, Now being treated with maintenance therapy with Keytruda Follow-up CT PET scan done on April 12, 2020 showed excellent response to maintenance therapy with Keytruda, now activity in the mid esophagus only otherwise no evidence of distant mets. . CT PET scan done after 12 doses of Keytruda on September 20, 2020 showed persistent activity at the proximal esophageal stent is now more extensive measuring 3.3 cm with SUV of 10. Mid esophageal activity seen previously is unchanged. While activity of the distal stent is improved and resolution of suspicious central uterine activity seen previously. Interval development of bilateral pleural effusion Plan: Discussed with patient regarding her labs white blood count 6.5 hemoglobin 10.1 hematocrit 33 platelets 317,000 CMP within normal limit except potassium 3.3 and glucose 140 and TSH is 1.[address] , And CT PET scan findings Clinically, patient is doing reasonably well with decent palliation with single agent Keytruda her follow-up CT PET scan shows no evidence of distant mets persistent activity in proximal part of stent area and improvement in the distal part. But development of bilateral pleural effusion, etiology is unclear could be due to hypoalbuminemia causing third spacing or malignant. We will get a plain chest x-ray with pleural effusion protocol and if significant pleural effusion, will consider diagnostic thoracentesis as patient is not symptomatic due to pleural effusion at this moment. In the meantime we will continue with Keytruda and proceed with the next dose today then she will return to clinic in 2 weeks with CBC CMP and chest x-ray, as well as mild hypokalemia is concerned patient is on potassium supplement 20 mEq. day along with her diuretics, she was advised to increase dose to 20 mEq twice daily for 3 days and then go back to once a day as usual. I will follow potassium level. Patient was referred to cardiothoracic surgery for evaluation for esophagectomy in [place] but as per patient because of not feeling well and the reason she could not go and would reschedule but considering patient's performance status, and nutritional status, she may not be candidate for surgery. I will discuss if her overall condition improves. Patient has also seen [facility] for abnormality seen on previous CT PET scan as per patient she underwent evaluation and she was told no abnormality found but will obtain records from [facility] and review.And again her follow-up CT PET scan done recently showed no abnormal activity in the uterus Signed By: Phyllis Mccormick M.D. <<Signature on File>>
== END 2020-09-25 07:45 | disposition home or self-care (01) ==
LOC: ONCMED 07:47
PROVIDERS: PCP Family Medicine; Visit Provider Internal Medicine Hematology & Oncology
DX: Z51.12 Encounter for antineoplastic immunotherapy (principal); C15.5 Malignant neoplasm of lower third of esophagus; J90 Pleural effusion, not elsewhere classified; R07.81 Pleurodynia; R05 Cough; R06.02 Shortness of breath; E87.6 Hypokalemia; I67.82 Cerebral ischemia; E03.9 Hypothyroidism, unspecified; Z92.3 Personal history of irradiation; Z79.899 Other long term (current) drug therapy
CPT/HCPCS: 80053; 84443; 85025; 96413; 99215; J7050; J9271

== ENCOUNTER 2020-09-25 13:02 | Outpatient (CLI) | payer MEDICARE, BC, SELFPAY ==
--- NOTE | 2020-09-25 13:17 | XR_ITS ---
WS: [id number] PA and lateral chest, 09/25/2020 Clinical Data: PLEURITIC CHEST PAIN/COUGH/SHORTNESS OF BREATH/ESOPHAGUS CA Comparison: Portable chest, 03/27/2020. Findings: There is a small left effusion but none on the right. No nodules or masses are seen. There is an esophageal stent extending from the midportion of the esophagus into the stomach unchanged. The re is an infusion catheter entering the right internal jugular vein and ending in the superior vena c nayla. No pneumonia or pneumothorax is seen. The pulmonary vascularity is not increased. The heart is n ormal. There is minimal calcification of the aortic arch. XR/XR chest 2V* [id number] Impression: 1. Small left pleural effusion. 2. No change in esophageal stent and right infusion catheter.
== END 2020-09-25 13:03 | disposition home or self-care (01) ==
PROVIDERS: PCP Family Medicine; Visit Provider Internal Medicine Hematology & Oncology
DX: R07.89 Other chest pain (principal); R05 Cough; R06.02 Shortness of breath; J90 Pleural effusion, not elsewhere classified
CPT/HCPCS: 71046

== ENCOUNTER 2020-10-14 06:19 | Outpatient (CLI) | payer MEDICARE, BC, SELFPAY ==
[2020-10-14] MEDS: alteplase 1 mg/mL SDV 2 mL 2 MG INTRACATH (14:40)
[2020-10-14 15:00] LABS: Basophils # 0.1 10^3/uL (0.0-0.1); Basophils % 0.8 %; Eosinophils # 0.3 10^3/uL (0.0-0.8); Eosinophils % 4.3 %; Hematocrit 34.1 % (37.0-47.0); Hemoglobin 10.4 g/dL (11.5-15.3); Lymphocytes # 0.5 10^3/uL (0.8-4.8); Lymphocytes % 6.8 %; Mean Corpuscular HGB Conc 30.5 g/dL (30.0-36.0); Mean Corpuscular Hemoglobin 29.2 pg (28.0-34.0); Mean Corpuscular Volume 95.8 fL (81-99); Mean Platelet Volume 9.1 fL (7.4-10.4); Monocytes # 0.7 10^3/uL (0.2-0.9); Monocytes % 9.7 %; Neutrophils # 5.66 10^3/uL (1.8-7.7); Neutrophils % 78.1 %; Nucleated Red Blood Cells % 0 %; Platelet Count 337 10^3/cmm (130-400); Red Blood Count 3.56 10^6/uL (4.1-5.3); Red Cell Distribution Width 14.1 % (12.1-15.1); White Blood Count 7.2 10^3/uL (4.0-10.0)
[2020-10-14 15:33] LABS: Alanine Aminotransferase 10 U/L (0-33); Albumin Level 3.3 g/dL (3.5-5.2); Alkaline Phosphatase 51 IU/L (35-105); Anion Gap 11.3 (5-19); Aspartate Amino Transferase 14 U/L (0-32); Blood Urea Nitrogen 17 mg/dL (8-23); Carbon Dioxide 33 mmol/L (22-29); Chloride 100 mmol/L (98-107); Globulin 3.5 g/dL (1.3-4.6); Glomerular Filtration Rate 160.2 mL/min (90-130); Glucose 116 mg/dL (65-115); Osmolality Calculated 293 mOsm/kg (285-295); Potassium 4.3 mmol/L (3.5-5.1); Sodium 140 mmol/L (136-145); Thyroid Stimulating Hormone 2.06 uIU/mL (0.27-4.20); Total Bilirubin 0.2 mg/dL (0.15-1.2); Total Protein 6.8 g/dL (6.6-8.7)
== END 2020-10-14 06:20 | disposition home or self-care (01) ==
LOC: ONCMED 06:25
PROVIDERS: PCP Family Medicine; Visit Provider Internal Medicine Hematology & Oncology
DX: C15.5 Malignant neoplasm of lower third of esophagus (principal); D64.9 Anemia, unspecified; E03.9 Hypothyroidism, unspecified
CPT/HCPCS: 36415; 36593; 80053; 84443; 85025; 96374; J2997

== ENCOUNTER 2020-10-29 06:00 | Outpatient (CLI) | payer MEDICARE, BC, SELFPAY ==
[2020-10-29 12:52] LABS: Basophils # 0.1 10^3/uL (0.0-0.1); Eosinophils # 0.5 10^3/uL (0.0-0.8); Eosinophils % 7.1 %; Hematocrit 36.3 % (37.0-47.0); Hemoglobin 10.8 g/dL (11.5-15.3); Lymphocytes # 0.8 10^3/uL (0.8-4.8); Lymphocytes % 11.1 %; Mean Corpuscular HGB Conc 29.8 g/dL (30.0-36.0); Mean Corpuscular Hemoglobin 28.3 pg (28.0-34.0); Mean Corpuscular Volume 95.3 fL (81-99); Mean Platelet Volume 9.3 fL (7.4-10.4); Monocytes # 0.8 10^3/uL (0.2-0.9); Monocytes % 10.3 %; Neutrophils # 5.14 10^3/uL (1.8-7.7); Neutrophils % 70.2 %; Nucleated Red Blood Cells % 0 %; Platelet Count 396 10^3/cmm (130-400); Red Blood Count 3.81 10^6/uL (4.1-5.3); Red Cell Distribution Width 14.7 % (12.1-15.1); White Blood Count 7.3 10^3/uL (4.0-10.0)
[2020-10-29 13:10] LABS: Alanine Aminotransferase 9 U/L (0-33); Albumin Level 3.6 g/dL (3.5-5.2); Alkaline Phosphatase 60 IU/L (35-105); Anion Gap 12.9 (5-19); Aspartate Amino Transferase 14 U/L (0-32); Blood Urea Nitrogen 20 mg/dL (8-23); Calcium 9.7 mg/dL (8.5-10.5); Carbon Dioxide 30 mmol/L (22-29); Chloride 98 mmol/L (98-107); Globulin 3.6 g/dL (1.3-4.6); Glomerular Filtration Rate 160.2 mL/min (90-130); Glucose 111 mg/dL (65-115); Osmolality Calculated 287 mOsm/kg (285-295); Potassium 3.9 mmol/L (3.5-5.1); Sodium 137 mmol/L (136-145); Thyroid Stimulating Hormone 3.62 uIU/mL (0.27-4.20); Total Bilirubin 0.3 mg/dL (0.15-1.2); Total Protein 7.2 g/dL (6.6-8.7)
--- NOTE | 2020-11-03 22:42 | ONC FU_ITS ---
Jules Baez Patient Note Patient: Nerissa Morillo Unit #: [id number]: 1955 Dictated By: Carlitos DanDate of Visit: Oct 29, 2020 Onc MED Follow-Up/Prog Note Chief Complaint: Adenocarcinoma of distal esophagus History of Present Illness: Mrs. Morillo is a 65-year-old female, who was recently diagnosed with distal esophageal adenocarcinoma. As per patient she did experience progressive dysphagia, about 15 pounds weight loss over the last couple months. She was evaluated with CT scan of chest on 11/30/2018 which showed mid to distal esophageal mass extends over 7.8 cm with near complete obstruction of lumen. No lymphadenopathy or other abnormality seen. She subsequently underwent EGD on 12/01/2018 which showed circumferential esophageal mass extending from 30-35 cm with narrowing of lumen. Multiple biopsies were obtained, and it confirmed adenocarcinoma. Stomach and duodenum showed no abnormality. She was referred to [facility] in [place] where she underwent further workup including repeat EGD on 12/06/2018. It showed a fungating mass lesion at 34 cm from incisors and extending into GE junction. No involvement of gastric mucosa was identified. Multiple fundic gland polyps were noted in stomach, esophageal stent was placed in. Underwent CT PET scan on 12/15/2018 which showed there is increased activity in the distal esophagus corresponding to location of the esophageal stent. Maximum SUV 10.8. Physiological activity typically identified in the gastric fundus appears more intense 9.8 which is of questionable significance. No evidence of metastatic disease. Small focus of abnormal activity in the fundus of uterus with a maximum SUV 6.5 MRI scan of head on 12/11/2018 showed no evidence of metastatic disease but minimal microvascular chronic ischemic changes. Ms Morillo underwent J-tube insertion on 12/12/2018 and port placement to facilitate chemotherapy. She did develop wound infection around her J-tube requiring surgical intervention and wound care for extended period time. Now healing well, but this postop complication caused delay in her combined chemoradiation for esophageal cancer. She began her first week of combination therapy with carboplatin/paclitaxel and radiation on 03/12/2019. And last dose of chemotherapy was given on 03/26/2019 and after that she developed persistent leukopenia and due to poor performance chemotherapy was held and patient continue with radiation therapy which she finished 04/19/2019. Patient went to see Dr. Taylor in [place] for evaluation for esophagectomy but due to her poor performance status he give her a return appointment on 06/27/2019 to see for performance status improves at that time. Was referred to GI surgery [facility] for second opinion, Seen Dr. Henriquez, medical oncologist who recommended CT PET scan and PFTs and 6 minute walk test earlier Dr. Hayden in [place] for EGD which was done on 07/27/2019, biopsy was obtained As per patient it was positive for malignancy. She was referred to GI surgical oncologist at [facility] where she was evaluated by Dr. henriquez medical oncologist on 09/17/2019 and his recommendations were to get his CT PET scan, PFTs, 6 minute walk test and referred to Dr. Florez for consideration of surgery after workup is done. He also recommended PDL 1 status, which was checked on 09/19/2019 which showed PDL 1 positive expression level, CPS more than 10. CT PET scan was ordered but her insurance refused and asked for CT scan of chest abdomen prior to CT PET scan so patient underwent CT scan of chest abdomen on 10/02/2019 which showed artificial esophageal tube inserted from the lower esophagus into fundus of stomach No evidence of residual esophageal mass or metastatic disease. Gallbladder densely packed with stones. Patient was admitted to hospital with abdominal pain nausea vomiting and then transferred to [facility] on 10/06/2019 which she underwent EGD which showed occluded/stenosis esophageal stent and evidence of recurrence of disease. And stent could not be removed due to tumor growth so fully covered stent was placed in. Stomach and duodenal was normal. Thoracic surgery was consulted but due to patient's poor nutrition status and deconditioning surgery was not considered. And immunotherapy was recommended .Follow-up CT PET scan done on 10/26/2019 showed increased soft tissue density surrounding the esophageal stent area consistent with progression of disease. Left sided pleural effusion appears to be malignant Low-level activity in the right adrenal gland suspicious for metastatic focus. Increasing activity 2 focal areas of uterus suspicious for neoplastic process such as endometrial carcinoma. 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 Additional compressive atelectasis in the right lower lobe medially with small amount of pleural effusion pneumonia versus superimposed radiation pneumonitis. Esophageal stent with a diffuse surrounding circumferential soft tissue thickening. Esophageal thickening extends to the subcarinal thoracic esophagus. This is progressed from previous and may be due to treatment related changes versus residual disease. Diffuse in-stent luminal narrowing involving the distal thoracic esophagus Cholelithiasis And follow-up chest x-ray done on March 04, 2020 showed minimal residual airspace disease or pleural thickening at the left lung base continued improvement since November 27, 2019 and no other abnormality except esophageal stent was complaining of weeklong history of left mid/upper chest pain and is progressive more with deep breathing and with sometimes palpitation, had low-grade fever. No hemoptysis or hematemesis. As per patient when she was young she had double pneumonia, since then she is more worried about her lung status and also in the recent past she had recurrence of left chest pain for which in February 2020, she underwent CT pulmonary which ruled out pulmonary embolism but showed possibility of pneumonia/pneumonitis, she was treated with antibiotics/steroids with good response, resolution of chest pain. But patient is concerned about recurrence and also appears anxious. She was sent to [facility] for evaluation on March 27, 2020, chest x-ray done showed no acute cardiopulmonary disease patient underwent CT angiogram on March 27, 2020 which showed no evidence of pulmonary embolism and no changes compared with scan done on February 19, 2020 EKG was done on same day showed sinus rhythm, septal myocardial infarction of indeterminate age h/o off and on left upper chest pain, recently underwent cardiac evaluation showed no acute event cardiac enzymes within normal limits, EKG no new changes, now being followed by cardiology. Pulmonary embolism was ruled out, chest x-ray showed no acute changes so pneumonitis or pneumonia was ruled out. Follow-up CT PET scan done on April 12, 2020 showed probable inflammatory activity at the proximal and distal ends of esophageal tube, likely tissue irritation Activity in the mid esophagus with SUV of 7.4 consistent with a primary esophageal carcinoma. No evidence of distant metastatic disease Left pleural effusion FDG negative Central uterine activity FDG negative right upper lobe groundglass opacity. Ms Morillo began immunotherapy with On November 28, 2019. She is tolerating it well overall. However after treatment on 04/24/2020. She has had delay of treatment due to developement of a rash. She was given treatment with a Medrol Dosepak for the rash with that her rash resolved. She has continued with 3 weekly Keytruda on 05-29-2020. She states she has once again developed a rash on her abdomen chest and waistband. This has occurred within the last week. She states it is itchy. She has had no known triggers other than her pembrolizumab treatment. She denies any recent changes in detergent, soaps, deodorants, fabric softener or any new medications. She did refill a Medrol Dosepak and this rash is improving. She states she has developed some pain in the sternal area. She is using Tylenol and Motrin for this which relieves the pain. She states she did take a Tylenol 3 for the pain about 4 to 5 days ago and that did relieve it temporarily but it has not gotten that bad again over the last couple of days. She denies any association with shortness of breath orthopnea. She states the pain is no worse with activity it does come to comes and goes. She denies any trouble swallowing. Underwent follow-up CT PET scan on September 20, 2020 which showed activity at proximal esophageal stent is now more extensive measuring 3.3 cm with SUV of 10. Mid esophageal activity seen previously is unchanged on current study. While activity at distal stent is improved and resolution of suspicious central uterine activity seen previously. Unchanged right upper lobe groundglass opacity but with interval development of bilateral pleural effusion. Ms Morillo is here today for followup. She is due for Keytruda today as well. She states she is feeling ok . She does admit to having increased shortness of breath and left sided posterior rib pain/lung pain with breathing, which is worse than her last visit. She appears to be weaker in general. She states she is having more fatigue and headache. She states that she feels her breathing is more labored as well. She did have chest x-ray on September 25, 2020 for pleuritic chest pain cough and shortness of breath. There was a small left pleural effusion but no pleural effusion on the right there were no nodules or masses seen. She states she does have a cough occasionally but thus far its been nonproductive. She denies any hemoptysis. She denies any trouble swallowing. She is had no sore throat. She denies nausea or vomiting. She states her appetite is just declined but she is trying to eat. She denies any new pain. She denies fever or chills. She denies any known Covid exposure or pending test. Her ECOG is 2. Past Medical History: Hypothyroidism Past Surgical History: Arthroscopic knee Cataract excision Esophageal biopsy Hernia repair Removal of ovarian cysts Flu Vaccine 20- in 2019 J-tube insertion in 2018 Allergies: HYDROcodone Bitartrate, Latex, and sulfa. Medications: Acetaminophen Extra Strength 15 mL (of 500 mg/15mL) Liquid Oral PRN All Day Allergy Childrens 7 mL (of 1 mg/mL) Solution Oral daily Artificial Tear Solution 1 Drop(s) Solution Ophthalmic daily Childrens Ibuprofen 5 mL (of 100 mg/5mL) Suspension Oral PRN Ondansetron HCl 4 - 8 mg (of 4 mg/5mL) Solution Oral t.i.d. PRN Potassium Chloride 15 mL (of 20 meq/15ml -10%) Solution Oral PRN Family History: Ms. Morillo's mother at age 86: alzheimer. Ms. Morillo's father at age 72: heart disease. Ms. Morillo has 2 brothers: 2 alive. Ms. Morillo's first brother's prostate cancer. She has 2 sisters: 2 alive. She has 1 paternal aunt who is : lung cancer. Social History: Ms. Morillo is and she is unemployed. Ms. Morillo quit smoking 38 years ago but had smoked 1.5 packs/day for 7 years. She drinks occasionally. 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 Review Of Symptoms: Constitutional Denies fevers, chills, night sweats. She is having an increase in fatigue. Allergic/Immunologic No reactions. Eyes Denies significant visual changes. No diplopia. No amaurosis. ENMT Denies changes in hearing, sore throat, mouth sores. Endocrine Denies hot flashes or night sweats. Hematologic/Lymphatic Denies easy bruising or bleeding. The patient denies any tender or palpable lymph nodes. Respiratory Increased dyspnea on exertion with left posterior rib/lung/ chest pain, but denies cough or hemoptysis. Denies orthopnea. Cardiovascular Denies anginal chest pain, palpitations or orthopnea. Gastrointestinal Currently denies nausea, vomiting, diarrhea, GI bleeding, or constipation. Denies change in bowel habits and/or stool color, no heartburn or early satiety. Genitourinary (F) No hematuria, hesitancy, incontinence, vaginal bleeding, discharge or other problems with urination. Musculoskeletal Denies joint pain, swelling or redness. No decreased range of motion. Integumentary Denies chronic rashes, inflammation, ulcerations or skin changes. Neurologic Denies headache, blurred vision, and no areas of focal weakness or numbness. No new sensory problems. Psychiatric Denies insomnia, depression, saji or mood swings. Vital Signs: Performed on Oct 29, 2020 14:54 Height - 69.50 in Weight - 128.4 lbs (LOW) BSA - 1.72 sq.m BMI - 18.69 Temperature - 97.0 F (LOW) Pulse - 115 /min (HIGH) Respiration - 18 /min BP - 117/70 mm(hg) O2 Sat - 97 % Pain - 0,2 - Ambulatory/capable of all self-care, unable to perform any work activities. Up and about more than 50% of waking hours. (ECOG) Physical Examination: Constitutional Alert, oriented, no acute distress. Skin pink, warm and dry. Head Normocephalic; atraumatic. Eyes Conjunctivae and sclerae are clear and without icterus. Pupils are reactive and equal. ENMT No oral exudates, ulcers, masses, thrush or mucositis. Oropharynx clear. Tongue normal. Neck Supple without masses or thyromegaly. No jugular venous distension. Hematologic/Lymphatic No petechiae or purpura. No tender or palpable lymph nodes in the cervical or supraclavicular areas. Respiratory Lungs are diminished to auscultation bilaterally without rhonchi or wheezing. Cardiovascular Regular rate and rhythm of heart without murmurs,clicks, gallops or rubs. Abdomen Non-tender, non-distended, no masses, Back/Spine Non-tender to palpation. Extremities No visible deformities, no cyanosis, clubbing or edema. Musculoskeletal No tenderness or swelling, normal range of motion without obvious weakness. Neurologic No sensory or motor deficits, normal cerebellar function, gait unassisted today. Psychiatric Alert and oriented times three. Coherent speech. Verbalizes understanding of our discussions today. Laboratory:Test performed on Oct 29, 2020 12:25 Sodium 137 mmol/L TSH 3.62 uIU/mL Potassium 3.9 mmol/L Chloride 98 mmol/L CO2 30 mmol/L Anion Gap 12.9 BUN 20 mg/dL Creatinine 0.4 mg/dL Cr Clearance (Est) 128.92 mL/min eGFR 160.2 mL/min Glucose 111 mg/dL Osmolality - Calculated 287 mOsm/kg Calcium 9.7 mg/dL Protein, Total 7.2 g/dL Albumin 3.6 g/dL Globulin 3.6 g/dL Bilirubin, Total 0.3 mg/dL ALT (SGPT) 9 U/L AST (SGOT) 14 U/L Alkaline Phosphatase 60 IU/L WBC 7.3 10 3/uL RBC 3.81 10 6/uL HGB 10.8 g/dL HCT 36.3 % MCV 95.3 fL MCH 28.3 pg MCHC 29.8 g/dL RDW 14.7 % Platelet Count 396 10 3/cmm MPV 9.3 fL Neutrophils 5.14 10 3/uL Lymphocytes 0.8 10 3/uL Monocytes 0.8 10 3/uL Eosinophils 0.5 10 3/uL Basophils 0.1 10 3/uL Neutrophil % 70.2 % Lymphocyte % 11.1 % Monocyte % 10.3 % Eosinophil % 7.1 % Basophils % 1.0 % NRBC % 0 % Impression: Adenocarcinoma of distal esophagus per EGD and biopsies done on 12/01/2018 CT PET scan done on 12/15/2018 showed localized disease, no evidence of lymphadenopathy or distant metastases Clinical stage T2-3, Nx,M0 Focus of increased uptake in the uterus Dysphagia due to above status post esophageal stenting and now with J-tube MRI head done on 12/11/2018, showed no brain metastases but microvascular ischemic disease Hypothyroidism on supplements Dysfunctional uterine bleeding, CT PET scan showed increased uptake in uterus. Ms Morillo began carboplatin/Taxol and radiation on 03/12/2019. She was found to be iron deficient and received Injectafer o 03/23/19 & 03/30/19. Her last dose of Carboplatin/paclitaxel was on 03/26/19. .Due to progressive leukopenia, she could not receive further chemotherapy but continue with radiation alone which she completed on 04/19/2019, Now being treated with maintenance therapy with Keytruda Follow-up CT PET scan done on April 12, 2020 showed excellent response to maintenance therapy with Keytruda, now activity in the mid esophagus only otherwise no evidence of distant mets. . CT PET scan done after 12 doses of Keytruda on September 20, 2020 showed persistent activity at the proximal esophageal stent is now more extensive measuring 3.3 cm with SUV of 10. Mid esophageal activity seen previously is unchanged. While activity of the distal stent is improved and resolution of suspicious central uterine activity seen previously. Interval development of bilateral pleural effusion Plan: Discussed with patient regarding her labs white blood count 6.5 hemoglobin 10.1 hematocrit 33 platelets 317,000 CMP within normal limit except potassium 3.3 and glucose 140 and PROBLEMS ADDRESSED TODAY 1. Distal esophageal cancer A. Clinically, patient is doing reasonably well with decent palliation with single agent Keytruda. Her follow-up CT PET scan shows no evidence of distant mets persistent activity in proximal part of stent area and improvement in the distal part. But development of bilateral pleural effusion, etiology is unclear could be due to hypoalbuminemia causing third spacing or malignant. Her last dose of Keytruda was on B. HOLD PLANNED KEYTRUDA TREATMENT TODAY DUE TO SUSPECTED PNEUMONITIS SYMPTOMS C. Start Prednisone 20 mg po daily and call if no better in 3 days-can increase dose to 30 mg and max of 40 mg daily if needed. D. Today's labs were reviewed in detail and discussed with Ms. Morillo and a copy was given to her. WBC 7.3, hemoglobin 10.8, platelets 386,000 ANC is 5040. Potassium 3.9 random glucose 130 creatinine 0.4 calcium 9.7 albumin 3.6 LFTs are normal TSH is normal at 3.62. Her weight is stable for her at 128.4. 2. Followup plan: A. Return in 1 week for followup to determine if we can wean steroids and resume Keytryda. B. Ms Morillo was encouraged to call us in the interim if questions or problems arise. C. Per Dr Mccormick's last office note Patient was referred to cardiothoracic surgery for evaluation for esophagectomy in [place] but as per patient because of not feeling well and the reason she could not go and would reschedule but considering patient's performance status, and nutritional status, she may not be candidate for surgery. I will discuss if her overall condition improves. Patient has also seen PROCUREMENT DIRECTOR for abnormality seen on previous CT PET scan as per patient she underwent evaluation and she was told no abnormality found but will obtain records from PROCUREMENT DIRECTOR and review.And again her follow-up CT PET scan done recently showed no abnormal activity in the uterus . Signed By: Carlitos Dan-, AOCNP Phyllis Mccormick MD <<Signature on File>>
== END 2020-10-29 06:01 | disposition home or self-care (01) ==
LOC: ONCMED 06:00
PROVIDERS: PCP Family Medicine; Visit Provider Internal Medicine Hematology & Oncology
DX: C15.5 Malignant neoplasm of lower third of esophagus (principal); J90 Pleural effusion, not elsewhere classified; E03.9 Hypothyroidism, unspecified; Z51.81 Encounter for therapeutic drug level monitoring; Z79.899 Other long term (current) drug therapy
CPT/HCPCS: 36591; 80053; 84443; 85025; 99214

== ENCOUNTER 2020-11-19 05:54 | Outpatient (CLI) | payer MEDICARE, BC, SELFPAY ==
--- NOTE | 2020-11-10 14:25 | ONC FU_ITS ---
Jules Baez Patient Note Patient: Nerissa Morillo Unit #: [id number]: 1955 Dictated By: Carlitos DanDate of Visit: Nov 04, 2020 Onc MED Follow-Up/Prog TELEPHONE Note I spoke with Ms. Morillo today regarding her steroid taper. She states her breathing has started feeling better but then she acquired her Covid vaccine. She states that her breathing flared up some after that and she thinks that she has had headaches due to the Covid vaccine. She is currently on 20 mg of prednisone daily. I have asked her to go to 40 mg daily for 3 to 4 days and then wean to 30 mg daily for 3 to 4 days and continue to wean as tolerated back to 20 mg daily over the next week if tolerated. We will delay her planned visit today and plan to see her back in the next 1 to 2 weeks depending on how she is feeling. She is advised to contact us in the interim if she has any worsening of her shortness of breath, fever, chills, productive cough or any other concerns. Signed By: Carlitos Dan-BRENDA GALEAS <<Signature on File>>
[2020-11-19 08:40] LABS: Basophils % 0.3 %; Eosinophils # 0.1 10^3/uL (0.0-0.8); Eosinophils % 0.9 %; Hematocrit 34.8 % (37.0-47.0); Hemoglobin 10.6 g/dL (11.5-15.3); Lymphocytes # 0.9 10^3/uL (0.8-4.8); Lymphocytes % 8.9 %; Mean Corpuscular HGB Conc 30.5 g/dL (30.0-36.0); Mean Corpuscular Hemoglobin 28.9 pg (28.0-34.0); Mean Corpuscular Volume 94.8 fL (81-99); Mean Platelet Volume 9.5 fL (7.4-10.4); Monocytes # 0.9 10^3/uL (0.2-0.9); Neutrophils # 7.92 10^3/uL (1.8-7.7); Neutrophils % 80.6 %; Nucleated Red Blood Cells % 0 %; Platelet Count 360 10^3/cmm (130-400); Red Blood Count 3.67 10^6/uL (4.1-5.3); Red Cell Distribution Width 16.6 % (12.1-15.1); White Blood Count 9.8 10^3/uL (4.0-10.0)
[2020-11-19 09:07] LABS: Alanine Aminotransferase 8 U/L (0-33); Albumin Level 3.2 g/dL (3.5-5.2); Alkaline Phosphatase 44 IU/L (35-105); Anion Gap 12.6 (5-19); Aspartate Amino Transferase 12 U/L (0-32); Blood Urea Nitrogen 22 mg/dL (8-23); Calcium 8.9 mg/dL (8.5-10.5); Carbon Dioxide 30 mmol/L (22-29); Chloride 99 mmol/L (98-107); Glomerular Filtration Rate 223.3 mL/min (90-130); Glucose 93 mg/dL (65-115); Magnesium 1.8 mg/dL (1.7-2.3); Osmolality Calculated 289 mOsm/kg (285-295); Potassium 3.6 mmol/L (3.5-5.1); Sodium 138 mmol/L (136-145); Thyroid Stimulating Hormone 2.58 uIU/mL (0.27-4.20); Total Bilirubin 0.3 mg/dL (0.15-1.2); Total Protein 6.2 g/dL (6.6-8.7)
[2020-11-19 11:33] LABS: Add Urine Microscopic? YES; Bilirubin Urine Neg (Negative); Blood Urine Neg (Negative); Glucose Urine UA Norm (Normal); Ketones Urine Negative (Negative); Leukocyte Esterase Urine Negative (Negative); Nitrate Urine Negative (Negative); Protein Urine Neg (Negative); Urine Appearance Hazy (CLEAR); Urine Color Yellow (Yellow); Urobilinogen Urine Norm (Negative); pH Urine 5 (5-7)
[2020-11-19 11:46] LABS: Add Urine Culture? No; Bacteria Urine 1+ /hpf; RBC Urine 0-4 /hpf (0-2); WBC Urine 0-4 /hpf (0-5)
--- NOTE | 2020-11-29 10:32 | ONC FU_ITS ---
Jules Baez Patient Note Patient: Nerissa Morillo Unit #: [id number]: [id number] Dictated By: Carlitos DanDate of Visit: Nov 19, 2020 Onc MED Follow-Up/Prog Note Chief Complaint: Adenocarcinoma of distal esophagus History of Present Illness: Mrs. Morillo is a 65-year-old female with distal esophageal adenocarcinoma. Mrs Morillo experienced progressive dysphagia with about a 15 pounds weight loss over a couple months. She was evaluated with CT scan of chest on 11/30/2018 which showed mid to distal esophageal mass extends over 7.8 cm with near complete obstruction of lumen. No lymphadenopathy or other abnormality seen. She subsequently underwent EGD on 12/01/2018 which showed circumferential esophageal mass extending from 30-35 cm with narrowing of lumen. Multiple biopsies were obtained, and it confirmed adenocarcinoma. Stomach and duodenum showed no abnormality. She was referred to [facility] in [place] where she underwent further workup including repeat EGD on 12/06/2018. It showed a fungating mass lesion at 34 cm from incisors and extending into GE junction. No involvement of gastric mucosa was identified. Multiple fundic gland polyps were noted in stomach, esophageal stent was placed in. Underwent CT PET scan on 12/15/2018 which showed there is increased activity in the distal esophagus corresponding to location of the esophageal stent. Maximum SUV 10.8. Physiological activity typically identified in the gastric fundus appears more intense 9.8 which is of questionable significance. No evidence of metastatic disease. Small focus of abnormal activity in the fundus of uterus with a maximum SUV 6.5 MRI scan of head on 12/11/2018 showed no evidence of metastatic disease but minimal microvascular chronic ischemic changes. Ms Morillo underwent J-tube insertion on 12/12/2018 and port placement to facilitate chemotherapy. She did develop wound infection around her J-tube requiring surgical intervention and wound care for extended period time. Now healed, but this postop complication caused delay in her combined chemoradiation for esophageal cancer. She began her first week of combination therapy with carboplatin/paclitaxel and radiation on 03/12/2019. And last dose of chemotherapy was given on 03/26/2019 and after that she developed persistent leukopenia and due to poor performance chemotherapy was held and patient continue with radiation therapy which she finished 04/19/2019. Mrs Morillo went to see Dr. Taylor in [place] for evaluation for esophagectomy but due to her poor performance status he give her a return appointment on 06/27/2019 to see if her performance status was improved at that time. She did see Dr. Narayanan in [place] for EGD which was performed on 07/27/2019. A biopsy was obtained and was reported as positive for malignancy per Mrs. Ansari's report. She was then referred to GI surgical oncologist at [facility] where she was evaluated by Dr. Henriquez medical oncologist on 09/17/2019. His recommendations were to get his CT PET scan, PFTs, 6 minute walk test and refer to Dr. Florez for consideration of surgery after workup is done. He also recommended PDL 1 status, which was checked on 09/19/2019 and did report PDL 1 positive expression level, CPS more than 10. A PET/CT scan was ordered but her insurance refused and they asked for CT scan of chest/ abdomen prior to a PET/CT scan. Mrs. Ansari then had CTs of the chest and abdomen on October 02, 2019 which did show artificial esophageal tube inserted from the lower esophagus into the fundus of the stomach. There was no evidence of metastatic disease or residual esophageal mass. Gallbladder was densely packed with stones. [place]. Mor[place] [facility] [place], nausea & vomiting and was admitted then later transferred to [facility] on October 06, 2019. She then underwent EGD which showed occluded/stenosis of the esophageal stent and evidence of recurrence of disease. The stent could not be removed due to tumor growth, so a Mascorro covered stent was placed. The stomach and duodenal was normal. Thoracic surgery was consulted but due to the patient's poor nutritional status and deconditioning, surgery was not considered. It was recommended that she pursue treatment with immunotherapy. .Follow-up PET/Ct scan done on 10/26/2019 showed increased soft tissue density surrounding the esophageal stent area consistent with progression of disease. Left sided pleural effusion appeared to be malignant; Low-level activity in the right adrenal gland suspicious for metastatic focus; Increasing activity 2 focal areas of uterus suspicious for neoplastic process such as endometrial carcinoma. A KUB was done on 10/16/2019 to assess patency of esophageal stent and did not show evidence of obstruction. 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 Based on those results, pembrolizumab was planned on 11/28/2019. Mrs. Ansari did began pembrolizumab at 3-week dosing on November 28, 2019. She has tolerated it well. She was found to be anemic with a hemoglobin of 9.5 on December 04, 2019 and again 9.8 on 07/19/2020. She was found to be iron deficient with an iron saturation of 12.6% iron level of thirty-two. She was given one dose of peripheral iron replacement with Injectafer on December 19, 2019. Her hemoglobin recovered well to normal range as of January 29, 2020. CTA thorax done on February 19, 2020 showed no evidence of pulmonary embolism, new small left pleural effusion with compressive atelectasis left lung base. Additional compressive atelectasis in the right lower lobe medially with small amount of pleural effusion pneumonia versus superimposed radiation pneumonitis; The esophageal stent was noted to have a diffuse surrounding circumferential soft tissue thickening. Esophageal thickening extends to the subcarinal thoracic esophagus. This was progressed from previous and may be due to treatment related changes versus residual disease; Diffuse in-stent luminal narrowing involving the distal thoracic esophagus; Cholelithiasis Follow-up chest x-ray done on March 04, 2020 showed minimal residual airspace disease or pleural thickening at the left lung base; continued improvement since November 27, 2019 and no other abnormality except esophageal stent. During followup Mrs Morillo was complaining of weeklong history of left mid/upper chest pain and is progressive more with deep breathing and with sometimes palpitation, had low-grade fever. No hemoptysis or hematemesis. As per patient when she was young she had double pneumonia, since then she is more worried about her lung status and also in the recent past she had recurrence of left chest pain for which in February 2020, she underwent CT pulmonary which ruled out pulmonary embolism but showed possibility of pneumonia/pneumonitis. She was treated with antibiotics/steroids with good response, resolution of chest pain. She was sent to [facility] for evaluation on March 27, 2020, chest x-ray done showed no acute cardiopulmonary disease. She then underwent CT angiogram on March 27, 2020 which showed no evidence of pulmonary embolism and no changes compared with scan done on February 19, 2020. An EKG was done on same day showed sinus rhythm, septal myocardial infarction of indeterminate age. Due to her h/o off and on left upper chest pain. She underwent cardiac evaluation showed no acute event; cardiac enzymes within normal limits, EKG no new changes. She is now being followed by cardiology. Pulmonary embolism was ruled out, chest x-ray showed no acute changes so pneumonitis or pneumonia was ruled out. Follow-up CT PET scan done on April 12, 2020 showed probable inflammatory activity at the proximal and distal ends of esophageal tube, likely tissue irritation; Activity in the mid esophagus with SUV of 7.4 consistent with a primary esophageal carcinoma; No evidence of distant metastatic disease; Left pleural effusion FDG negative; Central uterine activity; FDG negative right upper lobe groundglass opacity. As stated above, Ms Morillo began immunotherapy with On November 28, 2019. She had been tolerating it well overall. However after treatment on 04/24/2020, she had delay of treatment due to developement of a rash. She was given treatment with a Medrol Dosepak for the rash and with that her rash resolved. She has continued with 3 weekly Keytruda on 05-29-2020. She once again developed severe rash and developed sternal chest wall pain. Her rash and chest wall pain responded well to steroids and she continued on Keytruda every 3 weeks. Her last treatment was on 09/25/2020. She underwent follow-up PET/CT scan on September 20, 2020 which showed activity at proximal esophageal stent is now more extensive measuring 3.3 cm with SUV of 10. Mid esophageal activity seen previously is unchanged on current study. While activity at distal stent is improved and resolution of suspicious central uterine activity seen previously. Unchanged right upper lobe groundglass opacity but with interval development of bilateral pleural effusion. Her treatment has been on hold this generally 2019 due to declining performance status and overall increase in shortness of breath and left-sided posterior rib/lung pain. Is felt that she could have been having some immunotherapy induced pneumonitis and she was treated with steroids which initially responded really well. She did do Covid 19 vaccine. After her second injection she states that the steroids seem to not be working well for her and the shortness of breath worsened to the point of her having difficulty walking across the room. She denied any fever or chills at that time. She had no nausea or vomiting. She had no productive cough or hemoptysis. She states she was just short of breath. She states that as long as she was at rest she felt fine. She has remained on prednisone 40 mg as she states this is the thing that helps her breathing the most. She is attempted to wean down but has been unable thus far. She has been on 40 mg for 2 weeks at this point. INTERVAL HISTORY: Ms. Ansari is here today for follow-up. We have wanted to resume her immunotherapy given her PET/CT results from September 20, 2020 but have been unable due to her severe shortness of breath. It is noted that she has not had recurrence of the rash since the immunotherapy has been on hold since September 25, 2020. She states she feels good other than breathing. However she has started having some difficulty with swallowing and thinks something is not quite right with the stent . She states she has had some pain in her throat but states this mostly with swallowing. She denies any acid reflux. She states that is well controlled on her current medication. Her weight has maintained at this point. She states she has tried weaning the prednisone down to 30 mg but the shortness of breath does get significantly worse. She states it is better on the 40 mg but not completely resolved. She is also having left posterior shoulder pain which is not new but seems to be getting worse over the last couple of months. She states that sometimes it hurts to even raise her arm. The right shoulder hurts as well but not to the extent of the left 1. She denies any trauma or past injury. She states that the pain does wake her up sometimes at night especially if she lays on that side. The pain is bothersome enough that it does affect her quality of life. She denies any diarrhea or constipation. She denies any lower extremity edema. She states she has not had any sternal pain but has had pain in her stent area. She is also had some discomfort with swallowing but states is not there all the time. She states that she did see Dr. Narayanan at [facility] in [place] and her physician at [facility] was Dr. Irizarry. She states that she is due to see one of them she thought same but cannot remember which one. She states that she has had some queasiness off and on but that is resolved with the ondansetron. She also states she is having some insomnia and wonders what she could take for that. We did talk about her using lorazepam as she does have that on hand. She could try melatonin or [id number] Benadryl as well. Her ECOG is 2. Past Medical History: Hypothyroidism Past Surgical History: Arthroscopic knee Cataract excision COVID VACCINE Esophageal biopsy Hernia repair Removal of ovarian cysts Flu Vaccine 20- in 2019 J-tube insertion in 2018 Allergies: HYDROcodone Bitartrate, Latex, and sulfa. Medications: Acetaminophen Extra Strength 15 mL (of 500 mg/15mL) Liquid Oral PRN All Day Allergy Childrens 7 mL (of 1 mg/mL) Solution Oral daily Artificial Tear Solution 1 Drop(s) Solution Ophthalmic daily Childrens Ibuprofen 5 mL (of 100 mg/5mL) Suspension Oral PRN Ondansetron HCl 4 - 8 mg (of 4 mg/5mL) Solution Oral t.i.d. PRN Potassium Chloride 15 mL (of 20 meq/15ml -10%) Solution Oral PRN predniSONE 1 Tablet (of 20 mg) Oral b.i.d. Family History: Ms. Morillo's mother at age 86: alzheimer. Ms. Morillo's father at age 72: heart disease. Ms. Morillo has 2 brothers: 2 alive. Ms. Morillo's first brother's prostate cancer. She has 2 sisters: 2 alive. She has 1 paternal aunt who is : lung cancer. Social History: Ms. Morillo is and she is unemployed. Ms. Morillo quit smoking 38 years ago but had smoked 1.5 packs/day for 7 years. She drinks occasionally. 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 Review Of Symptoms: Constitutional Denies fevers, chills, night sweats. She has been having fatigue since 2nd COVID vaccine. Allergic/Immunologic No reactions. Eyes Denies significant visual changes. No diplopia. No amaurosis. ENMT Denies changes in hearing, sore throat, mouth sores. Endocrine Denies hot flashes or night sweats. Hematologic/Lymphatic Denies easy bruising or bleeding. The patient denies any tender or palpable lymph nodes. Respiratory Increased dyspnea on exertion with left posterior rib/lung/ chest pain, but denies cough or hemoptysis. Denies orthopnea. She states she has productive cough of white frothy foamy sputum . Cardiovascular Denies anginal chest pain, palpitations or orthopnea. Gastrointestinal Currently denies nausea, vomiting, diarrhea, GI bleeding, or constipation. Denies change in bowel habits and/or stool color, no heartburn or early satiety. She states that she has had some throat pain but states it is in the stented area in the esophagus. She states she has had some pain with swallowing but nothing like it has been before but she states that she thinks something is not quite right with the stent . Genitourinary (F) No hematuria, hesitancy, incontinence, vaginal bleeding, discharge or other problems with urination. Musculoskeletal Denies joint pain, swelling or redness. No decreased range of motion. She has had some left posterior shoulder pain that has gotten worse over the last couple of months. She states the right bothers her some as well but the left is the worst. It does affect her range of motion at times. Integumentary Denies chronic rashes, inflammation, ulcerations or skin changes. She states she has had no further rash since he has been off the immunotherapy. Her last dose was September 25, 2020. Neurologic Denies headache, blurred vision, and no areas of focal weakness or numbness. No new sensory problems. Psychiatric Denies insomnia, depression, saji or mood swings. Vital Signs: Performed on Nov 19, 2020 09:48 Height - 69.50 in Weight - 132.4 lbs (HIGH) BSA - 1.74 sq.m BMI - 19.27 Temperature - 96.7 F (LOW) Pulse - 95 /min Respiration - 18 /min BP - 116/78 mm(hg) O2 Sat - 97 % Pain - 5,2 - Ambulatory/capable of all self-care, unable to perform any work activities. Up and about more than 50% of waking hours. (ECOG) Physical Examination: Constitutional Alert, oriented, no acute distress. Skin pink, warm and dry. Head Normocephalic; atraumatic. Eyes Conjunctivae and sclerae are clear and without icterus. Pupils are reactive and equal. ENMT No oral exudates, ulcers, masses, thrush or mucositis. Oropharynx clear. Tongue normal. Neck Supple without masses or thyromegaly. No jugular venous distension. Hematologic/Lymphatic No petechiae or purpura. No tender or palpable lymph nodes in the cervical or supraclavicular areas. Respiratory Lungs are diminished to auscultation bilaterally without rhonchi or wheezing. Cardiovascular Regular rate and rhythm of heart without murmurs,clicks, gallops or rubs. Abdomen Non-tender, non-distended, no masses, Back/Spine Non-tender to palpation. Extremities No visible deformities, no cyanosis, clubbing or edema. Musculoskeletal No tenderness or swelling, normal range of motion without obvious weakness. Integumentary No rashes or lesions. Neurologic No sensory or motor deficits, normal cerebellar function, gait unassisted today. Psychiatric Alert and oriented times three. Coherent speech. Verbalizes understanding of our discussions today. Laboratory:Test performed on Nov 19, 2020 11:00 Ua Color Yellow Ua Appearance Hazy Ua Glucose Norm Ua Bilirubin Neg Ua Ketones Negative Ua Specific [place] 1.020 Ua Blood Neg Ua pH 5 Ua Protein Neg Ua Nitrites Negative Ua Leukocyte Esterase Negative Ua Micro: WBC 0-4 /hpf Ua Micro: RBC 0-4 /hpf Ua Micro: Squam Epith Cells 5-10 /hpf Ua Micro: Bacteria 1+ /hpf Test performed on Nov 19, 2020 08:10 Magnesium 1.8 mg/dL Sodium 138 mmol/L TSH 2.58 uIU/mL Potassium 3.6 mmol/L Chloride 99 mmol/L CO2 30 mmol/L Anion Gap 12.6 BUN 22 mg/dL Creatinine 0.3 mg/dL Cr Clearance (Est) 177.25 mL/min eGFR 223.3 mL/min Glucose 93 mg/dL Osmolality - Calculated 289 mOsm/kg Calcium 8.9 mg/dL Protein, Total 6.2 g/dL Albumin 3.2 g/dL Globulin 3.0 g/dL Bilirubin, Total 0.3 mg/dL ALT (SGPT) 8 U/L AST (SGOT) 12 U/L Alkaline Phosphatase 44 IU/L WBC 9.8 10 3/uL RBC 3.67 10 6/uL HGB 10.6 g/dL HCT 34.8 % MCV 94.8 fL MCH 28.9 pg MCHC 30.5 g/dL RDW 16.6 % Platelet Count 360 10 3/cmm MPV 9.5 fL Neutrophils 7.92 10 3/uL Lymphocytes 0.9 10 3/uL Monocytes 0.9 10 3/uL Eosinophils 0.1 10 3/uL Basophils 0.0 10 3/uL Neutrophil % 80.6 % Lymphocyte % 8.9 % Monocyte % 9.0 % Eosinophil % 0.9 % Basophils % 0.3 % NRBC % 0 % Impression: Adenocarcinoma of distal esophagus per EGD and biopsies done on 12/01/2018 CT PET scan done on 12/15/2018 showed localized disease, no evidence of lymphadenopathy or distant metastases Clinical stage T2-3, Nx,M0 Focus of increased uptake in the uterus Dysphagia due to above status post esophageal stenting and now with J-tube MRI head done on 12/11/2018, showed no brain metastases but microvascular ischemic disease Hypothyroidism on supplements Dysfunctional uterine bleeding, CT PET scan showed increased uptake in uterus. Ms Morillo began carboplatin/Taxol and radiation on 03/12/2019. She was found to be iron deficient and received Injectafer o 03/23/19 & 03/30/19. Her last dose of Carboplatin/paclitaxel was on 03/26/19. .Due to progressive leukopenia, she could not receive further chemotherapy but continue with radiation alone which she completed on 04/19/2019, Now being treated with maintenance therapy with Keytruda Follow-up CT PET scan done on April 12, 2020 showed excellent response to maintenance therapy with Keytruda, now activity in the mid esophagus only otherwise no evidence of distant mets. PET/CT scan done after 12 doses of Keytruda on September 20, 2020 showed persistent activity at the proximal esophageal stent is now more extensive measuring 3.3 cm with SUV of 10. Mid esophageal activity seen previously is unchanged. While activity of the distal stent is improved and resolution of suspicious central uterine activity seen previously. Interval development of bilateral pleural effusion. Mrs Morillo's last dose of pembrolizumab was September 25, 2020. It has been on hold due to concerns of possibly immunotherapy induced pneumonitis and dermatitis. The rash and shortness of breath had initially been managed with lower dose steroids but recently she has had to increase the prednisone to 40 mg daily. This did occur after her second COVID-19 vaccine. She states that the shortness of breath got significantly worse after the COVID-19 vaccine. Plan: Discussed with patient regarding her labs white blood count 6.5 hemoglobin 10.1 hematocrit 33 platelets 317,000 CMP within normal limit except potassium 3.3 and glucose 140 and PROBLEMS ADDRESSED TODAY 1. Distal esophageal cancer A. Clinically, patient has been doing reasonably well with palliation with single agent Keytruda. Her PET/CT on September 20, 2020 showed persistent activity at the proximal esophageal stent but was more extensive measuring 3.3 cm with an SUV of 10. Mid esophageal activity seen previously was unchanged. While the activity of the distal stent is improved and resolution of suspicious central uterine activity that was seen previously. There was interval development of bilateral pleural effusions. Her last dose of pembrolizumab was on September 25, 2020. She has been on higher dose steroids for suspected pneumonitis as well as treating her persistent rash. She has had no rash since the pembrolizumab was stopped on September 25, 2020. B. HOLD PLANNED KEYTRUDA TREATMENT TODAY DUE TO SUSPECTED PNEUMONITIS SYMPTOMS C. Increase Prednisone to 40 mg po daily for 7 days and then attempt to wean to 30 mg. D. Today's labs were reviewed in detail and discussed with Ms. Morillo and a copy was given to her. WBC 9.8, hemoglobin 10.6, platelets 260,000 ANC is 7920. Potassium 3.6 creatinine 0.3 calcium 8.9 albumin 3.2 LFTs are normal TSH is 2.58. 2. Insomnia: A. She may try lorazepam as she has it on hand for severe nausea. She is advised to try half to 1 tablet. Max dosing for lorazepam is 2 mg. B. She is advised she can try melatonin but I did recommend the fast dissolve tablet and start with 3 to 5 mg. C. Another alternative for the insomnia would be Benadryl 25 to 50 mg. D. She is instructed to contact us if this is not helping with the insomnia. 3. Bilateral shoulder pain A. I have requested x-rays of both shoulders as well as the T-spine for upper back and esophageal pain. However that will allow us to look at the stent as well. If she is having esophageal pain. B. She did not want any different pain medication than what she is already taking. 4. Followup plan: A. Return in 1 week for followup to determine if we can wean steroids and I am doubtful she will be able to resume the Keytryda at that time due to the current dose of steroids required to improve her shortness of breath/chest wall pain. B. Ms Morillo was encouraged to call us in the interim if questions or problems arise. Signed By: Carlitos Dan-, AOCNAaron Mccormick MD <<Signature on File>>
== END 2020-11-19 05:55 | disposition home or self-care (01) ==
PROVIDERS: PCP Family Medicine; Visit Provider Nurse Practitioner
DX: C15.5 Malignant neoplasm of lower third of esophagus (principal); E03.9 Hypothyroidism, unspecified; N93.8 Other specified abnormal uterine and vaginal bleeding; G47.00 Insomnia, unspecified; R13.14 Dysphagia, pharyngoesophageal phase; M25.511 Pain in right shoulder; M25.512 Pain in left shoulder; Z79.899 Other long term (current) drug therapy
CPT/HCPCS: 36415; 36591; 80053; 81001; 83735; 84443; 85025; 99215

== ENCOUNTER 2020-11-19 11:46 | Outpatient (CLI) | payer MEDICARE, BC, SELFPAY ==
--- NOTE | 2020-11-19 11:54 | XR_ITS ---
WS: [id number] XR thoracic spine 3V* [id number] REASON FOR EXAM: UPPER BACK PAIN FINDINGS: Right chest chemotherapy infusion port with right IJ catheter, tip in the is superior vena cava. Long esophageal gastric stent. No significant thoracic vertebral body abnormality. Diffuse narrowing of the intervertebral disc spac es with small anterior osteophytes. Calcification within multiple disc spaces. XR/XR thoracic spine 3V* [id number] IMPRESSION: Degenerative spondylosis of the thoracic spine without significant focal abnorm ality.
--- NOTE | 2020-11-19 12:17 | XR_ITS ---
WS: [id number] XR chest 2V* [id number] REASON FOR EXAM: PLEURITIC CHEST PAIN;FOLLOW UP PLUERAL EFFUSION AND PNEUMONI FINDINGS: The chest is unchanged compared to previous examination of 09/25/2020. Chemotherapy infusion port righ t chest with catheter through the right internal jugular vein with tip in the superior vena cava. Long esophageal gastric stent. Minimal blunting of the left costophrenic angle and retrocardiac interstitial change likely the resid ual of previous infection. In appearance from previous examination. No acute pulmonary parenchymal or pleural abnormality is identified. XR/XR chest 2V* [id number] IMPRESSION: The chest is stable compared to the previous chest x-ray of 09/25/2020. Potentially there could be a chronic ongoing problem related to the esophageal stent in its mediastinal portion. If symptoms persist and as clinically warrant ed, contrasted CT scan of the chest would be a reasonable evaluation.
--- NOTE | 2020-11-19 12:17 | XR_ITS ---
WS: [id number] XR shoulder RT min 2V* [id number] REASON FOR EXAM: BILATERAL SHOULDER PAIN; ESOPHAGEAL CANCER FINDINGS: Moderate narrowing of the right acromioclavicular joint. Mild narrowing of the glenohumeral joint. No focal bony abnormality. Calcification adjacent to the humeral head insertion site of the rotator cuff tendon compatible with rotator cuff tendinopathy. XR/XR shoulder RT min 2V* [id number] IMPRESSION: Mild degenerative arthropathy in the right glenohumeral and acromioclavicular j oint. Right rotator cuff cuff tendinopathy.
--- NOTE | 2020-11-19 12:17 | XR_ITS ---
WS: [id number] XR shoulder LT min 2V* [id number] REASON FOR EXAM: BILATERAL SHOULDER PAIN; ESOPHAGEAL CANCER FINDINGS: Moderate narrowing of the left acromioclavicular joint. Mild narrowing of the glenohumeral joint. No focal bone lesion. Calcifications adjacent to the rotator cuff insertion on the humeral head compatible with rotator cuf f tendinopathy. XR/XR shoulder LT min 2V* [id number] IMPRESSION: Mild degenerative changes with left rotator cuff tendinopathy.
== END 2020-11-19 11:47 | disposition home or self-care (01) ==
PROVIDERS: PCP Family Medicine; Visit Provider Nurse Practitioner
DX: R07.89 Other chest pain (principal); M25.512 Pain in left shoulder; M25.511 Pain in right shoulder; J90 Pleural effusion, not elsewhere classified; J18.9 Pneumonia, unspecified organism; M47.814 Spondylosis without myelopathy or radiculopathy, thoracic region; M12.811 Other specific arthropathies, not elsewhere classified, right shoulder
CPT/HCPCS: 71046; 72072; 73030

== ENCOUNTER 2020-12-01 05:50 | Outpatient (CLI) | payer MEDICARE, BC, SELFPAY ==
--- NOTE | 2020-12-01 21:42 | ONC FU_ITS ---
Jules Baez Patient Note Patient: Nerissa Morillo Unit #: [id number]: 1955 Dictated By: Carlitos DanDate of Visit: Dec 01, 2020 Onc MED Follow-Up/Prog Note Chief Complaint: Adenocarcinoma of distal esophagus History of Present Illness: Mrs. Morillo is a 65-year-old female with distal esophageal adenocarcinoma. Mrs Morillo experienced progressive dysphagia with about a 15 pounds weight loss over a couple months. She was evaluated with CT scan of chest on 11/30/2018 which showed mid to distal esophageal mass extends over 7.8 cm with near complete obstruction of lumen. No lymphadenopathy or other abnormality seen. She subsequently underwent EGD on 12/01/2018 which showed circumferential esophageal mass extending from 30-35 cm with narrowing of lumen. Multiple biopsies were obtained, and it confirmed adenocarcinoma. Stomach and duodenum showed no abnormality. She was referred to [facility] in [place] where she underwent further workup including repeat EGD on 12/06/2018. It showed a fungating mass lesion at 34 cm from incisors and extending into GE junction. No involvement of gastric mucosa was identified. Multiple fundic gland polyps were noted in stomach, esophageal stent was placed in. Underwent CT PET scan on 12/15/2018 which showed there is increased activity in the distal esophagus corresponding to location of the esophageal stent. Maximum SUV 10.8. Physiological activity typically identified in the gastric fundus appears more intense 9.8 which is of questionable significance. No evidence of metastatic disease. Small focus of abnormal activity in the fundus of uterus with a maximum SUV 6.5 MRI scan of head on 12/11/2018 showed no evidence of metastatic disease but minimal microvascular chronic ischemic changes. Ms Morillo underwent J-tube insertion on 12/12/2018 and port placement to facilitate chemotherapy. She did develop wound infection around her J-tube requiring surgical intervention and wound care for extended period time. Now healed, but this postop complication caused delay in her combined chemoradiation for esophageal cancer. She began her first week of combination therapy with carboplatin/paclitaxel and radiation on 03/12/2019. And last dose of chemotherapy was given on 03/26/2019 and after that she developed persistent leukopenia and due to poor performance chemotherapy was held and patient continue with radiation therapy which she finished 04/19/2019. Mrs Morillo went to see Dr. Taylor in [place] for evaluation for esophagectomy but due to her poor performance status he give her a return appointment on 06/27/2019 to see if her performance status was improved at that time. She did see Dr. Narayanan in [place] for EGD which was performed on 07/27/2019. A biopsy was obtained and was reported as positive for malignancy per Mrs. Ansari's report. She was then referred to GI surgical oncologist at [facility] where she was evaluated by Dr. Henriquez medical oncologist on 09/17/2019. His recommendations were to get his CT PET scan, PFTs, 6 minute walk test and refer to Dr. Florez for consideration of surgery after workup is done. He also recommended PDL 1 status, which was checked on 09/19/2019 and did report PDL 1 positive expression level, CPS more than 10. A PET/CT scan was ordered but her insurance refused and they asked for CT scan of chest/ abdomen prior to a PET/CT scan. Mrs. Ansari then had CTs of the chest and abdomen on October 02, 2019 which did show artificial esophageal tube inserted from the lower esophagus into the fundus of the stomach. There was no evidence of metastatic disease or residual esophageal mass. Gallbladder was densely packed with stones. Mrs. Morillo presented to [facility] with abdominal pain, nausea & vomiting and was admitted then later transferred to [facility] on October 06, 2019. She then underwent EGD which showed occluded/stenosis of the esophageal stent and evidence of recurrence of disease. The stent could not be removed due to tumor growth, so a Masc[place] covered stent was placed. The stomach and duodenal was normal. Thoracic surgery was consulted but due to the patient's poor nutritional status and deconditioning, surgery was not considered. It was recommended that she pursue treatment with immunotherapy. .Follow-up PET/Ct scan done on 10/26/2019 showed increased soft tissue density surrounding the esophageal stent area consistent with progression of disease. Left sided pleural effusion appeared to be malignant; Low-level activity in the right adrenal gland suspicious for metastatic focus; Increasing activity 2 focal areas of uterus suspicious for neoplastic process such as endometrial carcinoma. A KUB was done on 10/16/2019 to assess patency of esophageal stent and did not show evidence of obstruction. 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 Based on those results, pembrolizumab was planned on 11/28/2019. Mrs. Ansari did began pembrolizumab at 3-week dosing on November 28, 2019. She has tolerated it well. She was found to be anemic with a hemoglobin of 9.5 on December 04, 2019 and again 9.8 on 07/19/2020. She was found to be iron deficient with an iron saturation of 12.6% iron level of thirty-two. She was given one dose of peripheral iron replacement with Injectafer on December 19, 2019. Her hemoglobin recovered well to normal range as of January 29, 2020. CTA thorax done on February 19, 2020 showed no evidence of pulmonary embolism, new small left pleural effusion with compressive atelectasis left lung base. Additional compressive atelectasis in the right lower lobe medially with small amount of pleural effusion pneumonia versus superimposed radiation pneumonitis; The esophageal stent was noted to have a diffuse surrounding circumferential soft tissue thickening. Esophageal thickening extends to the subcarinal thoracic esophagus. This was progressed from previous and may be due to treatment related changes versus residual disease; Diffuse in-stent luminal narrowing involving the distal thoracic esophagus; Cholelithiasis Follow-up chest x-ray done on March 04, 2020 showed minimal residual airspace disease or pleural thickening at the left lung base; continued improvement since November 27, 2019 and no other abnormality except esophageal stent. During followup Mrs Morillo was complaining of weeklong history of left mid/upper chest pain and is progressive more with deep breathing and with sometimes palpitation, had low-grade fever. No hemoptysis or hematemesis. As per patient when she was young she had double pneumonia, since then she is more worried about her lung status and also in the recent past she had recurrence of left chest pain for which in February 2020, she underwent CT pulmonary which ruled out pulmonary embolism but showed possibility of pneumonia/pneumonitis. She was treated with antibiotics/steroids with good response, resolution of chest pain. She was sent to [facility] for evaluation on March 27, 2020, chest x-ray done showed no acute cardiopulmonary disease. She then underwent CT angiogram on March 27, 2020 which showed no evidence of pulmonary embolism and no changes compared with scan done on February 19, 2020. An EKG was done on same day showed sinus rhythm, septal myocardial infarction of indeterminate age. Due to her h/o off and on left upper chest pain. She underwent cardiac evaluation showed no acute event; cardiac enzymes within normal limits, EKG no new changes. She is now being followed by cardiology. Pulmonary embolism was ruled out, chest x-ray showed no acute changes so pneumonitis or pneumonia was ruled out. Follow-up CT PET scan done on April 12, 2020 showed probable inflammatory activity at the proximal and distal ends of esophageal tube, likely tissue irritation; Activity in the mid esophagus with SUV of 7.4 consistent with a primary esophageal carcinoma; No evidence of distant metastatic disease; Left pleural effusion FDG negative; Central uterine activity; FDG negative right upper lobe groundglass opacity. As stated above, Ms Morillo began immunotherapy with On November 28, 2019. She had been tolerating it well overall. However after treatment on 04/24/2020, she had delay of treatment due to developement of a rash. She was given treatment with a Medrol Dosepak for the rash and with that her rash resolved. She has continued with 3 weekly Keytruda on 05-29-2020. She once again developed severe rash and developed sternal chest wall pain. Her rash and chest wall pain responded well to steroids and she continued on Keytruda every 3 weeks. Her last treatment was on 09/25/2020. She underwent follow-up PET/CT scan on September 20, 2020 which showed activity at proximal esophageal stent is now more extensive measuring 3.3 cm with SUV of 10. Mid esophageal activity seen previously is unchanged on current study. While activity at distal stent is improved and resolution of suspicious central uterine activity seen previously. Unchanged right upper lobe groundglass opacity but with interval development of bilateral pleural effusion. Her treatment has been on hold this generally 2019 due to declining performance status and overall increase in shortness of breath and left-sided posterior rib/lung pain. Is felt that she could have been having some immunotherapy induced pneumonitis and she was treated with steroids which initially responded really well. She did do Covid 19 vaccine. After her second injection she states that the steroids seem to not be working well for her and the shortness of breath worsened to the point of her having difficulty walking across the room. She denied any fever or chills at that time. She had no nausea or vomiting. She had no productive cough or hemoptysis. She states she was just short of breath. She states that as long as she was at rest she felt fine. She has remained on prednisone 40 mg as she states this is the thing that helps her breathing the most. She is attempted to wean down but has been unable thus far. She has been on 40 mg for 2 weeks at this point. INTERVAL HISTORY: Ms. Ansari is here today for follow-up. We have wanted to resume her immunotherapy given her PET/CT results from September 20, 2020 but have been unable due to her severe shortness of breath. It is noted that she has not had recurrence of the rash since the immunotherapy has been on hold since September 25, 2020. She states she feels good other than breathing. However she had started having some difficulty with swallowing. She states she has had some pain in her throat but states this mostly with swallowing. She denies any acid reflux. She states that is well controlled on her current medication. She did have followup with Dr Wiseman and he started her on Protonix and she states her swallowing is slowly improving. Her weight has maintained at this point. She states she has weaned the prednisone down to 30 mg over the last week and is tolerating that well. She states her breathing is still hard at times but overall it has improved and does not flare with the 30 mg Prednisone. She has been referred [facility] orthopedic clinic for evaluation of bilateral shoulder pain. She did have x-rays on November 19, 2020 which reported mild narrowing of the right acromioclavicular joint mild narrowing of the glenohumeral joint. Calcification adjacent to the humeral head insertion site of the rotator cuff tendon compatible with rotator cuff tendinopathy. She does have limited range of motion and significant pain. She is referred to orthopedics for further plan of care. She has not yet gotten an appointment with them but states someone try to call her Tuesday and she was unable to answer the phone so she thinks it was the orthopedic clinic. The left posterior shoulder pain is not new but seems to be getting worse over the last couple of months. She states that sometimes it hurts to even raise her arm. The right shoulder hurts as well but not to the extent of the left 1. She denies any trauma or past injury. She states that the pain does wake her up sometimes at night especially if she lays on that side. The pain is bothersome enough that it does affect her quality of life. She denies any diarrhea or constipation. She denies any lower extremity edema. She states she has not had any sternal pain but has had pain in her stent area. She states she t hinks the Protonix is helping some. She also states she is having some insomnia and wonders what she could take for that. We did talk about her using lorazepam as she does have that on hand. She could try melatonin or epee-yri-ryunguv Benadryl as well. Her ECOG is 2. Past Medical History: Hypothyroidism Past Surgical History: Arthroscopic knee Cataract excision COVID VACCINE Esophageal biopsy Hernia repair Removal of ovarian cysts Flu Vaccine 20- in 2019 J-tube insertion in 2018 Allergies: HYDROcodone Bitartrate, Latex, and sulfa. Medications: Acetaminophen Extra Strength 15 mL (of 500 mg/15mL) Liquid Oral PRN All Day Allergy Childrens 7 mL (of 1 mg/mL) Solution Oral daily Artificial Tear Solution 1 Drop(s) Solution Ophthalmic daily Childrens Ibuprofen 5 mL (of 100 mg/5mL) Suspension Oral PRN Ondansetron HCl 4 - 8 mg (of 4 mg/5mL) Solution Oral t.i.d. PRN Potassium Chloride 15 mL (of 20 meq/15ml -10%) Solution Oral PRN predniSONE 1 Tablet (of 20 mg) Oral b.i.d. Protonix 1 Tablet (of 40 mg) Tablet, enteric coated Oral daily Family History: Ms. Morillo's mother at age 86: alzheimer. Ms. Morillo's father at age 72: heart disease. Ms. Morillo has 2 brothers: 2 alive. Ms. Morillo's first brother's prostate cancer. She has 2 sisters: 2 alive. She has 1 paternal aunt who is : lung cancer. Social History: Ms. Morillo is and she is unemployed. Ms. Morillo quit smoking 38 years ago but had smoked 1.5 packs/day for 7 years. She drinks occasionally. Review Of Symptoms: Constitutional Denies fevers, chills, night sweats. She has been having fatigue since 2nd COVID vaccine but improved since last visit. Allergic/Immunologic No reactions. Eyes Denies significant visual changes. No diplopia. No amaurosis. ENMT Denies changes in hearing, sore throat, mouth sores. Endocrine Denies hot flashes or night sweats. Hematologic/Lymphatic Denies easy bruising or bleeding. The patient denies any tender or palpable lymph nodes. Respiratory Increased dyspnea on exertion with left posterior rib/lung/ chest pain, but denies cough or hemoptysis. Denies orthopnea. She states she has productive cough of clear sputum! Cardiovascular Denies anginal chest pain, palpitations or orthopnea. Gastrointestinal Currently denies nausea, vomiting, diarrhea, GI bleeding, or constipation. Denies change in bowel habits and/or stool color, no heartburn or early satiety. She states that she has had some throat pain but states it is in the stented area in the esophagus. She states she has had some pain with swallowing but nothing like it has been before. She is currently on Protonix per Dr Wiseman. Genitourinary (F) No hematuria, hesitancy, incontinence, vaginal bleeding, discharge or other problems with urination. Musculoskeletal Denies joint pain, swelling or redness. No decreased range of motion. She has had some left posterior shoulder pain that has gotten worse over the last couple of months. She states the right bothers her some as well but the left is the worst. It does affect her range of motion at times. She is waiting for an appointment from orthopedics. Integumentary Denies chronic rashes, inflammation, ulcerations or skin changes. She states she has had no further rash since he has been off the immunotherapy. Her last dose was September 25, 2020. Neurologic Denies headache, blurred vision, and no areas of focal weakness or numbness. No new sensory problems. Psychiatric Denies insomnia, depression, saji or mood swings. Vital Signs: Performed on Dec 01, 2020 10:40 Height - 69.50 in Weight - 132.4 lbs BSA - 1.74 sq.m BMI - 19.27 Temperature - 96.4 F (LOW) Pulse - 94 /min Respiration - 18 /min BP - 111/80 mm(hg) O2 Sat - 99 % Pain - 0,2 - Ambulatory/capable of all self-care, unable to perform any work activities. Up and about more than 50% of waking hours. (ECOG) Physical Examination: Constitutional Alert, oriented, no acute distress. Skin pink, warm and dry. Head Normocephalic; atraumatic. Eyes Conjunctivae and sclerae are clear and without icterus. Pupils are reactive and equal. Hematologic/Lymphatic No petechiae or purpura. No tender or palpable lymph nodes in the cervical or supraclavicular areas. Respiratory Lungs are clear to auscultation bilaterally without rhonchi or wheezing. Improved air movement since last visit. Cardiovascular Regular rate and rhythm of heart without murmurs,clicks, gallops or rubs. Abdomen Non-tender, non-distended, no masses, Back/Spine Non-tender to palpation. Extremities No visible deformities, no cyanosis, clubbing or edema. Musculoskeletal No tenderness or swelling, normal range of motion without obvious weakness. Integumentary No rashes or lesions. Neurologic No sensory or motor deficits, normal cerebellar function, gait unassisted today. Psychiatric Alert and oriented times three. Coherent speech. Verbalizes understanding of our discussions today. Laboratory:Test performed on Nov 19, 2020 11:00 Ua Color Yellow Ua Appearance Hazy Ua Glucose Norm Ua Bilirubin Neg Ua Ketones Negative Ua Specific [place] 1.020 Ua Blood Neg Ua pH 5 Ua Protein Neg Ua Nitrites Negative Ua Leukocyte Esterase Negative Ua Micro: WBC 0-4 /hpf Ua Micro: RBC 0-4 /hpf Ua Micro: Squam Epith Cells 5-10 /hpf Ua Micro: Bacteria 1+ /hpf Test performed on Nov 19, 2020 08:10 Magnesium 1.8 mg/dL Sodium 138 mmol/L TSH 2.58 uIU/mL Potassium 3.6 mmol/L Chloride 99 mmol/L CO2 30 mmol/L Anion Gap 12.6 BUN 22 mg/dL Creatinine 0.3 mg/dL Cr Clearance (Est) 177.25 mL/min eGFR 223.3 mL/min Glucose 93 mg/dL Osmolality - Calculated 289 mOsm/kg Calcium 8.9 mg/dL Protein, Total 6.2 g/dL Albumin 3.2 g/dL Globulin 3.0 g/dL Bilirubin, Total 0.3 mg/dL ALT (SGPT) 8 U/L AST (SGOT) 12 U/L Alkaline Phosphatase 44 IU/L WBC 9.8 10 3/uL RBC 3.67 10 6/uL HGB 10.6 g/dL HCT 34.8 % MCV 94.8 fL MCH 28.9 pg MCHC 30.5 g/dL RDW 16.6 % Platelet Count 360 10 3/cmm MPV 9.5 fL Neutrophils 7.92 10 3/uL Lymphocytes 0.9 10 3/uL Monocytes 0.9 10 3/uL Eosinophils 0.1 10 3/uL Basophils 0.0 10 3/uL Neutrophil % 80.6 % Lymphocyte % 8.9 % Monocyte % 9.0 % Eosinophil % 0.9 % Basophils % 0.3 % NRBC % 0 % Impression: Adenocarcinoma of distal esophagus per EGD and biopsies done on 12/01/2018 CT PET scan done on 12/15/2018 showed localized disease, no evidence of lymphadenopathy or distant metastases Clinical stage T2-3, Nx,M0 Focus of increased uptake in the uterus Dysphagia due to above status post esophageal stenting and now with J-tube MRI head done on 12/11/2018, showed no brain metastases but microvascular ischemic disease Hypothyroidism on supplements Dysfunctional uterine bleeding, CT PET scan showed increased uptake in uterus. Ms Morillo began carboplatin/Taxol and radiation on 03/12/2019. She was found to be iron deficient and received Injectafer o 03/23/19 & 03/30/19. Her last dose of Carboplatin/paclitaxel was on 03/26/19. .Due to progressive leukopenia, she could not receive further chemotherapy but continue with radiation alone which she completed on 04/19/2019, Now being treated with maintenance therapy with Keytruda Follow-up CT PET scan done on April 12, 2020 showed excellent response to maintenance therapy with Keytruda, now activity in the mid esophagus only otherwise no evidence of distant mets. PET/CT scan done after 12 doses of Keytruda on September 20, 2020 showed persistent activity at the proximal esophageal stent is now more extensive measuring 3.3 cm with SUV of 10. Mid esophageal activity seen previously is unchanged. While activity of the distal stent is improved and resolution of suspicious central uterine activity seen previously. Interval development of bilateral pleural effusion. Mrs Morillo's last dose of pembrolizumab was September 25, 2020. It has been on hold due to concerns of possibly immunotherapy induced pneumonitis and dermatitis. The rash and shortness of breath had initially been managed with lower dose steroids but recently she has had to increase the prednisone to 40 mg daily. This did occur after her second COVID-19 vaccine. She states that the shortness of breath got significantly worse after the COVID-19 vaccine. Plan: Discussed with patient regarding her labs white blood count 6.5 hemoglobin 10.1 hematocrit 33 platelets 317,000 CMP within normal limit except potassium 3.3 and glucose 140 and PROBLEMS ADDRESSED TODAY 1. Distal esophageal cancer A. Clinically, patient has been doing reasonably well with palliation with single agent Keytruda. Her PET/CT on September 20, 2020 showed persistent activity at the proximal esophageal stent but was more extensive measuring 3.3 cm with an SUV of 10. Mid esophageal activity seen previously was unchanged. While the activity of the distal stent is improved and resolution of suspicious central uterine activity that was seen previously. There was interval development of bilateral pleural effusions. Her last dose of pembrolizumab was on September 25, 2020. She has been on higher dose steroids for suspected pneumonitis as well as treating her persistent rash. She has had no rash since the pembrolizumab was stopped on September 25, 2020. B. HOLD PLANNED KEYTRUDA TREATMENT TODAY DUE TO SUSPECTED PERSISTENT PNEUMONITIS SYMPTOMS C. Continue Prednisone @ 30 mg po daily for 7 -10 days and then attempt to wean to 25 mg. I did send it a prescription for 5 mg tablets. 2. Insomnia: A. She may try lorazepam as she has it on hand for severe nausea. She is advised to try half to 1 tablet. Max dosing for lorazepam is 2 mg. B. She is advised she can try melatonin but I did recommend the fast dissolve tablet and start with 3 to 5 mg. C. Another alternative for the insomnia would be Benadryl 25 to 50 mg. D. She was instructed to contact us if this is not helping with the insomnia. 3. Bilateral shoulder pain A. She is waiting for an appointment with [facility] orthopedic clinic for evaluation of bilateral tendinopathy of her shoulders B. She did not want any different pain medication than what she is already taking. 4. Followup plan: A. Return in 2 weeks for followup to determine if we can wean steroids and I am doubtful she will be able to resume the Keytruda at that time due to the current dose of steroids required to improve her shortness of breath/chest wall pain. B. I did request CBC, CMP and TSH just in case she is able to resume treatment. C. Ms Morillo was encouraged to call us in the interim if questions or problems arise. Signed By: Carlitos Dan-ADAL, AOCNAaron Mccormick MD <<Signature on File>>
== END 2020-12-01 05:51 | disposition home or self-care (01) ==
LOC: ONCMED 05:52
PROVIDERS: PCP Family Medicine; Visit Provider Nurse Practitioner
DX: C15.5 Malignant neoplasm of lower third of esophagus (principal); R06.02 Shortness of breath; J90 Pleural effusion, not elsewhere classified; R21 Rash and other nonspecific skin eruption; G47.00 Insomnia, unspecified; R11.0 Nausea; M25.512 Pain in left shoulder; M25.511 Pain in right shoulder; E03.9 Hypothyroidism, unspecified; Z93.4 Other artificial openings of gastrointestinal tract status; Z92.3 Personal history of irradiation; Z79.52 Long term (current) use of systemic steroids; Z79.899 Other long term (current) drug therapy; Z87.891 Personal history of nicotine dependence
CPT/HCPCS: 99214

== ENCOUNTER 2020-12-10 05:50 | Outpatient (CLI) | payer MEDICARE, BC, SELFPAY ==
[2020-12-10 12:51] LABS: Basophils % 0.2 %; Hematocrit 37.8 % (37.0-47.0); Hemoglobin 11.4 g/dL (11.5-15.3); Lymphocytes # 0.4 10^3/uL (0.8-4.8); Lymphocytes % 4.2 %; Mean Corpuscular HGB Conc 30.2 g/dL (30.0-36.0); Mean Corpuscular Hemoglobin 28.1 pg (28.0-34.0); Mean Corpuscular Volume 93.3 fL (81-99); Mean Platelet Volume 9.3 fL (7.4-10.4); Monocytes # 0.2 10^3/uL (0.2-0.9); Monocytes % 1.9 %; Neutrophils # 9.09 10^3/uL (1.8-7.7); Neutrophils % 93.2 %; Nucleated Red Blood Cells % 0 %; Platelet Count 313 10^3/cmm (130-400); Red Blood Count 4.05 10^6/uL (4.1-5.3); Red Cell Distribution Width 16.3 % (12.1-15.1); White Blood Count 9.8 10^3/uL (4.0-10.0)
[2020-12-10 13:22] LABS: Alanine Aminotransferase 10 U/L (0-33); Albumin Level 3.4 g/dL (3.5-5.2); Alkaline Phosphatase 49 IU/L (35-105); Aspartate Amino Transferase 11 U/L (0-32); Blood Urea Nitrogen 21 mg/dL (8-23); Calcium 8.9 mg/dL (8.5-10.5); Carbon Dioxide 30 mmol/L (22-29); Chloride 100 mmol/L (98-107); Globulin 2.8 g/dL (1.3-4.6); Glomerular Filtration Rate 160.2 mL/min (90-130); Glucose 164 mg/dL (65-115); Osmolality Calculated 299 mOsm/kg (285-295); Sodium 141 mmol/L (136-145); Thyroid Stimulating Hormone 0.91 uIU/mL (0.27-4.20); Total Bilirubin 0.2 mg/dL (0.15-1.2); Total Protein 6.2 g/dL (6.6-8.7)
--- NOTE | 2020-12-21 22:38 | ONC FU_ITS ---
Jules Baez Patient Note Patient: Nerissa Morillo Unit #: [id number]: 1955 Dictated By: Carlitos DanDate of Visit: Dec 10, 2020 Onc MED Follow-Up/Prog Note Chief Complaint: Adenocarcinoma of distal esophagus History of Present Illness: Mrs. Morillo is a 65-year-old female with distal esophageal adenocarcinoma. Mrs Morillo experienced progressive dysphagia with about a 15 pounds weight loss over a couple months. She was evaluated with CT scan of chest on 11/30/2018 which showed mid to distal esophageal mass extends over 7.8 cm with near complete obstruction of lumen. No lymphadenopathy or other abnormality seen. She subsequently underwent EGD on 12/01/2018 which showed circumferential esophageal mass extending from 30-35 cm with narrowing of lumen. Multiple biopsies were obtained, and it confirmed adenocarcinoma. Stomach and duodenum showed no abnormality. She was referred to [facility] in [place] where she underwent further workup including repeat EGD on 12/06/2018. It showed a fungating mass lesion at 34 cm from incisors and extending into GE junction. No involvement of gastric mucosa was identified. Multiple fundic gland polyps were noted in stomach, esophageal stent was placed in. Underwent CT PET scan on 12/15/2018 which showed there is increased activity in the distal esophagus corresponding to location of the esophageal stent. Maximum SUV 10.8. Physiological activity typically identified in the gastric fundus appears more intense 9.8 which is of questionable significance. No evidence of metastatic disease. Small focus of abnormal activity in the fundus of uterus with a maximum SUV 6.5 MRI scan of head on 12/11/2018 showed no evidence of metastatic disease but minimal microvascular chronic ischemic changes. Ms Morillo underwent J-tube insertion on 12/12/2018 and port placement to facilitate chemotherapy. She did develop wound infection around her J-tube requiring surgical intervention and wound care for extended period time. Now healed, but this postop complication caused delay in her combined chemoradiation for esophageal cancer. She began her first week of combination therapy with carboplatin/paclitaxel and radiation on 03/12/2019. And last dose of chemotherapy was given on 03/26/2019 and after that she developed persistent leukopenia and due to poor performance chemotherapy was held and patient continue with radiation therapy which she finished 04/19/2019. Mrs Morillo went to see Dr. Taylor in [place] for evaluation for esophagectomy but due to her poor performance status he give her a return appointment on 06/27/2019 to see if her performance status was improved at that time. She did see Dr. Narayanan in [place] for EGD which was performed on 07/27/2019. A biopsy was obtained and was reported as positive for malignancy per Mrs. Ansari's report. She was then referred to GI surgical oncologist at [facility] where she was evaluated by Dr. Henriquez medical oncologist on 09/17/2019. His recommendations were to get his CT PET scan, PFTs, 6 minute walk test and refer to Dr. Florez for consideration of surgery after workup is done. He also recommended PDL 1 status, which was checked on 09/19/2019 and did report PDL 1 positive expression level, CPS more than 10. A PET/CT scan was ordered but her insurance refused and they asked for CT scan of chest/ abdomen prior to a PET/CT scan. Mrs. Ansari then had CTs of the chest and abdomen on October 02, 2019 which did show artificial esophageal tube inserted from the lower esophagus into the fundus of the stomach. There was no evidence of metastatic disease or residual esophageal mass. Gallbladder was densely packed with stones. Mrs. Morillo presented to [facility] with abdominal pain, nausea & vomiting and was admitted then later transferred to [facility] on October 06, 2019. She then underwent EGD which showed occluded/stenosis of the esophageal stent and evidence of recurrence of disease. The stent could not be removed due to tumor growth, so a Mascorro covered stent was placed. The stomach and duodenal was normal. Thoracic surgery was consulted but due to the patient's poor nutritional status and deconditioning, surgery was not considered. It was recommended that she pursue treatment with immunotherapy. .Follow-up PET/Ct scan done on 10/26/2019 showed increased soft tissue density surrounding the esophageal stent area consistent with progression of disease. Left sided pleural effusion appeared to be malignant; Low-level activity in the right adrenal gland suspicious for metastatic focus; Increasing activity 2 focal areas of uterus suspicious for neoplastic process such as endometrial carcinoma. A KUB was done on 10/16/2019 to assess patency of esophageal stent and did not show evidence of obstruction. 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 Based on those results, pembrolizumab was planned on 11/28/2019. Mrs. Ansari did began pembrolizumab at 3-week dosing on November 28, 2019. She has tolerated it well. She was found to be anemic with a hemoglobin of 9.5 on December 04, 2019 and again 9.8 on 07/19/2020. She was found to be iron deficient with an iron saturation of 12.6% iron level of thirty-two. She was given one dose of peripheral iron replacement with Injectafer on December 19, 2019. Her hemoglobin recovered well to normal range as of January 29, 2020. CTA thorax done on February 19, 2020 showed no evidence of pulmonary embolism, new small left pleural effusion with compressive atelectasis left lung base. Additional compressive atelectasis in the right lower lobe medially with small amount of pleural effusion pneumonia versus superimposed radiation pneumonitis; The esophageal stent was noted to have a diffuse surrounding circumferential soft tissue thickening. Esophageal thickening extends to the subcarinal thoracic esophagus. This was progressed from previous and may be due to treatment related changes versus residual disease; Diffuse in-stent luminal narrowing involving the distal thoracic esophagus; Cholelithiasis Follow-up chest x-ray done on March 04, 2020 showed minimal residual airspace disease or pleural thickening at the left lung base; continued improvement since November 27, 2019 and no other abnormality except esophageal stent. During followup Mrs Morillo was complaining of weeklong history of left mid/upper chest pain and is progressive more with deep breathing and with sometimes palpitation, had low-grade fever. No hemoptysis or hematemesis. As per patient when she was young she had double pneumonia, since then she is more worried about her lung status and also in the recent past she had recurrence of left chest pain for which in February 2020, she underwent CT pulmonary which ruled out pulmonary embolism but showed possibility of pneumonia/pneumonitis. She was treated with antibiotics/steroids with good response, resolution of chest pain. She was sent to [facility] for evaluation on March 27, 2020, chest x-ray done showed no acute cardiopulmonary disease. She then underwent CT angiogram on March 27, 2020 which showed no evidence of pulmonary embolism and no changes compared with scan done on February 19, 2020. An EKG was done on same day showed sinus rhythm, septal myocardial infarction of indeterminate age. Due to her h/o off and on left upper chest pain. She underwent cardiac evaluation showed no acute event; cardiac enzymes within normal limits, EKG no new changes. She is now being followed by cardiology. Pulmonary embolism was ruled out, chest x-ray showed no acute changes so pneumonitis or pneumonia was ruled out. Follow-up CT PET scan done on April 12, 2020 showed probable inflammatory activity at the proximal and distal ends of esophageal tube, likely tissue irritation; Activity in the mid esophagus with SUV of 7.4 consistent with a primary esophageal carcinoma; No evidence of distant metastatic disease; Left pleural effusion FDG negative; Central uterine activity; FDG negative right upper lobe groundglass opacity. As stated above, Ms Morillo began immunotherapy with On November 28, 2019. She had been tolerating it well overall. However after treatment on 04/24/2020, she had delay of treatment due to developement of a rash. She was given treatment with a Medrol Dosepak for the rash and with that her rash resolved. She has continued with 3 weekly Keytruda on 05-29-2020. She once again developed severe rash and developed sternal chest wall pain. Her rash and chest wall pain responded well to steroids and she continued on Keytruda every 3 weeks. Her last treatment was on 09/25/2020. She underwent follow-up PET/CT scan on September 20, 2020 which showed activity at proximal esophageal stent is now more extensive measuring 3.3 cm with SUV of 10. Mid esophageal activity seen previously is unchanged on current study. While activity at distal stent is improved and resolution of suspicious central uterine activity seen previously. Unchanged right upper lobe groundglass opacity but with interval development of bilateral pleural effusion. Her treatment has been on hold this generally 2019 due to declining performance status and overall increase in shortness of breath and left-sided posterior rib/lung pain. Is felt that she could have been having some immunotherapy induced pneumonitis and she was treated with steroids which initially responded really well. She did do Covid 19 vaccine. After her second injection she states that the steroids seem to not be working well for her and the shortness of breath worsened to the point of her having difficulty walking across the room. She denied any fever or chills at that time. She had no nausea or vomiting. She had no productive cough or hemoptysis. She states she was just short of breath. She states that as long as she was at rest she felt fine. She has remained on prednisone 40 mg as she states this is the thing that helps her breathing the most. She is attempted to wean down but has been unable thus far. She has been on 40 mg for 2 weeks at this point. INTERVAL HISTORY: Ms. Ansari is here today for follow-up. We have wanted to resume her immunotherapy given her PET/CT results from September 20, 2020 but have been unable due to her severe shortness of breath/ persistent pneumonitis symptoms and treatment. It is noted that she has not had recurrence of the rash since the immunotherapy has been on hold since September 25, 2020. She has been referred [facility] orthopedic clinic for evaluation of bilateral shoulder pain. She did have x-rays on November 19, 2020 which reported mild narrowing of the right acromioclavicular joint mild narrowing of the glenohumeral joint. Calcification adjacent to the humeral head insertion site of the rotator cuff tendon compatible with rotator cuff tendinopathy. She does have limited range of motion and significant pain. She is referred to orthopedics for further plan of care. Mrs Morillo is here today for followup. She states overall she is feeling really good. She is breathing much better. She has been able to wean the prednisone further. She states even with weaning she has not had any persistent cough or shortness of breath. She denies any fever or chills. She has had no nausea. Her swallowing has dramatically improved with the Protonix per Dr. Wiseman. She denies any diarrhea or constipation. She denies any lower extremity edema. She is also sleeping better with lorazepam. Her performance status has dramatically improved with this visit. Her ECOG is no 1. ] Past Medical History: Hypothyroidism Past Surgical History: Arthroscopic knee Cataract excision COVID VACCINE Esophageal biopsy Hernia repair Removal of ovarian cysts Flu Vaccine 20-21 in 2019 J-tube insertion in 2019 Allergies: HYDROcodone Bitartrate, Latex, and sulfa. Medications: Acetaminophen Extra Strength 15 mL (of 500 mg/15mL) Liquid Oral PRN All Day Allergy Childrens 7 mL (of 1 mg/mL) Solution Oral daily Artificial Tear Solution 1 Drop(s) Solution Ophthalmic daily Childrens Ibuprofen 5 mL (of 100 mg/5mL) Suspension Oral PRN Ondansetron HCl 4 - 8 mg (of 4 mg/5mL) Solution Oral t.i.d. PRN Potassium Chloride 15 mL (of 20 meq/15ml -10%) Solution Oral PRN predniSONE 1 Tablet (of 20 mg) Oral b.i.d. Protonix 1 Tablet (of 40 mg) Tablet, enteric coated Oral daily Family History: Ms. Morillo's mother at age 86: alzheimer. Ms. Morillo's father at age 72: heart disease. Ms. Morillo has 2 brothers: 2 alive. Ms. Morillo's first brother's prostate cancer. She has 2 sisters: 2 alive. She has 1 paternal aunt who is : lung cancer. Social History: Ms. Morillo is and she is unemployed. Ms. Morillo quit smoking 38 years ago but had smoked 1.5 packs/day for 7 years. She drinks occasionally. Review Of Symptoms: see above Vital Signs: Performed on Dec 10, 2020 14:26 Height - 69.50 in Weight - 133.4 lbs (HIGH) BSA - 1.75 sq.m BMI - 19.42 Temperature - 97.7 F (LOW) Pulse - 90 /min Respiration - 18 /min BP - 121/69 mm(hg) O2 Sat - 97 % Pain - 1 Fatigue - 2,1 - No physically strenuous activity, but ambulatory and able to carry out light or sedentary work (e.g. office work, light house work). (ECOG) Physical Examination: Constitutional Alert, oriented, no acute distress. Skin pink, warm and dry. Head Normocephalic; atraumatic. Eyes Conjunctivae and sclerae are clear and without icterus. Pupils are reactive and equal. Neck Supple without masses or thyromegaly. No jugular venous distension. Hematologic/Lymphatic No petechiae or purpura. No tender or palpable lymph nodes in the cervical or supraclavicular areas. Respiratory Lungs are clear to auscultation bilaterally without rhonchi or wheezing. Cardiovascular Regular rate and rhythm of heart without murmurs,clicks, gallops or rubs. Abdomen Non-tender, non-distended, no masses, Back/Spine Non-tender to palpation. Extremities No visible deformities, no cyanosis, clubbing or edema. Musculoskeletal No tenderness or swelling, normal range of motion without obvious weakness. Integumentary No rashes or lesions. Neurologic No sensory or motor deficits, normal cerebellar function, gait unassisted today. Psychiatric Alert and oriented times three. Coherent speech. Verbalizes understanding of our discussions today. Laboratory:Test performed on Dec 10, 2020 12:29 Sodium 141 mmol/L TSH 0.91 uIU/mL Potassium 4.0 mmol/L Chloride 100 mmol/L CO2 30 mmol/L Anion Gap 15.0 BUN 21 mg/dL Creatinine 0.4 mg/dL Cr Clearance (Est) 133.9400 mL/min eGFR 160.2 mL/min Glucose 164 mg/dL Osmolality - Calculated 299 mOsm/kg Calcium 8.9 mg/dL Protein, Total 6.2 g/dL Albumin 3.4 g/dL Globulin 2.8 g/dL Bilirubin, Total 0.2 mg/dL ALT (SGPT) 10 U/L AST (SGOT) 11 U/L Alkaline Phosphatase 49 IU/L WBC 9.8 10 3/uL RBC 4.05 10 6/uL HGB 11.4 g/dL HCT 37.8 % MCV 93.3 fL MCH 28.1 pg MCHC 30.2 g/dL RDW 16.3 % Platelet Count 313 10 3/cmm MPV 9.3 fL Neutrophils 9.09 10 3/uL Lymphocytes 0.4 10 3/uL Monocytes 0.2 10 3/uL Eosinophils 0.0 10 3/uL Basophils 0.0 10 3/uL Neutrophil % 93.2 % Lymphocyte % 4.2 % Monocyte % 1.9 % Eosinophil % 0.0 % Basophils % 0.2 % NRBC % 0 % Impression: Adenocarcinoma of distal esophagus per EGD and biopsies done on 12/01/2018 CT PET scan done on 12/15/2018 showed localized disease, no evidence of lymphadenopathy or distant metastases Clinical stage T2-3, Nx,M0 Focus of increased uptake in the uterus Dysphagia due to above status post esophageal stenting and now with J-tube MRI head done on 12/11/2018, showed no brain metastases but microvascular ischemic disease Hypothyroidism on supplements Dysfunctional uterine bleeding, CT PET scan showed increased uptake in uterus. Ms Morillo began carboplatin/Taxol and radiation on 03/12/2019. She was found to be iron deficient and received Injectafer o 03/23/19 & 03/30/19. Her last dose of Carboplatin/paclitaxel was on 03/26/19. .Due to progressive leukopenia, she could not receive further chemotherapy but continue with radiation alone which she completed on 04/19/2019, Now being treated with maintenance therapy with Keytruda Follow-up CT PET scan done on April 12, 2020 showed excellent response to maintenance therapy with Keytruda, now activity in the mid esophagus only otherwise no evidence of distant mets. PET/CT scan done after 12 doses of Keytruda on September 20, 2020 showed persistent activity at the proximal esophageal stent is now more extensive measuring 3.3 cm with SUV of 10. Mid esophageal activity seen previously is unchanged. While activity of the distal stent is improved and resolution of suspicious central uterine activity seen previously. Interval development of bilateral pleural effusion. Mrs Morillo's last dose of pembrolizumab was September 25, 2020. It has been on hold due to concerns of possibly immunotherapy induced pneumonitis and dermatitis. The rash and shortness of breath had initially been managed with lower dose steroids but recently she has had to increase the prednisone to 40 mg daily. This did occur after her second COVID-19 vaccine. She states that the shortness of breath got significantly worse after the COVID-19 vaccine. Plan: PROBLEMS ADDRESSED TODAY 1. Distal esophageal cancer A. Clinically, patient has been doing reasonably well with palliation with single agent Keytruda. Her PET/CT on September 20, 2020 showed persistent activity at the proximal esophageal stent but was more extensive measuring 3.3 cm with an SUV of 10. Mid esophageal activity seen previously was unchanged. While the activity of the distal stent is improved and resolution of suspicious central uterine activity that was seen previously. There was interval development of bilateral pleural effusions. Her last dose of pembrolizumab was on September 25, 2020. She has been on higher dose steroids for suspected pneumonitis as well as treating her persistent rash. She has had no rash since the pembrolizumab was stopped on September 25, 2020. B. HOLD PLANNED KEYTRUDA TREATMENT TODAY DUE TO SUSPECTED PERSISTENT PNEUMONITIS SYMPTOMS C. She indicates that she has stopped the prednisone altogether at this point. She states she is doing well off of it. D. Today's labs reviewed in detail discussed with Ms. Ansari and a copy was given to her. WBC 9.8, hemoglobin 11.4, platelets 330 ANC is 9090. Potassium 4.0 creatinine 0.4 random glucose 164 albumin 3.4 LFTs are normal TSH is 0.91. 2. Insomnia: A. She may continue lorazepam as it does seem to help. She is advised to try half to 1 tablet. Max dosing for lorazepam is 2 mg. B. She is advised she can try melatonin but I did recommend the fast dissolve tablet and start with 3 to 5 mg. C. Another alternative for the insomnia would be Benadryl 25 to 50 mg. D. She was instructed to contact us if this is not helping with the insomnia. 3. Bilateral shoulder pain A. She is waiting for an appointment with [facility] orthopedic clinic for evaluation of bilateral tendinopathy of her shoulders B. She did not want any different pain medication than what she is already taking. 4. Followup plan: A. Return in 2 weeks for followup to determine if we can resume the Keytruda. I elected to wait two more weeks to make sure she does not have rebound pneumonitis symptoms since she did not wean completely off the Prednisone and instead just stopped it. She is doing well thus far. B. I did request CBC, CMP and TSH just in case she is able to resume treatment. C. Ms Morillo was encouraged to call us in the interim if questions or problems arise. Signed By: Carlitos Dan-, AOJERMAINEP Phyllis Mccormick MD <<Signature on File>>
== END 2020-12-10 05:51 | disposition home or self-care (01) ==
LOC: ONCMED 05:55
PROVIDERS: PCP Family Medicine; Visit Provider Nurse Practitioner
DX: C15.5 Malignant neoplasm of lower third of esophagus (principal); E03.9 Hypothyroidism, unspecified; D64.9 Anemia, unspecified; R13.10 Dysphagia, unspecified; G47.00 Insomnia, unspecified; M25.512 Pain in left shoulder; M25.511 Pain in right shoulder; Z79.899 Other long term (current) drug therapy; Z92.21 Personal history of antineoplastic chemotherapy
CPT/HCPCS: 36591; 80053; 84443; 85025; 99214

== ENCOUNTER 2020-12-11 20:32 | Emergency (ER) | payer MEDICARE, BC, SELFPAY ==
--- NOTE | 2020-12-11 | XR_ITS ---
WS: [id number] PORTABLE CHEST HISTORY: UNRESPONSIVE COMPARISON: 12/11/2020 Nasogastric and endotracheal tubes are in good position. Esophageal stent has migrated inferiorly and now lies obliquely across the LEFT upper abdomen and is probably in the stomach. Mild elevation LEFT hemidiaphragm is stable. No pleural effusion or pneumothorax. Cardiac size: Normal. Mediastinum/Aorta: Mild atherosclerosis aorta. RIGHT subclavian Port-A-Cath. No osseous abnormality seen. XR/XR chest 1V portable [id number] IMPRESSION: 1. Esophageal stent has migrated inferiorly and now lies within the stomach. 2. Endotracheal nasogastric tubes in good position.
[2020-12-11] MEDS: sodium chloride 0.9% 1,000 ML 999 ML IV (20:31)
[2020-12-11 20:33] VITALS: BP 78/78; PULSE 142; RESP 18; TEMP 36.1; O2SAT 100; BMI 22.1
[2020-12-11 20:35] VITALS: RESP 14
--- NOTE | 2020-12-11 20:35 | XR_ITS ---
WS: [id number] PORTABLE CHEST HISTORY: GI bleed COMPARISON: 11/19/2020 Endotracheal tube in good position and ends several centimeters above the geovanni. RIGHT subclavian Me diport. Lungs are clear. Very slight elevation of the LEFT hemidiaphragm is stable. Previously descri bed esophageal stent is within the stomach. Lungs are clear and well expanded. No pleural effusion or pneumothorax. Cardiac size: Normal. Mediastinum/Aorta: Mild atherosclerosis aorta. No osseous abnormality seen. XR/XR chest 1V portable [id number] IMPRESSION: 1. Esophageal stent has inferiorly migrated now within the stomach. 2. Endotracheal tube in good position.
--- NOTE | 2020-12-11 20:36 | ECG_ITS ---
[facility] Test Date: 2020-12-11 Pat Name: Nerissa Morillo Department: Room: Gender: Female Clinical Consultant: : 1955 Requested By: Maninder Bauer Order Number: [id number] Ahmet MD: Michela Nava M.D. Measurements Intervals [place] Rate: 140 P: 62 HI: 135 QRS: 18 QRSD: 86 T: 79 QT: 271 QTc: 414 Interpretive Statements SINUS TACHYCARDIA MODERATE ST DEPRESSION [0.05+ mV ST DEPRESSION] Compared to ECG 03/27/2020 18:49:10 ST (T wave) deviation now present Sinus rhythm no longer present Myocardial infarct finding no longer present Electronically Signed On 12-11-2020 22:23:10 CDT by Michela Nava M.D. [id number]
[2020-12-11 20:50] LABS: Basophils % 0.2 %; Eosinophils % 0.1 %; Hemoglobin 7.4 g/dL (11.5-15.3); Lymphocytes # 3.8 10^3/uL (0.8-4.8); Lymphocytes % 41.1 %; Mean Corpuscular HGB Conc 26.4 g/dL (30.0-36.0); Mean Corpuscular Hemoglobin 28.8 pg (28.0-34.0); Mean Corpuscular Volume 108.9 fL (81-99); Mean Platelet Volume 10.4 fL (7.4-10.4); Monocytes # 0.7 10^3/uL (0.2-0.9); Monocytes % 7.5 %; Neutrophils # 4.64 10^3/uL (1.8-7.7); Neutrophils % 50.2 %; Nucleated Red Blood Cells % 0 %; Platelet Count 260 10^3/cmm (130-400); Red Blood Count 2.57 10^6/uL (4.1-5.3); Red Cell Distribution Width 16.5 % (12.1-15.1); White Blood Count 9.2 10^3/uL (4.0-10.0)
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
[2020-12-11 21:06] LABS: Slide Review Slide Review Perform
[2020-12-11 21:10] LABS: Troponin(5th) Baseline 34 ng/L (0-10)
[2020-12-11 21:14] LABS: INR 1.11 (0.8-1.2)
[2020-12-11 21:15] VITALS: TEMP 36.2
[2020-12-11 21:19] LABS: Alanine Aminotransferase 9 U/L (0-33); Albumin Level 2.4 g/dL (3.5-5.2); Alkaline Phosphatase 41 IU/L (35-105); Blood Urea Nitrogen 21 mg/dL (8-23); Calcium 8.6 mg/dL (8.5-10.5); Carbon Dioxide 17 mmol/L (22-29); Chloride 102 mmol/L (98-107); Globulin 1.6 g/dL (1.3-4.6); Glomerular Filtration Rate 100.3 mL/min (90-130); Glucose 262 mg/dL (65-115); Lipase 21 U/L (13-60); NT Pro B Type Natriuretic Pept 488 pg/mL (0-125); Osmolality Calculated 306 mOsm/kg (285-295); Sodium 142 mmol/L (136-145); Total Bilirubin 0.2 mg/dL (0.15-1.2)
[2020-12-11 21:20] LABS: Alcohol Level < 10 mg/dL (0-10); Anion Gap 27.5 (5-19); Aspartate Amino Transferase 22 U/L (0-32); Potassium 4.5 mmol/L (3.5-5.1)
[2020-12-11 21:45] LABS: Lactate (Lactic Acid level) 14.7 mmol/L (0.5-2.2)
[2020-12-11] MEDS: sodium chloride 0.9% 2,000 ML 999 ML IV (22:15)
[2020-12-11] MEDS: rocuronium 10 mg/mL INJ 5mL 50 MG IV (22:25)
--- NOTE | 2020-12-12 00:32 | PC.NURSE ---
patient received emergent status 6 units of blood and 1 unit of fresh frozen plasma while in the ED.
[2020-12-12 00:43] VITALS: BP 99/72; PULSE 131; RESP 18; O2SAT 100
[2020-12-15 09:42] LABS: ABG PCO2 56.6 mmHg (35-45); ABG PH Result 6.88 (7.35-7.45); Base Excess ABG -21.6 mmol/L (-2.0-2.0); Blood Gas Operator Identificat HARKR; HCO3 ABG 10.6 mmol/L (22-26); Oxygen Saturation ABG 99.5; Potassium Level - ABG 4.1 mmol/L (3.5-5.0)
[2020-12-15 09:43] LABS: Blood Gas Drawn By HARKR; Blood Gas Tidal Volume 450; Oxygen Device VENT
[2020-12-15 09:44] LABS: Arterial Blood Gas Hematocrit 25.5 % (37-47); Blood Gas Sample Type ARTERIAL
[2020-12-15 09:45] LABS: Carboxyhemoglobin 0.4 %THgb (0.4-20.1); Ionized Calcium Level - ABG 1.2 mmol/L (1.1-1.4); Methemoglobin 1.2 % (0.4-1.5); Total Hemoglobin 8.3 g/dL (12-16)
== END 2020-12-11 22:55 ==
PROVIDERS: Family Medicine; Emergency Provider Emergency Medicine; PCP Family Medicine
DX: K92.0 Hematemesis (principal); Z85.01 Personal history of malignant neoplasm of esophagus; Z87.891 Personal history of nicotine dependence; I70.0 Atherosclerosis of aorta; Z79.899 Other long term (current) drug therapy
CPT/HCPCS: 31500; 36415; 36430; 36600; 51702; 71045; 80051; 80053; 80307; 82330; 82805; 83605; 83690; 83880; 84484; 85025; 85610; 86850; 86900; 86920; 86927; 87040; 87205; 93005; 94002; 94799; 96361; 96365; 99291; 99292; C1751; J3490; J7030; P9016; P9017